=== PATIENT | female | born 1970 | race Hispanic/Latino ===

== ENCOUNTER 2018-03-21 09:09 | Inpatient (IN) | payer BC ==
[~2018-03-21] VITALS: Ht 157.5 cm; Wt 61.9 kg
[2018-03-21] MEDS ORDERED: PIPERACILLIN/TAZO 4.5 GM 100 ML IV ONE (09:45)
[2018-03-21] MEDS ORDERED: ENALAPRILAT IV INJ 1.25 MG/ML VIAL IV PRN ×2 (09:45→16:45)
[2018-03-21] MEDS ORDERED: ASPIRIN EC81 MG PO (09:52)
[2018-03-21] MEDS ORDERED: ATORVASTATIN CA40 MG PO (09:52)
[2018-03-21] MEDS ORDERED: FUROSEMIDE40 MG PO (09:52)
[2018-03-21] MEDS ORDERED: METFORMIN HCL500 MG PO (09:52)
[2018-03-21] MEDS ORDERED: BASAGLAR KWIKPEN SQ (09:52)
[2018-03-21] MEDS ORDERED: VASOTEC10 MG PO (09:52)
[2018-03-21] MEDS ORDERED: VANCOMYCIN 1GM/NS 250 ML 250 ML IV ONE (10:05)
[2018-03-21] MEDS ORDERED: CLONIDINE HCL 0.1 MG TAB PO ONE (10:15)
[2018-03-21 10:58] LABS: BASOPHILS # (AUTO) 0.1 (0.0-0.1); BASOPHILS % 0.3 % (0.0-1.0); EOSINOPHILS % 0.2 % (0.0-6.0); HEMATOCRIT 28.5 % (34.2-44.1); HEMOGLOBIN 9.9 g/dL (12.0-16.0); LYMPHOCYTES # (AUTO) 1.4 (1.0-3.2); LYMPHOCYTES % 7.7 % (18.0-39.1); MEAN CORPUSCULAR HEMOGLOBIN 29.9 pg (28-32); MEAN CORPUSCULAR HGB CONC 34.7 g/dL (31-35); MEAN CORPUSCULAR VOLUME 86.1 fL (81-99); MONOCYTES # (AUTO) 1.1 (0.2-0.8); MONOCYTES % 6.1 % (4.4-11.3); NEUTROPHILS # (AUTO) 15.1 (2.1-6.9); NEUTROPHILS % 85.2 % (38.7-80.0); PLATELET COUNT 680 x10e3/uL (140-360); RED BLOOD COUNT 3.31 x10e6/uL (3.6-5.1); RED CELL DISTRIBUTION WIDTH 12.9 % (11.7-14.4)
[2018-03-21] MEDS ORDERED: DEXTROSE 50% SYRINGE 50 ML IV PRN ×3 (11:15→16:45)
[2018-03-21] MEDS ORDERED: HYDROMORPHONE 2MG/ML 2 MG/ML ML IV PRN ×2 (11:15→16:45)
[2018-03-21] MEDS ORDERED: ZOLPIDEM TARTRATE 5 MG TAB PO PRN ×2 (11:15→16:45)
[2018-03-21] MEDS ORDERED: ONDANSETRON HCL INJ 2 MG/ML VIAL IV PRN ×2 (11:15→16:45)
[2018-03-21] MEDS ORDERED: ACETAMINOPHEN 325 MG TAB PO PRN (11:15)
[2018-03-21] MEDS ORDERED: MORPHINE SULFATE 2 MG/ML SYR IV PRN ×2 (11:15→16:45)
[2018-03-21] MEDS ORDERED: DIPHENHYDRAMINE HCL INJ 50 MG/ML VIAL IV PRN ×2 (11:15→16:45)
[2018-03-21] MEDS ORDERED: SODIUM CHLORIDE FLUSH 10 ML SYR INJ PRN ×2 (11:15→16:45)
[2018-03-21] MEDS ORDERED: LACTULOSE SYRUP 20 GM/30 ML UDC PO PRN ×2 (11:15→16:45)
[2018-03-21] MEDS ORDERED: INSULIN LISPRO 100 UNIT/1 ML 3ML VIAL SQ SCH ×3 (11:30→21:00)
[2018-03-21 11:57] LABS: ALBUMIN 1.8 g/dL (3.5-5.0); ALBUMIN/GLOBULIN RATIO 0.3 (0.8-2.0); ANION GAP 14.4 mmol/L (8-16); CALCIUM 9.2 mg/dL (8.4-10.2); CREATININE, SERUM 1.37 mg/dL (0.57-1.11); POTASSIUM 3.4 mmol/L (3.5-5.1)
--- NOTE | 2018-03-21 12:46 | Diagnostic Imaging Report ---
Exam: Left foot 2 views History: Fourth digit gangrene Comparison: None. Findings: The bones are diffusely osteopenic. No acute, displaced fracture or dislocation. Cortical destructive changes involving the distal phalanx of the fourth digit. Soft tissue swelling of the forefoot without subcutaneous gas. 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 Background diffuse osteopenia. Signed by: Dr. Shankar Rodriguez M.D. on 03/21/2018 12:43 PM
--- OUTSIDE RECORDS SUMMARY | 2018-03-21 13:57 | XMS REPORT ---
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 Allergies, Adverse Reactions, Alerts This patient has no known allergies or adverse reactions. Medications This patient has no known medications. Results Test Description Test Time Test Comments Text Results Atomic Results Result Comments FOOT LEFT AP LAT 2018-03-21 12:34:00 [place] [id number] Patient Name: TRINH RICHTER MR #: [id number] : 1970 Age/Sex: 47/F Req #: [id number] Adm Physician: Ordered by: ANNA PICHARDO MD Report #: [id number] Location: ER Room/Bed: Procedure: [id number] DX/FOOT LEFT AP LAT Exam Date: 03/21/18 Exam Time: 1150 REPORT STATUS: Signed Exam: Left foot 2 views History: Fourth digit ga ngrene Comparison: None. Findings: The bones are diffusely osteopenic. No acute, displaced fracture or dislocation. Cortical destructive changes involving the distal phalanx of the fourth digit. Soft tissue swelling of the forefoot without subcutaneous gas. 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 Background diffuse osteopenia. Signed by: Dr. Sariah Joseph M.D. on 03/21/2018 12:43 PM Dictated By: SARIAH JOSEPH MD [id number] Transcribed By: JAMES on 03/21/18 1243 COPY TO: ANNA PICHARDO MD
[2018-03-21 15:10] VITALS: BP 141/67
[2018-03-21 15:23] VITALS: BP 141/67
[2018-03-21] MEDS: INSULIN LISPRO 100 UNIT/1 ML 3ML VIAL SQ SCH ×2 (16:39→20:51)
[2018-03-21 16:40] VITALS: BP 121/63
[2018-03-21] MEDS ORDERED: SODIUM CHLORIDE 0.9% 250ML 250 ML ONE (16:42)
[2018-03-21] MEDS ORDERED: VANCOMYCIN 1GM/NS 250 ML 250 ML IV SCH ×2 (16:45→18:30)
[2018-03-21] MEDS ORDERED: PIPER-TAZ 3.375 GM 50 ML IV SCH (17:00)
[2018-03-21] MEDS: FAMOTIDINE 20 MG/2 ML VIAL IV SCH (17:00)
[2018-03-21] MEDS: PIPER-TAZ 3.375 GM 50 ML IV SCH ×2 (17:00→23:39)
[2018-03-21] MEDS ORDERED: FAMOTIDINE 20 MG/2 ML VIAL IV SCH (17:00)
[2018-03-21] MEDS: VANCOMYCIN 1GM/NS 250 ML 250 ML IV SCH (18:00)
[2018-03-21 19:58] VITALS: BP 120/60
--- NOTE | 2018-03-21 21:27 | Consultation ---
DATE OF CONSULTATION: March 21, 2018 CARDIOLOGY CONSULTATION REFERRING PHYSICIAN: Dr. Neeraj Cordova. REASON FOR CONSULTATION: Left fourth toe gangrene. HISTORY OF PRESENT ILLNESS: Ms. Weeks is a pleasant 47-year-old woman with history of diabetic retinopathy and decreased visual acuity, hypertension, diabetes mellitus type 2, and hyperlipidemia, who presents to [facility] for worsening discoloration of left fourth toe, occurring over the preceding couple of weeks. She denies any chest pain or shortness of breath. Denies any prior episodes of syncope or presyncope. Denies any prior history of known atherosclerotic vascular disease other than carotid disease noted by Doppler ultrasound in the past. REVIEW OF SYSTEMS: A 12-system review is negative except for as noted above. ALLERGIES: NO KNOWN DRUG ALLERGIES. PAST MEDICAL HISTORY: Diabetes mellitus type 2, hypertension, dyslipidemia, carotid artery disease by Doppler, retinopathy, and nephropathy. SOCIAL HISTORY: Denies smoking, alcohol, or drugs. FAMILY HISTORY: Noncontributory. PHYSICAL EXAMINATION VITAL SIGNS: Temperature 98 degrees, heart rate 101, respiratory rate 20, blood pressure 121/63, and O2 sat 100% on room air. GENERAL: In no acute distress, alert. NECK: No JVD. Right carotid bruit. CHEST: Clear to auscultation. CARDIOVASCULAR: Regular rate and rhythm. Normal S1 and S2. No S3 or S4. No murmurs or rubs. ABDOMEN: Soft, nontender, nondistended. EXTREMITIES: No edema. Warm distal extremities. Abnormal dorsalis pedis and posterior tibials pulses, decreased bilaterally. Left first toe gangrene with discoloration of the MTP area, skin overlying has purulent secretion and erythema surrounding fourth toe and tenderness to palpation. CARDIOVASCULAR MEDICATIONS: Reviewed. Zosyn and vancomycin were antibiotics. Enalapril p.r.n. and amlodipine 10 mg daily. STUDIES: Reviewed. Sodium 134, potassium 3.4, chloride 98, bicarbonate 25, BUN 30, creatinine 1.37, glucose 96, calcium 9.2. Total bilirubin 0.3, AST 20, ALT 21, alk phos 324, total protein 7.4, albumin 1.8. Hemoglobin 9.9 with MCV of 86 and RDW of 12.9, white blood cells 17.7, platelets 680. Blood cultures ordered and pending. Gram stain wound culture sent. EKG normal sinus rhythm, normal EKG. ASSESSMENT 1. Left fourth toe gangrene and cellulitis/abscess. 2. Abnormal pedal pulses concerning for peripheral arterial disease. 3. Diabetes mellitus with nephropathy and retinopathy. 4. Chronic kidney disease. 5. Right carotid bruit with history of abnormal carotid Doppler reported by patient, asymptomatic. RECOMMENDATIONS: Arterial Doppler ultrasound has been ordered and is pending. We will initiate aspirin and statin therapy. Aggressive diabetes management advised. Agree with antibiotics and foot care per podiatry. Low threshold for arterial angiogram and possible intervention. Discussed with patient given abnormal findings on physical exam. We will await arterial Doppler to further plan. Indications, alternatives, risks, and benefits for possible angiography and a percutaneous peripheral intervention has been discussed with patient and family members who voice agreement. 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 As available, we will proceed. Job#: [id number] SHANE
[2018-03-21 23:00] VITALS: BP 120/60
[2018-03-22] VITALS (9 sets, daily range): BP systolic 130–145; BP diastolic 62–72
[2018-03-22 05:10] LABS: ALBUMIN 1.4 g/dL (3.5-5.0); ALBUMIN/GLOBULIN RATIO 0.3 (0.8-2.0); ANION GAP 12.1 mmol/L (8-16); CALCIUM 8.4 mg/dL (8.4-10.2); CREATININE, SERUM 1.68 mg/dL (0.57-1.11); POTASSIUM 4.1 mmol/L (3.5-5.1)
[2018-03-22] MEDS: PIPER-TAZ 3.375 GM 50 ML IV SCH ×4 (05:20→23:40)
[2018-03-22 05:38] LABS: CHOL/HDL RATIO 4.5 (3.0-3.6)
[2018-03-22 05:51] LABS: BASOPHILS % 0.3 % (0.0-1.0); EOSINOPHILS # (AUTO) 0.1 (0.0-0.4); EOSINOPHILS % 0.9 % (0.0-6.0); HEMOGLOBIN 7.4 g/dL (12.0-16.0); LYMPHOCYTES # (AUTO) 1.6 (1.0-3.2); LYMPHOCYTES % 13.7 % (18.0-39.1); MEAN CORPUSCULAR HEMOGLOBIN 29.1 pg (28-32); MEAN CORPUSCULAR HGB CONC 33.5 g/dL (31-35); MONOCYTES # (AUTO) 0.9 (0.2-0.8); MONOCYTES % 7.9 % (4.4-11.3); NEUTROPHILS # (AUTO) 8.9 (2.1-6.9); NEUTROPHILS % 76.8 % (38.7-80.0); PLATELET COUNT 538 x10e3/uL (140-360); RED BLOOD COUNT 2.54 x10e6/uL (3.6-5.1); RED CELL DISTRIBUTION WIDTH 12.6 % (11.7-14.4)
[2018-03-22 05:56] LABS: HEMATOCRIT 22.1 % (34.2-44.1)
[2018-03-22 05:58] LABS: THYROID STIMULATING HORMONE 2.804 uIU/mL (0.350-4.940)
[2018-03-22] MEDS: VANCOMYCIN 1GM/NS 250 ML 250 ML IV SCH ×2 (06:08→17:54)
[2018-03-22] MEDS ORDERED: SODIUM CHLORIDE 0.9% 1000ML 1,000 ML IV ONE (07:15)
[2018-03-22] MEDS: INSULIN LISPRO 100 UNIT/1 ML 3ML VIAL SQ SCH ×4 (07:30→22:00)
[2018-03-22] MEDS ORDERED: FAMOTIDINE 20 MG/2 ML VIAL IV PRN (08:15)
[2018-03-22] MEDS: HYDROCODONE/APAP 5MG-325MG TAB PO PRN (08:18)
[2018-03-22] MEDS ORDERED: SODIUM CHLORIDE 0.9% 250ML 250 ML IV ONE (09:00)
[2018-03-22] MEDS: AMLODIPINE BESYLATE 10 MG TAB PO SCH (09:00)
[2018-03-22] MEDS: ATORVASTATIN 40 MG TAB PO SCH (09:00)
[2018-03-22] MEDS: FAMOTIDINE 20 MG/2 ML VIAL IV SCH ×2 (09:00→17:00)
[2018-03-22] MEDS ORDERED: ATORVASTATIN 20 MG TAB PO SCH (09:00)
[2018-03-22] MEDS: ASPIRIN 81 MG CHEW TAB PO SCH (09:00)
[2018-03-22] MEDS ORDERED: AMLODIPINE BESYLATE 10 MG TAB PO SCH ×2 (09:00)
[2018-03-22] MEDS: ACETAMINOPHEN 325 MG TAB PO PRN (13:15)
[2018-03-22] MEDS ORDERED: SODIUM CHLORIDE 0.9% 250ML 250 ML ONE (13:22)
--- NOTE | 2018-03-22 17:11 | Progress Note ---
DATE: March 22, 2018 CARDIOLOGY PROGRESS NOTE SUBJECTIVE: No complaints today. OBJECTIVE VITALS: Temperature 98.3, heart rate 101, respiratory rate 20, blood pressure 130/62, O2 sat 96% on room air. GENERAL: In no acute distress, alert. NECK: No JVD. Right carotic bruits. CHEST: Clear to auscultation. CARDIOVASCULAR: Regular rate and rhythm. Normal S1 and S2. No S3 or S4. ABDOMEN: Soft and nontender. EXTREMITIES: Left 4th toe gangrene and base of toe with secretion and discoloration. Abnormal pedal pulses and dorsalis pedis as well as posterior tibialis bilaterally. CARDIOVASCULAR MEDICATIONS: Reviewed. 1. Atorvastatin 80 gm daily. 2. Aspirin 81 mg daily. 3. Amlodipine 10 mg daily. 4. Zosyn and vancomycin antibiotics. STUDIES: White blood cells 11.6 trending down, hemoglobin 7.4 down from 9.9, platelets 138, MCV is 87, RDW is 12.6. Sodium 137, potassium 4.1, chloride 104, bicarbonate 25, BUN 36, creatinine 1.68, glucose 126. Hemoglobin A1c elevated at 10.4. Total bilirubin is 0.2. Calcium 8.4, AST 16, ALT 18, alk phos 260, total protein 6, albumin 1.4, triglyceride is 93. Total cholesterol 130, LDL 82, HDL 29, TSH 2.8. Stool occult blood negative. Foot x-ray; osteomyelitis of the distal phalanx of the 4th ray, background diffuse osteopenia. Arterial Doppler of the left lower extremity reveals outflow severe disease with left posterior tibial artery and left anterior tibial artery and dorsalis pedis artery monophasic waveforms, also elevated velocities to 285 noted in the mid left AT as well as 2nd segment of elevated velocity of the left DPA 171 consistent with hemodynamically significant stenosis throughout this vessel. ASSESSMENT 1. Anemia with negative first occult blood in stools. 2. Acute kidney injury on chronic kidney disease. 3. Carotid stenosis with right carotid bruits. 4. Peripheral arterial disease with outflow disease to the left lower extremity, presenting with critical limb ischemia and left 4th toe osteomyelitis gangrene. 5. Hypertension. 6. Dyslipidemia. RECOMMENDATIONS: Discussed extensively with Ms. Weeks her findings. I suspect significant degree of diabetic foot disease component given her retinopathy and visual impairments as well as her nephropathy given her elevated velocities in the dorsal pedis artery on Doppler. Furthermore, angiography to further determine [id number] disease that might potentially benefit from revascularization or be amenable to revascularization is wanted. Prior to this, however, would suggest further evaluation of anemia given drop in H and H as well as renal failure with acute component. For now, continue aggressive medical therapy, antibiotics. Will follow closely. 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 Job#: [id number] ALFONSO
--- NOTE | 2018-03-22 22:29 | Progress Note ---
DATE: March 22, 2018 PROGRESS NOTE SUBJECTIVE: Patient was seen at bedside, accompanied by spouse. Doing much better, in better spirits. Denying any history of fever, chills, nausea, or vomiting. OBJECTIVE VITAL SIGNS: Afebrile. Pulse rate 100, respirations 20, blood pressure 139/67, and O2 saturation 97%. EXTREMITIES: Gangrenous changes to the 4th toe stable for now. Pedal pulses are diminished. LABS: White blood cell dropping from 17.7 to 11.6, hemoglobin to 7.4, and hematocrit 22.1 with a platelet count of 538. Has a blood glucose dropping from 215 to 125 as of 03:28. ASSESSMENT: Peripheral artery disease with gangrene, left foot with cellulitis. PLAN: We will await Dr. Blank to do his angiogram and possible bypass surgery. Patient instructed to let the foot demarcate before any definitive surgical procedure will be done. Amputation level will be determined following demarcation of the toe following an angiogram with possible angioplasty. We will continue IV antibiotics and local wound care. Job#: [id number] RTSrini
--- NOTE | 2018-03-22 23:31 | Consultation ---
DATE OF CONSULTATION: March 21, 2018 REASON FOR CONSULTATION: Gangrenous changes to the 4th digit, left foot, with patient being an insulin-dependent diabetic times 3 years but has been a noninsulin-dependent diabetic times 20+ years. HISTORY OF PRESENT ILLNESS: This is a pleasant 47-year-old female who was seen at bedside accompanied by spouse and son who relates that the toe started becoming somewhat discolored 3 to 4 weeks ago. It started turning black more than a week ago. She is denying any history of fever, chills, nausea, or vomiting. PAST MEDICAL HISTORY: Remarkable for insulin-dependent diabetes, hypertension. PAST SURGICAL HISTORY: Remarkable for 2 C-sections. ALLERGIES: PATIENT DENIES. SOCIAL HISTORY: Denies any smoking, drinking, or recreational drug use. Lives with her , has 2 kids. FAMILY HISTORY: Noncontributory. REVIEW OF SYSTEMS CARDIAC: Denies any palpitations or arrhythmias. RESPIRATORY: Denies any shortness of breath or productive cough. GASTROINTESTINAL: Denies any diarrhea or constipation. GENITOURINARY: Denies hematuria or problems voiding. PHYSICAL EXAMINATION VITALS: Afebrile. PODIATRIC PHYSICAL EXAMINATION Reveals the following: Vasculature: Pedal pulses of both the dorsalis pedis and posterior tibial arteries are diminished to both lower extremities. CFT to all toes less than 5 seconds. Skin temperature is warm and cool to touch. NEUROLOGICAL: Decrease in protective sensation when utilizing V[employer] 5.07 monofilament wire. Muscle mass is symmetrical and strength is 4/5 to 5/5 to all muscle groups. Edema noted to the left foot when compared to the right. DERMATOLOGICAL: Gangrenous changes to the 4th digit, left foot, up to the metatarsophalangeal joint with periwound cellulitis at the metatarsophalangeal joint area. X RAYS: Negative for any gas in the tissue at this time. LABS: Noted, has a white blood cell count of 17.71, hemoglobin 9.9, hematocrit 28.5 with a platelet count of 680,000. ASSESSMENT 1. Gangrene, 4th toe, left foot. 2. Peripheral arterial disease. 3. Diabetic neuropathy. PLAN: Will start diluted wet-to-dry Betadine dressing. Consult Dr. Jan Blank for vascular evaluation. Continue IV antibiotics such as vancomycin and Zosyn. Will continue to follow. Will let the foot demarcate. Patient will need an angiogram with possible bypass surgery per Dr. Blank. Job#: [id number] CF
[2018-03-23] VITALS (8 sets, daily range): BP systolic 129–176; BP diastolic 66–77
[2018-03-23 04:50] LABS: BASOPHILS # (AUTO) 0.1 (0.0-0.1); BASOPHILS % 0.5 % (0.0-1.0); EOSINOPHILS # (AUTO) 0.1 (0.0-0.4); EOSINOPHILS % 0.8 % (0.0-6.0); HEMATOCRIT 25.3 % (34.2-44.1); HEMOGLOBIN 8.5 g/dL (12.0-16.0); LYMPHOCYTES # (AUTO) 1.5 (1.0-3.2); LYMPHOCYTES % 11.3 % (18.0-39.1); MEAN CORPUSCULAR HEMOGLOBIN 28.9 pg (28-32); MEAN CORPUSCULAR HGB CONC 33.6 g/dL (31-35); MEAN CORPUSCULAR VOLUME 86.1 fL (81-99); MONOCYTES % 7.7 % (4.4-11.3); NEUTROPHILS # (AUTO) 10.3 (2.1-6.9); NEUTROPHILS % 79.2 % (38.7-80.0); PLATELET COUNT 520 x10e3/uL (140-360); RED BLOOD COUNT 2.94 x10e6/uL (3.6-5.1)
[2018-03-23] MEDS: PIPER-TAZ 3.375 GM 50 ML IV SCH ×4 (05:10→23:27)
[2018-03-23 05:13] LABS: ANION GAP 15.6 mmol/L (8-16); CALCIUM 8.5 mg/dL (8.4-10.2); CREATININE, SERUM 1.83 mg/dL (0.57-1.11); MAGNESIUM 1.9 MG/DL (1.3-2.1); POTASSIUM 3.6 mmol/L (3.5-5.1)
[2018-03-23 05:34] LABS: FERRITIN 193.23 ng/mL (4.63-204.00)
[2018-03-23 06:34] LABS: FOLATE 17.3 ng/mL (7.0-15.4)
[2018-03-23] MEDS: INSULIN LISPRO 100 UNIT/1 ML 3ML VIAL SQ SCH ×4 (07:30→21:30)
[2018-03-23] MEDS: HYDROCODONE/APAP 5MG-325MG TAB PO PRN (08:28)
[2018-03-23] MEDS: SODIUM CHLORIDE 0.9% 1000ML 1,000 ML IV SCH ×2 (09:03→14:05)
[2018-03-23] MEDS: ATORVASTATIN 40 MG TAB PO SCH (09:05)
[2018-03-23] MEDS: ASPIRIN 81 MG CHEW TAB PO SCH (09:05)
[2018-03-23] MEDS: FAMOTIDINE 20 MG/2 ML VIAL IV SCH ×2 (09:05→17:52)
[2018-03-23] MEDS: AMLODIPINE BESYLATE 10 MG TAB PO SCH (09:06)
[2018-03-23] MEDS: ASCORBIC ACID 500 MG TAB PO SCH ×2 (11:20→17:52)
--- NOTE | 2018-03-23 14:05 | Progress Note ---
DATE: March 23, 2018 SUBJECTIVE: Patient is at bedside accompanied by spouse. Denying any history of fever, chills, nausea, or vomiting. OBJECTIVE VITAL SIGNS: Afebrile, pulse rate 109, respirations 18, blood pressure 176/77, O2 saturation 97%. EXTREMITIES: Has forefoot cellulitis with some discomfort overlying the 4th metatarsophalangeal joint, left foot. Gangrenous changes noted to the 4th digit, left foot with a grade 4 ulcer medial and lateral with some bone exposed. Plantarly, there is some mild discoloration to the 2nd and 3rd digits and beginning of discoloration to the 5th digit, left foot. Pedal pulses are diminished, but diminished to nonpalpable. Skin temperature is warm to touch on this date. LABS: Show a white blood cell count 12.96, hemoglobin 8.5, hematocrit 25.3 with a platelet count of 520,000. ASSESSMENT 1. Peripheral artery disease with gangrene, grade 4 ulcer. 2. Diabetic neuropathy with cellulitis. PLAN: Will continue IV antibiotics such as Zosyn. Vanco has been put on hold. Will continue with diluted wet-to-dry Betadine b.i.d. Continue off loading. Will continue to follow. Patient will be having an angiogram possibly on Monday. Possible angioplasty per Dr. Blank. Job#: [id number] NH
--- NOTE | 2018-03-23 15:23 | Progress Note ---
DATE: March 23, 2018 CARDIOLOGY PROGRESS NOTE SUBJECTIVE: No complaints. OBJECTIVE VITALS: Temperature 96 degrees, heart rate 109, respiratory rate 18, blood pressure 176/77. O2 sat 97%. BMI is 23. GENERAL: In no acute distress, alert. NECK: No JVD. CHEST: Clear to auscultation. CARDIOVASCULAR: Regular rate and rhythm. Normal S1 and S2. No S3 or S4. ABDOMEN: Soft and nontender. EXTREMITIES: Trace edema. Left foot wound covered in dressings. CARDIOVASCULAR MEDICATIONS: Reviewed. 1. P.R.N. enalapril. 2. Morphine p.r.n. 3. Normal saline IV. 4. Aspirin 81 mg daily. 5. Amlodipine 10 mg daily. 6. Atorvastatin 80 mg nightly. 7. Ferrous sulfate 325 mg b.i.d. 8. Metoprolol 25 mg daily. 9. Zosyn. STUDIES: Reviewed. Potassium 3.6, bicarbonate 21, creatinine 1.83 today, glucose 98. Hemoglobin 8.5, platelets 520. AST 16, ALT 18. White blood cells remain elevated at 12.9. ASSESSMENT 1. Sepsis. 2. Left 4th toe gangrene and osteomyelitis with associated ischemic changes. 3. Abnormal arterial Doppler concerning for severe outflow peripheral arterial disease. 4. Acute kidney injury on chronic kidney disease. 5. Diabetes mellitus, type 2, with nephropathy and retinopathy and peripheral arterial disease. 6. Anemia. RECOMMENDATIONS 1. Given worsening renal function, hold off on angiography for now until more stable. Would suggest nephrology consultation. 2. Anemia evaluation and advice. 3. Continue current cardiovascular medications otherwise. Overall guarded foot prognosis. I agree with antibiotic and wound care as renal function and anemia allow. If there is a window of opportunity for angiography and possible intervention in a safe manner, will arrange. Will follow closely on a daily basis. Job#: [id number]
[2018-03-23] MEDS: FERROUS SULFATE 325 MG TAB PO SCH (17:52)
[2018-03-24] VITALS (8 sets, daily range): BP systolic 130–154; BP diastolic 63–73
[2018-03-24] MEDS: ACETAMINOPHEN 325 MG TAB PO PRN (00:48)
[2018-03-24] MEDS: SODIUM CHLORIDE 0.9% 1000ML 1,000 ML IV SCH ×2 (00:49→03:00)
[2018-03-24 04:53] LABS: BASOPHILS # (AUTO) 0.1 (0.0-0.1); BASOPHILS % 0.5 % (0.0-1.0); EOSINOPHILS # (AUTO) 0.3 (0.0-0.4); EOSINOPHILS % 2.1 % (0.0-6.0); HEMATOCRIT 25.2 % (34.2-44.1); HEMOGLOBIN 8.4 g/dL (12.0-16.0); LYMPHOCYTES # (AUTO) 2.1 (1.0-3.2); LYMPHOCYTES % 16.6 % (18.0-39.1); MEAN CORPUSCULAR HEMOGLOBIN 28.9 pg (28-32); MEAN CORPUSCULAR HGB CONC 33.3 g/dL (31-35); MEAN CORPUSCULAR VOLUME 86.6 fL (81-99); NEUTROPHILS # (AUTO) 9.1 (2.1-6.9); NEUTROPHILS % 72.2 % (38.7-80.0); PLATELET COUNT 514 x10e3/uL (140-360); RED BLOOD COUNT 2.91 x10e6/uL (3.6-5.1); RED CELL DISTRIBUTION WIDTH 12.8 % (11.7-14.4)
[2018-03-24 05:12] LABS: ANION GAP 13.9 mmol/L (8-16); CALCIUM 8.2 mg/dL (8.4-10.2); CREATININE, SERUM 1.98 mg/dL (0.57-1.11); MAGNESIUM 1.9 MG/DL (1.3-2.1); POTASSIUM 3.9 mmol/L (3.5-5.1)
[2018-03-24] MEDS: HYDROCODONE/APAP 5MG-325MG TAB PO PRN ×2 (05:25→17:47)
[2018-03-24] MEDS: PIPER-TAZ 3.375 GM 50 ML IV SCH ×2 (05:27→12:10)
[2018-03-24] MEDS ORDERED: METOPROLOL TARTRATE 25 MG TAB PO SCH (09:00)
[2018-03-24] MEDS: INSULIN LISPRO 100 UNIT/1 ML 3ML VIAL SQ SCH ×4 (09:14→21:51)
[2018-03-24] MEDS: FERROUS SULFATE 325 MG TAB PO SCH ×2 (09:15→17:23)
[2018-03-24] MEDS: ATORVASTATIN 40 MG TAB PO SCH (09:15)
[2018-03-24] MEDS: ASPIRIN 81 MG CHEW TAB PO SCH (09:15)
[2018-03-24] MEDS: FAMOTIDINE 20 MG/2 ML VIAL IV SCH ×2 (09:15→17:23)
[2018-03-24] MEDS: AMLODIPINE BESYLATE 10 MG TAB PO SCH (09:20)
[2018-03-24] MEDS: ASCORBIC ACID 500 MG TAB PO SCH ×2 (09:20→17:23)
[2018-03-24] MEDS: OYST-CAL-D 500MG TABLET PO SCH ×2 (09:20→17:23)
--- NOTE | 2018-03-24 12:57 | Consultation ---
DATE OF CONSULTATION: March 24, 2018 NEPHROLOGY CONSULTATION REASON FOR CONSULTATION: Acute kidney injury. HPI: This is a 47-year-old female who has a left diabetic foot ulcer with underlying cellulitis and abscess, who also has underlying CKD and longstanding type 2 diabetes, who comes in due to worsening pain in the left foot with 4th toe gangrene, cellulitis, and abscess with chronic debridement by podiatry and evaluation by cardiology. Nephrology was consulted due to underlying acute kidney injury. In further discussion with the patient, she has never been told that she has chronic kidney disease. She has been having diabetes for the last 20 years and reports that it has been controlled occasionally and sometimes uncontrolled. She does have underlying peripheral neuropathy and peripheral retinopathy as well. Denies any hypertension. Denies any nephrolithiasis, chronic UTIs, family history of renal disease. She does report taking NSAIDS about 3 to 4 times per week due to chronic pain in her left foot. Patient was seen and evaluated at bedside on the medical floor, currently doing well, with no other complaints at this time. REVIEW OF SYSTEMS: Pertinent positive: Left foot cellulitis with pain. Pertinent negative: Denies any chest pain, palpitation, nausea, vomiting, diarrhea, dysuria, hematuria, frequency, urgency, lightheadedness, dizziness, abdominal pain, headache, shortness of breath, cough, congestion, fever, or any other complaints. The rest of 14-point review of systems have been reviewed with the patient and are negative. ALLERGIES: NO KNOWN DRUG ALLERGIES. HOME MEDICATIONS 1. Aspirin 81 mg daily. 2. Enalapril 10 mg daily. 3. Furosemide 40 mg daily,. 4. Metformin 500 mg p.o. b.i.d. 5. Atorvastatin 40 mg daily. PAST MEDICAL HISTORY: Type 2 diabetes for 20 years, hyperlipidemia, hypertension, diabetic foot ulcer, peripheral neuropathy, diabetic retinopathy. PAST SURGICAL HISTORY: Debridement in her left foot. FAMILY HISTORY: Hypertension and diabetes. SOCIAL HISTORY: No drugs. No alcohol. Does not smoke. Good social support. LAB FINDINGS: Show white count is 12.5, hemoglobin 8.4, hematocrit is 25, platelets of 514. Chemistry: Sodium 136, potassium 3.9, chloride 107, bicarb is 19, anion gap of 13, BUN is 31, creatinine is 1.9, and her baseline here at this hospital is 1.3. There are no other creatinines to compare. Hemoglobin A1c is 8.2, magnesium 1.9, iron saturation of 17%. GFR is 27. MICROBIOLOGY: She has Staph aureus group A strep and Pseudomonas on her wound culture. Blood cultures revealed no growth to date. IMAGING STUDIES: Foot x-ray shows osteomyelitis of the distal phalanx of the 4th ray with diffuse osteopenia. PHYSICAL EXAMINATION VITAL SIGNS: Temperature is 97.9, pulse 100, respiratory rate is 20, blood pressure 154/74, pulse ox 97% on room air. GENERAL: Not in acute distress, alert and oriented x3, cooperative on examination. HEENT: Head normocephalic, atraumatic. Eyes: Pupils are equal, round, and reactive to light bilaterally. Extraocular movements intact bilaterally. Throat: No evidence of any erythema or exudates in the posterior pharynx, has poor dentition. NECK: Supple with good range of motion. PULMONARY: Clear to auscultation bilaterally. No wheezing, no rales, no rhonchi, no crackles appreciated. CARDIOVASCULAR: Positive S1 and S2. No murmurs, rubs, or gallops appreciated. ABDOMEN: Soft, nondistended, nontender to palpation. Bowel sounds present. MUSCULOSKELETAL: Strength is 5/5 throughout. No evidence of any muscle deficits on examination. No weakness appreciated. NEUROLOGICAL: Cranial nerves II through XII are grossly intact. No evidence of any neurological deficits on exam. SKIN: Intact. Warm to touch. Good cap refill. PSYCHIATRIC: Normal affect and mood. EXTREMITIES: No edema. Good range of motion throughout. IMPRESSION 1. Diabetic foot ulcer. 2. Uncontrolled type 2 diabetes. 3. Acute kidney injury on chronic kidney disease, likely to be chronic kidney disease stage 4 due to her longstanding type 2 diabetes. 4. History of nonsteroidal antiinflammatory drug usage. 5. Small vessel disease. PLAN: At this time, I will get urine electrolytes, urine sodium, urine protein to creatinine ratio, urine creatinine, microalbumin to creatinine, and UA with microscopy. We will get serum uric acid, intact PTH, and vitamin D level. Get a renal ultrasound as well. My guess is that this patient's underlying renal failure is likely due to diabetes from several years. Otherwise, we will continue to follow. Thank you so much for this consultation. Job#: [id number] DONALDO
--- NOTE | 2018-03-24 17:11 | Progress Note ---
DATE: March 24, 2018 CARDIOLOGY PROGRESS NOTE SUBJECTIVE: No complaints today. OBJECTIVE VITAL SIGNS: Temperature 97.7, heart rate 97, respiratory rate 18, blood pressure 133/73, O2 sat 98%. GENERAL: In no acute distress, alert. NECK: No JVD. CHEST: Clear to auscultation. CARDIOVASCULAR: Regular rate and rhythm. Normal S1 and S2. No S3 or S4. ABDOMEN: Soft and nontender. EXTREMITIES: No edema. Normal pedal and dorsalis pedis pulses. Left 4th toe gangrene. CARDIOVASCULAR MEDICATIONS: Reviewed. 1. Zosyn and vancomycin antibiotics. 2. Amlodipine 10 mg daily. 3. Aspirin 81 mg daily. 4. Ferrous sulfate 325 mg b.i.d. 5. Atorvastatin 80 mg nightly. 6. Metoprolol titrate 25 mg daily. 7. Enalapril 1.25 mg IV q.6 hours p.r.n. STUDIES: Reviewed. Sodium 136, potassium 3.9, chloride 107, bicarbonate 19, BUN 31, creatinine 1.92, and glucose 110. Hemoglobin 8.4, white blood cell 12.5, and platelets 514. AST 16, ALT 18, alk phos 260. ASSESSMENT 1. Acute kidney injury on chronic kidney disease 2. Metabolic acidosis. 3. Suspected anemia of chronic disease. 4. Carotid artery stenosis with right-sided bruits on exam. 5. Left 4th toe gangrene and osteomyelitis. 6. Peripheral arterial disease. 7. Hypertension. 8. Diabetes mellitus type 2 with nephropathy and retinopathy. 9. Dyslipidemia. RECOMMENDATIONS 1. Given worsening renal function, we will hold off on angiography for now. 2. Appreciate nephrology's expert opinion. 3. Continue current cardiovascular medications. Avoid nephrotoxic agents as possible. 4. Fecal occult blood was negative. Monitor H and H. 5. Antibiotics per primary service. 6. Podiatry on board. Job#: [id number] ALFONSO
[2018-03-24 17:42] LABS: CLARITY,URINE HAZY (CLEAR); COLOR,URINE YELLOW (YELLOW)
[2018-03-24 17:43] LABS: BILIRUBIN,URINE NEGATIVE (NEGATIVE); KETONES,URINE NEGATIVE (NEGATIVE); LEUKOCYTE ESTERASE ,URINE NEGATIVE (NEGATIVE); NITRITE,URINE NEGATIVE (NEGATIVE); PROTEIN,URINE DIPSTICK 3+ (NEGATIVE); URINE UROBILINOGEN 0.2 mg/dL (0.2 - 1)
[2018-03-24 17:57] LABS: BACTERIA,URINE MODERATE /HPF; EPITHELIAL CELLS,URINE MANY /LPF; WBC,URINE (MAN) 0-5 /HPF (0-5)
[2018-03-24 18:06] LABS: SODIUM,URINE 47 mmol/L
[2018-03-24 19:09] LABS: TOTAL PROTEIN, URINE 826.9 mg/dL (1-14)
[2018-03-24 19:23] LABS: CREATININE,URINE RANDOM 73.35 mg/dL (47-110)
[2018-03-24] MEDS: PIPERACILLIN/TAZO 2.25 GM 50 ML IV SCH (21:53)
[2018-03-25] VITALS (8 sets, daily range): BP systolic 124–143; BP diastolic 58–69
--- NOTE | 2018-03-25 00:20 | Consultation ---
DATE OF CONSULTATION: March 24, 2018 REASON FOR CONSULTATION: Gangrene of the 4th toe on the left and cellulitis. HISTORY OF PRESENT ILLNESS: This patient who is 47-year-old Latin-[place] female with history of diabetes mellitus, history of neuropathy, legally blind, hypertension, atherosclerotic disease, and neuropathy, comes into the emergency room with worsening left foot redness and swelling in the 4th toe. It is becoming gangrene, it changed and so the patient was admitted. She was seen by podiatry, she was seen by vascular surgery, and now I was asked to see her. The patient is currently lying in bed, complaining of pain in the left foot. She said it has been like this for at least 6 days or so, but she clearly cannot say and she cannot give an accurate information. PAST MEDICAL HISTORY: Diabetes mellitus type 2, hypertension, hyperlipidemia, carotid arterial disease, retinopathy, and neuropathy. SOCIAL HISTORY: Does not smoke or drug abuse or alcohol abuse. FAMILY HISTORY: Diabetes mellitus and hypertension. REVIEW OF SYSTEMS: At the present time; HEENT: Negative. PULMONARY: Negative. CARDIAC: Negative. : Negative. SKIN: There is no other rash. LABS: She has blood culture, which was negative. Wound is showing Streptococcus group A, Staphylococcus aureus, and Pseudomonas aeruginosa. White count is 12.58 and hemoglobin 8.4. Her sodium is 136, potassium 3.9, and creatinine 1.98. Patient has arterial Doppler. She had an x-ray of the foot, which showed osteomyelitis of the distal phalanx of 4th ray. PHYSICAL EXAMINATION GENERAL: She is currently alert and oriented. Does not seem to be in any acute distress. VITAL SIGNS: Stable, currently afebrile. HEENT: She is normocephalic. Not icteric. NECK: Supple. No JVD. No lymphadenopathy. No thyromegaly. CHEST: Clear. Bilateral coarse. HEART: S1, S2. No S3, S4 or murmur. ABDOMEN: Soft. Bowel sounds are present. EXTREMITIES: She did have redness and swelling of her 4th toe and gangrene changes. Patient is currently on Zosyn and vancomycin. IMPRESSION: Gangrene of the 4th toe and osteomyelitis in a patient with diabetes mellitus atherosclerotic disease, coronary artery disease, and peripheral vascular disease. Patient also has chronic kidney disease. PLAN: The cultures reflect skin harry. Continue with Zosyn. We will adjust for kidney function. Discontinue vancomycin. Obtain sed rate and C-reactive protein. We will follow with you. Job#: [id number] MARC
[2018-03-25 03:27] LABS: BASOPHILS # (AUTO) 0.1 (0.0-0.1); BASOPHILS % 0.4 % (0.0-1.0); EOSINOPHILS # (AUTO) 0.3 (0.0-0.4); EOSINOPHILS % 2.1 % (0.0-6.0); HEMATOCRIT 24.8 % (34.2-44.1); HEMOGLOBIN 8.5 g/dL (12.0-16.0); LYMPHOCYTES # (AUTO) 1.9 (1.0-3.2); LYMPHOCYTES % 13.5 % (18.0-39.1); MEAN CORPUSCULAR HEMOGLOBIN 29.4 pg (28-32); MEAN CORPUSCULAR HGB CONC 34.3 g/dL (31-35); MEAN CORPUSCULAR VOLUME 85.8 fL (81-99); MONOCYTES % 7.3 % (4.4-11.3); NEUTROPHILS # (AUTO) 10.4 (2.1-6.9); PLATELET COUNT 550 x10e3/uL (140-360); RED BLOOD COUNT 2.89 x10e6/uL (3.6-5.1); RED CELL DISTRIBUTION WIDTH 12.9 % (11.7-14.4)
[2018-03-25 03:39] LABS: ANION GAP 14.7 mmol/L (8-16); CALCIUM 8.6 mg/dL (8.4-10.2); CREATININE, SERUM 1.94 mg/dL (0.57-1.11); MAGNESIUM 1.9 MG/DL (1.3-2.1); POTASSIUM 3.7 mmol/L (3.5-5.1)
[2018-03-25] MEDS: PIPERACILLIN/TAZO 2.25 GM 50 ML IV SCH ×3 (05:34→21:12)
[2018-03-25] MEDS: HYDROCODONE/APAP 5MG-325MG TAB PO PRN ×3 (07:09→19:35)
[2018-03-25] MEDS ORDERED: MORPHINE SULFATE INJ 4 MG/ML INJ IV PRN (07:45)
[2018-03-25] MEDS: INSULIN LISPRO 100 UNIT/1 ML 3ML VIAL SQ SCH ×4 (09:06→20:25)
[2018-03-25] MEDS: FAMOTIDINE 20 MG/2 ML VIAL IV SCH ×2 (09:07→16:47)
[2018-03-25] MEDS: ASPIRIN 81 MG CHEW TAB PO SCH (09:07)
[2018-03-25] MEDS: FERROUS SULFATE 325 MG TAB PO SCH ×2 (09:07→16:47)
[2018-03-25] MEDS: OYST-CAL-D 500MG TABLET PO SCH ×2 (09:07→16:47)
[2018-03-25] MEDS: AMLODIPINE BESYLATE 10 MG TAB PO SCH (09:07)
[2018-03-25] MEDS: ATORVASTATIN 40 MG TAB PO SCH (09:07)
[2018-03-25] MEDS: METOPROLOL SUCCINATE 25 MG TAB XL PO SCH (09:07)
[2018-03-25] MEDS: ASCORBIC ACID 500 MG TAB PO SCH ×2 (09:08→16:47)
--- NOTE | 2018-03-25 11:06 | Progress Note ---
DATE: March 25, 2018 NEPHROLOGY PROGRESS NOTE SUBJECTIVE: Patient doing well today with no complaints of fever. LAB FINDINGS: Show a white count of 13.6, hemoglobin 8.5, hematocrit is 24.8, platelets of 550. Chemistry: Sodium 134, potassium 3.7, chloride 105, bicarb 18, anion gap of 14, BUN 32, creatinine is 1.94, glucose is 148. Urine protein to creatinine showed 11 g, urine sodium was 47, urine creatinine was 73. Microalbumin to creatinine is pending. PHYSICAL EXAMINATION VITALS: Temperature 98.8, pulse 107, respiratory rate 17, blood pressure 143/68, pulse ox 93% on room air. GENERAL: Not in acute distress, alert and oriented x3. Cooperative on examination. HEENT: Head normocephalic, atraumatic. Eyes: Pupils are equal, round, and reactive to light bilaterally. Extraocular movements are intact bilaterally. Throat: No evidence of any erythema or exudates in the posterior pharynx. Has poor dentition. NECK: Supple with good range of motion. PULMONARY: Clear to auscultation bilaterally. No wheezing, no rales, no rhonchi, no crackles appreciated. CARDIOVASCULAR: Positive S1 and S2. No murmurs, rubs, or gallops appreciated. ABDOMEN: Soft, nondistended, nontender to palpation. Bowel sounds present. MUSCULOSKELETAL: Strength is 5/5 throughout. No evidence of any muscle deficit on examination. No weakness appreciated. NEUROLOGICAL: Cranial nerves II through XII are grossly intact. No evidence of any neurological deficits on exam. SKIN: Intact. Warm to touch. Good cap refill. PSYCHIATRIC: Normal affect and mood. EXTREMITIES: No edema. Good range of motion throughout. IMPRESSION 1. Diabetic foot ulcer. 2. Acute kidney injury on chronic kidney disease, stage 4, with longstanding type 2 diabetes and also with nephrotic-range proteinuria. 3. History of nonsteroidal anti-inflammatory drug usage. 4. Small-vessel disease. 5. Uncontrolled type 2 diabetes. PLAN: At this time, I am obtaining microalbumin to creatinine ratio. We would likely need further workup in relation to her nephrotic-range proteinuria. May benefit from a biopsy, but I feel like the patient with retinopathy and peripheral neuropathy fits the diagnosis of likely diabetic nephropathy. I will order the basic serologies, hepatitis panel, and HIV and go from there. I am still waiting on the renal ultrasound to determine the size of the kidneys. If the kidneys are too small, then there will be a high risk in terms of doing a renal biopsy. Assuming that her GFR has CKD stage 4, she may have very scarred down kidneys and have an increased risk of bleeding. Job#: [id number] LPA
--- NOTE | 2018-03-25 14:58 | Progress Note ---
DATE: March 25, 2018 PROGRESS NOTE SUBJECTIVE: Patient seen at bedside, accompanied by sister. Doing well. Denies any history of fever, chills, nausea or vomiting. OBJECTIVE VITAL SIGNS: Afebrile. Pulse rate 88, respirations 17, blood pressure 128/61, O2 saturation 95%. EXTREMITIES: Gangrenous changes are stable to the 4th toe, left foot. There was negative foul smell. Pedal pulses are diminished. Skin temperature warm to touch with some discoloration to the metatarsophalangeal joints of the 2nd, 3rd, and 5th area plantarly. LABS: Noted. Has a white blood cell count of 13.6, hemoglobin 8.5, hematocrit 24.8 with a platelet count of 550. ASSESSMENT: Peripheral arterial disease with cellulitis. PLAN: We will continue IV antibiotics. Continue local wound care with diluted wet-to-dry Betadine. We will continue to let foot demarcate. Patient will be going through an angiogram and possible angioplasty tomorrow. Job#: [id number]
--- NOTE | 2018-03-25 17:39 | Progress Note ---
DATE: March 25, 2018 CARDIOLOGY PROGRESS NOTE SUBJECTIVE: No complaints today. OBJECTIVE VITAL SIGNS: Temperature 97 degrees, heart rate 91, blood pressure 124/62, respiratory rate 18, and O2 sat 96%. GENERAL: In no acute distress, alert. NECK: No JVD. CHEST: Clear to auscultation. CARDIOVASCULAR: Regular rate and rhythm. Normal S1 and S2. No S3 or S4. ABDOMEN: Soft, nontender. EXTREMITIES: No edema. Left 4th toe gangrene. Foot covered with dressings. CARDIOVASCULAR MEDICATIONS: Reviewed. 1. Amlodipine 10 mg daily. 2. Zosyn antibiotics. 3. Metoprolol succinate 25 mg daily. 4. Aspirin 81 mg daily. 5. Enalapril IV p.r.n,, which will be discontinued. 6. Atorvastatin 80 mg q.h.s. STUDIES: Reviewed. Potassium 3.7, bicarbonate 18, creatinine 1.94, and glucose 148. Hemoglobin 8.5 and platelets 550. Normal transaminases. ASSESSMENT 1. Peripheral arterial disease. 2. Acute kidney injury on chronic kidney disease 3. Carotid disease. 4. Anemia. 5. Diabetes mellitus with nephropathy, retinopathy, and neuropathy. 6. Hypertension. 7. Dyslipidemia. RECOMMENDATIONS 1. Continue current cardiovascular medications with the following change. Discontinuing enalapril p.r.n. given acute kidney injury. 2. Given worsening renal function during this hospital stay, undergoing renal evaluation, we will hold from doing angiography at time point and coordinate care with rest of the attending physicians as patient's clinical condition continues to progress for now. Continue rest of cardiovascular medications. Job#: [id number] ALFONSO
--- NOTE | 2018-03-25 18:23 | Progress Note ---
DATE: March 25, 2018 AGE: 47. LOCATION: Room #206, bed 1. CHIEF COMPLAINT AND HISTORY OF CHIEF COMPLAINT: Ms. Weeks is a most pleasant female who has been under the care of Dr. Orantes. I am seeing her today in followup. The reason for the initial consultation is gangrene to the 4th toe of the left foot in a patient with diabetes and peripheral arterial disease and cellulitis. The radiographs are positive for osteomyelitis. The patient's cellulitis and osteomyelitis are under treatment with local wound care by Dr. Orantes as well as IV antibiotics with Dr. Abdul. HISTORY OF PRESENT ILLNESS: Ms. Gisella Weeks noted discoloration on her toe 3 to 4 weeks ago and has now been admitted for treatment of the aforementioned disorder. PREVIOUS MEDICAL HISTORY: Positive for diabetes, PAD, and renal disease. REVIEW OF SYSTEMS: Negative. Patient denies shortness of breath or chest pains. PHYSICAL EXAMINATION EXTREMITIES: Lower extremity vascular status; patient has nonpalpable pedal pulses near the dorsalis pedis and posterior tibial. SKIN: Temperature is warm to cool. NEUROLOGIC: There was a loss of protective sensation as evidenced by [place] monofilament testing. DERMATOLOGIC: Gangrenous changes noted to the 4th digit of the left foot from the metatarsophalangeal joint distalward. There is cellulitis in the dorsum of the foot as well. IMAGING: Radiographs are negative for gas, but positive for osteomyelitis at this time. DIAGNOSES 1. Gangrene. 2. Peripheral arterial disease. 3. Osteomyelitis. 4. Diabetic neuropathy. Patient is currently under the care of Dr. Orantes, who will re-evaluate next week. Patient is receiving IV antibiotics as per Dr. Abdul. Cardiovascular and peripheral arterial disease as per Dr. Jan Blank. Renal is on board and we await possible angiogram by the Dr. Blank on Monday. Job#: [id number] ALFONSO
[2018-03-26] VITALS (8 sets, daily range): BP systolic 130–163; BP diastolic 60–71
[2018-03-26 03:28] LABS: BASOPHILS # (AUTO) 0.1 (0.0-0.1); BASOPHILS % 0.5 % (0.0-1.0); EOSINOPHILS # (AUTO) 0.5 (0.0-0.4); EOSINOPHILS % 3.3 % (0.0-6.0); HEMATOCRIT 26.3 % (34.2-44.1); HEMOGLOBIN 8.8 g/dL (12.0-16.0); LYMPHOCYTES % 14.8 % (18.0-39.1); MEAN CORPUSCULAR HEMOGLOBIN 28.7 pg (28-32); MEAN CORPUSCULAR HGB CONC 33.5 g/dL (31-35); MEAN CORPUSCULAR VOLUME 85.7 fL (81-99); MONOCYTES % 7.3 % (4.4-11.3); NEUTROPHILS # (AUTO) 9.9 (2.1-6.9); NEUTROPHILS % 73.4 % (38.7-80.0); PLATELET COUNT 575 x10e3/uL (140-360); RED BLOOD COUNT 3.07 x10e6/uL (3.6-5.1); RED CELL DISTRIBUTION WIDTH 12.9 % (11.7-14.4)
[2018-03-26 03:44] LABS: ANION GAP 13.8 mmol/L (8-16); CALCIUM 8.6 mg/dL (8.4-10.2); CREATININE, SERUM 2.12 mg/dL (0.57-1.11); MAGNESIUM 2.1 MG/DL (1.3-2.1); POTASSIUM 3.8 mmol/L (3.5-5.1)
[2018-03-26] MEDS: PIPERACILLIN/TAZO 2.25 GM 50 ML IV SCH ×3 (05:54→22:30)
[2018-03-26] MEDS: HYDROCODONE/APAP 5MG-325MG TAB PO PRN ×2 (05:54→20:03)
[2018-03-26] MEDS: INSULIN LISPRO 100 UNIT/1 ML 3ML VIAL SQ SCH ×4 (07:30→17:02)
[2018-03-26] MEDS: FERROUS SULFATE 325 MG TAB PO SCH ×2 (08:00→17:00)
[2018-03-26] MEDS: FAMOTIDINE 20 MG/2 ML VIAL IV SCH (09:00)
[2018-03-26] MEDS: ASPIRIN 81 MG CHEW TAB PO SCH (09:00)
[2018-03-26] MEDS: ATORVASTATIN 40 MG TAB PO SCH (09:00)
[2018-03-26] MEDS: ASCORBIC ACID 500 MG TAB PO SCH ×2 (09:00→17:00)
[2018-03-26] MEDS: METOPROLOL SUCCINATE 25 MG TAB XL PO SCH (09:00)
[2018-03-26] MEDS: OYST-CAL-D 500MG TABLET PO SCH ×2 (09:00→17:00)
[2018-03-26] MEDS: AMLODIPINE BESYLATE 10 MG TAB PO SCH (09:00)
--- NOTE | 2018-03-26 11:49 | Progress Note ---
DATE: March 26, 2018 CARDIOLOGY PROGRESS NOTE SUBJECTIVE: No new complaints today. OBJECTIVE VITAL SIGNS: Temperature 98.1, heart rate 107, blood pressure 163/70, respiratory rate 20, O2 sat 98% on room air. BMI 25.2. GENERAL: In no acute distress, alert. NECK: No JVD. CHEST: Clear to auscultation. CARDIOVASCULAR: Regular rate and rhythm. Normal S1 and S2. No S3 or S4. ABDOMEN: Soft, nontender. EXTREMITIES: No edema. Left 4th toe black discoloration/gangrene. CARDIOVASCULAR MEDICATIONS: Reviewed. 1. Aspirin 81 mg daily. 2. Atorvastatin 80 mg nightly. 3. Metoprolol succinate 25 mg daily. 4. Amlodipine 10 mg daily. 5. Zosyn antibiotic. STUDIES: Reviewed. Creatinine is trending up at 2.12. Potassium 3.8, bicarbonate 19, chloride 102, sodium 131, BUN 32, glucose 206. White blood cells elevated at 13.4, hemoglobin 8.8-stable, platelets 575. Normal transaminases. ASSESSMENT 1. Acute kidney injury on chronic kidney disease. 2. Peripheral arterial disease, outflow predominantly by Doppler. 3. Left 4th toe gangrene. 4. Dyslipidemia. 5. Hypertension. 6. Diabetes mellitus, type 2, with nephropathy, retinopathy, and neuropathy. 7. Carotid disease. RECOMMENDATIONS 1. Given worsening renal function and unstable GFR, at this point I advised against proceeding with angiography. I appreciate nephrology's input. 2. Patient undergoing evaluation for possible LTAC transfer for continued wound care and antibiotic. Agree with plan. Will need followup soon afterwards to reassess candidacy for angiography depending on renal function and progression of overall medical condition. For now, continue current cardiovascular medications. Job#: [id number]
--- NOTE | 2018-03-26 12:03 | Diagnostic Imaging Report ---
EXAM: RENAL ULTRASOUND Date: 03/26/2018 12:00 AM Indication: Renal failure Comparison: None Technique: Sonographic evaluation of the kidneys. Color doppler was utilized to supplement evaluation. FINDINGS: KIDNEYS: Right: Measures 11.7 cm in length. No hydronephrosis or solid mass lesion identified. Renal cortex measures 1.7 cm. Echogenic cortex. Left: Measures 11.6 cm in length. No hydronephrosis or solid mass lesion identified. Renal cortex measures 2.1 cm. URINARY BLADDER: Grossly unremarkable. OTHER: None. IMPRESSION: Increased cortical echogenicity on the right which can be seen in the setting of chronic medical renal/vascular disease. Otherwise, unremarkable renal ultrasound. Signed by: Dr. Tobi Ulloa MD on 03/26/2018 11:59 AM
--- NOTE | 2018-03-26 15:11 | Progress Note ---
DATE: March 26, 2018 SUBJECTIVE: Patient at bedside accompanied by brother. Doing well. Decreased pain. Denies any history of fever, chills, nausea, or vomiting. OBJECTIVE VITALS: Afebrile, pulse rate 96, respirations 20, blood pressure 133/64, O2 saturation 98%. EXTREMITIES: Left 4th toe shows no further necrosis crossing the proximal interphalangeal joint. There is erythema surrounding the proximal aspect of the metatarsophalangeal joint of 2, 3, 4, and 5 with still some pain to the dorsal aspect of the right foot. Pedal pulses are diminished. Skin temperature between warm and cool to touch. LABS: Show a white blood cell count of 13.4, hemoglobin 8.8, and platelet count of 575,000. BUN and creatinine are high. Blood glucose of 197. ASSESSMENT 1. Peripheral arterial disease. 2. Gangrene. 3. Cellulitis with diabetic neuropathy. PLAN: Will continue to treat conservatively with IV antibiotics such as Zosyn. Continue local wound care with diluted wet-to-dry Betadine b.i.d. Awaiting for kidney to get a little better before she can have an angiogram and possible angioplasty. Job#: [id number] KAM
[2018-03-26] MEDS: FAMOTIDINE 20 MG TAB PO SCH (16:30)
--- NOTE | 2018-03-26 18:02 | Progress Note ---
DATE: March 26, 2018 NEPHROLOGY PROGRESS NOTE SUBJECTIVE: The patient is doing well today with no other issues today. I am not sure what they are going to do about the diabetic foot ulcer. PHYSICAL EXAMINATION VITALS: Temperature 97.7, pulse 90, respiratory rate 20, blood pressure 151/67, pulse ox 93% on room air. GENERAL: Not in acute distress, alert and oriented x3. Cooperative on examination. HEENT: Head normocephalic, atraumatic. Eyes: Pupils are equal, round, and reactive to light bilaterally. Extraocular movements are intact bilaterally. Throat: No evidence of any erythema or exudates in the posterior pharynx. Has poor dentition. NECK: Supple with good range of motion. PULMONARY: Clear to auscultation bilaterally. No wheezing, no rales, no rhonchi, no crackles appreciated. CARDIOVASCULAR: Positive S1 and S2. No murmurs, rubs, or gallops appreciated. ABDOMEN: Soft, nondistended, nontender to palpation. Bowel sounds present. MUSCULOSKELETAL: Strength is 5/5 throughout. No evidence of any muscle deficit on examination. No weakness appreciated. NEUROLOGICAL: Cranial nerves II through XII are grossly intact. No evidence of any neurological deficits on exam. LABORATORY DATA: White count of 13.4, hemoglobin 8.8, hematocrit 26, platelet count 575,000. Sodium 131, potassium 3.8, chloride 102, bicarb 19, BUN 32, creatinine 2.1. GFR 25. Iron saturation 17%. There are 11 grams of proteinuria on UPC concerning as well likely due to diabetic nephropathy. IMPRESSION 1. Diabetic foot ulcer. 2. Acute kidney injury on chronic kidney disease, stage 4, GFR 0.25%, improving creatinine. 3. Small-vessel disease. 4. Uncontrolled type 2 diabetes. PLAN: At this time, creatinine is stable. Renal ultrasound showed right kidney to be 11.7 cm, and left kidney was 11.6 cm. It did show some cortical changes. In terms of nephrology related issues, electrolytes were stable. Creatinine is slightly up-trending, but within range. Otherwise from a renal standpoint, will continue to monitor very closely. Job#: [id number]
[2018-03-27] VITALS (8 sets, daily range): BP systolic 135–163; BP diastolic 61–72
[2018-03-27 04:55] LABS: BASOPHILS # (AUTO) 0.1 (0.0-0.1); BASOPHILS % 0.4 % (0.0-1.0); EOSINOPHILS # (AUTO) 0.4 (0.0-0.4); EOSINOPHILS % 3.1 % (0.0-6.0); HEMATOCRIT 26.6 % (34.2-44.1); LYMPHOCYTES # (AUTO) 1.9 (1.0-3.2); LYMPHOCYTES % 14.9 % (18.0-39.1); MEAN CORPUSCULAR HEMOGLOBIN 28.7 pg (28-32); MEAN CORPUSCULAR HGB CONC 33.8 g/dL (31-35); MEAN CORPUSCULAR VOLUME 84.7 fL (81-99); MONOCYTES % 7.5 % (4.4-11.3); NEUTROPHILS # (AUTO) 9.4 (2.1-6.9); NEUTROPHILS % 73.6 % (38.7-80.0); PLATELET COUNT 613 x10e3/uL (140-360); RED BLOOD COUNT 3.14 x10e6/uL (3.6-5.1)
[2018-03-27] MEDS: HYDROCODONE/APAP 5MG-325MG TAB PO PRN (05:14)
[2018-03-27 05:19] LABS: ANION GAP 13.7 mmol/L (8-16); CALCIUM 8.7 mg/dL (8.4-10.2); CREATININE, SERUM 2.06 mg/dL (0.57-1.11); MAGNESIUM 2.3 MG/DL (1.3-2.1); POTASSIUM 3.7 mmol/L (3.5-5.1)
[2018-03-27] MEDS: PIPERACILLIN/TAZO 2.25 GM 50 ML IV SCH ×3 (06:01→21:40)
[2018-03-27] MEDS: FAMOTIDINE 20 MG TAB PO SCH ×2 (07:30→16:30)
[2018-03-27] MEDS: INSULIN LISPRO 100 UNIT/1 ML 3ML VIAL SQ SCH ×4 (07:30→21:00)
[2018-03-27] MEDS: FERROUS SULFATE 325 MG TAB PO SCH ×2 (08:00→17:00)
[2018-03-27] MEDS: OYST-CAL-D 500MG TABLET PO SCH ×2 (09:00→17:00)
[2018-03-27] MEDS: ASPIRIN 81 MG CHEW TAB PO SCH (09:00)
[2018-03-27] MEDS: ATORVASTATIN 40 MG TAB PO SCH (09:00)
[2018-03-27] MEDS: ASCORBIC ACID 500 MG TAB PO SCH ×2 (09:00→17:00)
[2018-03-27] MEDS: AMLODIPINE BESYLATE 10 MG TAB PO SCH (09:00)
[2018-03-27] MEDS: METOPROLOL SUCCINATE 25 MG TAB XL PO SCH (09:00)
[2018-03-27] MEDS ORDERED: VANCOMYCIN 1GM/NS 250 ML 250 ML IV ONE (11:00)
--- NOTE | 2018-03-27 16:28 | Progress Note ---
DATE: March 27, 2018 NEPHROLOGY PROGRESS NOTE SUBJECTIVE: The patient is doing well today with no other complaints. She is in the process of going to [place] for IV antibiotic therapy. Will order a tunneled central catheter placement. PHYSICAL EXAMINATION VITALS: Temperature 98, pulse 96, respiratory rate 18, blood pressure 135/65, pulse ox 93% on room air. GENERAL: Not in acute distress, alert and oriented x3. Cooperative on examination. HEENT: Head normocephalic, atraumatic. Eyes: Pupils are equal, round, and reactive to light bilaterally. Extraocular movements are intact bilaterally. Throat: No evidence of any erythema or exudates in the posterior pharynx. Has poor dentition. NECK: Supple with good range of motion. PULMONARY: Clear to auscultation bilaterally. No wheezing, no rales, no rhonchi, no crackles appreciated. CARDIOVASCULAR: Positive S1 and S2. No murmurs, rubs, or gallops appreciated. ABDOMEN: Soft, nondistended, nontender to palpation. Bowel sounds present. MUSCULOSKELETAL: Strength is 5/5 throughout. No evidence of any muscle deficit on examination. No weakness appreciated. NEUROLOGICAL: Cranial nerves II through XII are grossly intact. No evidence of any neurological deficits on exam. LABORATORY DATA: White count of 12.7, hemoglobin 9, hematocrit 26, platelet count 613,000. Sodium 133, potassium 3.7, chloride 104, bicarb 19, anion gap of 17, BUN 31, creatinine 2, glucose 122, magnesium 2.3. Microbiology: She was ____ for Staph and Pseudomonas. IMPRESSION 1. Diabetic foot ulcer. 2. Acute kidney injury on chronic kidney disease, stage 4, GFR 0.25%. 3. Small-vessel disease. 4. Uncontrolled type 2 diabetes. PLAN: At this time, renal ultrasound was reviewed and shows significant size likely due to diabetic nephropathy. Creatinine is stable at baseline. Electrolytes are stable. She does have 11 grams proteinuria. Will likely need further workup. Job#: [id number]
--- NOTE | 2018-03-27 17:19 | Progress Note ---
DATE: March 27, 2018 CARDIOLOGY PROGRESS NOTE SUBJECTIVE: No complaints today. Denies chest pain or shortness of breath. OBJECTIVE VITAL SIGNS: Reviewed. Temperature 97.9, heart rate 97, blood pressure 135/61, respiratory rate 18, O2 sat 95%.. BMI 24.8. GENERAL: In no acute distress, alert. NECK: No JVD. CHEST: Clear to auscultation. CARDIOVASCULAR: Regular rate and rhythm. Normal S1 and S2. No S3 or S4. ABDOMEN: Soft, nontender. EXTREMITIES: No cyanosis, clubbing or edema. Left 4th toe dry gangrene. CARDIOVASCULAR MEDICATIONS: Reviewed. 1. Aspirin 81 mg daily. 2. Ferrous sulfate 375 mg b.i.d. 3. Atorvastatin 80 mg nightly. 4. Metoprolol succinate 25 mg daily. STUDIES: Reviewed. Potassium 3.7. Creatinine 2.06. Glucose 122. Hemoglobin 9. Platelets 613,000. AST 16, ALT 18. ASSESSMENT 1. Peripheral arterial disease with left 4th toe gangrene. 2. Diabetes mellitus. 3. Dyslipidemia. 4. Hypertension. 5. Anemia. 6. Metabolic acidosis. 7. Acute kidney injury on chronic kidney disease. RECOMMENDATIONS: 1. Continue current cardiovascular medications. 2. Given renal function issues, hold off on angiography for now. 3. Agree with transfer to LTAC for further antibiotic care and wound care. 4. Will make further decisions regarding findings per angiogram depending on improvement in renal function. Job#: [id number]
--- NOTE | 2018-03-27 19:29 | Progress Note ---
DATE: March 27, 2018 SUBJECTIVE: Patient is doing well. Decreased pain to the left lower extremity. Denies any history of fever, chills, nausea, or vomiting. OBJECTIVE VITAL SIGNS: Afebrile. Pulse rate 97. Respiration 18. Blood pressure 135/61. O2 saturation 95%. LABS: Show a white blood cell count dropping from 13 to 12.79. Hemoglobin going up to 9.0, hematocrit 26.6, platelet count of 613,000. High BUN and creatinine levels. Gangrenous changes to the 4th toe stabilizing at the metatarsophalangeal joint area. Positive cellulitis present. Negative foul smell. Pedal pulses are diminished. Skin temperature warm and cool to touch. ASSESSMENT: Gangrene with peripheral arterial disease with diabetic neuropathy. PLAN: Awaiting creatinine and BUN to stabilize so the patient can have an angiogram with possible angioplasty. Will continue local wound care and IV antibiotics, which she seems to be responding to at this point. Patient does need a definitive procedure but cannot be done until better circulation is achieved. Job#: [id number]
[2018-03-27] MEDS ORDERED: SODIUM CHLORIDE 0.9% 250ML 250 ML ONE (20:35)
[2018-03-28] VITALS (9 sets, daily range): BP systolic 128–136; BP diastolic 60–71
[2018-03-28] MEDS: PIPERACILLIN/TAZO 2.25 GM 50 ML IV SCH (05:34)
[2018-03-28] MEDS: INSULIN LISPRO 100 UNIT/1 ML 3ML VIAL SQ SCH ×4 (07:30→21:00)
[2018-03-28] MEDS: ATORVASTATIN 40 MG TAB PO SCH (08:57)
[2018-03-28] MEDS: AMLODIPINE BESYLATE 10 MG TAB PO SCH (08:57)
[2018-03-28] MEDS: FAMOTIDINE 20 MG TAB PO SCH ×2 (08:57→16:39)
[2018-03-28] MEDS: FERROUS SULFATE 325 MG TAB PO SCH ×2 (08:57→16:39)
[2018-03-28] MEDS: OYST-CAL-D 500MG TABLET PO SCH ×2 (08:58→16:39)
[2018-03-28] MEDS: ASCORBIC ACID 500 MG TAB PO SCH ×2 (08:58→16:39)
[2018-03-28] MEDS: METOPROLOL SUCCINATE 25 MG TAB XL PO SCH (08:58)
--- NOTE | 2018-03-28 09:59 | Progress Note ---
DATE: March 28, 2018 SUBJECTIVE: Patient is seen at bedside. Being kept n.p.o. to have a central line placed. OBJECTIVE VITALS: Afebrile, pulse rate 106, respirations 18, blood pressure 136/66, O2 saturation 95%. EXTREMITIES: Gangrenous changes to the 4th toe, left foot, stable. Still up to the metatarsophalangeal joint. Skin temperature is warm and cool to touch. Positive edema noted with decreased pain to the dorsal aspect, right foot. LABS: Noted. White blood cell count of 12.7. ASSESSMENT 1. Gangrene. 2. Cellulitis with peripheral arterial disease. PLAN: The patient will be getting a central line placement today. Will continue antibiotics. Awaiting creatinine and BUN level to decrease before Dr. Blank can proceed with an angiogram and possible angioplasty before any surgery is attempted. Job#: [id number] ID
--- NOTE | 2018-03-28 10:24 | Progress Note ---
DATE: March 28, 2018 NEPHROLOGY PROGRESS NOTE SUBJECTIVE: Patient is doing well today with no complaints. In the process of getting a central line for IV antibiotics long-term. OBJECTIVE VITAL SIGNS: Temperature is 98.7, pulse 106, respiratory rate is 18, blood pressure 136/66, pulse ox 95% on room air. GENERAL: Not in acute distress. Alert and oriented times 3. Cooperative on examination. HEENT: Head is normocephalic and atraumatic. Eyes: Pupils equal, round and reactive to light bilaterally. Extraocular movements intact bilaterally. NECK: Supple. Good range of motion. Throat with no evidence of any erythema or exudates in the posterior pharynx. Has poor dentition. PULMONARY: Clear to auscultation bilaterally. No wheezing. No rales. No rhonchi. No crackles appreciated. CARDIOVASCULAR: Positive S1 and S2. No murmurs, rubs or gallops appreciated. ABDOMEN: Soft, nondistended and nontender to palpation. Bowel sounds present. MUSCULOSKELETAL: Strength is 5/5 throughout. No evidence of any muscle deficit on examination. No weakness appreciated. NEUROLOGICAL: Cranial nerves II-XII are grossly intact. No evidence of any neurological deficits on exam. SKIN: Intact. Warm to touch. Good cap refill. PSYCHIATRIC: Normal affect and mood. EXTREMITIES: No edema. Good range of motion throughout. LAB FINDINGS: Show white count of 12.7, hemoglobin 9, hematocrit 26, and platelets of 613,000. Chemistry none. IMPRESSION 1. Diabetic foot ulcer. 2. Acute kidney injury. 3. , stage 4: Likely to be chronic in nature versus . 4. Small vessel disease. 5. Uncontrolled type 2 diabetes. PLAN: At this time, ultrasound was reviewed and showed significant size, likely to be diabetic nephropathy enlargement. Creatinine is stable. She is now in nephrotic range proteinuria. Several serologies have been ordered, which we will wait for. Monitor closely. At some point, I feel like this is all diabetic related because she is retinopathy. She has neuropathy. Based on nephrology guidelines, the patient has retinopathy and neuropathy and likely has underlying diabetic nephropathy. Will continue to monitor very closely. Job#: [id number] HI
[2018-03-28] MEDS: ASPIRIN 81 MG CHEW TAB PO SCH (11:00)
[2018-03-28] MEDS ORDERED: VANCOMYCIN 1GM/NS 250 ML 250 ML IV ONE (12:15)
[2018-03-28] MEDS ORDERED: SODIUM CHLORIDE 0.9% 250ML 250 ML ONE (12:44)
[2018-03-28] MEDS: CEFEPIME HCL 1 GM VIAL IV SCH (13:20)
--- NOTE | 2018-03-28 15:07 | Progress Note ---
DATE: March 28, 2018 CARDIOLOGY PROGRESS NOTE SUBJECTIVE: No chest pain. No shortness of breath. No new complaints. OBJECTIVE VITALS: Temperature 98.9, heart rate 104, blood pressure 132/68, respiratory rate 20, O2 sat 96%. GENERAL: In no acute distress. Alert. NECK: No JVD. CHEST: Clear to auscultation. CARDIOVASCULAR: Regular rate and rhythm. Normal S1 and S2. No S3 or S4. ABDOMEN: Soft. EXTREMITIES: Trace edema. Left 4th toe gangrene. CARDIOVASCULAR MEDICATIONS: Reviewed. On ferrous sulfate, aspirin, atorvastatin, amlodipine, metoprolol, and antibiotics IV. STUDIES: Reviewed. Potassium 3.7. Creatinine remains elevated at 2.06. Glucose 122. This is from March 27, 2018. No additional labs for today. ASSESSMENT 1. Acute kidney injury on chronic kidney disease. 2. Peripheral arterial disease with gangrene of left 4th toe and osteomyelitis. 3. Hypertension. 4. Advanced diabetes mellitus, type 2 with retinopathy, nephropathy and neuropathy. 5. Metabolic acidosis. 6. Anemia. RECOMMENDATIONS: Await completion of antibiotics. The patient undergoing evaluation for possible LTAC placement given renal advanced disease with acute decompensation. Not currently adequate candidate for peripheral angiography or revascularization. Can revisit this at a later date if renal function allows. I have discussed this extensively with the patient. Regarding her asymptomatic carotid disease, she will need further evaluation as an outpatient. Job#: [id number] KAM
[2018-03-29 04:00] VITALS: BP 162/74
[2018-03-29 05:03] LABS: BASOPHILS # (AUTO) 0.1 (0.0-0.1); BASOPHILS % 0.4 % (0.0-1.0); EOSINOPHILS # (AUTO) 0.3 (0.0-0.4); EOSINOPHILS % 2.4 % (0.0-6.0); HEMATOCRIT 26.8 % (34.2-44.1); HEMOGLOBIN 9.1 g/dL (12.0-16.0); LYMPHOCYTES # (AUTO) 1.9 (1.0-3.2); LYMPHOCYTES % 13.4 % (18.0-39.1); MEAN CORPUSCULAR VOLUME 85.4 fL (81-99); MONOCYTES # (AUTO) 0.9 (0.2-0.8); MONOCYTES % 6.5 % (4.4-11.3); NEUTROPHILS # (AUTO) 10.6 (2.1-6.9); NEUTROPHILS % 76.5 % (38.7-80.0); PLATELET COUNT 686 x10e3/uL (140-360); RED BLOOD COUNT 3.14 x10e6/uL (3.6-5.1); RED CELL DISTRIBUTION WIDTH 12.8 % (11.7-14.4)
[2018-03-29 05:25] LABS: ANION GAP 14.6 mmol/L (8-16); CALCIUM 9.2 mg/dL (8.4-10.2); CREATININE, SERUM 1.78 mg/dL (0.57-1.11); MAGNESIUM 2.3 MG/DL (1.3-2.1); PHOSPHORUS 3.7 MG/DL (2.3-4.7); POTASSIUM 3.6 mmol/L (3.5-5.1)
[2018-03-29] MEDS ORDERED: HYDRALAZINE HCL 20 MG/ML VIAL IV PRN (05:30)
[2018-03-29 07:26] VITALS: BP 144/67
[2018-03-29] MEDS: INSULIN LISPRO 100 UNIT/1 ML 3ML VIAL SQ SCH ×4 (07:30→20:45)
[2018-03-29 07:38] LABS: INR 0.91; PROTHROMBIN TIME 13.1 seconds (11.9-14.5)
[2018-03-29 07:57] VITALS: BP 144/67
[2018-03-29] MEDS: FAMOTIDINE 20 MG TAB PO SCH ×2 (08:34→17:30)
[2018-03-29] MEDS: ATORVASTATIN 40 MG TAB PO SCH (08:34)
[2018-03-29] MEDS: FERROUS SULFATE 325 MG TAB PO SCH ×2 (08:34→17:30)
[2018-03-29] MEDS: OYST-CAL-D 500MG TABLET PO SCH ×2 (08:34→17:30)
[2018-03-29] MEDS: METOPROLOL SUCCINATE 25 MG TAB XL PO SCH (08:35)
[2018-03-29] MEDS: ASCORBIC ACID 500 MG TAB PO SCH ×2 (08:35→17:30)
[2018-03-29] MEDS: ASPIRIN 81 MG CHEW TAB PO SCH (09:00)
[2018-03-29] MEDS ORDERED: NIFEDIPINE CR 30 MG TAB PO SCH (09:00)
--- NOTE | 2018-03-29 09:22 | Progress Note ---
DATE: March 29, 2018 SUBJECTIVE: Patient is seen at bedside. Feeling better. In better spirits. Denies any history of fever, chills, nausea, or vomiting. OBJECTIVE VITAL SIGNS: Afebrile, pulse rate 104, respirations 18, blood pressure 144/67, O2 saturation 97%. EXTREMITIES: Gangrenous changes to the 4th toe, stable for now. Positive cellulitis surrounding the gangrene. Negative foul smell. Positive edema when compared to contralateral foot. Skin temperature between warm and cool to touch. LABS: Noted. Has a white blood cell count of 13.9. BUN and creatinine is starting to go down. Still elevated. ASSESSMENT: Peripheral artery disease with dry gangrene with grade 4 ulceration to the medial and lateral aspect of the 4th digit, left foot. PLAN: Patient will be undergoing central line placement possibly today. Still awaiting kidney functions to get better before arteriogram and angioplasty may need to be done. Will continue offloading. Continue local wound care. Continue IV antibiotics. Job#: [id number]
[2018-03-29 12:12] VITALS: BP 153/68
[2018-03-29] MEDS: CEFEPIME HCL 1 GM VIAL IV SCH (12:41)
[2018-03-29] MEDS ORDERED: MIDAZOLAM HCL 2 MG/2 ML VIAL ONE (13:09)
[2018-03-29] MEDS ORDERED: LIDOCAINE HCL 2% LOCAL 20 ML VIAL ONE (13:10)
[2018-03-29] MEDS ORDERED: SODIUM CHLORIDE 0.9% 1000ML 1,000 ML ONE (13:10)
[2018-03-29] MEDS ORDERED: FENTANYL CITRATE/PF 100MCG/2 ML INJ ONE (13:10)
[2018-03-29] MEDS ORDERED: HEPARIN SOD/SOD CHLORIDE 1,000 ML ONE (13:11)
[2018-03-29 16:00] VITALS: BP 108/64
[2018-03-29] MEDS: ACETAMINOPHEN 325 MG TAB PO PRN (17:25)
[2018-03-29 20:00] VITALS: BP 121/58
--- NOTE | 2018-03-29 20:04 | Progress Note ---
DATE: March 29, 2018 CARDIOLOGY PROGRESS NOTE SUBJECTIVE: Denies chest pain or shortness of breath. No new complaints today. Status post catheter placement. OBJECTIVE VITAL SIGNS: Temperature 97.6, heart rate 102, respiratory rate 18, blood pressure 108/64, O2 sat 99% room air. BMI 24.8. GENERAL: In no acute distress. Alert. NECK: No JVD. CHEST: Clear to auscultation. CARDIOVASCULAR: Regular rate and rhythm. Normal S1 and S2. No S3, no S4. ABDOMEN: Soft and nontender. EXTREMITIES: No edema. Left 4th toe gangrene. CARDIOVASCULAR MEDICATIONS: Reviewed. On 1. Aspirin 81 mg daily. 2. 1 g daily. 3. Metoprolol succinate 25 mg daily. 4. Nifedipine 30 mg daily. 5. Ferrous sulfate 325 mg b.i.d. STUDIES: Reviewed. Potassium 3.6, bicarbonate 18, creatinine 1.78, glucose 98. Hemoglobin 9.1. AST 16, ALT 18. ASSESSMENT 1. Acute kidney injury on chronic kidney disease. 2. Metabolic acidosis. 3. Anemia. 4. Carotid disease. 5. Peripheral arterial disease by Dopplers. 6. Left 4th toe gangrene. 7. Diabetes mellitus with nephropathy, retinopathy and neuropathy. 8. Hypertension. 9. Dyslipidemia. RECOMMENDATIONS 1. Undergoing antibiotic therapy with line placement. 2. Undergoing LTAC evaluation. 3. Acute kidney injury with creatinine starting to show some degree of improvement; however, not at baseline. Continue to monitor. 4. At a later date if renal function allows, consider angiography and possible intervention to the left lower extremity arteries or per Doppler outflow disease. 5. Continue foot care per Podiatry. 6. Continue rest of cardiovascular medications. Job#: [id number] EV
--- NOTE | 2018-03-29 20:24 | Progress Note ---
DATE: March 29, 2018 NEPHROLOGY PROGRESS NOTE SUBJECTIVE: Patient is doing well today with no other complaints. OBJECTIVE/PHYSICAL EXAMINATION: VITAL SIGNS: Temperature is 97.6, pulse 102, respiratory rate is 18, blood pressure 108/64. Pulse ox 99% on room air. GENERAL: Not in acute distress, alert and oriented x3, cooperative on examination. HEENT: Head: Normocephalic, atraumatic. Eyes: Pupils equal, round, and reactive to light bilaterally. Extraocular movements intact bilaterally. Throat: No evidence of any erythema or exudates in the posterior pharynx. Has poor dentition. NECK: Supple with good range of motion. PULMONARY: Clear to auscultation bilaterally. No wheezing, no rales, no rhonchi, no crackles appreciated. CARDIOVASCULAR: Positive S1 and S2. No murmurs, rubs, or gallops appreciated. ABDOMEN: Soft, nondistended, nontender to palpation. Bowel sounds present. MUSCULOSKELETAL: Strength is 5/5 throughout. No evidence of any musculoskeletal deficit on examination. No weakness appreciated. NEUROLOGICAL: Cranial nerves II through XII are grossly intact. No evidence of any neurological deficits on exam. SKIN: Intact. Warm to touch. Good cap refill. PSYCHIATRIC: Normal affect and mood. EXTREMITIES: No edema. Good range of motion throughout. LAB FINDINGS: Showed white count 13.9, hemoglobin 9.1, hematocrit is 27, platelets of 686,000. Coagulations normal. Chemistry: Sodium 134, potassium 3.6, chloride 105, bicarb 18, anion gap of 14, BUN is 28, creatinine is 1.78, glucose of 98. IMPRESSION: 1. Diabetic foot ulcer. 2. Acute kidney injury on chronic kidney disease stage 3-4. 3. Small-vessel disease. 4. Uncontrolled type 2 diabetes. PLAN: At this time, her creatinine is 1.78, stable with no other issues at this time. There are several serologies that have been ordered. She does have 11 g proteinuria. My hunch is that this patient likely has diabetic nephropathy leading to her 11 g proteinuria. Her kidney size is enlarged as well. Will continue to monitor very closely. She does need some serologies and further workup as an outpatient. Job#: [id number]
--- NOTE | 2018-03-30 04:15 | Discharge Summary ---
ADMISSION DIAGNOSES 1. Left 4th toe necrosis with ulcers. 2. Type-2 diabetes. 3. Hypertension. 4. Hyperlipidemia. 5. Thrombocytosis. 6. Diabetic retinopathy. DISCHARGE DIAGNOSES 1. Left 4th toe necrosis with ulcers. 2. Type-2 diabetes. 3. Hypertension. 4. Hyperlipidemia. 5. Thrombocytosis. 6. Diabetic retinopathy. 7. Osteomyelitis of the left 4th toe. 8. Peripheral artery disease. HISTORY: Patient has a history of type-2 diabetes, hypertension, hyperlipidemia, diabetic retinopathy. SURGICAL HISTORY: x2. FAMILY HISTORY: Noncontributory. SOCIAL HISTORY: Noncontributory. HOSPITAL COURSE: A 47-year-old female noticed burning of her left 4th toe about 3 weeks ago. Patient has diabetic retinopathy and is unable to see it herself. Her noticed her toe was turning colors before admission. They have been in the hospital with their daughter, so she has not given much attention to her foot. She denies fever, pain, and drainage. She came to the ER because her thinks her toe is getting worse. On admission, patient was started on IV vancomycin and Zosyn. Podiatry was consulted. EKG showed sinus tachycardia, arterial Doppler of the left lower extremity showed significant arterial stenosis. X-ray of the foot showed osteomyelitis of the distal phalanx of the 4th ray. Wound culture came back positive for Staphylococcus aureus, Streptococcus group A, Pseudomonas aeruginosa. Blood cultures were negative. Stool for blood negative. On admission, patient's creatinine was elevated. After getting a few doses of vancomycin, the patient creatinine continued to rise. Her initial vancomycin trough was 49. Vancomycin was discontinued and changed to Zosyn per infectious disease. Patient received a central line for long-term antibiotics. Nephrology was consulted due to the kidney injury. At time of discharge, the renal function is improving. Patient will discharge to [facility] for long-term antibiotics for osteomyelitis. Patient and understand discharge instructions and agreed to plan. Patient will have an angiogram at a later date once the kidney function improves. Vital signs stable. Patient afebrile. Dictated by: Veronica Vera NP STEFAN JACKSON MD Job#: [id number] CQ
--- NOTE | 2018-04-03 08:56 | Diagnostic Imaging Report ---
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 OPERATORS: Liberty Carlson MD RADIATION EXPOSURE: Fluoroscopy Time: 0.3 minutes Dose area product (DAP): 10.6 cGycm2 CONSENT: The patient was informed of the nature of the proposed procedure. The purposes, alternatives, risks, and benefits were explained and discussed. All questions were answered and written consent was obtained. ANESTHESIA: Conscious sedation was administered by IR nursing with continuous hemodynamic monitoring. MEDICATIONS: 15 cc of 1% subcutaneous lidocaine Fentanyl and Versed per nursing administration records TECHNIQUE: The patient was brought to the angiography suite, and the right neck and upper chest were prepped and draped in standard sterile fashion. All elements of maximal sterile barrier technique were followed including cap and mask, sterile gown, sterile gloves, large sterile sheet, hand hygiene and 2% chlorhexidine for cutaneous antisepsis. Pre-procedure time-out confirmed the patient identity and the procedure to be performed. Using standard sterile technique, 1 % lidocaine was administered subcutaneously for local anesthesia. Ultrasound demonstrated that the right internal jugular vein was patent and compressible. Under continuous sonographic guidance, the right internal jugular vein was accessed using a 21 G micropuncture needle. An .018'' was placed to secure access and measure catheter length. The needle was exchanged for a 7 Fr peel away sheath. Attention was then turned towards the subcutaneous tunnel. After administration of 1% lidocaine subcutaneously for local anesthesia, a 6 Fr small bore catheter was tunneled into the venotomy site. The catheter was cut to 19 cm length. Subsequently, the catheter was then advanced through the peel-away sheath into the superior vena cava. After confirming appropriate position with fluoroscopy the catheter tip in the right atrium, the peel-away sheath was removed, and both lumens aspirated, check flushed, and terminally flushed with 5 cc each of heparinized saline solution. The catheter was secured using 3-0 Ethilon pursestring suture at the catheter exit site and also 3-0 Ethilon sutures at the catheter hub. The venotomy site was closed with a single subcutaneous Vicryl suture, Dermabond, and steri-strips. Sterile dressings were applied. The patient tolerated the procedure well without immediate complication and was transported back to the floor in stable condition. FINDINGS: 1. Patent and compressible right IJV accessed with continuous ultrasound guidance. 2. Placement of 6 Fr x 19 cm tunneled dual lumen small bore catheter via the right IJ vein. 3. Post-procedure intraprocedural chest radiograph showed the catheter tip at the cavoatrial junction, no kinks along course of catheter, and no pneumothorax. Catheter is ready for use. IMPRESSION: Placement of right IJ tunneled dual lumen small bore catheter. Catheter is ready for immediate use. Signed by: Dr. Liberty Carlson MD on 03/29/2018 3:37 PM
== END 2018-03-29 20:58 | DRG 638 ==
LOC: ER 09:09 → ERHOLD 11:14 → ER 13:03 → MED/SURG2 13:58
PROVIDERS: ADMIT Internal Medicine; ATTEND Internal Medicine
PROC: 30233N1 Transfusion of Nonautologous Red Blood Cells into Peripheral Vein, Percutaneous Approach (ICD-10-PCS; 2018-03-22)
PROC: 02HV33Z Insertion of Infusion Device into Superior Vena Cava, Percutaneous Approach (ICD-10-PCS; principal; 2018-03-29)
DX: E11.69 Type 2 diabetes mellitus with other specified complication (principal); M86.8X7 Other osteomyelitis, ankle and foot; E11.621 Type 2 diabetes mellitus with foot ulcer; L97.524 Non-pressure chronic ulcer of other part of left foot with necrosis of bone; I10 Essential (primary) hypertension; E11.65 Type 2 diabetes mellitus with hyperglycemia; Z79.4 Long term (current) use of insulin; D47.3 Essential (hemorrhagic) thrombocythemia; E78.5 Hyperlipidemia, unspecified; B96.5 Pseudomonas (aeruginosa) (mallei) (pseudomallei) as the cause of diseases classified elsewhere; B95.62 Methicillin resistant Staphylococcus aureus infection as the cause of diseases classified elsewhere
CPT/HCPCS: 36415; 36558; 74470; 76770; 80048; 80053; 80061; 80202; 81001; 82044; 82270; 82306; 82570; 82607; 82728; 82746; 82948; 83036; 83540; 83735; 83880; 83970; 84100; 84156; 84300; 84443; 84466; 85025; 85610; 86850; 86900; 86920; 87040; 87071; 87186; 87205; 93005; 93926; 96372; 99284; J0360; J0692; J2001; J2250; J2270; J2405; J2543; J3370; J7030; J7050; P9016

== ENCOUNTER 2018-04-10 08:37 | Inpatient (IN) | payer BC ==
[~2018-04-10] VITALS: Ht 152.4 cm; Wt 54.4 kg
[2018-04-10] VITALS (14 sets, daily range): BP systolic 87–167; BP diastolic 73–166
[~2018-04-10 08:37] MED LIST: ASPIRIN EC81 MG PO; ATORVASTATIN CA40 MG PO; BASAGLAR KWIKPEN SQ; FUROSEMIDE40 MG PO; METFORMIN HCL500 MG PO; VASOTEC10 MG PO
[2018-04-10] MEDS ORDERED: FAMOTIDINE20 MG PO (09:06)
[2018-04-10] MEDS ORDERED: MORPHINE S30 MG/30 M IV (09:06)
[2018-04-10] MEDS ORDERED: DIPHENHYDR50 MG/1 ML IV (09:06)
[2018-04-10] MEDS ORDERED: NIFEDIPINE20 MG PO (09:06)
[2018-04-10] MEDS ORDERED: ONDANSETRON2 MG/1 ML IV (09:06)
[2018-04-10] MEDS ORDERED: NOVOLOG100 UNIT/1 SQ ×2 (09:06)
[2018-04-10] MEDS ORDERED: HYDRALAZIN20 MG/1 ML IV (09:06)
[2018-04-10] MEDS ORDERED: ACETAMINOPHEN325 M1 PO (09:06)
[2018-04-10] MEDS ORDERED: ASCORBIC ACID500 M2 PO (09:06)
[2018-04-10] MEDS ORDERED: CALCIUM CARBON500 MG PO (09:06)
[2018-04-10] MEDS ORDERED: FERROUS SULFAT325 MG PO (09:06)
[2018-04-10] MEDS ORDERED: DEXTROSE 50%-WA50 ML IV (09:06)
[2018-04-10] MEDS ORDERED: LACTULOSE20 GM/30 M PO (09:06)
[2018-04-10] MEDS ORDERED: GLUCAGEN1 M1 IM (09:06)
[2018-04-10] MEDS ORDERED: METOPROLOL SUCC25 MG PO (09:06)
[2018-04-10] MEDS ORDERED: HEPARIN SOD/SOD CHLORIDE 2,000 ML ONE (10:02)
[2018-04-10] MEDS ORDERED: LIDOCAINE HCL 2% LOCAL 20 ML VIAL ONE ×2 (10:02→12:00)
[2018-04-10] MEDS ORDERED: IOPAMIDOL 300MG/ML 100 ML INFUS..BTL IV ONE ×2 (10:02→12:00)
[2018-04-10] MEDS ORDERED: MIDAZOLAM HCL 2 MG/2 ML VIAL ONE ×2 (10:08→12:00)
[2018-04-10] MEDS ORDERED: FENTANYL CITRATE/PF 100MCG/2 ML INJ ONE ×2 (10:08→12:01)
[2018-04-10] MEDS ORDERED: SODIUM CHLORIDE 0.9% 1000ML 1,000 ML ONE ×2 (10:19→11:21)
[2018-04-10] MEDS ORDERED: VERAPAMIL HCL 2.5 MG/ML 2 ML VIAL ONE (11:21)
[2018-04-10] MEDS ORDERED: MORPHINE SULFATE INJ 4 MG/ML INJ ONE (13:48)
--- NOTE | 2018-04-10 13:59 | Operative Report ---
DATE OF PROCEDURE: April 10, 2018 PROCEDURE INDICATIONS: Peripheral arterial disease by Doppler ultrasound with severe multilevel PAD. Critical limb ischemia with left 4th toe gangrene. LINQ salvage procedure. PROCEDURES PERFORMED 1. Abdominal aortogram. 2. Third-order catheter placement from right common femoral artery to left popliteal artery for selective angiography of the left lower extremity. 3. Selective angiography of lower extremity done by unilateral to left. 4. Additional third-order catheter placement from right common femoral artery to left popliteal artery for additional selective digital subtraction angiography of below the knee vessels of the left lower extremity, which were not initially well visualized. 5. Left common iliac artery percutaneous transluminal angioplasty and stent with a 7 x 36 mm Valeo of expandable stent. 6. Left popliteal artery CSI atherectomy with a 1.25 bur at 120,000 rpm. 7. Left popliteal artery CTA with drug-eluting balloon, 4 x 40 Lutonix drug-eluting balloon. 8. Left posterior tibial CSI atherectomy with a 1.25 bur at 60,000 rpm. An additional left percutaneous transluminal angioplasty with an ultra verse 2.5 x 220 balloon. PROCEDURE COMPLICATIONS: None. ESTIMATED BLOOD LOSS: Less than 15 mL. PROCEDURE SUMMARY: After consent was obtained, the patient was prepped and draped in a sterile fashion. A 6-S[place]an sheath was advanced using a micropuncture kit with Seldinger technique. Omni flush catheter was positioned in the distal descending abdominal aorta, and angiography was performed revealing patent renal arteries and luminal irregularities throughout the infrarenal abdominal aorta with 90% stenosis of the left common iliac artery. The right common iliac artery was less than 30% stenosis. The external iliac and internal iliac arteries with luminal irregularities. The common femoral arteries bilaterally with luminal irregularities. The right lower extremity vessels were not evaluated on this procedure to limit dye exposure. The left common femoral and profunda femoris arteries, as well as left SFA has less than 30% stenosis. The left popliteal artery had a focal area of 70% stenosis. All 3 of the above the knee vessels, mainly the left anterior tibial, left posterior tibial and the left peroneal artery were 100% occluded. There was distal appearing of the left posterior tibial artery for which additional pictures were performed with catheterization of the left popliteal artery to further visualize anatomy well. The left posterior tibial DIE CUT OPERATOR was crossed with a roadrunner wire, and distal left posterior tibial and position was confirmed with catheter selective angiography. A Viper wire was then advanced. Again, heparin of 250 was given, as well as half of 500-600 for this procedure. A 1.25 bur was advanced and CSI atherectomy was performed to the left posterior tibial artery at 60,000 rpm. Additional CSI atherectomy was then performed of the left popliteal artery stenosis at 120,000 rpm. AWNING HANGER of the left posterior tibial was performed with a 2.5 x 220 ultra verse balloon. An additional AWNING HANGER on the left popliteal artery was performed with 4 x 40 mm Lutonix balloon. Attention was then directed to the left common iliac artery after initial balloon inflation with a 7 x 40. There was recoil of this area of stenosis for which additional access of the left common femoral artery or retrograde intervention was performed. A 7-[place]an sheath was placed with micropuncture with a single stick. This was followed by Valeo 7 mm x 36 mm balloon expandable stent that crossed the left common iliac artery with excellent final angiographic results. Overall, residual stenosis less than 10% throughout the left common iliac artery, the left popliteal artery and the left posterior tibial artery. MAGGIE-III flow. No residual dissections or perforations. Re-establishment of flow down to the foot. CONCLUSION 1. Left common iliac artery stent. 2. Left popliteal artery drug-eluting balloon angioplasty and CSI atherectomy. 3. Right posterior tibial CSI atherectomy and balloon angioplasty. RECOMMENDATIONS: Aspirin and Plavix. Bedrest. Podiatry consultation. Continue antibiotics. Continue inpatient. Job#: [id number] [place]
--- NOTE | 2018-04-10 14:19 | Consultation ---
DATE OF CONSULTATION: April 10, 2018 CARDIOLOGY CONSULTATION REFERRING PHYSICIAN: Neeraj Cordova MD REASON FOR CONSULTATION: Peripheral arterial disease. HISTORY OF PRESENT ILLNESS: Ms. Weeks is a pleasant, 47-year-old woman with advanced diabetes mellitus, type 2, with end-organ damage including retinopathy and near blindness, nephropathy and neuropathy. She also has hypertension, dyslipidemia, peripheral vascular disease, presenting initially with a left 4th toe gangrene and osteomyelitis for which she has been undergoing antibiotic therapy. Her previous hospitalization course was complicated with the development of acute kidney injury for which angiogram was delayed up until today. Over the last several days, her renal function seems to have plateaued and stabilized at 1.4 to 1.6 creatinine. She understands the risks, alternatives, indications and benefits for peripheral angiography and possible endovascular intervention. The risks include , OR, stroke, renal failure, need for dialysis whether permanent or intermittent, need for emergent surgery, limb loss, infection, allergic reaction, bleeding and need for transfusions among others. The patient voices an understanding and agrees to proceed. REVIEW OF SYSTEMS: Twelve systems reviewed and negative except as noted above. MEDICATIONS: Per HPI. SOCIAL HISTORY: Denies smoking, alcohol or drugs. FAMILY HISTORY: Noncontributory. PHYSICAL EXAMINATION VITALS: Afebrile with temperature 98 degrees. Heart rate 60. Respiratory rate 18. Blood pressure 125/67. GENERAL: No acute distress. Alert. NECK: No JVD. CHEST: Clear to auscultation. CARDIOVASCULAR: Regular rate and rhythm. Normal S1 and S2. No S3. No S4. ABDOMEN: Soft, nontender and nondistended. EXTREMITIES: No cyanosis or clubbing. Trace edema. Left 4th toe gangrene. CARDIOVASCULAR MEDICATIONS: Reviewed. STUDIES: Reviewed. ASSESSMENT: Critical limb ischemia with left 4th toe gangrene in the setting of multilevel peripheral vascular disease by Doppler ultrasound, now with chronic kidney disease, status post resolved acute kidney injury. RECOMMENDATIONS: Proceed to peripheral angiography and possible intervention. Antiplatelet therapy, statins and risk factor optimization. Following intervention, the patient will be evaluated by podiatry for possible 4th ray amputation. She will need continued IV antibiotics. Job#: [id number]
[2018-04-10] MEDS ORDERED: MORPHINE SULFATE IV PRN (16:00)
[2018-04-10] MEDS ORDERED: HYDRALAZINE HCL 20 MG/ML VIAL IV PRN (16:00)
[2018-04-10] MEDS: ASCORBIC ACID 500 MG TAB PO SCH (16:00)
[2018-04-10] MEDS ORDERED: ACETAMINOPHEN 325 MG TAB PO PRN (16:00)
[2018-04-10] MEDS: LACTULOSE SYRUP 20 GM/30 ML UDC PO SCH ×2 (16:00→21:21)
[2018-04-10] MEDS: FAMOTIDINE 20 MG TAB PO SCH (16:30)
[2018-04-10] MEDS ORDERED: INSULIN LISPRO 100 UNIT/1 ML 3ML VIAL SQ SCH ×2 (16:30→21:00)
[2018-04-10] MEDS ORDERED: DIPHENHYDRAMINE HCL INJ 50 MG/ML VIAL IV PRN (16:45)
[2018-04-10] MEDS ORDERED: NIFEDIPINE ER30 M1 PO (17:13)
[2018-04-10] MEDS ORDERED: VANCOMYCIN HCL1 GM IV (17:13)
[2018-04-10] MEDS ORDERED: HUMULIN R100 UNIT/2 SC (17:13)
[2018-04-10] MEDS ORDERED: MORPHINE SULFATE 2 MG/ML SYR IV PRN (17:15)
[2018-04-10] MEDS ORDERED: DEXTROSE 50% SYRINGE 50 ML IV PRN (17:15)
[2018-04-10] MEDS: SODIUM CHLORIDE 0.9% 1000ML 1,000 ML IV SCH (17:21)
[2018-04-10] MEDS: VANCOMYCIN 1GM/NS 250 ML 250 ML IV SCH (18:07)
[2018-04-10] MEDS: ONDANSETRON HCL INJ 2 MG/ML VIAL IV PRN (19:27)
[2018-04-10] MEDS: MORPHINE SULFATE INJ 4 MG/ML INJ IV PRN (19:27)
[2018-04-10] MEDS: ATORVASTATIN 40 MG TAB PO SCH (21:21)
[2018-04-10] MEDS: OYST-CAL-D 500MG TABLET PO SCH (21:21)
[2018-04-10] MEDS: CEFEPIME 1GM/NS 0.9% 50 ML 50 ML IV SCH (21:21)
[2018-04-10] MEDS: INSULIN REGULAR, HUMAN 100 UNIT/1 ML 3ML VIAL SQ SCH (21:45)
[2018-04-11] VITALS (7 sets, daily range): BP systolic 112–175; BP diastolic 59–80
[2018-04-11] MEDS: SODIUM CHLORIDE 0.9% 1000ML 1,000 ML IV SCH ×2 (05:50→16:00)
[2018-04-11] MEDS: ASCORBIC ACID 500 MG TAB PO SCH ×2 (06:20→17:44)
[2018-04-11 06:53] LABS: BASOPHILS # (AUTO) 0.1 (0.0-0.1); BASOPHILS % 1.7 % (0.0-1.0); EOSINOPHILS # (AUTO) 0.2 (0.0-0.4); EOSINOPHILS % 2.9 % (0.0-6.0); HEMATOCRIT 32.4 % (34.2-44.1); HEMOGLOBIN 10.5 g/dL (12.0-16.0); LYMPHOCYTES # (AUTO) 1.3 (1.0-3.2); LYMPHOCYTES % 20.6 % (18.0-39.1); MEAN CORPUSCULAR HEMOGLOBIN 28.6 pg (28-32); MEAN CORPUSCULAR HGB CONC 32.4 g/dL (31-35); MEAN CORPUSCULAR VOLUME 88.3 fL (81-99); MONOCYTES # (AUTO) 0.4 (0.2-0.8); MONOCYTES % 6.3 % (4.4-11.3); NEUTROPHILS # (AUTO) 4.3 (2.1-6.9); PLATELET COUNT 395 x10e3/uL (140-360); RED BLOOD COUNT 3.67 x10e6/uL (3.6-5.1); RED CELL DISTRIBUTION WIDTH 14.4 % (11.7-14.4)
[2018-04-11 07:25] LABS: ALBUMIN 1.7 g/dL (3.5-5.0); ALBUMIN/GLOBULIN RATIO 0.4 (0.8-2.0); ANION GAP 11.6 mmol/L (8-16); CALCIUM 8.4 mg/dL (8.4-10.2); CREATININE, SERUM 1.2 mg/dL (0.57-1.11); POTASSIUM 3.6 mmol/L (3.5-5.1)
[2018-04-11] MEDS: INSULIN REGULAR, HUMAN 100 UNIT/1 ML 3ML VIAL SQ SCH ×4 (08:00→20:55)
[2018-04-11] MEDS ORDERED: CLOPIDOGREL BISULFATE 75 MG TAB PO SCH (09:00)
[2018-04-11] MEDS: LACTULOSE SYRUP 20 GM/30 ML UDC PO SCH ×2 (09:00→20:35)
[2018-04-11] MEDS ORDERED: ASPIRIN 81 MG ENTERIC COATED PO SCH (09:00)
[2018-04-11] MEDS ORDERED: CEFEPIME HCL 1 GM VIAL IV SCH (09:00)
--- NOTE | 2018-04-11 09:43 | Progress Note ---
DATE: April 10, 2018 SUBJECTIVE: Patient is doing well. Patient had angioplasty done per Dr. Blank today. He relates that she feels the foot is feeling better with decreased pain. OBJECTIVE VITALS: Afebrile, pulse rate 102, respirations 17, blood pressure 162/77, O2 saturation 93%. EXTREMITIES: Gangrenous changes noted to the left foot, stable. Ulceration with bone exposed at the medial and lateral aspect of the left great toe at the proximal interphalangeal joint. Some discoloration at the metatarsophalangeal joint area with no foul smell. ASSESSMENT 1. Dry gangrene with a grade 4 ulcer with cellulitis. 2. Peripheral arterial disease, status post angioplasty. PLAN: Continue to let the foot demarcate. Patient will be scheduled for a definitive procedure sometime this week. Continue IV antibiotics, such as vancomycin and cefepime. Continue local wound care with diluted wet-to-dry Betadine. Continue offloading. Job#: [id number] [place]
[2018-04-11] MEDS: METOPROLOL SUCCINATE 25 MG TAB XL PO SCH (09:56)
[2018-04-11] MEDS: NIFEDIPINE CR 30 MG TAB PO SCH (09:56)
[2018-04-11] MEDS: FERROUS SULFATE 325 MG TAB PO SCH (09:56)
[2018-04-11] MEDS: FAMOTIDINE 20 MG TAB PO SCH ×2 (09:56→17:44)
[2018-04-11] MEDS: OYST-CAL-D 500MG TABLET PO SCH ×2 (09:56→20:38)
--- NOTE | 2018-04-11 09:59 | Progress Note ---
DATE: April 11, 2018 SUBJECTIVE: Patient seen at bedside, doing better, decreased pain. Denies any history of fever, chills, nausea, vomiting. OBJECTIVE: VITAL SIGNS: Afebrile. Pulse rate 110, respiration 20, blood pressure 173/80, O2 saturation 95%. EXTREMITIES: Gangrenous changes to the fourth toe are isolated to the toe distally at the level of proximal interphalangeal joint. Ulceration with bone exposed to the medial and lateral aspect of the proximal interphalangeal joint. There is some cellulitis of the plantar aspect of the right foot, dorsal aspect with some edema. Skin temperature between warm and cool to touch. Pedal pulses to the DP are barely to nonpalpable. PT pulses are more palpable on this day. LABS: Noted. Has a white blood cell count of 6.3, hemoglobin 10.5, hematocrit 32.4 with a platelet count of 395,000. ASSESSMENT: Status post angioplasty with angiogram per Dr. Blank to the posterior tibial artery and iliac artery of the left lower extremity. PLAN: Will continue diluted wet-to-dry Betadine. Continue IV antibiotics. Patient will be taken for surgical intervention hopefully this Monday. PT and INR will be ordered. Job#: [id number]
[2018-04-11 10:08] LABS: INR 0.99
[2018-04-11 10:09] LABS: PARTIAL THROMBOPLASTIN TIME 37.4 seconds (23.8-35.5)
--- NOTE | 2018-04-11 15:29 | Consultation ---
DATE OF CONSULTATION: April 11, 2018 REASON FOR CONSULTATION: Gangrene of the 4th toe. This patient who is well known to me from before. She is a 47-year-old female with a history of diabetes mellitus, atherosclerotic disease, peripheral vascular disease. The patient on April 10, 2018 had an abdominal aortogram, left iliac artery stent placement, left popliteal artery drug-eluting balloon angioplasty and atherectomy. The patient is noted to have gangrene of her 4th toe. The patient is being admitted. The patient has history of diabetes mellitus, type 2, neuropathy, retinopathy. She is legally blind, nephropathy, neuropathy, hypertension, hyperlipidemia, peripheral vascular disease comes in with 4th toe gangrene and osteomyelitis. The patient was recently in the hospital. She had acute kidney failure. The patient's kidney function improved. She was seen by cardiology and underwent the above procedure. Infectious disease was asked to see her to make recommendations to antibiotics. The patient is currently laying in bed comfortably with no complaints. PAST MEDICAL HISTORY/PAST SURGICAL HISTORY: As above. ALLERGIES: NKA. SOCIAL HISTORY: There is no smoking, drug abuse or alcohol abuse. FAMILY HISTORY: Hypertension and diabetes. LABS: Her white count is 6.3, hemoglobin 10.5. Her sodium is 144, potassium 3.6, creatinine 1.2. Liver enzymes within normal limits. Protein of 1.7. PHYSICAL EXAMINATION GENERAL: She is currently alert and oriented. Does not seem in acute distress. VITALS: Stable. Currently afebrile. HEENT: She is not icteric. NECK: Supple. CHEST: Clear. HEART: S1 and S2. No murmur. ABDOMEN: Soft. Bowel sounds present. No tenderness. No hepatosplenomegaly. EXTREMITIES: No edema. SKIN: There is no rash. The 4th toe is gangrene. There is erythema and edema noted in the distal third of the foot. IMPRESSION: Osteomyelitis and gangrene of the toe, status post angioplasty. Continue current choice of intravenous antibiotics. Follow up on the level. Would recommend amputation of the 4th toe. Further recommendations to follow. Job#: [id number] [place]
--- NOTE | 2018-04-11 17:45 | Consultation ---
DATE OF CONSULTATION: April 11, 2018 NEPHROLOGY CONSULTATION REASON FOR CONSULTATION: Acute kidney injury on CKD stage 3-4. 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 There were some concerns that her 4th is gangrene with osteomyelitis. She denies any other complaints at this time. Patient was seen and evaluated at bedside on the medical floor currently. Currently doing well with no other complaints at this time. Nephrology was consulted for acute kidney injury on CKD stage 3-4. REVIEW OF SYSTEMS: Pertinent positives: Infection of the left foot. Pertinent negatives: Denies any chest pain, palpitations, nausea, vomiting, diarrhea, dysuria, hematuria, frequency, urgency, lightheadedness, dizziness, abdominal pain, headache, shortness of breath, cough, congestion, fever or any other complaints. The rest of the 14-point review of systems have been reviewed with the patient and are negative. ALLERGIES: NO KNOWN DRUG ALLERGIES. HOME MEDICATIONS: Humulin R sliding scale, nifedipine XL 90 mg daily, Tylenol, , aspirin, Lipitor, calcium carbonate, diphenhydramine, famotidine, ferrous sulfate, lactulose, metoprolol. PAST MEDICAL HISTORY: Hypertension, diabetes, CKD stage 3/4, medical noncompliance, blindness. PAST SURGICAL HISTORY: Had multiple debridements of the feet. FAMILY HISTORY: Noncontributory, diabetes. SOCIAL HISTORY: No drugs or alcohol. Does not smoke. PHYSICAL EXAMINATION VITAL SIGNS: Temperature is 98.1, pulse 110, respiratory rate 20, blood pressure 173/80, pulse ox 95% on room air. GENERAL: In no acute distress, alert and oriented x3, cooperative on examination. HEENT: Head normocephalic, atraumatic. Eyes: Pupils equal, round and reactive to light bilaterally. Extraocular movements intact bilaterally. NECK: Supple with good range of motion. Throat with no evidence of any erythema or exudates in the posterior pharynx. Has poor dentition. PULMONARY: Clear to auscultation bilaterally. No wheezing, no rales, no rhonchi, no crackles appreciated. CARDIOVASCULAR: Positive S1 and S2. No murmurs, rubs or gallops appreciated. ABDOMEN: Soft, nondistended, nontender on palpation. Bowel sounds present. MUSCULOSKELETAL: Strength 5/5 throughout. No evidence of musculoskeletal deficit on examination. No weakness appreciated. NEUROLOGIC: Cranial nerves II-XII grossly intact. No evidence of neurological deficit on examination. SKIN: Intact. Warm to touch. Good capillary refill. PSYCHIATRIC: Normal affect and mood. EXTREMITIES: No edema. Good range of motion. LAB FINDINGS: White count 6.3, hemoglobin 10.5, hematocrit is 32, platelets of 395,000. Chemistry, sodium is 141, potassium 3.6, chloride 118, bicarb 18, anion gap of 11, BUN is 21, creatinine is 1.2. Glucose is 39. LFTs were normal. Albumin was low at 1.7 likely due to her renal failure from diabetes. MICROBIOLOGY: None. IMAGING STUDIES: Lower extremity PROJECTION TECHNICIAN for popliteal is pending. IMPRESSIONS 1. Diabetic foot ulcer with worsening peripheral neuropathy, status post left lower extremity angiogram. 2. Gangrene of the 4th toe. 3. Uncontrolled type-2 diabetes. 4. Hypertension. 5. Nephrotic range proteinuria likely secondary to diabetes. PLAN: At this time, her creatinine is improved at 1.2. She does have CKD 3-4. No need for renal ultrasound, which she had on prior admission. We are going to put her on normal saline as the patient is clinically dehydrated. Hold nephrotoxic agents including diuretics. Electrolytes are stable. Get a.m. labs. Continue to follow with the primary team. Thank you very much for this consultation. Will continue to follow with you. Job#: [id number]
[2018-04-11] MEDS: ATORVASTATIN 40 MG TAB PO SCH (20:35)
[2018-04-11] MEDS: CEFEPIME 1GM/NS 0.9% 50 ML 50 ML IV SCH (20:35)
--- NOTE | 2018-04-11 21:17 | Progress Note ---
DATE: April 11, 2018 CARDIOLOGY PROGRESS NOTE SUBJECTIVE: No new complaints. OBJECTIVE VITAL SIGNS: Temperature 98.5, heart rate 102, respiratory rate 16, blood pressure 135/62, O2 sat 95% room air. GENERAL: In no acute distress. Alert. NECK: No JVD. CHEST: Clear to auscultation. CARDIOVASCULAR: Regular rate and rhythm. Normal S1 and S2. No S3, no S4. ABDOMEN: Soft, nontender, nondistended. EXTREMITIES: Trace edema. Left 4th toe gangrene. CARDIOVASCULAR MEDICATIONS: Reviewed. 1. Clopidogrel 75 mg daily. 2. Metoprolol succinate 25 mg daily. 3. Atorvastatin 4 mg nightly. 4. Aspirin 81 mg daily. 5. Nifedipine 90 mg daily. 6. Vancomycin and cefepime antibiotics. 7. Hydralazine 10 mg q.4 h as needed. STUDIES: Reviewed. Sodium 144, potassium 3.6, chloride 118, bicarbonate 18, BUN 24, creatinine 1.2, glucose 139. White blood cells 6.3, hemoglobin 10.5, platelets 295,000. INR 0.9. AST 9, ALT 11. ASSESSMENT 1. Peripheral artery disease, status post left lower extremity revascularization, multilevel, iliopopliteal and posterior tibial revascularization. Please see report. 2. Chronic kidney disease. 3. Anemia. 4. Diabetes mellitus with nephropathy, retinopathy, and neuropathy. 5. Hypertension. 6. Carotid disease. 7. Hyperlipidemia. RECOMMENDATIONS 1. Continue current cardiovascular medications. 2. Podiatry considering reamputation. 3. Continue perioperative beta-blockers. Job#: [id number]
[2018-04-12] VITALS (8 sets, daily range): BP systolic 115–171; BP diastolic 55–78
[2018-04-12] MEDS: MORPHINE SULFATE INJ 4 MG/ML INJ IV PRN ×2 (00:30→09:37)
[2018-04-12 06:13] LABS: BASOPHILS # (AUTO) 0.1 (0.0-0.1); BASOPHILS % 2.4 % (0.0-1.0); EOSINOPHILS # (AUTO) 0.4 (0.0-0.4); EOSINOPHILS % 7.3 % (0.0-6.0); HEMATOCRIT 30.5 % (34.2-44.1); HEMOGLOBIN 9.8 g/dL (12.0-16.0); LYMPHOCYTES # (AUTO) 1.4 (1.0-3.2); LYMPHOCYTES % 27.7 % (18.0-39.1); MEAN CORPUSCULAR HEMOGLOBIN 28.6 pg (28-32); MEAN CORPUSCULAR HGB CONC 32.1 g/dL (31-35); MEAN CORPUSCULAR VOLUME 88.9 fL (81-99); MONOCYTES # (AUTO) 0.4 (0.2-0.8); MONOCYTES % 8.5 % (4.4-11.3); NEUTROPHILS # (AUTO) 2.7 (2.1-6.9); NEUTROPHILS % 53.9 % (38.7-80.0); PLATELET COUNT 358 x10e3/uL (140-360); RED BLOOD COUNT 3.43 x10e6/uL (3.6-5.1); RED CELL DISTRIBUTION WIDTH 14.4 % (11.7-14.4)
[2018-04-12 06:25] LABS: ANION GAP 11.5 mmol/L (8-16); CALCIUM 8.2 mg/dL (8.4-10.2); CREATININE, SERUM 1.2 mg/dL (0.57-1.11); MAGNESIUM 1.7 MG/DL (1.3-2.1); POTASSIUM 3.5 mmol/L (3.5-5.1)
[2018-04-12] MEDS: SODIUM CHLORIDE 0.9% 1000ML 1,000 ML IV SCH (06:39)
[2018-04-12] MEDS: ASCORBIC ACID 500 MG TAB PO SCH ×2 (06:39→17:03)
[2018-04-12] MEDS: INSULIN REGULAR, HUMAN 100 UNIT/1 ML 3ML VIAL SQ SCH ×4 (07:30→20:45)
[2018-04-12] MEDS: FAMOTIDINE 20 MG TAB PO SCH ×2 (08:51→17:03)
[2018-04-12] MEDS: FERROUS SULFATE 325 MG TAB PO SCH (08:59)
[2018-04-12] MEDS: LACTULOSE SYRUP 20 GM/30 ML UDC PO SCH ×2 (09:00→20:44)
[2018-04-12] MEDS: NIFEDIPINE CR 30 MG TAB PO SCH (09:00)
[2018-04-12] MEDS: OYST-CAL-D 500MG TABLET PO SCH ×2 (09:00→20:41)
[2018-04-12] MEDS: METOPROLOL SUCCINATE 25 MG TAB XL PO SCH (09:01)
[2018-04-12 09:13] LABS: ANISOCYTOSIS SLIGHT; EOSINOPHILS % (MANUAL) 8 % (0-7); LYMPHOCYTES % (MANUAL) 28 % (19-48); NEUTROPHILS % (MANUAL) 64 % (40-74); PLATELET ESTIMATE ADEQUATE; PLATELET MORPHOLOGY COMMENT FEW LARGE; RBC MORPHOLOGY COMMENT NORMAL
[2018-04-12 09:14] LABS: HYPOCHROMASIA MODERATE
--- NOTE | 2018-04-12 09:25 | Progress Note ---
DATE: April 12, 2018 SUBJECTIVE: Patient is seen at bedside accompanied by family members. Doing well. In good spirits. Denying any history of fever, chills, nausea, or vomiting. OBJECTIVE VITALS: Afebrile, pulse rate 99, respirations 18, blood pressure 158/77, O2 saturation 94%. EXTREMITIES: Has cellulitis to the left foot proximal to the gangrenous changes, possible abscess. Ulceration down to bone. Gangrenous changes noted to the 4th digit, left foot with cellulitis proximal to the metatarsophalangeal joint. LABS: Show a hemoglobin 9.8, hematocrit 30.5 with a platelet count of 358,000. INR 0.99. ASSESSMENT: Abscess, grade 4 ulcer with gangrene. PLAN: Patient will be taken for surgical intervention tomorrow. Proposed surgery plus risks and complications were reviewed in great detail with both the patient's family and the patient. Proposed surgery will be I and D of abscess, amputation of the toe with possible flap closure with bone debridement. Will be kept n.p.o. after midnight. Will hold the Plavix and aspirin. Job#: [id number] CA
--- NOTE | 2018-04-12 09:44 | Progress Note ---
DATE: April 12, 2018 NEPHROLOGY PROGRESS NOTE SUBJECTIVE: Patient is doing well. She has pain in the left foot. Requesting for pain medications. Will stop IV fluids as well and give her some diuretics. Her legs are very swollen. OBJECTIVE VITAL SIGNS: Temperature is 97.3, pulse 99, respiratory rate 18, blood pressure 158/77, pulse ox 94% on room air. GENERAL: Not in acute distress. Alert and oriented times 3. Cooperative on examination. HEENT: Head is normocephalic and atraumatic. Eyes: Pupils equal, round and reactive to light bilaterally. Extraocular movements intact bilaterally. NECK: Supple. Good range of motion. Throat with no evidence of any erythema or exudates in the posterior pharynx. Has poor dentition. PULMONARY: Clear to auscultation bilaterally. No wheezing. No rales. No rhonchi. No crackles appreciated. CARDIOVASCULAR: Positive S1 and S2. No murmurs, rubs or gallops appreciated. ABDOMEN: Soft, nondistended and nontender to palpation. Bowel sounds present. MUSCULOSKELETAL: Strength is 5/5 throughout. No evidence of any muscle deficit on examination. No weakness appreciated. NEUROLOGICAL: Cranial nerves II-XII are grossly intact. No evidence of any neurological deficits on exam. SKIN: Intact. Warm to touch. Good cap refill. PSYCHIATRIC: Normal affect and mood. EXTREMITIES: She has 2+ pedal edema in the lower extremities. LAB FINDINGS: Show a white count of 5, hemoglobin 9.8, hematocrit 30.5, and platelets of 358,000. Coagulation: PT 14, INR 0.99 and PTT 37. Chemistry: Sodium 141, potassium 3.5, chloride 115, bicarb 18, anion gap of 11, BUN 23, creatinine is 1.2, and glucose is 132. BNP is 611. MICROBIOLOGY: None. IMAGING STUDIES: None. IMPRESSION 1. Diabetic foot ulcer with worsening peripheral neuropathy with status post left lower extremity angiogram. 2. Gangrene of the 4th toe. 3. Uncontrolled type 2 diabetes. 4. Hypertension. 5. Nephrotic range proteinuria likely secondary to diabetes. 6. Lower extremity edema. PLAN: Stop the IV fluids. Put on Lasix 40 mg IV times 3 doses. Give pain medication. Get a.m. labs. Her electrolytes are stable. Continue to follow. Job#: [id number] KAM
[2018-04-12] MEDS: LISINOPRIL 10 MG TAB PO SCH (10:00)
[2018-04-12] MEDS: FUROSEMIDE INJ 10 MG/ML 2 ML VIAL IV SCH ×2 (13:44→21:00)
[2018-04-12] MEDS: VANCOMYCIN 1GM/NS 250 ML 250 ML IV SCH (17:34)
--- NOTE | 2018-04-12 18:58 | Progress Note ---
DATE: April 12, 2018 CARDIOLOGY PROGRESS NOTE SUBJECTIVE: Denies any chest pain or shortness of breath. No new complaints. OBJECTIVE VITAL SIGNS: Temperature is 98.2, heart rate 102, blood pressure 158/78, respiratory rate 18, O2 sat 96% at room air. GENERAL: In no acute distress. Alert. NECK: No JVD. CHEST: Clear to auscultation. CARDIOVASCULAR: Regular rate and rhythm. Normal S1 and S2. No S3, no S4. ABDOMEN: Soft, nontender. EXTREMITIES: Trace edema. CARDIOVASCULAR MEDICATIONS: Reviewed. 1. Aspirin and Plavix currently placed on hold for podiatry procedure tomorrow. 1. Nifedipine 90 mg daily. 2. Hydralazine p.r.n. 3. Metoprolol succinate 25 mg daily. 4. Furosemide 40 mg every 8 hours. 5. Atorvastatin 40 mg nightly. 6. Lisinopril 10 mg daily. STUDIES: Reviewed. Potassium 3.5, creatinine 1.2. Hemoglobin 9.8, platelets 358. INR 0.9. ASSESSMENT 1. Peripheral arterial disease status post revascularization. 2. Critical limb ischemia. 3. Anemia. 4. Carotid disease. 5. Hypertension. 6. Diabetes mellitus. 7. Dyslipidemia. RECOMMENDATIONS 1. Continue current cardiovascular medications. Post surgery resume aspirin and clopidogrel. 2. Continue perioperative beta blockers for moderate risk for adverse cardiovascular outcomes with surgery. Job#: [id number] EV
[2018-04-12] MEDS: CEFEPIME 1GM/NS 0.9% 50 ML 50 ML IV SCH (20:41)
[2018-04-12] MEDS: ATORVASTATIN 40 MG TAB PO SCH (20:41)
[2018-04-13] VITALS (8 sets, daily range): BP systolic 123–167; BP diastolic 60–75
[2018-04-13] MEDS: ASCORBIC ACID 500 MG TAB PO SCH ×2 (04:00→16:28)
[2018-04-13 04:41] LABS: BASOPHILS # (AUTO) 0.1 (0.0-0.1); BASOPHILS % 2.1 % (0.0-1.0); EOSINOPHILS # (AUTO) 0.3 (0.0-0.4); EOSINOPHILS % 5.9 % (0.0-6.0); HEMATOCRIT 29.4 % (34.2-44.1); HEMOGLOBIN 9.6 g/dL (12.0-16.0); LYMPHOCYTES # (AUTO) 1.5 (1.0-3.2); LYMPHOCYTES % 31.1 % (18.0-39.1); MEAN CORPUSCULAR HEMOGLOBIN 28.7 pg (28-32); MEAN CORPUSCULAR HGB CONC 32.7 g/dL (31-35); MEAN CORPUSCULAR VOLUME 87.8 fL (81-99); MONOCYTES # (AUTO) 0.4 (0.2-0.8); NEUTROPHILS # (AUTO) 2.5 (2.1-6.9); NEUTROPHILS % 52.7 % (38.7-80.0); PLATELET COUNT 334 x10e3/uL (140-360); RED BLOOD COUNT 3.35 x10e6/uL (3.6-5.1); RED CELL DISTRIBUTION WIDTH 14.4 % (11.7-14.4)
[2018-04-13 05:02] LABS: ANION GAP 10.5 mmol/L (8-16); CALCIUM 8.4 mg/dL (8.4-10.2); CREATININE, SERUM 1.21 mg/dL (0.57-1.11); MAGNESIUM 1.6 MG/DL (1.3-2.1); POTASSIUM 3.5 mmol/L (3.5-5.1)
[2018-04-13] MEDS: FUROSEMIDE INJ 10 MG/ML 2 ML VIAL IV SCH (06:00)
[2018-04-13] MEDS ORDERED: BETAMETHASONE DISODIUM PHOS 6 MG/ML VIAL ONE (06:13)
[2018-04-13] MEDS ORDERED: BUPIVACAINE HCL 0.5% INJ 30 ML VIAL INJ ONE (06:13)
[2018-04-13] MEDS ORDERED: LIDOCAINE HCL 1% LOCAL INJ 20 ML VIAL ONE (06:13)
[2018-04-13] MEDS ORDERED: BACITRACIN ZINC 15 GM OINT ONE (06:13)
[2018-04-13] MEDS ORDERED: BACITRACIN 50,000 UNIT VIAL ONE (06:14)
[2018-04-13] MEDS: MORPHINE SULFATE INJ 4 MG/ML INJ IV PRN (06:15)
[2018-04-13 07:23] LABS: EOSINOPHILS % (MANUAL) 3 % (0-7); LYMPHOCYTES % (MANUAL) 30 % (19-48); MONOCYTES % (MANUAL) 11 % (3.4-9.0); NEUTROPHILS % (MANUAL) 55 % (40-74)
[2018-04-13 07:24] LABS: ANISOCYTOSIS SLIGHT; HYPOCHROMASIA SLIGHT; RBC MORPHOLOGY COMMENT NORMAL
[2018-04-13 07:25] LABS: PLATELET ESTIMATE ADEQUATE; PLATELET MORPHOLOGY COMMENT NORMAL
[2018-04-13] MEDS: INSULIN REGULAR, HUMAN 100 UNIT/1 ML 3ML VIAL SQ SCH ×4 (07:30→21:00)
[2018-04-13] MEDS ORDERED: HYDROMORPHONE 2MG/ML 2 MG/ML ML ONE (08:16)
[2018-04-13] MEDS ORDERED: ACETAMINOPHEN 1000 MG/100 ML 100 ML IV ONE (08:16)
--- NOTE | 2018-04-13 09:26 | Progress Note ---
DATE: April 13, 2018 NEPHROLOGY PROGRESS NOTE SUBJECTIVE: The patient is doing well today with no complaints. OBJECTIVE VITAL SIGNS: Temperature 98.6, pulse 105, respiratory rate 18, blood pressure 160/73, pulse ox 95% on room air. GENERAL: Not in acute distress. Alert and oriented times 3. Cooperative on examination. HEENT: Head is normocephalic and atraumatic. Eyes: Pupils equal, round and reactive to light bilaterally. Extraocular movements intact bilaterally. NECK: Supple. Good range of motion. Throat with no evidence of any erythema or exudates in the posterior pharynx. Has poor dentition. PULMONARY: Clear to auscultation bilaterally. No wheezing. No rales. No rhonchi. No crackles appreciated. CARDIOVASCULAR: Positive S1 and S2. No murmurs, rubs or gallops appreciated. ABDOMEN: Soft, nondistended and nontender to palpation. Bowel sounds present. MUSCULOSKELETAL: Strength is 5/5 throughout. No evidence of any muscle deficit on examination. No weakness appreciated. NEUROLOGICAL: Cranial nerves II-XII are grossly intact. No evidence of any neurological deficits on exam. SKIN: Intact. Warm to touch. Good cap refill. PSYCHIATRIC: Normal affect and mood. EXTREMITIES: No edema. Good range of motion throughout. LAB FINDINGS: Show a white count of 4.7, hemoglobin 9.6, hematocrit is 29, and platelets of 334,000. Chemistry: Sodium was 139, potassium 3.5, chloride 113, anion gap of 10, BUN is 22, creatinine is 1.2. IMPRESSION 1. Diabetic foot ulcer with worsening peripheral neuropathy: Status post left lower extremity angiogram. 2. Gangrene of the 4th toe. 3. Uncontrolled type 2 diabetes. 4. Hypertension. 5. Nephrotic range proteinuria likely secondary to diabetes. 6. Lower extremity edema. PLAN: IV fluids have been stopped. Continue with IV diuretics. Labs were reviewed and stable. Continue to monitor. Electrolytes are stable as well. Will continue to follow with the primary team. Job#: [id number] AR
--- NOTE | 2018-04-13 09:45 | Operative Report ---
DATE OF PROCEDURE: April 13, 2018 PREOPERATIVE DIAGNOSES 1. Grade 4 ulcer. 2. Abscess. 3. Osteomyelitis with gangrenous changes to the 4th digit, left foot. POSTOPERATIVE DIAGNOSES 1. Grade 4 ulcer. 2. Abscess. 3. Osteomyelitis with gangrenous changes to the 4th digit, left foot. OPERATIVE PROCEDURES 1. Incision and drainage of abscess down to bone. 2. Amputation, 4th toe, left foot. 3. Rotational flap closure, left foot. ANESTHESIA: General. HEMOSTASIS: None. PROCEDURE IN DETAIL: Patient was taken into the operating room and placed on the operating room table in the supine position. Following induction of general anesthesia by the anesthesiologist, the left lower extremity was then prepped and draped in the usual aseptic manner. The following procedure was then performed. PROCEDURE #1: I and D of abscess, left foot. Attention was directed to the dorsal aspect overlying the metatarsophalangeal joint where an incision was carried down to bone. Deep abscess pocket was encountered. It was cultured for aerobic and anaerobic growth. The abscess was I and D until good viable bleeding tissue was achieved. At this point: PROCEDURE #2: Amputation of 4th toe, left foot was performed. The toe was then disarticulated at the metatarsophalangeal joint and sent for pathological analysis. All areas were then copiously flushed with sterile antibiotic solution and suctioned. PROCEDURE #3: Rotational flap closure. The incision was then carried distally medially and dorsally laterally to create a flap to allow for proper closure with as minimal skin tension as possible. The flap was then dorsally displaced. Utilizing 4-0 nylon in a horizontal mattress type fashion, the flap was reapproximated with as minimal skin tension as possible after properly and copiously flushing the area with saline. Approximately, 15 mL of 0.5% plain Marcaine were used to achieve local anesthesia above the surgical area in conjunction with 5 mL of 1% Xylocaine plain. Sterile dressing was applied. The patient was then transferred from the OR to the recovery room with vital signs stable and neurovascular status intact. Will continue IV antibiotics and local wound care. Understand that the patient may need a more proximal amputation if not responsive. Blood loss from the surgery was minimal. Seems like adequate bleeding was achieved. Job#: [id number] DC
--- NOTE | 2018-04-13 10:12 | Progress Note ---
DATE: April 13, 2018 CARDIOLOGY PROGRESS NOTE SUBJECTIVE: No complaints today. OBJECTIVE VITAL SIGNS: Temperature is 98.6, heart rate 93, respiratory rate 18, blood pressure 151/80, O2 sat 96%. GENERAL: No acute distress. Alert. NECK: No JVD. CHEST: Clear to auscultation. CARDIOVASCULAR: Regular rate and rhythm. Normal S1 and S2. No S3, no S4. ABDOMEN: Soft, nontender. EXTREMITIES: Trace edema. Left foot covered with dressing. CARDIOVASCULAR MEDICATIONS: Reviewed. 1. Aspirin and Plavix on hold. Will resume today. 2. Lisinopril 10 mg daily. 3. Atorvastatin 40 mg nightly. 4. Metoprolol succinate 25 mg daily. 5. Hydralazine 10 mg q.4 h. p.r.n. LAS: Sodium 139, potassium 3.5, chloride 113, bicarbonate 19, BUN 22, creatinine 1.2, glucose 114. White blood cells 4.7, hemoglobin 9.6, platelets 334. INR 0.9, AST 9, ALT 11. ASSESSMENT 1. Peripheral arterial disease, status post left lower extremity revascularization at iliac, popliteal and posterior tibial level, now status post 4th ray amputation by podiatry. 2. Carotid disease. 3. Hypertension. 4. Dyslipidemia. 5. Diabetes mellitus with nephropathy and retinopathy. 6. Chronic kidney disease with improving creatinine. 7. Anemia. RECOMMENDATIONS 1. Resume aspirin and Plavix. 2. Continue wound care and antibiotics. 3. Continue the rest of the cardiovascular medications. Job#: [id number]
[2018-04-13] MEDS: FERROUS SULFATE 325 MG TAB PO SCH (10:15)
[2018-04-13] MEDS: OYST-CAL-D 500MG TABLET PO SCH ×2 (10:15→21:42)
[2018-04-13] MEDS: LACTULOSE SYRUP 20 GM/30 ML UDC PO SCH ×2 (10:15→21:00)
[2018-04-13] MEDS: NIFEDIPINE CR 30 MG TAB PO SCH (10:15)
[2018-04-13] MEDS: LISINOPRIL 10 MG TAB PO SCH (10:15)
[2018-04-13] MEDS: FAMOTIDINE 20 MG TAB PO SCH ×2 (10:15→16:28)
[2018-04-13] MEDS: CLOPIDOGREL BISULFATE 75 MG TAB PO SCH (10:16)
[2018-04-13] MEDS: METOPROLOL SUCCINATE 25 MG TAB XL PO SCH (10:16)
--- NOTE | 2018-04-13 10:26 | Diagnostic Imaging Report ---
PROCEDURE:X-RAY LEFT FOOT, TWO VIEWS COMPARISON:None. INDICATIONS:POST OPERATIVE LEFT FOOT FINDINGS: The bones are demineralized. There is soft tissue air. Erosive change of the distal fifth metatarsal and fourth metatarsal is compatible with osteomyelitis. Status post amputation of the fourth toe. CONCLUSION: 1. Erosive changes of the distal fourth and fifth metatarsals. 2. Postoperative changes as described above. Fuentes Polanco D.O. Dictated by: Fuentes Polanco D.O. on 04/13/2018 at 10:37 Electronically approved by: Fuentes Polanco D.O. on 04/13/2018 at 10:37
[2018-04-13] MEDS: CEFEPIME 1GM/NS 0.9% 50 ML 50 ML IV SCH (11:44)
[2018-04-13] MEDS ORDERED: ONDANSETRON HCL INJ 2 MG/ML VIAL ONE (19:23)
[2018-04-13] MEDS ORDERED: LIDOCAINE HCL 2% LOCAL INJ 5 ML SDV VIAL INJ ONE (19:23)
[2018-04-13] MEDS ORDERED: MIDAZOLAM HCL 2 MG/2 ML VIAL ONE (19:23)
[2018-04-13] MEDS ORDERED: PROPOFOL IV EMULSION 10 MG/ML 20 ML VIAL ONE (19:23)
[2018-04-13] MEDS ORDERED: ROCURONIUM BROMIDE 10 MG/ML 5ML VIAL ONE (19:23)
[2018-04-13] MEDS ORDERED: FENTANYL CITRATE/PF 100MCG/2 ML INJ ONE (19:23)
[2018-04-13] MEDS ORDERED: SEVOFLURANE INHAL SOLN 250 ML PEN BTL ONE (19:23)
[2018-04-13] MEDS ORDERED: VANCOMYCIN 1GM/NS 250 ML 250 ML IV SCH (21:00)
[2018-04-13] MEDS: ATORVASTATIN 40 MG TAB PO SCH (21:42)
[2018-04-14] VITALS (7 sets, daily range): BP systolic 116–144; BP diastolic 55–71
[2018-04-14] MEDS: CEFEPIME 1GM/NS 0.9% 50 ML 50 ML IV SCH ×2 (00:48→12:19)
[2018-04-14] MEDS: ASCORBIC ACID 500 MG TAB PO SCH ×2 (04:49→16:59)
[2018-04-14 05:47] LABS: BASOPHILS # (AUTO) 0.1 (0.0-0.1); BASOPHILS % 2.2 % (0.0-1.0); EOSINOPHILS # (AUTO) 0.3 (0.0-0.4); EOSINOPHILS % 5.7 % (0.0-6.0); HEMATOCRIT 30.2 % (34.2-44.1); HEMOGLOBIN 9.9 g/dL (12.0-16.0); LYMPHOCYTES # (AUTO) 1.5 (1.0-3.2); LYMPHOCYTES % 29.2 % (18.0-39.1); MEAN CORPUSCULAR HEMOGLOBIN 28.5 pg (28-32); MEAN CORPUSCULAR HGB CONC 32.8 g/dL (31-35); MONOCYTES # (AUTO) 0.4 (0.2-0.8); MONOCYTES % 7.2 % (4.4-11.3); NEUTROPHILS # (AUTO) 2.8 (2.1-6.9); NEUTROPHILS % 55.5 % (38.7-80.0); PLATELET COUNT 355 x10e3/uL (140-360); RED BLOOD COUNT 3.47 x10e6/uL (3.6-5.1); RED CELL DISTRIBUTION WIDTH 14.1 % (11.7-14.4)
[2018-04-14 06:12] LABS: ANION GAP 13.3 mmol/L (8-16); CALCIUM 8.3 mg/dL (8.4-10.2); CREATININE, SERUM 1.12 mg/dL (0.57-1.11); MAGNESIUM 1.6 MG/DL (1.3-2.1); POTASSIUM 3.3 mmol/L (3.5-5.1)
[2018-04-14 06:31] LABS: EOSINOPHILS % (MANUAL) 5 % (0-7); LYMPHOCYTES % (MANUAL) 27 % (19-48); MONOCYTES % (MANUAL) 4 % (3.4-9.0); NEUTROPHILS % (MANUAL) 63 % (40-74); PLATELET ESTIMATE ADEQUATE; PLATELET MORPHOLOGY COMMENT NORMAL; RBC MORPHOLOGY COMMENT NORMAL
[2018-04-14] MEDS: INSULIN REGULAR, HUMAN 100 UNIT/1 ML 3ML VIAL SQ SCH ×4 (07:30→21:07)
[2018-04-14] MEDS: MORPHINE SULFATE INJ 4 MG/ML INJ IV PRN ×3 (07:43→18:05)
[2018-04-14] MEDS ORDERED: POTASSIUM CHLORIDE 20 MEQ TAB CR PO STA (07:43)
[2018-04-14] MEDS: ONDANSETRON HCL INJ 2 MG/ML VIAL IV PRN (07:43)
[2018-04-14] MEDS: FAMOTIDINE 20 MG TAB PO SCH ×2 (08:17→16:59)
[2018-04-14] MEDS: OYST-CAL-D 500MG TABLET PO SCH ×2 (08:17→21:06)
[2018-04-14] MEDS: ASPIRIN 81 MG ENTERIC COATED PO SCH (08:17)
[2018-04-14] MEDS: FERROUS SULFATE 325 MG TAB PO SCH (08:17)
[2018-04-14] MEDS: VANCOMYCIN 1GM/NS 250 ML 250 ML IV SCH (08:17)
[2018-04-14] MEDS: NIFEDIPINE CR 30 MG TAB PO SCH (08:18)
[2018-04-14] MEDS: METOPROLOL SUCCINATE 25 MG TAB XL PO SCH (08:18)
[2018-04-14] MEDS: LACTULOSE SYRUP 20 GM/30 ML UDC PO SCH ×2 (08:18→21:00)
[2018-04-14] MEDS: LISINOPRIL 10 MG TAB PO SCH (08:19)
[2018-04-14] MEDS ORDERED: ASPIRIN 325 MG TAB PO SCH (09:00)
[2018-04-14] MEDS ORDERED: HYDROCODONE/APAP 5MG-325MG TAB PO NR (09:30)
[2018-04-14] MEDS ORDERED: HYDROCODONE/APAP 5MG-325MG TAB PO PRN (09:30)
[2018-04-14] MEDS: CLOPIDOGREL BISULFATE 75 MG TAB PO SCH (09:47)
--- NOTE | 2018-04-14 11:25 | Progress Note ---
DATE: April 14, 2018 CARDIOLOGY PROGRESS NOTE SUBJECTIVE: Patient stepped down from bed today resulting in left foot pain for which she is getting analgesics. OBJECTIVE VITAL SIGNS: Temperature is 97.9, heart rate 105, blood pressure 143/71, respiratory rate 20, O2 sat is 95% in room air. GENERAL: No acute distress. Alert. NECK: No JVD. CHEST: Clear to auscultation. CARDIOVASCULAR: Regular rate and rhythm. Normal S1 and S2. No S3 or S4. ABDOMEN: Soft, nontender. EXTREMITIES: Trace edema. Left foot covered with dressing. CARDIOVASCULAR MEDICATIONS: Have been reviewed. 1. Cefepime and vancomycin antibiotic. 2. Hydralazine p.r.n. 3. Metoprolol succinate 25 mg daily. 4. Lisinopril 10 mg daily. 5. Atorvastatin 40 mg q.h.s. 6. Aspirin 81 mg daily. 7. Nifedipine 90 mg daily. 8. Clopidogrel 75 mg p.o. daily. STUDIES: Reviewed. Sodium 143, potassium 3.3, chloride 114, bicarbonate 19, BUN 22, and creatinine 1.12. White blood cells 5.1, hemoglobin 9.9, and platelets 365. INR 0.9. AST 9, ALT 11. ASSESSMENT 1. Peripheral arterial disease, status post iliac, popliteal and posterior tibial revascularization to the left lower extremity, now status post 4th ray amputation 2. Foot pain, undergoing pain control management. 3. Diabetes mellitus with nephropathy, retinopathy, and neuropathy. 4. Carotid disease, asymptomatic. 5. Hypertension. 6. Dyslipidemia. 7. Chronic kidney disease, status post acute kidney injury. 8. Metabolic acidosis. 9. Hypovolemia. RECOMMENDATIONS 1. Adjust analgesics as needed for adequate pain control. 2. Continue dual-platelet therapy. 3. Continue rest of cardiovascular medications. 4. Replete electrolytes as needed. 5. Further workup defer to outpatient from a cardiovascular standpoint. For now, continue podiatry care and antibiotics. Job#: [id number] SHAMIR
--- NOTE | 2018-04-14 11:44 | Progress Note ---
DATE: April 14, 2018 NEPHROLOGY PROGRESS NOTE SUBJECTIVE: Patient is doing well with no other complaints. LAB FINDINGS: Show white count 5.1, hemoglobin 9.9, hematocrit is 30, and platelets of 355. Chemistries: Sodium 143, potassium 3.3, chloride 114, bicarb 19, anion gap of 13, BUN is 22, creatinine is 1.1a, glucose 89, magnesium 1.6. PHYSICAL EXAMINATION VITAL SIGNS: Temperature 97.9, pulse is 105, respiratory rate is 20, blood pressure is 143/70, and pulse ox 95% on room air. GENERAL: Not in acute distress, alert and oriented x3, cooperative on examination. HEENT: Head normocephalic, atraumatic. Eyes; pupils equal, round and reactive to light bilaterally. Extraocular movements intact bilaterally. Throat; no evidence of any erythema or exudates in the posterior pharynx. Has poor dentition. NECK: Supple. Good range of motion. PULMONARY: Clear to auscultation bilaterally. No wheezing. No rales. No rhonchi. No crackles appreciated. CARDIOVASCULAR: Positive S1 and S2. No murmurs, rubs or gallops appreciated. ABDOMEN: Soft, nondistended, and nontender to palpation. Bowel sounds present. MUSCULOSKELETAL: Strength is 5/5 throughout. No evidence of any muscle deficit on examination. No weakness appreciated. NEUROLOGICAL: Cranial nerves II through XII are grossly intact. No evidence of any neurological deficits on exam. SKIN: Intact. Warm to touch. Good cap refill. PSYCHIATRIC: Normal affect and mood. EXTREMITIES: No edema. Good range of motion throughout. IMPRESSION 1. Diabetic foot ulcer with worsening peripheral neuropathy, status post left lower extremity angiogram. 2. Gangrene of the 4th toe of the left foot. 3. Uncontrolled type 2 diabetes. 4. Hypertension. 5. Chronic kidney disease, stage 3 with nephrotic range proteinuria, likely secondary to diabetes. 6. Lower extremity edema. 7. Hypokalemia. PLAN: Continue with IV diuretics for now. Replace potassium. Get a.m. labs. Follow with the primary team. Patient is improving from a renal standpoint. Job#: [id number] DONALDO
--- NOTE | 2018-04-14 14:59 | Progress Note ---
DATE: April 14, 2018 SUBJECTIVE: Patient is doing better. Denies any history of fever, chills, nausea, or vomiting. OBJECTIVE VITAL SIGNS: Afebrile. Vital signs stable. EXTREMITIES: Incision site and flap site looks viable. There is still some cellulitis to the dorsal aspect of left foot. Adjacent toes are viable. CFT to all toes less than 5 seconds. Skin temperature warm to touch. LABS: Noted. White blood cell count of 5.11, hemoglobin 9.9, and hematocrit 30.2. ASSESSMENT: Status post left foot surgery, multiple procedures with rotational flap closure. PLAN: We will continue IV antibiotics. Continue local wound care. Dressing was changed. Patient instructed to stay off of it. Surgical shoe was ordered at bedside. Bedside commode is available for use. So, she does not have to get up from the bed much. Job#: [id number] DONALDO
[2018-04-14] MEDS: ATORVASTATIN 40 MG TAB PO SCH (21:06)
[2018-04-15] VITALS (8 sets, daily range): BP systolic 115–163; BP diastolic 59–79
[2018-04-15] MEDS: CEFEPIME 1GM/NS 0.9% 50 ML 50 ML IV SCH ×2 (00:15→12:30)
[2018-04-15] MEDS: ASCORBIC ACID 500 MG TAB PO SCH ×2 (04:28→17:05)
[2018-04-15 05:05] LABS: BASOPHILS # (AUTO) 0.1 (0.0-0.1); BASOPHILS % 1.9 % (0.0-1.0); EOSINOPHILS # (AUTO) 0.4 (0.0-0.4); EOSINOPHILS % 8.7 % (0.0-6.0); HEMOGLOBIN 9.9 g/dL (12.0-16.0); LYMPHOCYTES # (AUTO) 1.3 (1.0-3.2); LYMPHOCYTES % 30.7 % (18.0-39.1); MEAN CORPUSCULAR HEMOGLOBIN 28.7 pg (28-32); MONOCYTES # (AUTO) 0.5 (0.2-0.8); MONOCYTES % 10.6 % (4.4-11.3); NEUTROPHILS % 47.9 % (38.7-80.0); PLATELET COUNT 360 x10e3/uL (140-360); RED BLOOD COUNT 3.45 x10e6/uL (3.6-5.1); RED CELL DISTRIBUTION WIDTH 14.3 % (11.7-14.4)
[2018-04-15 05:27] LABS: ANION GAP 10.7 mmol/L (8-16); CALCIUM 8.3 mg/dL (8.4-10.2); CREATININE, SERUM 1.13 mg/dL (0.57-1.11); MAGNESIUM 1.7 MG/DL (1.3-2.1); POTASSIUM 3.7 mmol/L (3.5-5.1)
[2018-04-15] MEDS ORDERED: POTASSIUM CHLORIDE 20 MEQ TAB CR PO STA (06:23)
[2018-04-15] MEDS ORDERED: FUROSEMIDE INJ 10 MG/ML 2 ML VIAL IV ONE (06:30)
[2018-04-15] MEDS: ONDANSETRON HCL INJ 2 MG/ML VIAL IV PRN (07:03)
[2018-04-15] MEDS: MORPHINE SULFATE INJ 4 MG/ML INJ IV PRN ×2 (07:03→17:48)
[2018-04-15] MEDS: INSULIN REGULAR, HUMAN 100 UNIT/1 ML 3ML VIAL SQ SCH ×4 (07:30→21:32)
[2018-04-15] MEDS: FERROUS SULFATE 325 MG TAB PO SCH (08:49)
[2018-04-15] MEDS: MAGNESIUM OXIDE 400 MG TAB PO SCH ×2 (08:49→17:05)
[2018-04-15] MEDS: MULTIVITAMINS/MINERALS TAB PO SCH (08:49)
[2018-04-15] MEDS: ASPIRIN 81 MG ENTERIC COATED PO SCH (08:49)
[2018-04-15] MEDS: FAMOTIDINE 20 MG TAB PO SCH ×2 (08:49→17:05)
[2018-04-15] MEDS: LACTULOSE SYRUP 20 GM/30 ML UDC PO SCH ×2 (08:49→21:00)
[2018-04-15] MEDS: LISINOPRIL 10 MG TAB PO SCH (08:49)
[2018-04-15] MEDS: OYST-CAL-D 500MG TABLET PO SCH ×2 (08:49→21:32)
[2018-04-15] MEDS: ZINC SULFATE 220 MG CAP PO SCH ×2 (08:50→17:05)
[2018-04-15] MEDS: METOPROLOL SUCCINATE 25 MG TAB XL PO SCH (08:50)
[2018-04-15] MEDS: NIFEDIPINE CR 30 MG TAB PO SCH (08:50)
[2018-04-15] MEDS: CLOPIDOGREL BISULFATE 75 MG TAB PO SCH (08:50)
[2018-04-15] MEDS: MUPIROCIN 2% OINT 22 GM TUBE TOP SCH (09:00)
--- NOTE | 2018-04-15 11:27 | Progress Note ---
DATE: April 15, 2018 NEPHROLOGY PROGRESS NOTE SUBJECTIVE: Patient is doing well with no other complaints. She is at her baseline. VITAL SIGNS: Temperature is 96.4, pulse 100, respiratory rate is 16, blood pressure is 163/74, and pulse ox 96% on room air. LAB FINDINGS: White count 4.3, hemoglobin 9.9, hematocrit is 30, and platelets of 360. Chemistries: Sodium 142, potassium 3.7, chloride 114, bicarb 21, anion gap of 10, BUN is 23, creatinine is 1.1, and glucose of 89. IMAGING: None. PHYSICAL EXAMINATION GENERAL: Not in acute distress, alert and oriented x3, cooperative on examination. HEENT: Head normocephalic, atraumatic. Eyes; pupils equal, round and reactive to light bilaterally. Extraocular movements intact bilaterally. Throat; no evidence of any erythema or exudates in the posterior pharynx. Has poor dentition. NECK: Supple. Good range of motion. PULMONARY: Clear to auscultation bilaterally. No wheezing. No rales. No rhonchi. No crackles appreciated. CARDIOVASCULAR: Positive S1 and S2. No murmurs, rubs or gallops appreciated. ABDOMEN: Soft, nondistended, and nontender to palpation. Bowel sounds present. MUSCULOSKELETAL: Strength is 5/5 throughout. No evidence of any muscle deficit on examination. No weakness appreciated. NEUROLOGICAL: Cranial nerves II through XII are grossly intact. No evidence of any neurological deficits on exam. SKIN: Intact. Warm to touch. Good cap refill. PSYCHIATRIC: Normal affect and mood. EXTREMITIES: No edema. Good range of motion throughout. IMPRESSION 1. Diabetic foot ulcer with worsening peripheral neuropathy, status post lower extremity angiogram. 2. Gangrene of the 4th toe of the left foot. 3. Uncontrolled type 2 diabetes. 4. Hypertension. 5. Chronic kidney disease, stage 3 with nephrotic range proteinuria, likely secondary to diabetes. 6. Lower extremity edema. 7. Hypokalemia. PLAN: She is currently doing well with no other issues. Labs are stable. Get a.m. labs. Continue to follow with the primary team. She otherwise has no other complaints from a renal standpoint. Job#: [id number] DONALDO
--- NOTE | 2018-04-15 19:33 | Progress Note ---
DATE: April 15, 2018 CARDIOLOGY PROGRESS NOTE SUBJECTIVE: No complaints today. OBJECTIVE VITALS: Temperature 98.4, heart rate 97, blood pressure 151/68, respiratory rate 16, O2 sat 95%. GENERAL: In no acute distress. Alert. NECK: No JVD. CHEST: Clear to auscultation. CARDIOVASCULAR: Regular rate and rhythm. Normal S1 and S2. No S3 or S4. No murmurs or rubs. ABDOMEN: Soft and nontender. EXTREMITIES: Trace edema on the left with wound covered with dressings. CARDIOVASCULAR MEDICATIONS: Reviewed; 1. Aspirin 81 mg daily. 2. Clopidogrel 75 mg daily. 3. Atorvastatin be increased to 80 mg at bedtime. 4. Lisinopril be increased to 20 mg at bedtime. 5. Nifedipine 90 mg at bedtime. 6. Metoprolol succinate 25 mg daily. STUDIES: Reviewed. Potassium 3.7, creatinine 1.1. Hemoglobin 9.9, platelet 360. Normal transaminases. ASSESSMENT 1. Peripheral artery disease, status post revascularization. 2. Fourth digit gangrene, status post ray amputation. 3. Dyslipidemia. 4. Diabetes mellitus type 2 with nephropathy, neuropathy, and retinopathy. 5. Hypertension. RECOMMENDATIONS 1. Up titrated atorvastatin to 80 mg at bedtime. 2. Up titrated lisinopril to 20 mg daily. 3. Continue rest on cardiovascular medications. 4. Continue foot care and antibiotics. Job#: [id number] RTY
[2018-04-15] MEDS: ATORVASTATIN 40 MG TAB PO SCH (21:32)
[2018-04-16] VITALS (8 sets, daily range): BP systolic 118–166; BP diastolic 56–77
[2018-04-16] MEDS: CEFEPIME 1GM/NS 0.9% 50 ML 50 ML IV SCH ×3 (00:17→23:59)
[2018-04-16] MEDS: ASCORBIC ACID 500 MG TAB PO SCH ×2 (05:22→17:23)
[2018-04-16 05:42] LABS: BASOPHILS # (AUTO) 0.1 (0.0-0.1); BASOPHILS % 2.7 % (0.0-1.0); EOSINOPHILS # (AUTO) 0.4 (0.0-0.4); EOSINOPHILS % 9.4 % (0.0-6.0); HEMATOCRIT 29.6 % (34.2-44.1); HEMOGLOBIN 9.7 g/dL (12.0-16.0); LYMPHOCYTES # (AUTO) 1.5 (1.0-3.2); LYMPHOCYTES % 37.6 % (18.0-39.1); MEAN CORPUSCULAR HEMOGLOBIN 28.6 pg (28-32); MEAN CORPUSCULAR HGB CONC 32.8 g/dL (31-35); MEAN CORPUSCULAR VOLUME 87.3 fL (81-99); MONOCYTES # (AUTO) 0.5 (0.2-0.8); MONOCYTES % 11.1 % (4.4-11.3); NEUTROPHILS # (AUTO) 1.6 (2.1-6.9); NEUTROPHILS % 39.2 % (38.7-80.0); PLATELET COUNT 378 x10e3/uL (140-360); RED BLOOD COUNT 3.39 x10e6/uL (3.6-5.1); RED CELL DISTRIBUTION WIDTH 14.3 % (11.7-14.4)
[2018-04-16 06:10] LABS: ANION GAP 9.7 mmol/L (8-16); CALCIUM 8.4 mg/dL (8.4-10.2); CREATININE, SERUM 1.26 mg/dL (0.57-1.11); MAGNESIUM 1.7 MG/DL (1.3-2.1); POTASSIUM 3.7 mmol/L (3.5-5.1)
[2018-04-16 06:43] LABS: EOSINOPHILS % (MANUAL) 2 % (0-7); LYMPHOCYTES % (MANUAL) 37 % (19-48); MONOCYTES % (MANUAL) 10 % (3.4-9.0); NEUTROPHILS % (MANUAL) 47 % (40-74)
[2018-04-16 06:47] LABS: ANISOCYTOSIS MODERATE; HYPOCHROMASIA SLIGHT; PLATELET ESTIMATE ADEQUATE; PLATELET MORPHOLOGY COMMENT FEW LARGE
[2018-04-16 06:48] LABS: RBC MORPHOLOGY COMMENT NORMAL
[2018-04-16] MEDS: INSULIN REGULAR, HUMAN 100 UNIT/1 ML 3ML VIAL SQ SCH ×4 (07:26→21:00)
[2018-04-16] MEDS: MORPHINE SULFATE INJ 4 MG/ML INJ IV PRN (08:28)
[2018-04-16] MEDS: MUPIROCIN 2% OINT 22 GM TUBE TOP SCH (09:00)
[2018-04-16] MEDS: LACTULOSE SYRUP 20 GM/30 ML UDC PO SCH ×2 (09:00→21:00)
[2018-04-16] MEDS: OYST-CAL-D 500MG TABLET PO SCH ×2 (09:25→21:41)
[2018-04-16] MEDS: FERROUS SULFATE 325 MG TAB PO SCH (09:26)
[2018-04-16] MEDS: FAMOTIDINE 20 MG TAB PO SCH ×2 (09:26→17:23)
[2018-04-16] MEDS: METOPROLOL SUCCINATE 25 MG TAB XL PO SCH (09:26)
[2018-04-16] MEDS: ASPIRIN 81 MG ENTERIC COATED PO SCH (09:27)
[2018-04-16] MEDS: MULTIVITAMINS/MINERALS TAB PO SCH (09:27)
[2018-04-16] MEDS: MAGNESIUM OXIDE 400 MG TAB PO SCH ×2 (09:27→17:23)
[2018-04-16] MEDS: LISINOPRIL 10 MG TAB PO SCH (09:27)
[2018-04-16] MEDS: CLOPIDOGREL BISULFATE 75 MG TAB PO SCH (09:27)
[2018-04-16] MEDS: ZINC SULFATE 220 MG CAP PO SCH ×2 (09:35→17:23)
[2018-04-16] MEDS: NIFEDIPINE CR 30 MG TAB PO SCH (09:35)
--- NOTE | 2018-04-16 10:05 | Progress Note ---
DATE: April 16, 2018 NEPHROLOGY PROGRESS NOTE SUBJECTIVE: Patient is doing well today with no other issues. She continues to be on IV antibiotics. OBJECTIVE VITAL SIGNS: Temperature is 97.4, pulse is 100, respiratory rate is 18, blood pressure is 148/57, pulse ox 96% on room air. GENERAL: Not in acute distress. Alert and oriented times 3. Cooperative on examination. HEENT: Head is normocephalic and atraumatic. Eyes: Pupils equal, round and reactive to light bilaterally. Extraocular movements intact bilaterally. NECK: Supple. Good range of motion. Throat with no evidence of any erythema or exudates in the posterior pharynx. Has poor dentition. PULMONARY: Clear to auscultation bilaterally. No wheezing. No rales. No rhonchi. No crackles appreciated. CARDIOVASCULAR: Positive S1 and S2. No murmurs, rubs or gallops appreciated. ABDOMEN: Soft, nondistended and nontender to palpation. Bowel sounds present. MUSCULOSKELETAL: Strength is 5/5 throughout. No evidence of any muscle deficit on examination. No weakness appreciated. NEUROLOGICAL: Cranial nerves II-XII are grossly intact. No evidence of any neurological deficits on exam. SKIN: Intact. Warm to touch. Good cap refill. PSYCHIATRIC: Normal affect and mood. EXTREMITIES: No edema. Good range of motion throughout. LAB FINDINGS: Show white count of 4, hemoglobin 9.7, hematocrit 29.6, and platelets of 378,000. Chemistry: Sodium 143, potassium 3.7, chloride 115, bicarb 23, anion gap of 9.7, BUN 24, creatinine 1.26. Magnesium 1.7. MICROBIOLOGY: Showed a few yeast and gram-positive cocci in pairs. IMPRESSION 1. Diabetic foot ulcer with worsening peripheral neuropathy: Status post lower extremity angiogram performed. 2. Gangrene of the 4th toe, left foot. 3. Type 2 diabetes. 4. Hypertension. 5. Chronic kidney disease, stage 3 with nephrotic range proteinuria secondary to diabetes. 6. Lower extremity edema. 7. Hypokalemia. PLAN: Her labs are stable. From a renal standpoint, will continue to follow. Continue with IV fluids. Get a.m. labs. Job#: [id number] [place]
[2018-04-16] MEDS: VANCOMYCIN 1GM/NS 250 ML 250 ML IV SCH (10:11)
--- NOTE | 2018-04-16 10:33 | Progress Note ---
DATE: April 16, 2018 CARDIOLOGY PROGRESS NOTE SUBJECTIVE: No complaints today. OBJECTIVE VITALS: Temperature 97.4, heart rate 100, respiratory rate 18, blood pressure 148/67, O2 sat 96% on room air. GENERAL: In no acute distress. Alert. NECK: No JVD. CHEST: Clear to auscultation. CARDIOVASCULAR: Regular rate and rhythm. Normal S1 and S2. No S3. No S4. ABDOMEN: Soft, nontender and nondistended. EXTREMITIES: No cyanosis, clubbing or edema with left foot covered with dressing. CARDIOVASCULAR MEDICATIONS: Reviewed. 1. Aspirin 81 mg daily. 2. Clopidogrel 75 mg daily. 3. Atorvastatin 80 mg at bedtime. 4. Metoprolol succinate 25 mg daily. 5. Lisinopril 20 mg daily. 6. Nifedipine 90 mg daily. 7. Ferrous sulfate 325 mg daily. 8. Hydralazine p.r.n. STUDIES: Reviewed. Potassium 3.7, creatinine 1.26. Hemoglobin 9.7 and platelets 378,000. INR 0.9. ASSESSMENT 1. Peripheral vascular disease: Status post revascularization with left ray amputation. Healing well. 2. Acute kidney injury on chronic kidney disease, improving. 3. Anemia, stable. 4. Diabetes mellitus with nephropathy, neuropathy and retinopathy. 5. Hypertension. 6. Dyslipidemia. 7. Carotid disease. RECOMMENDATIONS 1. Continue current cardiovascular medications. 2. Continue wound care. 3. Continue antibiotics. The patient will possibly transfer to LTAC later today. Job#: [id number] [place]
--- NOTE | 2018-04-16 10:47 | Progress Note ---
DATE: April 16, 2018 CARDIOLOGY PROGRESS NOTE Disregard. In error Job#: [id number] KAM QUIROZ
[2018-04-16] MEDS: ATORVASTATIN 40 MG TAB PO SCH (21:41)
[2018-04-17] VITALS (8 sets, daily range): BP systolic 118–152; BP diastolic 59–74
[2018-04-17] MEDS: ASCORBIC ACID 500 MG TAB PO SCH ×2 (05:38→17:28)
[2018-04-17 05:57] LABS: BASOPHILS # (AUTO) 0.1 (0.0-0.1); BASOPHILS % 2.4 % (0.0-1.0); EOSINOPHILS # (AUTO) 0.4 (0.0-0.4); EOSINOPHILS % 9.8 % (0.0-6.0); HEMATOCRIT 31.1 % (34.2-44.1); HEMOGLOBIN 10.5 g/dL (12.0-16.0); LYMPHOCYTES # (AUTO) 1.3 (1.0-3.2); LYMPHOCYTES % 28.2 % (18.0-39.1); MEAN CORPUSCULAR HEMOGLOBIN 29.2 pg (28-32); MEAN CORPUSCULAR HGB CONC 33.8 g/dL (31-35); MEAN CORPUSCULAR VOLUME 86.6 fL (81-99); MONOCYTES # (AUTO) 0.5 (0.2-0.8); MONOCYTES % 10.4 % (4.4-11.3); NEUTROPHILS # (AUTO) 2.2 (2.1-6.9); PLATELET COUNT 379 x10e3/uL (140-360); RED BLOOD COUNT 3.59 x10e6/uL (3.6-5.1); RED CELL DISTRIBUTION WIDTH 14.1 % (11.7-14.4)
[2018-04-17 07:26] LABS: ANION GAP 11.6 mmol/L (8-16); CALCIUM 8.6 mg/dL (8.4-10.2); CREATININE, SERUM 1.33 mg/dL (0.57-1.11); POTASSIUM 3.6 mmol/L (3.5-5.1)
[2018-04-17] MEDS: INSULIN REGULAR, HUMAN 100 UNIT/1 ML 3ML VIAL SQ SCH ×4 (07:30→21:37)
[2018-04-17] MEDS: FAMOTIDINE 20 MG TAB PO SCH ×2 (08:05→17:28)
[2018-04-17] MEDS: MAGNESIUM OXIDE 400 MG TAB PO SCH ×2 (08:05→17:28)
[2018-04-17] MEDS: ASPIRIN 81 MG ENTERIC COATED PO SCH (08:05)
[2018-04-17] MEDS: FERROUS SULFATE 325 MG TAB PO SCH (08:05)
[2018-04-17] MEDS: MULTIVITAMINS/MINERALS TAB PO SCH (08:06)
[2018-04-17] MEDS: ZINC SULFATE 220 MG CAP PO SCH ×2 (08:06→17:28)
[2018-04-17] MEDS: NIFEDIPINE CR 30 MG TAB PO SCH (08:06)
[2018-04-17] MEDS: OYST-CAL-D 500MG TABLET PO SCH ×2 (08:06→21:37)
[2018-04-17] MEDS: METOPROLOL SUCCINATE 25 MG TAB XL PO SCH (08:06)
[2018-04-17] MEDS: LISINOPRIL 10 MG TAB PO SCH (08:06)
[2018-04-17] MEDS: LACTULOSE SYRUP 20 GM/30 ML UDC PO SCH ×2 (09:00→21:37)
[2018-04-17] MEDS: MUPIROCIN 2% OINT 22 GM TUBE TOP SCH (09:00)
--- NOTE | 2018-04-17 09:16 | Progress Note ---
DATE: April 17, 2018 SUBJECTIVE: Patient at bedside accompanied by multiple family members. Doing well. No distress. In good spirits. OBJECTIVE VITAL: Afebrile. Vital signs stable. Has a high pulse rate of 100 and a blood pressure of 152/72, O2 saturation 99%. EXTREMITIES: Incision site and flap site seem to be healing nicely. Decreased cellulitis. No foul smell. Decreased edema with adjacent toes viable. LABS: Noted. White blood cell count 4.5. ASSESSMENT: Doing very well, status post several days of left foot surgery. PLAN: Dressing was changed. Will continue IV antibiotics. Okay to transfer back to [place]. Continue offloading with one pillow under calf at all times. Job#: [id number] AKM
[2018-04-17] MEDS: CLOPIDOGREL BISULFATE 75 MG TAB PO SCH (09:58)
--- NOTE | 2018-04-17 10:13 | Progress Note ---
DATE: April 17, 2018 NEPHROLOGY PROGRESS NOTE SUBJECTIVE: The patient is doing well today with no other complaints. She went for debridement today of the left foot. Pain is well controlled at this time. OBJECTIVE VITAL SIGNS: She is afebrile, normotensive, respiratory rate is . GENERAL: Not in acute distress. Alert and oriented times 3. Cooperative on examination. HEENT: Head is normocephalic and atraumatic. Eyes: Pupils equal, round and reactive to light bilaterally. Extraocular movements intact bilaterally. NECK: Supple. Good range of motion. Throat with no evidence of any erythema or exudates in the posterior pharynx. Has poor dentition. PULMONARY: Clear to auscultation bilaterally. No wheezing. No rales. No rhonchi. No crackles appreciated. CARDIOVASCULAR: Positive S1 and S2. No murmurs, rubs or gallops appreciated. ABDOMEN: Soft, nondistended and nontender to palpation. Bowel sounds present. MUSCULOSKELETAL: Strength is 5/5 throughout. No evidence of any muscle deficit on examination. No weakness appreciated. NEUROLOGICAL: Cranial nerves II-XII are grossly intact. No evidence of any neurological deficits on exam. SKIN: Intact. Warm to touch. Good cap refill. PSYCHIATRIC: Normal affect and mood. EXTREMITIES: Has 2+ pedal edema bilaterally. LAB FINDINGS: Reviewed and stable. IMAGING: Reviewed. IMPRESSION 1. Diabetic foot ulcer with peripheral neuropathy: Status post left lower extremity angiogram, and now status post left foot debridement. 2. Gangrene of the 4th toe of the left foot. 3. Type 2 diabetes. 4. Hypertension. 5. Chronic kidney disease, stage 3 with nephrotic range proteinuria secondary to diabetes. 6. Lower extremity edema. 7. Hypokalemia. PLAN: Labs reviewed and stable. Treat with IV diuretics times 3 doses. Get a.m. labs and monitor for electrolyte changes. Will follow with IV fluids. Job#: [id number] KAM
[2018-04-17] MEDS: FUROSEMIDE INJ 10 MG/ML 4 ML VIAL IV SCH ×2 (11:02→17:28)
[2018-04-17] MEDS: MORPHINE SULFATE INJ 4 MG/ML INJ IV PRN (11:02)
--- NOTE | 2018-04-17 14:31 | Progress Note ---
DATE: April 17, 2018 CARDIOLOGY PROGRESS NOTE SUBJECTIVE: No new complaints today. OBJECTIVE VITALS: Temperature 97.8, heart rate 100, blood pressure 152/72, respiratory rate 18, O2 sat 99% on room air. GENERAL: In no acute distress. Alert. NECK: No JVD. CHEST: Clear to auscultation. CARDIOVASCULAR: Regular rate and rhythm. Normal S1 and S2. No S3 or S4. ABDOMEN: Soft, nontender. EXTREMITIES: Trace edema. Left foot covered with dressing. CARDIOVASCULAR MEDICATIONS: Reviewed. 1. Aspirin 81 mg daily. 2. Atorvastatin 80 mg nightly. 3. Clopidogrel 75 mg daily. 4. Lisinopril 20 mg daily. 5. Nifedipine 90 mg daily. 6. Furosemide 40 mg q.8 h. 7. Ferrous sulfate 325 mg daily. 8. Hydralazine 10 mg q.4 h. STUDIES: Reviewed. Sodium 140, potassium 3.6, chloride 112, bicarbonate 20, BUN 23, creatinine 1.33. White blood cells 4.5, hemoglobin 10.5, platelets 379. INR 0.99. AST 9, ALT 11. ASSESSMENT 1. Peripheral arterial disease, status post revascularization for critical limb ischemia, now status post left 4th ray amputation. 2. Hypertension. 3. Diabetes mellitus, type 2, with nephropathy, neuropathy, and retinopathy. 4. Acute kidney injury on chronic kidney disease, now improved. 5. Anemia. 6. Dyslipidemia. 7. Carotid disease. RECOMMENDATIONS 1. Continue current cardiovascular medications. 2. Continue antibiotics. 3. Continue wound care. 4. Monitor renal function, H and H. Job#: [id number]
[2018-04-17] MEDS: CEFEPIME 1GM/NS 0.9% 50 ML 50 ML IV SCH (16:00)
[2018-04-17] MEDS: ATORVASTATIN 40 MG TAB PO SCH (21:37)
[2018-04-18] VITALS (8 sets, daily range): BP systolic 136–185; BP diastolic 63–81
[2018-04-18] MEDS: CEFEPIME 1GM/NS 0.9% 50 ML 50 ML IV SCH ×3 (00:31→23:52)
[2018-04-18] MEDS: MORPHINE SULFATE INJ 4 MG/ML INJ IV PRN ×4 (02:05→20:56)
[2018-04-18] MEDS: FUROSEMIDE INJ 10 MG/ML 4 ML VIAL IV SCH (02:53)
[2018-04-18] MEDS: ASCORBIC ACID 500 MG TAB PO SCH ×2 (02:53→17:44)
[2018-04-18 05:18] LABS: BASOPHILS # (AUTO) 0.1 (0.0-0.1); BASOPHILS % 1.8 % (0.0-1.0); EOSINOPHILS # (AUTO) 0.3 (0.0-0.4); EOSINOPHILS % 7.7 % (0.0-6.0); HEMATOCRIT 30.5 % (34.2-44.1); HEMOGLOBIN 10.1 g/dL (12.0-16.0); LYMPHOCYTES # (AUTO) 1.5 (1.0-3.2); LYMPHOCYTES % 34.9 % (18.0-39.1); MEAN CORPUSCULAR HEMOGLOBIN 28.3 pg (28-32); MEAN CORPUSCULAR HGB CONC 33.1 g/dL (31-35); MEAN CORPUSCULAR VOLUME 85.4 fL (81-99); MONOCYTES # (AUTO) 0.5 (0.2-0.8); MONOCYTES % 10.7 % (4.4-11.3); NEUTROPHILS % 44.7 % (38.7-80.0); PLATELET COUNT 402 x10e3/uL (140-360); RED BLOOD COUNT 3.57 x10e6/uL (3.6-5.1); RED CELL DISTRIBUTION WIDTH 14.2 % (11.7-14.4)
[2018-04-18 05:27] LABS: ANION GAP 12.3 mmol/L (8-16); CALCIUM 8.8 mg/dL (8.4-10.2); CREATININE, SERUM 1.32 mg/dL (0.57-1.11); MAGNESIUM 1.8 MG/DL (1.3-2.1); POTASSIUM 3.3 mmol/L (3.5-5.1)
[2018-04-18] MEDS: INSULIN REGULAR, HUMAN 100 UNIT/1 ML 3ML VIAL SQ SCH ×4 (07:30→21:00)
[2018-04-18] MEDS: ZINC SULFATE 220 MG CAP PO SCH ×2 (08:31→17:44)
[2018-04-18] MEDS: METOPROLOL SUCCINATE 25 MG TAB XL PO SCH (08:31)
[2018-04-18] MEDS: ASPIRIN 81 MG ENTERIC COATED PO SCH (08:31)
[2018-04-18] MEDS: LACTULOSE SYRUP 20 GM/30 ML UDC PO SCH ×2 (08:31→20:22)
[2018-04-18] MEDS: MAGNESIUM OXIDE 400 MG TAB PO SCH ×2 (08:31→17:44)
[2018-04-18] MEDS: OYST-CAL-D 500MG TABLET PO SCH ×2 (08:31→20:23)
[2018-04-18] MEDS: FAMOTIDINE 20 MG TAB PO SCH ×2 (08:31→17:44)
[2018-04-18] MEDS: LISINOPRIL 10 MG TAB PO SCH (08:31)
[2018-04-18] MEDS: MULTIVITAMINS/MINERALS TAB PO SCH (08:31)
[2018-04-18] MEDS: NIFEDIPINE CR 30 MG TAB PO SCH (08:31)
[2018-04-18] MEDS: FERROUS SULFATE 325 MG TAB PO SCH (08:31)
[2018-04-18] MEDS: VANCOMYCIN 1GM/NS 250 ML 250 ML IV SCH (08:31)
[2018-04-18] MEDS: MUPIROCIN 2% OINT 22 GM TUBE TOP SCH (09:00)
[2018-04-18] MEDS ORDERED: POTASSIUM CHLORIDE 20 MEQ TAB CR PO NR (09:50)
[2018-04-18] MEDS ORDERED: POLYETHYLENE GLYCOL 3350 17 GM PACK PO PRN (10:15)
[2018-04-18] MEDS ORDERED: BISACODYL 5 MG TAB EC PO PRN (10:15)
--- NOTE | 2018-04-18 10:22 | Progress Note ---
DATE: April 18, 2018 NEPHROLOGY PROGRESS NOTE SUBJECTIVE: Patient is doing well today with no other complaints. OBJECTIVE VITAL SIGNS: Temperature is 97.3, pulse 98, respiratory rate is 18, blood pressure is 152/68, pulse ox 98% on room air. GENERAL: Not in acute distress. Alert and oriented times 3. Cooperative on examination. HEENT: Head is normocephalic and atraumatic. Eyes: Pupils equal, round and reactive to light bilaterally. Extraocular movements intact bilaterally. NECK: Supple. Good range of motion. Throat with no evidence of any erythema or exudates in the posterior pharynx. Has poor dentition. PULMONARY: Clear to auscultation bilaterally. No wheezing. No rales. No rhonchi. No crackles appreciated. CARDIOVASCULAR: Positive S1 and S2. No murmurs, rubs or gallops appreciated. ABDOMEN: Soft, nondistended and nontender to palpation. Bowel sounds present. MUSCULOSKELETAL: Strength is 5/5 throughout. No evidence of any muscle deficit on examination. No weakness appreciated. NEUROLOGICAL: Cranial nerves II-XII are grossly intact. No evidence of any neurological deficits on exam. SKIN: Intact. Warm to touch. Good cap refill. PSYCHIATRIC: Normal affect and mood. EXTREMITIES: No edema. Good range of motion throughout. LAB FINDINGS: Show a white count of 4.4, hemoglobin 10.1, hematocrit 34.5, and platelets of 402,000. Chemistry: Sodium 139, potassium 3.8, chloride 108, bicarb 22, anion gap of 12, BUN is 23, creatinine is 1.3, and glucose is 105. MICROBIOLOGY: Wound culture shows Nancy parapsilosis. ASSESSMENT AND PLAN 1. Diabetic foot ulcer with peripheral neuropathy: Status post left lower extremity angiogram and now status post left foot debridement. 2. Gangrene of the 4th toe of the left foot. 3. Type 2 diabetes mellitus. 4. Hypertension. 5. Chronic kidney disease, stage 3 with nephrotic range proteinuria secondary to diabetes mellitus. 6. Lower extremity edema. 7. Hypokalemia. PLAN: Continue with IV diuretics times 3 doses. Will replace potassium. A.m. labs. Continue same plan of care. Job#: [id number] [place]
[2018-04-18] MEDS: POTASSIUM CHLORIDE 20 MEQ TAB CR PO SCH ×2 (11:18→17:44)
[2018-04-18] MEDS: CLOPIDOGREL BISULFATE 75 MG TAB PO SCH (11:19)
[2018-04-18] MEDS: ONDANSETRON HCL INJ 2 MG/ML VIAL IV PRN (13:25)
--- NOTE | 2018-04-18 13:41 | Progress Note ---
DATE: April 18, 2018 CARDIOLOGY PROGRESS NOTE SUBJECTIVE: Denies any chest pain or shortness of breath. No new complaints today. OBJECTIVE VITALS: Temperature 97.2, heart rate 101, blood pressure 153/70, respiratory rate 18, O2 sat 96% on room air. GENERAL: No acute distress. Alert. NECK: No JVD. CHEST: Clear to auscultation. CARDIOVASCULAR: Regular rate and rhythm. Normal S1 and S2. No S3 or S4. ABDOMEN: Soft, nontender. EXTREMITIES: Trace edema. Left foot covered with dressing. CARDIOVASCULAR MEDICATIONS: Reviewed. 1. Aspirin 81 mg daily. 2. Atorvastatin 80 mg nightly. 3. Metoprolol succinate 25 mg daily. 4. Lisinopril 20 mg daily. 5. Nifedipine 90 mg daily. 6. Furosemide 40 mg q.12 h. 7. Ferrous sulfate 325 mg daily. STUDIES: Reviewed. Sodium 139, potassium 3.3, chloride 108, bicarbonate 22, BUN 23, creatinine 1.32, glucose 105. White blood cells 4.4, hemoglobin 10.1, platelets 402. INR 0.9. AST 9, ALT 11. ASSESSMENT 1. Peripheral arterial disease, status post revascularization of left lower extremity. 2. Status post 4th ray amputation. 3. Anemia. 4. [id number] renal failure with stabilized creatinine. 5. Dyslipidemia. 6. Diabetes mellitus, type 2, with nephropathy, neuropathy, and retinopathy. 7. Near blindness. 8. Carotid disease. RECOMMENDATIONS 1. Continue current cardiovascular medications. 2. Continue to monitor blood pressure. If it remains elevated, will consider further up titration of antihypertensives. Job#: [id number]
[2018-04-18] MEDS ORDERED: FUROSEMIDE INJ 10 MG/ML 4 ML VIAL IV SCH (17:00)
[2018-04-18] MEDS: DOCUSATE SODIUM 100 MG CAP PO SCH (17:44)
[2018-04-18] MEDS: HYDRALAZINE HCL 20 MG/ML VIAL IV PRN (20:10)
[2018-04-18] MEDS: ATORVASTATIN 40 MG TAB PO SCH (20:22)
[2018-04-19] VITALS (7 sets, daily range): BP systolic 92–171; BP diastolic 51–72
[2018-04-19 03:36] LABS: BASOPHILS # (AUTO) 0.2 (0.0-0.1); BASOPHILS % 2.6 % (0.0-1.0); EOSINOPHILS # (AUTO) 0.3 (0.0-0.4); EOSINOPHILS % 5.7 % (0.0-6.0); HEMATOCRIT 34.7 % (34.2-44.1); HEMOGLOBIN 11.4 g/dL (12.0-16.0); LYMPHOCYTES # (AUTO) 1.5 (1.0-3.2); MEAN CORPUSCULAR HGB CONC 32.9 g/dL (31-35); MEAN CORPUSCULAR VOLUME 85.3 fL (81-99); MONOCYTES # (AUTO) 0.6 (0.2-0.8); MONOCYTES % 10.2 % (4.4-11.3); NEUTROPHILS # (AUTO) 3.3 (2.1-6.9); NEUTROPHILS % 56.2 % (38.7-80.0); PLATELET COUNT 442 x10e3/uL (140-360); RED BLOOD COUNT 4.07 x10e6/uL (3.6-5.1); RED CELL DISTRIBUTION WIDTH 14.4 % (11.7-14.4)
[2018-04-19] MEDS: HYDRALAZINE HCL 20 MG/ML VIAL IV PRN (03:43)
[2018-04-19 03:52] LABS: ANION GAP 12.6 mmol/L (8-16); CALCIUM 8.9 mg/dL (8.4-10.2); CREATININE, SERUM 1.26 mg/dL (0.57-1.11); MAGNESIUM 1.9 MG/DL (1.3-2.1); POTASSIUM 3.6 mmol/L (3.5-5.1)
[2018-04-19] MEDS ORDERED: FUROSEMIDE INJ 10 MG/ML 4 ML VIAL IV SCH (05:00)
[2018-04-19] MEDS: ASCORBIC ACID 500 MG TAB PO SCH ×2 (06:00→17:05)
[2018-04-19] MEDS: INSULIN REGULAR, HUMAN 100 UNIT/1 ML 3ML VIAL SQ SCH ×3 (07:30→17:05)
[2018-04-19] MEDS: ZINC SULFATE 220 MG CAP PO SCH ×2 (08:29→17:05)
[2018-04-19] MEDS: ASPIRIN 81 MG ENTERIC COATED PO SCH (08:29)
[2018-04-19] MEDS: DOCUSATE SODIUM 100 MG CAP PO SCH ×2 (08:29→17:05)
[2018-04-19] MEDS: NIFEDIPINE CR 30 MG TAB PO SCH (08:29)
[2018-04-19] MEDS: MAGNESIUM OXIDE 400 MG TAB PO SCH ×2 (08:29→17:05)
[2018-04-19] MEDS: FERROUS SULFATE 325 MG TAB PO SCH (08:29)
[2018-04-19] MEDS: OYST-CAL-D 500MG TABLET PO SCH (08:29)
[2018-04-19] MEDS: METOPROLOL SUCCINATE 25 MG TAB XL PO SCH (08:29)
[2018-04-19] MEDS: FAMOTIDINE 20 MG TAB PO SCH ×2 (08:29→17:05)
[2018-04-19] MEDS: MULTIVITAMINS/MINERALS TAB PO SCH (08:29)
[2018-04-19] MEDS: LISINOPRIL 10 MG TAB PO SCH (08:29)
[2018-04-19 08:32] LABS: EOSINOPHILS % (MANUAL) 7 % (0-7); LYMPHOCYTES % (MANUAL) 16 % (19-48); MONOCYTES % (MANUAL) 12 % (3.4-9.0); NEUTROPHILS % (MANUAL) 60 % (40-74)
[2018-04-19 08:33] LABS: ANISOCYTOSIS MODERATE; BURR CELLS SLIGHT; HOWELL-JOLLY BODIES FEW; HYPOCHROMASIA SLIGHT; PLATELET ESTIMATE SLIGHTLY INCREASED; PLATELET MORPHOLOGY COMMENT FEW LARGE; RBC MORPHOLOGY COMMENT ABNORMAL
[2018-04-19] MEDS: MUPIROCIN 2% OINT 22 GM TUBE TOP SCH (09:00)
[2018-04-19] MEDS: LACTULOSE SYRUP 20 GM/30 ML UDC PO SCH (09:00)
--- NOTE | 2018-04-19 09:47 | Progress Note ---
DATE: April 19, 2018 NEPHROLOGY PROGRESS NOTE SUBJECTIVE: Patient is doing well today with no other complaints. No other issues at this time. OBJECTIVE VITAL SIGNS: Temperature 97.3, pulse 110, respiratory rate 20, blood pressure 155/70, pulse ox 100% on room air. GENERAL: Not in acute distress. Alert and oriented times 3. Cooperative on examination. HEENT: Head is normocephalic and atraumatic. Eyes: Pupils equal, round and reactive to light bilaterally. Extraocular movements intact bilaterally. NECK: Supple. Good range of motion. Throat with no evidence of any erythema or exudates in the posterior pharynx. Has poor dentition. PULMONARY: Clear to auscultation bilaterally. No wheezing. No rales. No rhonchi. No crackles appreciated. CARDIOVASCULAR: Positive S1 and S2. No murmurs, rubs or gallops appreciated. ABDOMEN: Soft, nondistended and nontender to palpation. Bowel sounds present. MUSCULOSKELETAL: Strength is 5/5 throughout. No evidence of any muscle deficit on examination. No weakness appreciated. NEUROLOGICAL: Cranial nerves II-XII are grossly intact. No evidence of any neurological deficits on exam. SKIN: Intact. Warm to touch. Good cap refill. PSYCHIATRIC: Normal affect and mood. EXTREMITIES: No edema. Good range of motion throughout. LAB FINDINGS: Show a white count of 5.8, hemoglobin 9.4, hematocrit 35, and platelets of 42,000. Chemistry: Sodium 143, potassium 3.6, chloride 108, bicarb 23, anion gap of 12, BUN 12, creatinine 1.26, glucose is 117. IMPRESSION 1. Diabetic foot ulcer with peripheral neuropathy: Status post left lower extremity angiogram, now status post left foot debridement. 2. Gangrene of the 4th toe of the left foot. 3. Type 2 diabetes mellitus. 4. Hypertension. 5. Chronic kidney disease, stage 3 with nephrotic range proteinuria secondary to diabetes. 6. Lower extremity edema. 7. Hypokalemia. PLAN: Continue with IV diuretics. Electrolytes are stable. Get a.m. labs. Continue with same plan of care. Follow with the primary team. Job#: [id number] [place]
[2018-04-19] MEDS: CLOPIDOGREL BISULFATE 75 MG TAB PO SCH (10:07)
[2018-04-19] MEDS: CEFEPIME 1GM/NS 0.9% 50 ML 50 ML IV SCH (12:31)
[2018-04-19] MEDS: MORPHINE SULFATE INJ 4 MG/ML INJ IV PRN ×2 (13:04→17:18)
--- NOTE | 2018-04-19 17:51 | Progress Note ---
DATE: April 19, 2018 CARDIOLOGY PROGRESS NOTE SUBJECTIVE: The patient has shortness of breath. Discomfort improving with analgesia. OBJECTIVE VITALS: Temperature 98.4, heart rate 100, blood pressure 154/71, respiratory rate 18, O2 sat 96% on room air. GENERAL: In no acute distress. Alert. NECK: No JVD. CHEST: Clear to auscultation. CARDIOVASCULAR: Regular rate and rhythm. Normal S1 and S2. No S3. No S4. ABDOMEN: Soft and nontender. EXTREMITIES: Trace edema. Foot wound covered with dressings. CARDIOVASCULAR MEDICATIONS: Reviewed. On aspirin, atorvastatin, metoprolol, clopidogrel, lisinopril, nifedipine. STUDIES: Reviewed. Creatinine stable at 1.26, potassium 3.5, bicarbonate 26. Hemoglobin 11.4, white blood cells 5.8 and platelets 442,000. INR 0.9. ASSESSMENT 1. Peripheral arterial disease: Status post left lower extremity revascularization and 4th ray amputation. Undergoing wound care and antibiotic therapy. 2. Anemia. 3. Carotid disease, asymptomatic. 4. Diabetes mellitus with nephropathy, neuropathy and retinopathy. 5. Blindness. 6. Hypertension. 7. Dyslipidemia. RECOMMENDATIONS 1. Continue cardiovascular medications. 2. The patient is undergoing evaluation for possible transfer to LTAC for continued care. Job#: [id number] KAM
[2018-04-19] MEDS: ONDANSETRON HCL INJ 2 MG/ML VIAL IV PRN (18:05)
--- NOTE | 2018-04-19 19:47 | Discharge Summary ---
ADMISSION DIAGNOSES 1. Left 4th toe osteomyelitis. 2. Peripheral arterial disease. 3. Gangrene. 4. Chronic kidney disease 3/4. 5. Hypertension. 6. Type 2 diabetes. 7. Hyperlipidemia. 8. Diabetic retinopathy. 9. Anemia. DISCHARGE DIAGNOSES 1. Left 4th toe osteomyelitis. 2. Peripheral arterial disease. 3. Gangrene. 4. Chronic kidney disease 3/4. 5. Hypertension. 6. Type 2 diabetes. 7. Hyperlipidemia. 8. Diabetic retinopathy. 9. Anemia. 10. Status post incision and drainage of left foot abscess. 11. Status post left 4th toe amputation. 12. Status post left foot rotational flap closure. 13. Status post angiography with stent placement. HISTORY: The patient has a history of type 2 diabetes, hypertension, hyperlipidemia, diabetic retinopathy, osteomyelitis of the 4th toe and PAD. PAST SURGICAL HISTORY: x2. FAMILY HISTORY: Noncontributory. SOCIAL HISTORY: Noncontributory. HOSPITAL COURSE: A 47-year-old female originally admitted to [facility] on 03/21/18 for left 4th toe wound. She was started on IV vancomycin and Zosyn, but developed acute kidney injury, so an angiography and amputation were canceled. She was transferred to [place] on 03/29/18 for IV antibiotics, wound care and allow time for her kidneys to improve. Once her kidneys improved, she was readmitted to [facility] for an angio and amputation. The patient was resumed on her vancomycin and cefepime per infectious disease. On 04/10/18, the patient had an angiogram with stent placement of the left lower extremity. On April 13, the patient had an I&D of abscess of the left foot down to the bone, amputation of the left 4th toe and rotational flap closure of the left foot. The patient tolerated the procedure well. Vital signs stable and the patient afebrile. Per family request and physician request, the patient will transfer back to [place] for continued antibiotics and wound care. The patient and understand discharge instructions and agree to plan. Dictated by: Veronica Vera NP STEFAN JACKSON MD Job#: [id number]
== END 2018-04-19 20:00 | DRG 271 ==
LOC: CATH LAB 08:37 → PACU V 15:54 → MED/SURG 16:04 → MED/SURG3 04-12 18:25 → MED/SURG 04-12 18:35
PROVIDERS: ADMIT Internal Medicine; ATTEND Internal Medicine
PROC: 04CN3ZZ Extirpation of Matter from Left Popliteal Artery, Percutaneous Approach (ICD-10-PCS; 2018-04-10)
PROC: 047D3DZ Dilation of Left Common Iliac Artery with Intraluminal Device, Percutaneous Approach (ICD-10-PCS; 2018-04-10)
PROC: 047N3Z1 Dilation of Left Popliteal Artery using Drug-Coated Balloon, Percutaneous Approach (ICD-10-PCS; 2018-04-10)
PROC: 047S3Z1 Dilation of Left Posterior Tibial Artery using Drug-Coated Balloon, Percutaneous Approach (ICD-10-PCS; 2018-04-10)
PROC: B41D1ZZ Fluoroscopy of Aorta and Bilateral Lower Extremity Arteries using Low Osmolar Contrast (ICD-10-PCS; 2018-04-10)
PROC: 0HXNXZZ Transfer Left Foot Skin, External Approach (ICD-10-PCS; 2018-04-13)
PROC: 0Y6W0Z0 Detachment at Left 4th Toe, Complete, Open Approach (ICD-10-PCS; principal; 2018-04-13 07:00)
DX: E11.52 Type 2 diabetes mellitus with diabetic peripheral angiopathy with gangrene (principal); I96 Gangrene, not elsewhere classified; N17.9 Acute kidney failure, unspecified; M86.8X6 Other osteomyelitis, lower leg; L03.116 Cellulitis of left lower limb; E87.2 Acidosis; L02.612 Cutaneous abscess of left foot; E11.22 Type 2 diabetes mellitus with diabetic chronic kidney disease; I12.9 Hypertensive chronic kidney disease with stage 1 through stage 4 chronic kidney disease, or unspecified chronic kidney disease; N18.3 Chronic kidney disease, stage 3 (moderate); E78.5 Hyperlipidemia, unspecified; E11.319 Type 2 diabetes mellitus with unspecified diabetic retinopathy without macular edema; D64.9 Anemia, unspecified; E11.69 Type 2 diabetes mellitus with other specified complication; I25.10 Atherosclerotic heart disease of native coronary artery without angina pectoris; Z79.4 Long term (current) use of insulin; E11.21 Type 2 diabetes mellitus with diabetic nephropathy; E11.42 Type 2 diabetes mellitus with diabetic polyneuropathy; E11.621 Type 2 diabetes mellitus with foot ulcer; H54.8 Legal blindness, as defined in USA; L97.529 Non-pressure chronic ulcer of other part of left foot with unspecified severity; E11.628 Type 2 diabetes mellitus with other skin complications; E11.65 Type 2 diabetes mellitus with hyperglycemia; E86.1 Hypovolemia; E87.6 Hypokalemia; I77.89 Other specified disorders of arteries and arterioles; R53.81 Other malaise; E83.51 Hypocalcemia; F32.9 Major depressive disorder, single episode, unspecified
CPT/HCPCS: 36247; 36415; 37223; 37225; 37233; 75625; 75710; 80048; 80053; 80202; 82948; 83735; 83880; 84100; 84702; 85025; 85347; 85610; 85730; 87071; 87075; 87205; 88304; 88305; 88311; 93306; C1725; C1766; C1769; C1876; J0360; J0692; J0720; J1940; J2001; J2250; J2270; J2405; J3370; J7030; J7799; Q9967

== ENCOUNTER 2018-05-18 15:56 | Emergency (ER) | payer BC ==
[~2018-05-18] VITALS: Ht 152.4 cm; Wt 54.4 kg
[~2018-05-18 15:56] MED LIST changes: +ACETAMINOPHEN325 M1 PO; +ASCORBIC ACID500 M2 PO; +CALCIUM CARBON500 MG PO; +DEXTROSE 50%-WA50 ML IV; +DIPHENHYDR50 MG/1 ML IV; +FAMOTIDINE20 MG PO; +FERROUS SULFAT325 MG PO; +GLUCAGEN1 M1 IM; +HUMULIN R100 UNIT/2 SC; +HYDRALAZIN20 MG/1 ML IV; +LACTULOSE20 GM/30 M PO; +METOPROLOL SUCC25 MG PO; +MORPHINE S30 MG/30 M IV; +NIFEDIPINE ER30 M1 PO; +NIFEDIPINE20 MG PO; +NOVOLOG100 UNIT/1 SQ; +ONDANSETRON2 MG/1 ML IV; +VANCOMYCIN HCL1 GM IV
[2018-05-18] MEDS ORDERED: LABETALOL HCL 20 MG/4 ML SYRINGE IV ONE ×2 (17:15→19:15)
[2018-05-18] MEDS ORDERED: METOPROLOL TARTRATE INJ 1 MG/ML VIAL IV ONE (17:15)
--- NOTE | 2018-05-18 17:33 | NUR ---
LANGUAGE LINE OFFERED AND DECLINED BY PT
--- NOTE | 2018-05-18 17:48 | NUR ---
PER PT HOME HEALTH NURSE NOTICED HER BP WAS TOO HIGH AND TOLD HER TO COME IN PT DENIES [place], [place], BLURRED VISION, NOSE BLEEDS, RINGING IN HER EARS, CHEST PAIN, ABDOMINAL PAIN STATES SHE HAS NOT TAKEN HER NIFEDIPINE TODAY
--- NOTE | 2018-05-18 17:50 | NUR ---
C/O MID BACK PAIN PER FAMILY STATES SHE LAYS DOWN A LOT AND THAT IS WHY HER BACK HURTS
[2018-05-18] MEDS ORDERED: NIFEDIPINE CR 30 MG TAB PO ONE ×2 (18:00→18:30)
[2018-05-18] MEDS ORDERED: HYDROCODONE/APAP 5MG-325MG TAB PO ONE (18:00)
[2018-05-18] MEDS ORDERED: ENALAPRILAT DIHYDRATE 1.25 MG/ML 2ML VIAL IV ONE (18:30)
[2018-05-18] MEDS ORDERED: ENALAPRILAT IV INJ 1.25 MG/ML VIAL IV ONE (18:45)
[2018-05-18] MEDS ORDERED: LABETALOL HCL 5 MG/ML 20ML VIAL IV STA (19:08)
[2018-05-18 21:59] VITALS: BP 157/70
== END 2018-05-18 22:10 | disposition home or self-care (01) ==
LOC: ER 15:56
DX: I10 Essential (primary) hypertension (principal); E11.9 Type 2 diabetes mellitus without complications
CPT/HCPCS: 36415; 82948; 93005; 99283

== ENCOUNTER 2018-11-02 14:06 | Emergency (ER) | payer BC ==
[~2018-11-02] VITALS: Ht 157.5 cm; Wt 54.4 kg
[2018-11-02 15:01] LABS: BASOPHILS # (AUTO) 0.1 (0.0-0.1); EOSINOPHILS # (AUTO) 0.3 (0.0-0.4); EOSINOPHILS % 6.2 % (0.0-6.0); HEMATOCRIT 27.6 % (34.2-44.1); LYMPHOCYTES # (AUTO) 1.1 (1.0-3.2); LYMPHOCYTES % 21.7 % (18.0-39.1); MEAN CORPUSCULAR HEMOGLOBIN 29.5 pg (28-32); MEAN CORPUSCULAR HGB CONC 32.6 g/dL (31-35); MEAN CORPUSCULAR VOLUME 90.5 fL (81-99); MONOCYTES # (AUTO) 0.4 (0.2-0.8); MONOCYTES % 7.8 % (4.4-11.3); NEUTROPHILS # (AUTO) 3.1 (2.1-6.9); NEUTROPHILS % 63.1 % (38.7-80.0); PLATELET COUNT 359 x10e3/uL (140-360); RED BLOOD COUNT 3.05 x10e6/uL (3.6-5.1); RED CELL DISTRIBUTION WIDTH 14.4 % (11.7-14.4)
[2018-11-02 15:09] LABS: INR 0.92; PROTHROMBIN TIME 12.8 seconds (11.9-14.5)
[2018-11-02 15:10] LABS: PARTIAL THROMBOPLASTIN TIME 32.9 seconds (23.8-35.5)
[2018-11-02 15:18] LABS: ALBUMIN/GLOBULIN RATIO 0.7 (0.8-2.0); ANION GAP 15.3 mmol/L (8-16); CALCIUM 8.9 mg/dL (8.4-10.2); CREATININE, SERUM 2.93 mg/dL (0.57-1.11); POTASSIUM 5.3 mmol/L (3.5-5.1)
[2018-11-02] MEDS ORDERED: SOD POLYSTYRENE SULFONATE SUSP 15 GM/60 ML BTL PO ONE (15:45)
== END 2018-11-02 17:00 | disposition home or self-care (01) ==
LOC: ER 14:06
DX: E87.5 Hyperkalemia (principal); N18.9 Chronic kidney disease, unspecified
CPT/HCPCS: 36415; 80053; 85025; 85610; 85730; 99282

== ENCOUNTER 2019-09-16 09:19 | Inpatient (IN) | payer OTHER ==
[2019-09-16] VITALS (7 sets, daily range): BP systolic 128–170; BP diastolic 59–84
[~2019-09-16] VITALS: Ht 157.5 cm; Wt 65.8 kg
--- OUTSIDE RECORDS SUMMARY | 2019-09-16 09:22 | XMS REPORT | Clinical Summary ---
Author Author [facility]ov[facility] Organization [facility] Address Unknown Phone Unavailable Care Team Providers Care Water Resource Agent Name Role Phone Daniel Chappell MD PCP Allergies No Known Allergies Medications End Date Status Medication Sig Dispensed Refills Start Date Active insulin GLARGINE Inject 8 0 (BASAGLAR KWIKPEN U-100 Units under INSULIN) 100 unit/mL the skin injection (pen) nightly. Active insulin ASPART (NovoLOG) Inject 6 0 100 unit/mL injection Units under the skin daily before lunch. Active furosemide (LASIX) 20 mg Take 20 mg by 0 tablet mouth daily. Active NIFEdipine XL (PROCARDIA Take 30 mg by 0 XL) 30 MG 24 hr tablet mouth daily. Active aspirin (ECOTRIN) 81 MG Take 81 mg by 0 enteric coated tablet mouth daily. Per Dr Yo's orders stop taking aspirin Active linaGLIPtin (TRADJENTA) 5 Take 5 mg by 0 mg tablet mouth daily. Active ferrous sulfate 325 (65 Take 325 mg 0 FE) MG tablet by mouth daily with breakfast. Active atorvastatin (LIPITOR) 80 Take 80 mg by 0 MG tablet mouth nightly. Active cholecalciferol, vitamin Take 125 mcg 0 D3, (VITAMIN D3 ORAL) by mouth daily. Active metoprolol succinate XL Take 50 mg by 0 (TOPROL-XL) 50 mg 24 hr mouth daily. tablet 11/07/2018 Discontinued mv-mn/iron/folic Take 125 mcg 0 acid/herb 190 (VITAMIN D3 by mouth COMPLETE ORAL) daily. 11/21/2018 nitrofurantoin, Take 1 14 capsule 0 macrocrystal-monohydrate, capsule (100 9 (MACROBID) 100 MG capsule mg total) by mouth every 12 (twelve) hours for 7 days. Active Problems Problem Noted Date Acute cystitis without hematuria 11/08/2018 Iron deficiency anemia 11/08/2018 JENNIFER (acute kidney injury) 11/07/2018 Encounters Care Team Description Date Type Specialty Yuliana Celaya MD McCartan, James Arthur, DO JENNIFER (acute kidney injury) (HCC) (Primary Dx) 11/07/2018 [facility] Internal Al dicine - Encounter 11/14/2018 after 09/15/2018 Social History Date Tobacco Use Types Packs/Day Years Used Never Smoker Smokeless Tobacco: Never Used Drinks/Week oz/Week Comments Alcohol Use Never Alcohol Habits Answer Date Recorded How often do you have a drink containing alcohol? Never 11/07/2018 How many drinks containing alcohol do you have on No t asked a typical day when you are drinking? How often do you have six or more drinks on one Not asked occasion? Sex Assigned at Date Recorded Not on file Industry Job Start Date Occupation Not on file Not on file Not on file Travel End Travel History Travel Start No recent travel history available. Last Filed Vital Signs Reading Time Taken Comments Vital Sign 143/75 11/14/2018 4:36 PM CDT Blood Pressure 85 11/14/2018 4:36 PM CDT Pulse 36.3 C (97.3 F) 11/14/2018 4:36 PM CDT Temperature 18 11/14/2018 4:36 PM CDT Respiratory Rate 95% 11/14/2018 4:36 PM CDT Oxygen Saturation - - Inhaled Oxygen Concentration 67.2 kg (148 lb 1.6 oz) 11/14/2018 5:05 AM CDT Weight 142.2 cm (4' 8") 11/07/2018 5:16 PM CDT Height 33.2 11/07/2018 5:16 PM CDT Body Mass Index Plan of Treatment Health Maintenance Due Date Last Done Comments CERVICAL CANCER SCREENING 1989 BREAST CANCER SCREENING 2018 COLONOSCOPY SCREENING 2018 SHINGLES VACCINES (#1) 2018 INFLUENZA VACCINE 11/30/2019 Procedures Comments Procedure Name Priority Date/Time Associated Diag nosis POC GLUCOSE Routine 11/14/2018 5:28 PM CDT POC GLUCOSE Routine 11/14/2018 11:50 AM CDT POC GLUCOSE Routine 11/14/2018 7:14 AM CDT ESTIMATED GFR Routine 11/14/2018 6:50 AM CDT BASIC METABOLIC PANEL Routine 11/14/2018 6:50 AM CDT POC GLUCOSE Routine 11/14/2018 3:47 AM CDT POC GLUCOSE Routine 11/13/2018 8:30 PM CDT POC GLUCOSE Routine 11/13/2018 4:44 PM CDT SURGICAL PATHOLOGY Routine 11/13/2018 REQUEST 4:08 PM CDT US NEEDLE BIOPSY Routine 11/13/2018 3:15 PM CDT POC GLUCOSE Routine 11/13/2018 12:29 PM CDT PARTIAL THROMBOPLASTIN Routine 11/13/2018 TIME (PTT) 9:19 AM CDT PROTHROMBIN TIME WITH INR Routine 11/13/2018 9:19 AM CDT POC GLUCOSE Routine 11/13/2018 7:52 AM CDT HC COMPLETE BLD COUNT Routine 11/13/2018 W/AUTO DIFF 4:10 AM CDT ESTIMATED GFR Routine 11/13/2018 4:00 AM CDT BASIC METABOLIC PANEL Routine 11/13/2018 4:00 AM CDT POC GLUCOSE Routine 11/13/2018 2:51 AM CDT POC GLUCOSE Routine 11/12/2018 8:59 PM CDT POC GLUCOSE Routine 11/12/2018 6:12 PM CDT POC GLUCOSE Routine 11/12/2018 12:22 PM CDT POC GLUCOSE Routine 11/12/2018 7:57 AM CDT ESTIMATED GFR Routine 11/12/2018 5:50 AM CDT HC COMPLETE BLD COUNT Routine 11/12/2018 W/AUTO DIFF 5:50 AM CDT BASIC METABOLIC PANEL Routine 11/12/2018 5:50 AM CDT POC GLUCOSE Routine 11/12/2018 5:01 AM CDT POC GLUCOSE Routine 11/12/2018 12:33 AM CDT POC GLUCOSE Routine 11/11/2018 8:50 PM CDT POC GLUCOSE Routine 11/11/2018 5:34 PM CDT POC GLUCOSE Routine 11/11/2018 12:41 PM CDT POC GLUCOSE Routine 11/11/2018 8:08 AM CDT ESTIMATED GFR Routine 11/11/2018 6:15 AM CDT HC COMPLETE BLD COUNT Routine 11/11/2018 W/AUTO DIFF 6:15 AM CDT BASIC METABOLIC PANEL Routine 11/11/2018 6:15 AM CDT POC GLUCOSE Routine 11/11/2018 4:14 AM CDT POC GLUCOSE Routine 11/10/2018 11:47 PM CDT POC GLUCOSE Routine 11/10/2018 8:09 PM CDT POC GLUCOSE Routine 11/10/2018 6:19 PM CDT GLUCOSE LEVEL STAT 11/10/2018 5:55 PM CDT POC GLUCOSE Routine 11/10/2018 5:23 PM CDT POC GLUCOSE Routine 11/10/2018 5:12 PM CDT POC GLUCOSE Routine 11/10/2018 12:02 PM CDT POC GLUCOSE Routine 11/10/2018 8:38 AM CDT GRAM STAIN Routine 11/10/2018 8:05 AM CDT URINE CULTURE Routine 11/10/2018 8:05 AM CDT MANUAL DIFFERENTIAL Routine 11/10/2018 5:00 AM CDT ESTIMATED GFR Routine 11/10/2018 5:00 AM CDT URINALYSIS SCREEN AND Routine 11/10/2018 MICROSCOPY, WITH REFLEX 5:00 AM CDT TO CULTURE CBC WITH PLATELET AND Routine 11/10/2018 DIFFERENTIAL 5:00 AM CDT BASIC METABOLIC PANEL Routine 11/10/2018 5:00 AM CDT POC GLUCOSE Routine 11/09/2018 9:09 PM CDT POC GLUCOSE Routine 11/09/2018 6:47 PM CDT POC GLUCOSE Routine 11/09/2018 12:26 PM CDT POC GLUCOSE Routine 11/09/2018 8:16 AM CDT HC COMPLETE BLD COUNT Routine 11/09/2018 W/AUTO DIFF 5:00 AM CDT HEMOGLOBIN A1C Routine 11/09/2018 5:00 AM CDT ESTIMATED GFR Routine 11/09/2018 4:00 AM CDT HEPATITIS ACUTE PANEL Routine 11/09/2018 4:00 AM CDT C4 COMPLEMENT COMPONENT Routine 11/09/2018 4:00 AM CDT C3 COMPLEMENT COMPONENT Routine 11/09/2018 4:00 AM CDT ANTI-NEUTROPHILIC Routine 11/09/2018 CYTOPLASMIC ABS PANEL 4:00 AM CDT ROSITA Routine 11/09/2018 4:00 AM CDT TOTAL IRON BINDING Routine 11/09/2018 CAPACITY 4:00 AM CDT FERRITIN LEVEL Routine 11/09/2018 4:00 AM CDT PHOSPHORUS LEVEL Routine 11/09/2018 4:00 AM CDT MAGNESIUM LEVEL Routine 11/09/2018 4:00 AM CDT BASIC METABOLIC PANEL Routine 11/09/2018 4:00 AM CDT SERUM ELECTROPHORESIS Routine 11/09/2018 4:00 AM CDT POC GLUCOSE Routine 11/08/2018 9:23 PM CDT POC GLUCOSE Routine 11/08/2018 4:11 PM CDT POC GLUCOSE Routine 11/08/2018 3:12 PM CDT POC GLUCOSE Routine 11/08/2018 11:45 AM CDT URINE PROTEIN Routine 11/08/2018 ELECTROPHORESIS, RANDOM 11:03 AM CDT CREATININE LEVEL, URINE, Routine 11/08/2018 RANDOM 11:03 AM CDT PROTEIN, URINE, RANDOM Routine 11/08/2018 11:03 AM CDT URINE EOSINOPHILS Routine 11/08/2018 11:03 AM CDT US RENAL DOPPLER Routine 11/08/2018 9:38 AM CDT US RENAL Routine 11/08/2018 9:28 AM CDT POC GLUCOSE Routine 11/08/2018 7:57 AM CDT ESTIMATED GFR Routine 11/08/2018 5:00 AM CDT COMPREHENSIVE METABOLIC Routine 11/08/2018 PANEL 5:00 AM CDT PHOSPHORUS LEVEL Routine 11/08/2018 5:00 AM CDT MAGNESIUM LEVEL Routine 11/08/2018 5:00 AM CDT HC COMPLETE BLD COUNT Routine 11/08/2018 W/AUTO DIFF 5:00 AM CDT URINE CULTURE Routine 11/07/2018 11:20 PM CDT GRAM STAIN Routine 11/07/2018 11:20 PM CDT URINALYSIS SCREEN AND Routine 11/07/2018 MICROSCOPY, WITH REFLEX 9:45 PM CDT TO CULTURE ESTIMATED GFR Routine 11/07/2018 8:35 PM CDT COMPREHENSIVE METABOLIC Routine 11/07/2018 PANEL 8:35 PM CDT HC COMPLETE BLD COUNT Routine 11/07/2018 W/AUTO DIFF 8:35 PM CDT POC GLUCOSE Routine 11/07/2018 7:50 PM CDT POC GLUCOSE Routine 11/07/2018 6:14 PM CDT after 09/15/2018 Results * POC glucose (11/14/2018 5:28 PM CDT) Only the most recent of 38 results within the time period is included. POC glucose 198 (H) 65 - 99 mg/dL [place] Comment: RELIGION [facility] Notified RN HOSPITAL Meter ID: [id number] Electrical Equipment Assembler: Raul Madera Specimen Performing Organization Address City/State/[facility] Ph one Number [facility] DEPARTMENT OF [address] [place] [address] PATHOLOGY AND GENOMIC MEDICINE [place] RELIGION [address] [place] [address] HOSPITAL * Estimated GFR (11/14/2018 6:50 AM CDT) Only the most recent of 8 results within the time period is included. Estimated GFR 24 (A) mL/min/1.73 m2 [place] Comment: RELIGION Catergory Units HOSPITAL Interpretation G1 >=90 Normal or high G2 60-89 Mildly decreased G3a 45-59 Mildly to moderately decreased G3b 30-44 Moderately to severely decreased G4 15-29 Severely decreased G5 <15 Kidney failure The eGFR was calculated using the Chronic Kidney Disease Epidemiology Collaboration (CKD-EPI) equation. Interpretation is based on recommendations of the National Kidney Foundation-Kidney Disease Outcomes Quality Initiative (NKF-KDOQI) published in 2014. Specimen Plasma specimen Performing Organization Address City/[facility] Ph one Number [facility] DEPARTMENT OF [address] [place] [address] PATHOLOGY AND GENOMIC MEDICINE [address] * Basic metabolic panel (11/14/2018 6:50 AM CDT) Only the most recent of 6 results within the time period is included. Sodium 136 135 - 148 mEq/L [facility] Potassium 4.6 3.5 - 5.0 mEq/L [facility] Chloride 97 (L) 98 - 112 mEq/L [facility] CO2 29 24 - 31 mEq/L [facility] Anion gap 10@ANIO 7 - 15 mEq/L [facility] BUN 54 (H) 6 - 20 mg/dL [facility] Creatinine 2.32 (H) 0.50 - 0.90 mg/dL [facility] Glucose 243 (H) 65 - 99 mg/dL [facility] Calcium 8.0 (L) 8.3 - 10.2 mg/dL [facility] Specimen Plasma specimen Performing Organization Address [facility] Ph one Number [facility] DEPARTMENT OF [address] [place] [address] PATHOLOGY AND GENOMIC MEDICINE [address] * Surgical pathology request (11/13/2018 4:08 PM CDT) [facility] DEPARTMENT OF PATHOLOGY AND GENOMIC MEDICINE Surgical See link below for PDF Lab [facility] DEPART [facility] pathology Report OF PATHOLOGY report AND GENOMIC MEDICINE Result status This is Final Report for [facility] DEPARTME NT [id number] OF PATHOLOGY AND GENOMIC MEDICINE Specimen Performing Organization Address [facility] Ph one Number [facility] DEPARTMENT OF [address] [place] [address] PATHOLOGY AND GENOMIC MEDICINE * US Needle Biopsy (11/13/2018 3:15 PM CDT) Specimen Narrative Performed At EXAMINATION: US NEEDLE BIOPSY [facility] CLINICAL HISTORY: ARF TECHNIQUE: The risks, benefits, and alternatives w ere discussed with the patient and written informed consent was obtained. A site for needle entry was selected an d the skin was prepped and draped in the usual sterile fashion. After local admi nistration of 1% buffered lidocaine, a tiny dermatotomy was made. Using ultras ound guidance,4 core samples were obtained. The specimens were reviewed with pathology and were d eemed adequate. The patient was discharged to the radiology recovery ar ea for monitoring prior to discharge. They have been instructed to follow-up with Dr. DEWAYNE FERRARO for the results of the biopsy. Conscious sedation: Under physician s upervision, a combination of intravenous Versed and fentanyl was given. Pulse ox imetry, heart rate, and blood pressure were continuously monitored by an indep endent trained observer present. . The physician spent 44 of [id number] sedation time with the patient. EBL: None. Complications: None. Assistants: None. IMPRESSION: Successful uncomplicated medical renal biopsy [facility]-[id number] Procedure Note Hm Interface, Radiology Results Incoming - 11/13/2018 4:08 PM CDT EXAMINATION: US NEEDLE BIOPSY CLINICAL HISTORY: ARF TECHNIQUE: The risks, benefits, and alternatives were discussed with the patient and written informed consent was obtained. A site for needle entry was selected and the skin was prepped and draped in the usual sterile fashion. After local administration of 1% buffered lidocaine, a tiny dermatotomy was made. Using ultrasound guidance,4 core samples were obtained. The specimens were reviewed with pathology and were deemed adequate. The patient was discharged to the radiology recovery area for monitoring prior to discharge. They have been instructed to follow-up with Dr. DEWAYNE FERRARO for the results of the biopsy. Conscious sedation: Under physician supervision, a combination of intravenous Versed and fentanyl was given. Pulse oximetry, heart rate, and blood pressure were continuously monitored by an independent trained observer present. . The physician spent 44 of [id number] sedation time with the patient. EBL: None. Complications: None. Assistants: None. IMPRESSION: Successful uncomplicated medical renal biopsy [facility]-[id number] Performing Organization Address City/[facility] Ph one Number [facility] [address] [place] [address] * Partial thromboplastin time, activated (11/13/2018 9:19 AM CDT) PTT 26.8 23.0 - 36.0 sec [place] Comment: RELIGION PTT therapeutic range for HOSPITAL unfractionated heparin is 61.0-112.0 seconds which corresponds to Anti-Xa 0.3-0.7 U/ml. Specimen Blood Performing Organization Address City/State/Zipcode Ph one Number [facility] DEPARTMENT OF [address] [place] [address] PATHOLOGY AND GENOMIC MEDICINE [address] * Prothrombin time with INR (11/13/2018 9:19 AM CDT) [facility] Prothrombin 14.1 11.5 - 14.5 sec [facility] INR 1.1 [place] Comment: [facility] International Normalized HOSPITAL Ratio (INR) is a therapeutic monitoring tool for patients who are stable on oral anticoagulant therapy. An INR of 2.0-3.0 is suggested for deep vein thrombosis/pulmonary embolism. Specimen Blood Performing Organization Address City/[facility] Ph one Number [facility] DEPARTMENT OF [address] [place] [address] PATHOLOGY AND GENOMIC MEDICINE [address] * CBC with platelet and differential (11/13/2018 4:10 AM CDT) Only the most recent of 7 results within the time period is included. [facility] WBC 6.71 4.50 - 11.00 k/uL [facility] RBC 3.01 (L) 4.20 - 5.50 m/uL [facility] HGB 8.8 (L) 12.0 - 16.0 g/dL [facility] HCT 26.8 (L) 37.0 - 47.0 % [facility] MCV 89.0 82.0 - 100.0 fL [facility] MCH 29.2 27.0 - 34.0 pg [facility] MCHC 32.8 31.0 - 37.0 g/dL [facility] RDW - SD 46.0 37.0 - 55.0 fL [facility] MPV 11.6 8.8 - 13.2 fL [facility] Platelet count 340 150 - 400 k/uL [facility] Nucleated RBC 0.00 /100 WBC [facility] Neutrophils 83.0 (H) 39.0 - 69.0 % [facility] Lymphocytes 12.5 (L) 25.0 - 45.0 % [facility] Monocytes 3.9 0.0 - 10.0 % [facility] Eosinophils 0.0 0.0 - 5.0 % [facility] Basophils 0.0 0.0 - 1.0 % [facility] Immature 0.6Comment: "Immature 0.0 - 1.0 % [place] granulocytes granulocytes" (promyelocytes, METHOD IST myelocytes, metamyelocytes) HOSPITAL Specimen Performing Organization Address [facility] Ph one Number [facility] DEPARTMENT OF [address] [place] [address] PATHOLOGY AND [facility] MEDICINE [address] * Glucose level (11/10/2018 5:55 PM CDT) Glucose 452 (HH) 65 - 99 mg/dL [place] Comment: RELIGION GLU results called to and read HOSPITAL back by FLACA FIGUEROA (name/location) at 11/10/2018 18:59 (date/time) by AUGUSTINE. Specimen Plasma specimen Performing Organization Address [facility] one Number [facility] DEPARTMENT OF [address] [place] [address] PATHOLOGY AND [facility] MEDICINE [address] * Gram stain (11/10/2018 8:05 AM CDT) Only the most recent of 2 results within the time period is included. Pathologist [facility] Gram stain No WBC's or organisms seen. [place] result Comment: RELIGION Specimen [facility] Specimen Source: Urine Specimen Site: Clean catch Specimen Urine Performing Organization Address [facility] one Number [facility] DEPARTMENT OF [address] [place] [address] PATHOLOGY [facility]IC[facility] [address] * Urine culture (11/10/2018 8:05 AM CDT) Only the most recent of 2 results within the time period is included. Pathologist [facility] Urine culture Mixed harry <=10-3 col/cc [place] isolate Comment: RELIGION Specimen Information [facility] Specimen Source: Urine Specimen Site: Clean catch Specimen Urine Performing Organization Address [facility] one Number [facility] DEPARTMENT OF [address] [place] [address] PATHOLOGY [facility]IC[facility] [address] * Urinalysis screen and microscopy, with reflex to culture (11/10/2018 5:00 AM CDT) Only the most recent of 2 results within the time period is included. Specimen site Clean catch [facility] Color, UA Yellow [facility] Appearance, UA Clear [facility] Specific 1.010 1.001 - 1.035 [place] gravity, [facility] pH, UA 7.0 5.0 - 8.5 [facility] Protein, UA 3+ (A) Negative [facility] Glucose, UA 3+ (A) Negative [facility] Ketones, UA Trace (A) Negative [facility] Bilirubin, UA Negative Negative [facility] Blood, UA Small (A) Negative [facility] Nitrite, UA Negative Negative [facility] Urobilinogen, <2.0 <2.0 [facility] Leukocyte Large (A) Negative [place] esterase, [facility] Epithelial 2 /HPF [place] cells, [facility] Round 2 (H) 0 - 1 /HPF [place] epithelial RELIGION cells, HOSPITAL WBC, UA >180 (H) 0 - 4 /HPF [facility] RBC, UA 3 0 - 5 /HPF [facility] Bacteria, UA Moderate (A) None seen [facility] WBC clumps, UA Moderate (A) [facility] Yeast, UA None seen [facility] Yeast with None seen [place] [facility] Specimen Urine Performing Organization Address City/[facility] Ph one Number [facility] DEPARTMENT OF [address] [place] [address] PATHOLOGY AND GENOMIC MEDICINE [address] * Manual differential (11/10/2018 5:00 AM CDT) Manual PERFORMED [place] differential [facility] Neutrophils 93.0 (H) 39.0 - 69.0 % [facility] Lymphocytes 7.0 (L) 25.0 - 45.0 % [facility] Monocytes 0.0 0.0 - 10.0 % [facility] Eosinophils 0.0 0.0 - 5.0 % [facility] Basophils 0.0 0.0 - 1.0 % [facility] Metamyelocytes 0 % [facility] Promyelocytes 0 % [facility] Platelet slide Adonis adequate [place] review [facility] An[facility]ocytosis Moderate [facility] Ovalocytes Moderate [facility] Specimen Performing Organization Address City/[facility] Ph one Number [facility] DEPARTMENT OF [address] [place] [address] PATHOLOGY [facility] [address] * Hemoglobin A1c (11/09/2018 5:00 AM CDT) Pathologist [facility] Hemoglobin A1C 7.7 (H) 4.0 - 5.6 % [place] Comment: RELIGION HbA1c cutoffs for diagnosing HOSPITAL diabetes: 4.0% - 5.6% = normal 5.7% - 6.4% = increased risk for diabetes (prediabetes) >=6.5% = diabetes Goals for glycemic control (ADA 2016) < 7.0% Target for non adults with diabetes. More or less stringent targets may be appropriate for individual patients. <7.5% Target for Children and adolescents with type 1 diabetes. Specimen Blood Performing Organization Address City/[facility] Ph one Number [facility] DEPARTMENT OF [address] [place] [address] PATHOLOGY [facility] MEDICINE [address] * Total iron binding capacity (11/09/2018 4:00 AM CDT) [facility] Iron level 46 37 - 145 ug/dL [facility] Iron binding 181 (L) 200 - 400 ug/dL [facility] % Saturation 25.4 15.0 - 38.0 % [facility] Specimen Plasma specimen Performing Organization Address City/[facility] Ph one Number [facility] DEPARTMENT OF [address] [place] [address] PATHOLOG[facility] [address] * Hepatitis acute panel (11/09/2018 4:00 AM CDT) Pathologist [facility] Hepatitis A IgM Non-reactive Non-reactive [facility] Hepatitis B Non-reactive Non-reactive [place] core IgM [facility] Hepatitis B Non-reactive Non-reactive [place] surface Ag [facility] Hepatitis C Ab Non-reactive Non-reactive [facility] Specimen Serum Performing Organization Address City/State/[facility] Ph one Number [facility] DEPARTMENT OF [address] [place] [address] PATHOLOGY AND [facility] [address] * Anti-neutrophilic cytoplasmic Abs panel (11/09/2018 4:00 AM CDT) ANCA screen Negative Negative [facility] Specimen Blood Performing Organization Address City/[facility] Ph one Number [facility] DEPARTMENT OF [address] [place] [address] PATHOLOGY AND [facility] [address] * C3 complement component (11/09/2018 4:00 AM CDT) Pathologist [facility] C3 complement 113 90 - 180 mg/dL [facility] Specimen Plasma specimen Performing Organization Address City/[facility] one Number [facility] DEPARTMENT OF [address] [place] [address] PATHOLOGY AND GENOMIC MEDICINE [address] * C4 complement component (11/09/2018 4:00 AM CDT) Pathologist [facility] C4 complement 26 10 - 40 mg/dL [facility] Specimen Plasma specimen Performing Organization Address [facility] one Number [facility] DEPARTMENT OF [address] [place] [address] PATHOLOGY AND GENOMIC MEDICINE [address] * ROSITA (11/09/2018 4:00 AM CDT) ROSITA screen Negative Negative [facility] Specimen Blood Performing Organization Address [facility] one Number [facility] DEPARTMENT OF [address] [place] [address] PATHOLOGY AND [facility] [address] * Serum electrophoresis (11/09/2018 4:00 AM CDT) Pathologist [facility] Protein 5.8 (L) 6.3 - 8.3 g/dL [place] Comment: [facility] 4.6-7.0 g/dL 1 week 4.4-7.6 g/dL 7 months-1year 5.1-7.3 g/dL 1-2 years 5.6-7.5 g/dL >3 years 6.0-8.0 g/dL 18-150 6.3-8.3 g/dL SPE albumin 3.02 (L) 4.00 - 5.30 g/dL [facility] SPE alpha 1 0.25 0.10 - 0.25 g/dL [facility] SPE alpha 2 0.89 (H) 0.58 - 0.84 g/dL [facility] SPE beta 0.73 0.50 - 1.10 g/dL [facility] SPE gamma 0.92 0.60 - 1.30 g/dL [facility] SPE extended See Comment [facility] interpretation Comment: RELIGION Total protein and albumin are HOSPITAL decreased while the relative concentrations of alpha-1 globulins and alpha-2 globulins are increased indicating an acute phase response to infection, inflammation or tissue injury. SPE See CommentComment: Starr [facility] interpretation Alley WALLACE; Lonnie Mcbride PhD; LAURA Bryson MD HOSPITAL Specimen Serum Performing Organization Address City/[facility] Ph one Number [facility] DEPARTMENT OF [address] [place] [address] PATHOLOGY AND [facility] [address] * Phosphorus level (11/09/2018 4:00 AM CDT) Only the most recent of 2 results within the time period is included. Phosphorus 3.9 2.4 - 4.5 mg/dL [facility] Specimen Plasma specimen Performing Organization Address [facility] Ph one Number [facility] DEPARTMENT OF [address] [place] [address] PATHOLOGY AND [facility] [address] * Magnesium level (11/09/2018 4:00 AM CDT) Only the most recent of 2 results within the time period is included. Magnesium 2.3 1.6 - 2.6 mg/dL [facility] Specimen Plasma specimen Performing Organization Address City/[facility] Ph one Number [facility] DEPARTMENT OF [address] [place] [address] PATHOLOGY AND [facility] [address] * Ferritin level (11/09/2018 4:00 AM CDT) Ferritin level 163 (H) 13 - 150 ng/mL [facility] Specimen Plasma specimen Performing Organization Address [facility] Ph one Number [facility] DEPARTMENT OF [address] [place] [address] PATHOLOGY AND [facility] [address] * Urine protein electrophoresis, random (11/08/2018 11:03 AM CDT) Urine protein 252 mg/dL [place] concentration [facility] UPE albumin 66.8 % [facility] UPE globulin 33.2 % [facility] UPE extended See Comment [facility] interpretation Comment: RELIGION An abnormal random urine HOSPITAL protein study with proteinuria equivalent to 2.5 g/L. The proteinuria is in a non-selective glomerular pattern. UPE See CommentComment: Starr [facility] interpretation Alley WALLACE; Lonnie Mcbride PhD; RELIGION Delmy Bryson MD HOSPITAL Specimen Urine Performing Organization Address City/[facility] one Number [facility] DEPARTMENT OF [address] [place] [address] PATHOLOGY AND [facility] [address] * Urine eosinophils (11/08/2018 11:03 AM CDT) Eosinophils, PRESENT (A) [place] urine [facility] Specimen Urine Performing Organization Address [facility] one Number [facility] DEPARTMENT OF [address] [place] [address] PATHOLOGY AND GENOMIC MEDICINE [address] * Protein, urine, random (11/08/2018 11:03 AM CDT) Protein, urine 249 mg/dL [place] random [facility] Specimen Urine Performing Organization Address [facility] Ph one Number [facility] DEPARTMENT OF [address] [place] [address] PATHOLOGY AND GENOMIC MEDICINE [address] * Creatinine level, urine, random (11/08/2018 11:03 AM CDT) Creatinine, 36 mg/dL [place] urine, random [facility] Specimen Urine Performing Organization Address [facility] one Number [facility] DEPARTMENT OF [address] [place] [address] PATHOLOGY AND GENOMIC MEDICINE [address] * US Renal Doppler (11/08/2018 9:38 AM CDT) Specimen Narrative Performed At EXAM: [facility] Renal arterial duplex ultrasound. INDICATION: Renal vascular hypertension. COMPARISON: None. TECHNIQUE: Multiple grayscale, color Doppler, spec tral Doppler images of the kidneys and their vasculature were obtained. FINDINGS: Right kidney is normal in contour, sloan ical thickness, and cortical echogenicity. No calculus, mass, or hyd ronephrosis. Normal color Doppler flow throughout. Left kidney is normal contour, cortical thickness, and cortical echogenicity. No calculus, mass, or hydronephrosis. Norm al color Doppler flow throughout. Artery: peak systolic velocity (centime ters per second), resistive index, acceleration time (seconds): Aorta: 97.0 cm/s, not measured, not alondra sured (triphasic waveform) Right: Main: 147, 0.74, not measured Superior: 24.7, 0.74, 0.04) Middle: 69.9, 0.76, 0.03 Inferior: 35.0, 0.71, 0.04 Left: Main: 54.2, 0.78, not measured Superior: 24.4, 0.76, 0.02 Middle: 22.2, 0.77, 0.04 Inferior: 59.1, 0.76, 0.02 Vein: Right: Normal venous flow velocity and waveform with cardiac phasicity Left: Normal venous flow velocity and w aveform with cardiac phasicity IVC: Normal venous flow velocity and wa veform IMPRESSION: Normal renal duplex arterial ultrasound . Procedure Note Interface, Radiology Results Incoming - 11/08/2018 5:10 PM CDT EXAM: Renal arterial duplex ultrasound. INDICATION: Renal vascular hypertension. COMPARISON: None. TECHNIQUE: Multiple grayscale, color Doppler, spectral Doppler images of the kidneys and their vasculature were obtained. FINDINGS: Right kidney is normal in contour, cortical thickness, and cortical echogenicity. No calculus, mass, or hydronephrosis. Normal color Doppler flow throughout. Left kidney is normal contour, cortical thickness, and cortical echogenicity. No calculus, mass, or hydronephrosis. Normal color Doppler flow throughout. Artery: peak systolic velocity (centimeters per second), resistive index, acceleration time (seconds): Aorta: 97.0 cm/s, not measured, not measured (triphasic waveform) Right: Main: 147, 0.74, not measured Superior: 24.7, 0.74, 0.04) Middle: 69.9, 0.76, 0.03 Inferior: 35.0, 0.71, 0.04 Left: Main: 54.2, 0.78, not measured Superior: 24.4, 0.76, 0.02 Middle: 22.2, 0.77, 0.04 Inferior: 59.1, 0.76, 0.02 Vein: Right: Normal venous flow velocity and waveform with cardiac phasicity Left: Normal venous flow velocity and waveform with cardiac phasicity IVC: Normal venous flow velocity and waveform IMPRESSION: Normal renal duplex arterial ultrasound. Performing Organization Address City/State/Zipcode Ph one Number [facility] [address] [place] [address] * US Renal (11/08/2018 9:28 AM CDT) Specimen Narrative Performed At EXAM: [facility] Renal ultrasound. INDICATION: Elevated creatinine. COMPARISON: None. TECHNIQUE: Multiple grayscale and color Doppler im ages of the kidneys and bladder were obtained. FINDINGS: Bladder is moderately distended with ur ine and debris, revealing a bladder wall of normal thickness and appearance. Right kidney is normal in contour, sloan ical thickness, and cortical echogenicity. It is normal in size, alondra suring 12.1 x 5.2 x 5.3 cm. Normal parenchymal flow throughout. No calculu s, mass, or hydronephrosis. Left kidney is also normal in contour, cortical thickness, and cortical echogenicity. It is also normal in size , measuring 10.8 x 5.1 x 5.9 cm. Normal parenchymal flow throughout. Focal rocco ectasis of the left kidney upper pole collecting system. Internal 6 mm maximal diameter echogeni c structure with clean posterior acoustic shadowing, compatible with a calculus. No hydronephrosis or mass. IMPRESSION: 1. Left upper pole caliectasis with int ernal 6 mm diameter calculus. If indicated, this could be further evalua demetrice with noncontrast CT the abdomen and pelvis. 2.. Debris within the bladder. Procedure Note Interface, Radiology Results Incoming - 11/08/2018 5:08 PM CDT EXAM: Renal ultrasound. INDICATION: Elevated creatinine. COMPARISON: None. TECHNIQUE: Multiple grayscale and color Doppler images of the kidneys and bladder were obtained. FINDINGS: Bladder is moderately distended with urine and debris, revealing a bladder wall of normal thickness and appearance. Right kidney is normal in contour, cortical thickness, and cortical echogenicity. It is normal in size, measuring 12.1 x 5.2 x 5.3 cm. Normal parenchymal flow throughout. No calculus, mass, or hydronephrosis. Left kidney is also normal in contour, cortical thickness, and cortical echogenicity. It is also normal in size, measuring 10.8 x 5.1 x 5.9 cm. Normal parenchymal flow throughout. Focal caliectasis of the left kidney upper pole collecting system. Internal 6 mm maximal diameter echogenic structure with clean posterior acoustic shadowing, compatible with a calculus. No hydronephrosis or mass. IMPRESSION: 1. Left upper pole caliectasis with inte rnal 6 mm diameter calculus. If indicated, this could be further evaluated with noncontrast CT the abdomen and pelvis. 2.. Debris within the bladder. Performing Organization Address City/State/Zipcode Ph one Number [facility] [address] [place] [address] * Comprehensive metabolic panel (11/08/2018 5:00 AM CDT) Only the most recent of 2 results within the time period is included. Sodium 143 135 - 148 mEq/L [facility] Potassium 5.1 (H) 3.5 - 5.0 mEq/L [facility] Chloride 111 98 - 112 mEq/L [facility] CO2 18 (L) 24 - 31 mEq/L [facility] Anion gap 14@ANIO 7 - 15 mEq/L [facility] BUN 42 (H) 6 - 20 mg/dL [facility] Creatinine 2.74 (H) 0.50 - 0.90 mg/dL [facility] Glucose 195 (H) 65 - 99 mg/dL [facility] Calcium 8.6 8.3 - 10.2 mg/dL [facility] Protein 6.4 6.3 - 8.3 g/dL [place] Comment: [facility] 4.6-7.0 g/dL 1 week 4.4-7.6 g/dL 7 months-1year 5.1-7.3 g/dL 1-2 years 5.6-7.5 g/dL >3 years 6.0-8.0 g/dL 18-150 6.3-8.3 g/dL Albumin 2.4 (L) 3.5 - 5.0 g/dL [facility] A/G ratio 0.6 (L) 0.7 - 3.8 [facility] Alkaline 192 (H) 35 - 104 U/L [place] phosphatase [facility] AST 15 10 - 35 U/L [facility] ALT 27 5 - 50 U/L [facility] Total bilirubin <0.2 0.0 - 1.2 mg/dL [facility] Specimen Plasma specimen Performing Organization Address City/State/Zipcode Ph one Number [facility] DEPARTMENT OF [address] [place] [address] PATHOLOGY AND GENOMIC MEDICINE [address] [address] [facility] after 09/15/2018 Insurance Type Payer Benefit Subscriber ID Effective Phone Address Plan / Dates Group PPO BCBS BCBS xxxxxxxxxxxx [id number] CHOICE resent PPO/NATALIA BOSCH PPO Advance Directives For more information, please contact: [phone] 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
--- OUTSIDE RECORDS SUMMARY | 2019-09-16 09:23 | XMS REPORT ---
Author Author [facility] t Organization [facility] t Address [address] [place] [address] Phone Unavailable Care Team Providers Care Home Energy Inspector Name Role Phone DANIEL GRANADOS MD PCP Yuliana Celaya MD Attphys Ervin Causey DO Attphys [phone] STEFAN JACKSON Attbinu Unavailable STEFAN JACKSON Admbinu Unavailable Payers Payer Name Policy Type Policy Number Effective Date Expiration Date S ource BCBSBCBS CHOICE PPO/FEDERAL EMPL [id number]-Pre sentPPO xxxxxxxxxxxx 2016 00:00:00 [facility] [employer] [id number] [facility] [employer] [id number] [facility] [employer] [id number] [facility] [employer] [id number] [facility] Problems Condition Name Condition Details Condition Category Status Onset Date Resolution Date Last Treatment Date Treating Clinician Comments Source Acute cystitis without hematuria Acute cystitis without hematuri a Disease Active 2018-11-08 00:00:00 [facility] Iron deficiency anemia Iron deficiency anemia Disease Active 2018-11-08 00:00:[address] [place] [facility] [address] JENNIFER (acute kidney injury) JENNIFER (acute kidney injury) Disease Ac tive 2018-11-07 [facility] Gangrene of toe of left foot Gangrene of toe of left foot Problem Active [facility] Hypertensive urgency Hypertensive urgency Problem Active [facility] 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 Problem Active [facility] Allergies, Adverse Reactions, Alerts Allergy Name Allergy Type Status Severity Reaction(s) Onset Date Inacti ve Date Treating Clinician Comments Source No Known Allergies DA Active U 2019-01-16 00:00:00 [facility] No Known Allergies DA Active U 2019-01-02 00:00:00 [facility] No Known Drug Intolerances DA Active U 2008-10-29 00:00:0 0 [facility] No Known Intolerances DA Active U 2008-10-29 00:00:00 [facility] Social History Social Habit Start Date Stop Date Quantity Comments Source History SDOH Alcohol Std Drinks [facility] History SDOH Alcohol Binge [facility] Sex [facility] Alcohol intake 2018-11-07 00:00:00 2018-11-07 00:00:00 Lifetime non-drinker (finding) [facility] History SDOH Alcohol Frequency 2018-11-07 00:00:00 2018-11-07 00:00:0 0 1 Yovani Cabrales Smoking Status Start Date Stop Date Source Never smoker Yovani flanagan Medications Ordered Medication Name Filled Medication Name Start Date Stop Da te Current Medication? Ordering Clinician Indication Dosage Frequency Signature (SIG) Comments Components Source insulin GLARGINE (BASAGLAR KWIKPEN U-100 INSULIN) 100 unit/m L injection (pen) 2018-11-15 00:25:42 Yes 8U QD Inject 8 Units und er the skin nightly. Yovani Cabrales insulin ASPART (NovoLOG) 100 unit/mL injection 2018-11-15 00:25: 42 Yes 6U QD Inject 6 Units under the skin daily before lunch. Yovani Cabrales furosemide (LASIX) 20 mg tablet 2018-11-15 00:25:42 Yes 20mg QD Take 20 mg by mouth daily. Yovani Cabrales NIFEdipine XL (PROCARDIA XL) 30 MG 24 hr tablet 2018-11-15 00:25 :42 Yes 30mg QD Take 30 mg by mouth daily. Ace Cabrales aspirin (ECOTRIN) 81 MG enteric coated tablet 2018-11-15 00:25:4 2 Yes 81mg QD Take 81 mg by mouth daily. Per Dr Yo's orders stop taking aspirin Yovani Cabrales linaGLIPtin (TRADJENTA) 5 mg tablet 2018-11-15 00:25:42 Yes 5mg QD Take 5 mg by mouth daily. Yovani Cabrales ferrous sulfate 325 (65 FE) MG tablet 2018-11-15 00:25:42 Y es 325mg QD Take 325 mg by mouth daily with breakfast. Yovani Cabrales atorvastatin (LIPITOR) 80 MG tablet 2018-11-15 00:25:42 Yes 80mg QD Take 80 mg by mouth nightly. Yovani flanagan cholecalciferol, vitamin D3, (VITAMIN D3 ORAL) 2018-11-15 00:25: 42 Yes 125ug QD Take 125 mcg by mouth daily. Yovani Cabrales metoprolol succinate XL (TOPROL-XL) 50 mg 24 hr tablet 2018-11-15 00:25:42 Yes 50mg QD Take 50 mg by mouth daily. Yovani Cabrales nitrofurantoin, macrocrystal-monohydrate, (MACROBID) 100 MG capsule 2018-11-14 00:00:00 2018-11-22 04:59:00 No 100mg Q.5D Take 1 capsule (100 mg total) by mouth every 12 (twelve) hours for 7 days. Yovani Cabrales mv-mn/iron/folic acid/herb 190 (VITAMIN D3 COMPLETE ORAL) 2018-11-07 22:40:46 2018-11-07 00:00:00 No 125ug QD Take 125 mcg by mout h daily. Yovani Cabrales Acetaminophen 325 Mg Tablet Acetaminophen 325 Mg Tablet Yes 650 Every 6 Hours as needed for Pain [facility] Ascorbic Acid 500 Mg Tab.chew Ascorbic Acid 500 Mg Tab.chew Yes 500 Every 12 Hours [facility] Aspirin (Aspirin Ec) 81 Mg Tablet. Aspirin (Aspirin Ec) 81 Mg Tab let.dr Yes 81 Daily [facility] Atorvastatin Calcium 40 Mg Tablet Atorvastatin Calcium 40 Mg Tablet Yes 80 Bedtime [facility] Calcium Carbonate 500 Mg Tablet Calcium Carbonate 500 Mg Tablet Yes 500 Every 12 Hours [facility] Diphenhydramine Hcl 50 Mg/1 Ml Disp.syrin Diphenhydram ine Hcl 50 Mg/1 Ml Disp.syrin Yes 25 Every 6 Hours as needed for Itching [facility] Famotidine 20 Mg Tab Famotidine 20 Mg Tab Yes 20 Twice A Day [facility] Ferrous Sulfate 325 Mg Tablet Ferrous Sulfate 325 Mg Tablet Yes 325 Daily [facility] Glucagon (Glucagen) 1 Mg Soln Glucagon (Glucagen) 1 Mg Soln Yes 1 As Needed [facility] Hydralazine Hcl 20 Mg/1 Ml Vial Hydralazine Hcl 20 Mg/1 Ml Vial Yes 10 Every 3 Hours as needed for High Blood Pressure [facility] Insulin Regular, Human (Humulin R) 100 Unit/1 Ml Vial Insulin Regular, Human (Humulin R) 100 Unit/1 Ml Vial Yes 0 Before Meals And At Bedtime [facility] Lactulose 20 Gm/30 Ml Solution Lactulose 20 Gm/30 Ml Solution Yes 30 Every 12 Hours [facility] Metoprolol Succinate 25 Mg Tab.er.24h Metoprolol Succinate 25 Mg Ta b.er.24h Yes 25 Daily [facility] Morphine Sulfate/Pf (Morphine Sulfate 1 Mg/Ml Vial) 30 Mg/30 Ml Traffic Enumerator.vial Morphine Sulfate/Pf (Morphine Sulfate 1 Mg/Ml Vial) 30 Mg/30 Ml Traffic Enumerator.vial Yes 1 As Needed as needed for Pain [facility] Nifedipine (Nifedipine Er) 30 Mg Tab.er.24 Nifedipine (Nifedipine Er) 30 Mg Tab.er.24 Yes 90 Daily [facility] Ondansetron Hcl 2 Mg/1 Ml Vial Ondansetron Hcl 2 Mg/1 Ml Vial Yes 4 Every 4 Hours as needed for Prn [facility] Vancomycin Hcl 1 Gm Vial Vancomycin Hcl 1 Gm Vial Yes 1 Every 48 Hours [facility] Crystal [place] , 14 [facility] , 14 Sub-Q 2018-04-10 00:00:00 No 14 Supper Time [facility] Dextrose 50 % In Water (Dextrose 50%-Jessica er Abboject) 50 Ml Disp.syrin, 25 Gm Intraven Dextrose 50 % In Water (Dextrose 50%-Jessica er Abboject) 50 Ml Disp.syrin, 25 Gm Intraven 2018-04-10 00:00:00 No 25 As Needed [facility] Dextrose 50 % In Water (Dextrose 50%-Jessica er Abboject) 50 Ml Disp.syrin, 12.5 Gm Intraven Dextrose 50 % In Water (Dextrose 50%-Jessica er Abboject) 50 Ml Disp.syrin, 12.5 Gm Intraven 2018-04-10 00:00:00 No 12.5 As Need ed [facility] Enalapril Maleate (Vasotec) 10 Mg Tab, 10 Mg Oral Enal darshan Maleate (Vasotec) 10 Mg Tab, 10 Mg Oral 2018-04-10 00:00:00 No 10 Daily [facility] Furosemide 40 Mg Tablet, 40 Mg Oral Furosemide 40 Mg Tablet, 40 Mg Oral 2018-04-10 00:00:00 No 40 Daily [facility] Insulin Aspart (Novolog) 100 Unit/1 Ml Cartridge, 1 Un it Sub-Q Insulin Aspart (Novolog) 100 Unit/1 Ml Cartridge, 1 Unit Sub-Q 2018-04-10 00:00:00 No 1 Before Meals [facility] Insulin Aspart (Novolog) 100 Unit/1 Ml Cartridge, 3 Un its Sub-Q Insulin Aspart (Novolog) 100 Unit/1 Ml Cartridge, 3 Units Sub-Q 2018-04-10 00:00:00 N o 3 Bedtime [facility] Metformin Hcl 500 Mg Tablet, 500 Mg Oral Metformin Hcl 500 Mg Tablet, 500 Mg Oral 2018-04-10 00:00:00 No 500 Twice A Day [facility] Nifedipine 20 Mg Capsule, 90 Mg Oral Nifedipine 20 Mg Capsule, 9 0 Mg Oral 2018-04-10 00:00:00 No 90 Daily [facility] Vital Signs Vital Name Observation Time Observation Value Comments Source Systolic blood pressure 2018-11-14 21:36:36 143 mm[Hg] Yovani Cabrales Diastolic blood pressure 2018-11-14 21:36:36 75 mm[Hg] Yovani Cabrales Heart rate 2018-11-14 21:36:36 85 /min Yovani Cabrales Body temperature 2018-11-14 21:36:36 36.28 [facility] Respiratory rate 2018-11-14 21:36:36 18 /min Karmen Cabrales Oxygen saturation in Arterial blood by Pulse oximetry 11-14 21:36:36 95 /min Yovani Cabrales Body weight 2018-11-14 10:05:06 67.178 kg Yovani Cabrales BMI 2018-11-14 10:05:06 33.20 kg/m2 Yovani Cabrales Body height 2018-11-07 22:16:11 142.2 cm Yovani Cabrales Procedures Procedure Date / Time Performed Performing Clinician [facility] POC GLUCOSE 2018-11-14 22:28:00 [facility] POC GLUCOSE 2018-11-14 16:50:00 [facility] POC GLUCOSE 2018-11-14 12:14:00 [facility] BASIC METABOLIC PANEL 2018-11-14 11:50:00 Dewayne Causey ESTIMATED GFR 2018-11-14 11:50:00 [facility] POC GLUCOSE 2018-11-14 08:47:00 [facility] POC GLUCOSE 2018-11-14 01:30:00 [facility] POC GLUCOSE 2018-11-13 21:44:00 [facility] SURGICAL PATHOLOGY REQUEST 2018-11-13 21:08:00 [facility] US NEEDLE BIOPSY 2018-11-13 20:15:00 GerdaBrielle teague [facility] POC GLUCOSE 2018-11-13 17:29:00 [facility] PROTHROMBIN TIME WITH INR 2018-11-13 14:19:00 [facility] PARTIAL THROMBOPLASTIN TIME (PTT) 2018-11-13 14:19:00 [facility] POC GLUCOSE 2018-11-13 12:52:00 [facility]ayne [facility] HC COMPLETE BLD COUNT W/AUTO DIFF 2018-11-13 09:10:00 [facility] BASIC METABOLIC PANEL 2018-11-13 09:00:00 Deway[facility] ESTIMATED GFR 2018-11-13 09:00:00 [facility] POC GLUCOSE 2018-11-13 07:51:00 [facility] POC GLUCOSE 2018-11-13 01:59:00 [facility] POC GLUCOSE 2018-11-12 23:12:00 [facility] POC GLUCOSE 2018-11-12 17:22:00 [facility] POC GLUCOSE 2018-11-12 12:57:00 [facility] BASIC METABOLIC PANEL 2018-11-12 10:50:00 [facility] HC COMPLETE BLD COUNT W/AUTO DIFF 2018-11-12 10:50:00 Dewayne Causey [facility] ESTIMATED GFR 2018-11-12 10:50:00 [facility] POC GLUCOSE 2018-11-12 10:01:00 [facility] POC GLUCOSE 2018-11-12 05:33:00 [facility] POC GLUCOSE 2018-11-12 01:50:00 [facility] POC GLUCOSE 2018-11-11 22:34:00 Dewayne [facility] POC GLUCOSE 2018-11-11 17:41:00 [facility] POC GLUCOSE 2018-11-11 13:08:00 [facility] BASIC METABOLIC PANEL 2018-11-11 11:15:00 [facility] HC COMPLETE BLD COUNT W/AUTO DIFF 2018-11-11 11:15:00 Dewayne Causey ESTIMATED GFR 2018-11-11 11:15:00 [facility] POC GLUCOSE 2018-11-11 09:14:00 [facility] POC GLUCOSE 2018-11-11 04:47:00 [facility] POC GLUCOSE 2018-11-11 01:09:00 [facility] POC GLUCOSE 2018-11-10 23:19:00 [facility] GLUCOSE LEVEL 2018-11-10 22:55:00 Hellen Kent [facility] POC GLUCOSE 2018-11-10 22:23:00 [facility]ne [facility] POC GLUCOSE 2018-11-10 22:12:00 [facility] POC GLUCOSE 2018-11-10 17:02:00 [facility] POC GLUCOSE 2018-11-10 13:38:00 [facility] URINE CULTURE 2018-11-10 13:05:00 [facility] GRAM STAIN 2018-11-10 13:05:00 [facility] BASIC METABOLIC PANEL 2018-11-10 10:00:00 Dewayne Causey CBC WITH PLATELET AND DIFFERENTIAL 2018-11-10 10:00:00 Dewayne Causey URINALYSIS SCREEN AND MICROSCOPY, WITH REFLEX TO CULTURE 201 01-05-13 10:00:00 [facility] ESTIMATED GFR 2018-11-10 10:00:00 [facility] MANUAL DIFFERENTIAL 2018-11-10 10:00:00 [facility] POC GLUCOSE 2018-11-10 02:09:00 [facility] POC GLUCOSE 2018-11-09 23:47:00 [facility] POC GLUCOSE 2018-11-09 17:26:00 [facility] POC GLUCOSE 2018-11-09 13:16:00 [facility] HEMOGLOBIN A1C 2018-11-09 10:00:00 GerdaBrielle teague [facility] HC COMPLETE BLD COUNT W/AUTO DIFF 2018-11-09 10:00:00 [facility] SERUM ELECTROPHORESIS 2018-11-09 09:00:00 Parth [facility]zmarky [facility] BASIC METABOLIC PANEL 2018-11-09 09:00:00 GerdaParth teaguemarky [facility] MAGNESIUM LEVEL 2018-11-09 09:00:00 Brielle Lorenz [facility] PHOSPHORUS LEVEL 2018-11-09 09:00:00 Brielle Lorenz [facility] FERRITIN LEVEL 2018-11-09 09:00:00 Brielle Lorenz [facility] TOTAL IRON BINDING CAPACITY 2018-11-09 09:00:00 Brielle Lorenz [facility] ROSITA 2018-11-09 09:00:00 Brielle Lorenz [facility] ANTI-NEUTROPHILIC CYTOPLASMIC ABS PANEL 2018-11-09 09:00:00 GerdaBrielle teague [facility] C4 COMPLEMENT COMPONENT 2018-11-09 09:00:00 GerdaBrielle teague [facility] HEPATITIS ACUTE PANEL 2018-11-09 09:00:00 GerdaParth teaguemarky [facility] ESTIMATED GFR 2018-11-09 09:00:00 GerdaBrielle teague [facility] POC GLUCOSE 2018-11-09 02:23:00 [facility] POC GLUCOSE 2018-11-08 21:11:00 [facility] POC GLUCOSE 2018-11-08 20:12:00 [facility] POC GLUCOSE 2018-11-08 16:45:00 [facility] URINE EOSINOPHILS 2018-11-08 16:03:00 [facility] PROTEIN, URINE, RANDOM 2018-11-08 16:03:00 Gerda, Briellemarky [facility] CREATININE LEVEL, URINE, RANDOM 2018-11-08 16:03:00 Sebastien [facility] URINE PROTEIN ELECTROPHORESIS, RANDOM 2018-11-08 16:03:00 Gerda Brielle [facility] US RENAL DOPPLER 2018-11-08 14:38:00 Brielle [facility]z n [facility] US RENAL 2018-11-08 14:28:00 [place] Juan [facility] POC GLUCOSE 2018-11-08 12:57:00 Yuliana Celaya [facility] HC COMPLETE BLD COUNT W/AUTO DIFF 2018-11-08 10:00:00 Panda [facility] MAGNESIUM LEVEL 2018-11-08 10:00:00 Digna [facility] PHOSPHORUS LEVEL 2018-11-08 10:00:00 Digna [facility] COMPREHENSIVE METABOLIC PANEL 2018-11-08 10:00:00 Calvin [facility] ESTIMATED GFR 2018-11-08 10:00:00 [place] Juan [facility] GRAM STAIN 2018-11-08 04:20:00 [place] [facility] URINE CULTURE 2018-11-08 04:20:00 [place] Juan [facility] URINALYSIS SCREEN AND MICROSCOPY, WITH REFLEX TO CULTURE 201 01-05-11 02:45:00 [place] [facility] HC COMPLETE BLD COUNT W/AUTO DIFF 2018-11-08 01:35:00 [place] [facility] COMPREHENSIVE METABOLIC PANEL 2018-11-08 01:35:00 [facility] ESTIMATED GFR 2018-11-08 01:35:00 [place] Juan [facility] POC GLUCOSE 2018-11-08 00:50:00 CameliaYuliana cary [facility] POC GLUCOSE 2018-11-07 23:14:00 BeliaYuliana [facility] DETACHMENT AT LEFT 4TH TOE, COMPLETE, OPEN APPROACH [facility], EXTERNAL APPROACH 2018-04-13 00:00:00 C SHELLY [facility] EXTIRPATION OF MATTER FROM L POPL ART, PERC APPROACH 2018-03 00:00:00 DIVYA VIDAL [facility] DILATION OF L COM ILIAC ART WITH INTRALUM DEV, PERC AP PROACH 2018-04-10 00:00:00 [facility]IL[facility] OF L POPL ART USING DRUG BLLN, PERC APPROACH 2017-05 00:00:00 DIVYA VIDAL [facility] DILATION OF L POST TIB ART USING DRUG BLLN, [facility] APPROACH 20 17-04-11 00:00:00 DIVYA VIDAL [facility] FLUOROSCOPY OF AORTA, BI LE ART USING L OSM CONTRAST 2018-03 00:00:00 DIVYA VIDAL [facility] INSERTION OF INFUSION DEV INTO SUP VENA CAVA, PERC APPROACH 2018-03-29 00:00:00 JORDON MCGOVERN [facility] Ultrasound, renal 2018-03-26 00:00:00 JESSE POWER [facility] TRANSFUSE NONAUT RED BLOOD CELLS IN PERIPH VEIN, PERC 2017-05 00:00:00 LIDA LONG [facility] Plan of Care Planned Activity Planned Date Details Comments Source Future Scheduled Test 2019-11-30 00:00:00 INFLUENZA VACCINE [code = INFLUENZA VACCINE] [facility] Future Scheduled Test 2018 00:00:00 BREAST CANCER SCRE ENING [code = BREAST CANCER SCREENING] [facility] Scheduled Test 2018 00:00:00 COLONOSCOPY SCREEN ING [code = COLONOSCOPY SCREENING] [facility] Scheduled Test 2018 00:00:00 SHINGLES VACCINES (#1) [code = SHINGLES VACCINES (#1)] [facility] Scheduled Test 1989 00:00:00 Screening for campbell gnant neoplasm of cervix (procedure) [code = 340220491] [facility] Encounters Start Date/Time End Date/Time Encounter Type Admission Type Attendi [facility] Care Department Encounter ID Source 2018-11-02 14:06:00 2018-11-02 17:00:00 Departed Emergency Room [facility] [id number] [facility] 2018-05-18 15:56:00 2018-05-18 22:10:00 Departed Emergency Room [facility] [id number] [facility] 2018-04-10 15:54:00 2018-04-19 20:00:00 Discharged Inpatient 3 STEFAN JACKSON [facility] [id number] [facility] 2018-03-21 11:14:00 2018-03-29 20:58:00 Discharged Inpatient 1 STEFAN JACKSON [facility] [id number] [facility] Results Test Description Test Time Test Comments Results Result Comments Source LACTIC ACID POC 2019-02-15 11:24:00 Test Item LACTIC ACID POC (test code = LACTP) 0.35 mmol/L 0.9-1.70 L - XR CHEST 2 [id number] 16:54:00Patient Name: TRINH RICHTER Unit No: [id number] EXAMS: CPT CODE: [id number] XR CHEST 2 V 50316 Indication: FOLLOW UP EVAL FOR SOB COMPARISON: Comparison is made with prior study of 01/18/2019. Location: W1 FINDINGS: PA and lateral views of the chest are presented. There are postsurgical changes of median sternotomy. A right-sided hemodialysis catheter terminates in the right atrium. The heart size is at the upper limits of normal with a calcified elongated aorta. Mild pulmonary vascular congestion and small right pleural effusion are present. No apparent pneumothorax. Mild degenerative changes are present within the visualized thoracic spine. The remaining bony structures are unremarkable. IMPRESSION: Mild pulmonary congestion and a small right pleural effusion are present. Consider early CHF/volume overload. at 1654 Reported and signed by: Kulwant Reed MD CC: Fer Chen MD Technologist: Zahida Garrison Trscr Dt/Tm: 01/31/2019 (9938) by:[email or web address] Printed Date/Time: 01/31/2019 (6248) Name: TRINH RICHTER [facility] OP Imaging Phys: Fer Llamas MD : 09/1970 Age: 48 Sex: F [place] Acct No: [id number] Loc: P.RAD Exam Date: 9 Status: REG CLI PH: FAX: PAGE 1 Signed Report [id number] 09:04:00* Test Item Value Reference Range Interpretation Comments GLUBED (test code = GLUBED) 116 MG/DL 70-105 H [id number] 09:04:00* Test Item Value Reference Range Interpretation Comments GLUBED (test code = GLUBED) 117 MG/DL 70-105 H [id number] 09:04:00* Test Item Value Reference Range Interpretation Comments GLUBED (test code = GLUBED) 104 MG/DL 70-105 N [id number] 09:04:00* Test Item Value Reference Range Interpretation Comments GLUBED (test code = GLUBED) 149 MG/DL 70-105 H [id number] 13:49:00* Test Item Value Reference Range Interpretation Comments GLUBED (test code = GLUBED) 126 MG/DL 70-105 H [id number] 11:12:00* Test Item Value Reference Range Interpretation Comments GLUBED (test code = GLUBED) 110 MG/DL 70-105 H - XR CHEST 1 [id number] 07:45:00Patient Name: TRINH RICHTER Unit No: [id number] EXAMS: CPT CODE: [id number] XR CHEST 1 V 68401 Chest one view AP 01/21/2019 7:44 AM CLINICAL INDICATION: CHF COMPARISON: 01/20/2019 LOCATION: W1 IMPRESSION: There is moderately advanced pulmonary edema with bilateral small volume pleural effusions and adjacent dependent atelectasis, worse when compared to the prior examination. Superimposed pneumonia should be excluded clinically. Support hardware is unchanged in position. at 0745 Reported and signed by: STEPHANE CAMPBELL M.D. CC: Connie Ott MD; Daniel Granados MD; Nimesh Telles MD Technologist: Darlene Ang Time: DAP (Gy m2): Air Kerma (mGy): Trscr Dt/Tm: 01/21/2019 (0745) by:[email or web address] Printed Date/Time: 01/21/2019 (0748) Name: ROBERTRINH [facility] Phys: Nimesh Phillips [address] : 1970 Age: 48 Sex: F [address] [id number] Loc: P.0203 1 Exam Date: 01/21/2019 Status: ADM IN PH: FAX: PAGE 1 Signed Report [id number] 05:34:00* Test Item Value Reference Range Interpretation Comments GLUBED (test code = GLUBED) 106 MG/DL 70-105 H BASIC METABOLIC [id number] 05:16:00* Test Item Value Reference Range Interpretation Comments SODIUM (test code = NA) 130 MMOL/L 136-143 L POTASSIUM (test code = K) 3.7 MMOL/L 3.5-5.1 N CHLORIDE (test code = CL) 95 MMOL/L 98-107 L CARBON DIOXIDE (test code = CO2) 20 mmol/L 24-31 L GLUCOSE (test code = GLU) 108 mg/dL 70-104 H BLOOD UREA NITROGEN (test code = BUN) 29.8 MG/DL 7.0-21.0 H GLOMERULAR FILTRATION RATE (test code = GFR) 21 >60 L The estimated glomerular filtration rate is computed usingpatient race, age (>18), sex, and serum creatinine. If anyof the needed data elements are missing the Laboratory cannot compute an estimation of the glomerular filtration rate. CREATININE (test code = CREAT) 2.6 mg/dL 0.8-1.5 H CALCIUM (test code = CA) 7.6 mg/dL 8.8-10.2 L [id number] 05:16:00* Test Item Value Reference Range Interpretation Comments MAGNESIUM (test code = MAG) 2.2 mg/dL 1.4-2.6 N CBC W/AUTO [id number] 04:51:00* Test Item Value Reference Range Interpretation Comments WHITE BLOOD CELL (test code = WBC) 6.6 x10 3/uL 4.8-10.8 N RED BLOOD CELL (test code = RBC) 3.23 x10 6/uL 4.20-5.40 L HEMOGLOBIN (test code = HGB) 9.3 g/dL 14.5-20 L HEMATOCRIT (test code = HCT) 28.0 % 37.0-47.0 L MEAN CELL VOLUME (test code = MCV) 86.7 fL 81.0-99.0 N MEAN CELL HGB (test code = MCH) 28.8 pg 27-31 N MEAN CELL HGB CONCENTRATION (test code = MCHC) 33.2 G/DL 33-36.5 N RED CELL DISTRIBUTION WIDTH (test code = RDW) 13.3 % 12.9-16. 9 N PLATELET COUNT (test code = PLT) 288 150-440 N MEAN PLATELET VOLUME (test code = MPV) 10.7 fL 8.9-12.4 N NEUTROPHIL % (test code = NT%) 65.0 % 42.2-75.2 N LYMPHOCYTE % (test code = LY%) 17.2 % 20.5-51.1 L MONOCYTE % (test code = MO%) 9.4 % 1.7-9.3 H EOSINOPHIL % (test code = EO%) 7.7 % 0.0-7.0 H BASOPHIL % (test code = BA%) 0.5 % 0-2.5 N NEUTROPHIL # (test code = NT#) 4.32 x10 3/uL 1.80-7.70 N LYMPHOCYTE # (test code = LY#) 1.14 x10 3/uL 1.00-4.80 N MONOCYTE # (test code = MO#) 0.62 x10 3/uL 0.00-0.80 N EOSINOPHIL # (test code = EO#) 0.51 x10 3/uL 0.00-0.45 H BASOPHIL # (test code = BA#) 0.03 x10 3/uL 0.0-0.20 N [id number] 01:43:00* Test Item Value Reference Range Interpretation Comments GLUBED (test code = GLUBED) 145 MG/DL 70-105 H - XR CHEST 1 [id number] 10:59:00Patient Name: TRINH RICHTER Unit No: [id number] EXAMS: CPT CODE: [id number] XR CHEST 1 V [id number] EXAM: Chest one view. Location: A1 HISTORY: s/p cab, , COMPARISON: 01/19/2019 FINDINGS: Portable AP upright view of the chest was obtained. There are patchy airspace opacities at bilateral lung bases. Cardiac silhouette is mildly enlarged. Sternotomy wires and mediastinal sutures and clips are identified. There is right internal jugular dialysis catheter with tip at the cavoatrial junction. Interval removal of left internal jugular dual lumen catheter. There is no pneumothorax. Visualized skeletal structures are unremarkable. IMPRESSION: 1. Cardiomegaly and pulmonary vascular congestion. 2. Patchy atelectasis/consolidation in bilateral lung bases.. at 1059 Reported and signed by: SOMMER ROSE M.D. CC: Kayla Mckeon MD; Daniel Granados MD; Sarthak Hyde MD Technologist: Darlene Ang Time: DAP (Gy m2): Air Kerma (mGy): Trscr Dt/Tm: 01/20/2019 (1059) by:[email or web address] Printed Date/Time: 01/20/2019 (0442) Name: TRINH RICHTER [facility] Phys: [id number] - Kayla Mckeon [address] : 1970 Age: 48 Sex: [place] [address] Loc: P.0203 1 Exam Date: 01/20/2019 Status: ADM IN PH: FAX: PAGE 1 Signed Report BASIC METABOLIC PANEL 2019-01-20 08:00:00* Test Item Value Reference Range Interpretation Comments SODIUM (test code = NA) 133 MMOL/L 136-143 L POTASSIUM (test code = K) 3.8 MMOL/L 3.5-5.1 N CHLORIDE (test code = CL) 97 MMOL/L 98-107 L CARBON DIOXIDE (test code = CO2) 20 mmol/L 24-31 L GLUCOSE (test code = GLU) 89 mg/dL 70-104 N BLOOD UREA NITROGEN (test code = BUN) 28.7 MG/DL 7.0-21.0 H GLOMERULAR FILTRATION RATE (test code = GFR) 18 >60 L The estimated glomerular filtration rate is computed usingpatient race, age (>18), sex, and serum creatinine. If anyof the needed data elements are missing the Laboratory cannot compute an estimation of the glomerular filtration rate. CREATININE (test code = CREAT) 2.9 mg/dL 0.8-1.5 H CALCIUM (test code = CA) 7.9 mg/dL 8.8-10.2 L [id number] 07:22:00* Test Item Value Reference Range Interpretation Comments GLUBED (test code = GLUBED) 86 MG/DL 70-105 N CBC W/AUTO [id number] 07:00:00* Test Item Value Reference Range Interpretation Comments WHITE BLOOD CELL (test code = WBC) 7.0 x10 3/uL 4.8-10.8 N RED BLOOD CELL (test code = RBC) 3.53 x10 6/uL 4.20-5.40 L HEMOGLOBIN (test code = HGB) 10.0 g/dL 14.5-20 L HEMATOCRIT (test code = HCT) 31.3 % 37.0-47.0 L MEAN CELL VOLUME (test code = MCV) 88.7 fL 81.0-99.0 N MEAN CELL HGB (test code = MCH) 28.3 pg 27-31 N MEAN CELL HGB CONCENTRATION (test code = MCHC) 31.9 G/DL 33-36.5 L RED CELL DISTRIBUTION WIDTH (test code = RDW) 13.7 % 12.9-16. 9 N PLATELET COUNT (test code = PLT) 234 150-440 N MEAN PLATELET VOLUME (test code = MPV) 11.8 fL 8.9-12.4 N NEUTROPHIL % (test code = NT%) 61.8 % 42.2-75.2 N LYMPHOCYTE % (test code = LY%) 20.3 % 20.5-51.1 L MONOCYTE % (test code = MO%) 9.0 % 1.7-9.3 N EOSINOPHIL % (test code = EO%) 7.7 % 0.0-7.0 H BASOPHIL % (test code = BA%) 0.9 % 0-2.5 N NEUTROPHIL # (test code = NT#) 4.34 x10 3/uL 1.80-7.70 N LYMPHOCYTE # (test code = LY#) 1.42 x10 3/uL 1.00-4.80 N MONOCYTE # (test code = MO#) 0.63 x10 3/uL 0.00-0.80 N EOSINOPHIL # (test code = EO#) 0.54 x10 3/uL 0.00-0.45 H BASOPHIL # (test code = BA#) 0.06 x10 3/uL 0.0-0.20 N [id number] 01:36:00* Test Item Value Reference Range Interpretation Comments GLUBED (test code = GLUBED) 85 MG/DL 70-105 N [id number] 20:49:00* Test Item Value Reference Range Interpretation Comments GLUBED (test code = GLUBED) 98 MG/DL 70-105 N [id number] 18:43:00* Test Item Value Reference Range Interpretation Comments GLUBED (test code = GLUBED) 120 MG/DL 70-105 H [id number] 14:39:00* Test Item Value Reference Range Interpretation Comments GLUBED (test code = GLUBED) 148 MG/DL 70-105 H [id number] 09:51:00* Test Item Value Reference Range Interpretation Comments GLUBED (test code = GLUBED) 128 MG/DL 70-105 H [id number] 07:11:00* Test Item Value Reference Range Interpretation Comments GLUBED (test code = GLUBED) 132 MG/DL 70-105 H BASIC METABOLIC [id number] 07:09:00* Test Item Value Reference Range Interpretation Comments SODIUM (test code = NA) 134 MMOL/L 136-143 L POTASSIUM (test code = K) 4.0 MMOL/L 3.5-5.1 N CHLORIDE (test code = CL) 99 MMOL/L 98-107 N CARBON DIOXIDE (test code = CO2) 22 mmol/L 24-31 L GLUCOSE (test code = GLU) 127 mg/dL 70-104 H BLOOD UREA NITROGEN (test code = BUN) 22.5 MG/DL 7.0-21.0 H GLOMERULAR FILTRATION RATE (test code = GFR) 23 >60 L The estimated glomerular filtration rate is computed usingpatient race, age (>18), sex, and serum creatinine. If anyof the needed data elements are missing the Laboratory cannot compute an estimation of the glomerular filtration rate. CREATININE (test code = CREAT) 2.4 mg/dL 0.8-1.5 H CALCIUM (test code = CA) 7.7 mg/dL 8.8-10.2 L [id number] 07:09:00* Test Item Value Reference Range Interpretation Comments PHOSPHOROUS (test code = PHOS) 4.0 mg/dL 2.7-4.5 N [id number] 07:09:00* Test Item Value Reference Range Interpretation Comments MAGNESIUM (test code = MAG) 2.2 mg/dL 1.4-2.6 N - XR CHEST 1 [id number] 06:30:00Patient Name: TRINH RICHTER Unit No: [id number] EXAMS: CPT CODE: [id number] XR CHEST 1 V [id number] Location of dictation: B2 Portable chest one view. HISTORY: s/p cab COMMENT: Compared to one day prior. Left chest tubes have been removed. Bilat. IJ catheters are again noted. Patient is poststernotomy. The heart is enlarged but stable. There are more pronounced bibasilar infiltrates with stable small effusions. A tiny left apical pneumothorax remains visible. The chest wall is intact IMPRESSION: 1. Slight worsening bibasilar infiltrates with stable small effusions. 2. Left chest tubes removed with stable tiny left apical pneumothorax. at 0630 Reported and signed by: Molly Rosa M.D. CC: Kayla Mckeon MD; Daniel Granados MD; Sarthak Hyde MD Technologist: Tea Khan Fluoro Time: DAP (Gy m2): Air Kerma (mGy): Trscr Dt/Tm: 01/19/2019 (0630) by:HeatherC Printed Date/Time: 01/19/2019 (0634) Name: TRINH RICHTER [facility] Phys: AJDAVID0.Faith Roddy Kayla Mckeon [address] : 1970 Age: 48 Sex: F [place] [address] Loc: P.0201 1 Exam Date: 01/19/2019 Status: ADM IN PH: FAX: PAGE 1 Signed Report CBC W/AUTO DIFF 2019-01-19 06:20:00* Test Item Value Reference Range Interpretation Comments WHITE BLOOD CELL (test code = WBC) 7.2 x10 3/uL 4.8-10.8 N RED BLOOD CELL (test code = RBC) 3.09 x10 6/uL 4.20-5.40 L HEMOGLOBIN (test code = HGB) 8.7 g/dL 14.5-20 L HEMATOCRIT (test code = HCT) 28.1 % 37.0-47.0 L MEAN CELL VOLUME (test code = MCV) 90.9 fL 81.0-99.0 N MEAN CELL HGB (test code = MCH) 28.2 pg 27-31 N MEAN CELL HGB CONCENTRATION (test code = MCHC) 31.0 G/DL 33-36.5 L RED CELL DISTRIBUTION WIDTH (test code = RDW) 14.1 % 12.9-16. 9 N PLATELET COUNT (test code = PLT) 158 150-440 N MEAN PLATELET VOLUME (test code = MPV) 12.3 fL 8.9-12.4 N NEUTROPHIL % (test code = NT%) 65.8 % 42.2-75.2 N LYMPHOCYTE % (test code = LY%) 16.3 % 20.5-51.1 L MONOCYTE % (test code = MO%) 10.3 % 1.7-9.3 H EOSINOPHIL % (test code = EO%) 6.8 % 0.0-7.0 N BASOPHIL % (test code = BA%) 0.4 % 0-2.5 N NEUTROPHIL # (test code = NT#) 4.72 x10 3/uL 1.80-7.70 N LYMPHOCYTE # (test code = LY#) 1.17 x10 3/uL 1.00-4.80 N MONOCYTE # (test code = MO#) 0.74 x10 3/uL 0.00-0.80 N EOSINOPHIL # (test code = EO#) 0.49 x10 3/uL 0.00-0.45 H BASOPHIL # (test code = BA#) 0.03 x10 3/uL 0.0-0.20 N [id number] 04:04:00* Test Item Value Reference Range Interpretation Comments GLUBED (test code = GLUBED) 126 MG/DL 70-105 H [id number] 00:16:00* Test Item Value Reference Range Interpretation Comments GLUBED (test code = GLUBED) 180 MG/DL 70-105 H - XR CHEST 1 [id number] 08:14:00Patient Name: TRINH RICHTER Unit No: [id number] EXAMS: CPT CODE: [id number] XR CHEST 1 V [id number] Examination: Chest 1 view Location code: S17 Comparison: Chest January 17, 2019 Discussion: Clinical history is remarkable for shortness of breath. Cardiac silhouette is enlarged. Right-sided tunneled dialysis catheter is in good position, left internal jugular central venous catheter terminates in the SVC, the Winifred-Edda catheter component has been removed. Left-sided chest tube is present with a tiny apical pneumothorax. There is a small bilateral pleural effusion, bilateral basilar atelectatic change is present currently. Impression: Bilateral basilar atelectasis. Supporting lines and tubes are in good position. Left- sided chest tube is identified with a very tiny left apical pneumothorax. at 0814 Reported and signed by: DEWAYNE MCDUFFIE M.D. CC: Connie Ott MD; Daniel Granados MD; Fer Chen MD Technologist: Tea Khan Fluoro Time: DAP ( Gy m2): Air Kerma (mGy): Trscr Dt/Tm: 01/18/2019 (0814) by:[email or web address] Printed Date/Time: 01/18/2019 (0817) Name: TRINH RICHTER [facility] P hys: Fer Llamas MD [address] : Age: 48 Sex: [place] [address] [id number] Loc: P.0201 1 Exam Date: 01/19/20 Status: ADM IN PH: FAX: PAGE 1 Signed Report [id number] 04:47:00 * Test Item Value Reference Range Interpretation Comments PHOSPHOROUS (test code = PHOS) 4.0 mg/dL 2.7-4.5 N BASIC METABOLIC [id number] 04:47:00* Test Item Value Reference Range Interpretation Comments SODIUM (test code = NA) 136 MMOL/L 136-143 N POTASSIUM (test code = K) 3.9 MMOL/L 3.5-5.1 N CHLORIDE (test code = CL) 101 MMOL/L 98-107 N CARBON DIOXIDE (test code = CO2) 22 mmol/L 24-31 L GLUCOSE (test code = GLU) 112 mg/dL 70-104 H BLOOD UREA NITROGEN (test code = BUN) 15.1 MG/DL 7.0-21.0 N GLOMERULAR FILTRATION RATE (test code = GFR) 26 >60 L The estimated glomerular filtration rate is computed usingpatient race, age (>18), sex, and serum creatinine. If anyof the needed data elements are missing the Laboratory cannot compute an estimation of the glomerular filtration rate. CREATININE (test code = CREAT) 2.1 mg/dL 0.8-1.5 H CALCIUM (test code = CA) 7.9 mg/dL 8.8-10.2 L [id number] 04:41:00* Test Item Value Reference Range Interpretation Comments MAGNESIUM (test code = MAG) 2.2 mg/dL 1.4-2.6 N CBC W/AUTO [id number] 04:33:00* Test Item Value Reference Range Interpretation Comments WHITE BLOOD CELL (test code = WBC) 8.6 x10 3/uL 4.8-10.8 N RED BLOOD CELL (test code = RBC) 3.04 x10 6/uL 4.20-5.40 L HEMOGLOBIN (test code = HGB) 8.7 g/dL 14.5-20 L HEMATOCRIT (test code = HCT) 27.5 % 37.0-47.0 L MEAN CELL VOLUME (test code = MCV) 90.5 fL 81.0-99.0 N MEAN CELL HGB (test code = MCH) 28.6 pg 27-31 N MEAN CELL HGB CONCENTRATION (test code = MCHC) 31.6 G/DL 33-36.5 L RED CELL DISTRIBUTION WIDTH (test code = RDW) 15.1 % 12.9-16. 9 N PLATELET COUNT (test code = PLT) 155 150-440 N MEAN PLATELET VOLUME (test code = MPV) 11.2 fL 8.9-12.4 N NEUTROPHIL % (test code = NT%) 70.7 % 42.2-75.2 N LYMPHOCYTE % (test code = LY%) 16.2 % 20.5-51.1 L MONOCYTE % (test code = MO%) 10.7 % 1.7-9.3 H EOSINOPHIL % (test code = EO%) 1.4 % 0.0-7.0 N BASOPHIL % (test code = BA%) 0.6 % 0-2.5 N NEUTROPHIL # (test code = NT#) 6.06 x10 3/uL 1.80-7.70 N LYMPHOCYTE # (test code = LY#) 1.39 x10 3/uL 1.00-4.80 N MONOCYTE # (test code = MO#) 0.92 x10 3/uL 0.00-0.80 H EOSINOPHIL # (test code = EO#) 0.12 x10 3/uL 0.00-0.45 N BASOPHIL # (test code = BA#) 0.05 x10 3/uL 0.0-0.20 N [id number] 02:19:00* Test Item Value Reference Range Interpretation Comments GLUBED (test code = GLUBED) 114 MG/DL 70-105 H [id number] 22:10:00* Test Item Value Reference Range Interpretation Comments GLUBED (test code = GLUBED) 117 MG/DL 70-105 H [id number] 22:10:00* Test Item Value Reference Range Interpretation Comments GLUBED (test code = GLUBED) 123 MG/DL 70-105 H ARTERIAL BLOOD [id number] 16:05:00* Test Item Value Reference Range Interpretation Comments ARTERIAL BLOOD GAS PH (test code = PHA) 7.32 7.35-7.45 L ARTERIAL BLOOD GAS PCO2 (test code = PCO2A) 35.0 mmHg 35.0-45.0 N ARTERIAL BLOOD GAS PO2 (test code = PO2A) 133.0 mmHg 80.0-95.0 H BICARBONATE TOTAL HCO3 (test code = HCO3) 17.5 mmol/L 22.0-24.0 L BASE EXCESS (test code = SHRUTHI) -7.9 mmol/L (+/-)2.0 L ABG O2 SATURATION (test code = SATA) 98.0 % 95.0-100.0 N ABG TYPE (test code = TYPEA) O2 ADJ ARTERIAL FIO2 (test code = FIO2A) 24 % ABG L/M (test code = L/M) 1 L/MIN ABG DELIVERY (test code = ROLF) Cannula ABG PATIENT RESP RATE (test code = RRPATA) 14 /MIN 12-20 N ABG SITE (test code = SITEA) Art line ABG POSITION (test code = PT POSITION) SITTING ALLENS TEST (test code = ALLENS) NOT APPLICAPLE TOTAL HGB (test code = THB) 8.8 g/dL 12.0-16.0 L AB HEPATITIS B CORE [id number] 15:11:00* Test Item Value Reference Range Interpretation Comments AB HEPATITIS B CORE IGM (test code = HBCMAB) NON-REACTIVE NONREACTI VE AG HEPATITIS B [id number] 15:10:00* Test Item Value Reference Range Interpretation Comments AG HEPATITIS B SURFACE (test code = HBSAG) NON-REACTIVE NONREACTIVE [id number] 14:46:00* Test Item Value Reference Range Interpretation Comments GLUBED (test code = GLUBED) 186 MG/DL 70-105 H LACTIC [id number] 11:43:00* Test Item Value Reference Range Interpretation Comments LACTIC ACID (test code = LACT) 6.4 mg/dL 4.5-18.0 N HGB [id number] 10:46:00* Test Item Value Reference Range Interpretation Comments HEMOGLOBIN (test code = HGB) 9.2 g/dL 14.5-20 L HEMATOCRIT (test code = HCT) 29.8 % 37.0-47.0 L [id number] 10:45:00* Test Item Value Reference Range Interpretation Comments GLUBED (test code = GLUBED) 145 MG/DL 70-105 H [id number] 08:33:00* Test Item Value Reference Range Interpretation Comments GLUBED (test code = GLUBED) 108 MG/DL 70-105 H [id number] 08:33:00* Test Item Value Reference Range Interpretation Comments GLUBED (test code = GLUBED) 122 MG/DL 70-105 H [id number] 08:33:00* Test Item Value Reference Range Interpretation Comments GLUBED (test code = GLUBED) 155 MG/DL 70-105 H - XR CHEST 1 [id number] 07:32:00Patient Name: TRINH RICHTER Unit No: [id number] EXAMS: CPT CODE: [id number] XR CHEST 1 V 96728 Location of dictation: B2 Portable chest one view. HISTORY: S/P CABG COMMENT: Compared to one day prior. The patient has been extubated. Other support lines and catheters remain. The heart is enlarged but stable. There are slightly more pronounced perihilar and bibasilar infiltrates with small effusions. No new consolidation and no pneumothorax is seen IMPRESSION: 1. Interval extubation. 2. Mild CHF with small effusions has developed. at 0732 Reported and signed by: Molly Rosa M.D. CC: Kayla Mckeon MD; Daniel Granados MD; Sarthak Hyde MD Technologist: Tea Khan Fluoro Time: DAP (Gy m2): Air Kerma (mGy): Trscr Dt/Tm: 01/17/2019 (0732) by:Heather Printed Date/Time: 01/17/2019 (0736) Name: TRINH RICHTER [facility] Phys: [id number] - Kayla Mckeon [address] : 1970 Age: 48 Sex: [place] [address] Loc: P.0201 1 Exam Date: 01/17/2019 Status: ADM IN PH: FAX: PAGE 1 Signed Report VENOUS BLOOD [id number] 06:02:00* Test Item Value Reference Range Interpretation Comments VENOUS BLOOD GAS PH (test code = PHV) 7.30 7.35-7.45 L VENOUS BLOOD GAS PCO2 (test code = PCO2V) 50.9 mmHg >46 VENOUS BLOOD GAS PO2 (test code = PO2V) 35.0 mmHg >40 VBG HCO3 (test code = HCO3V) 25 meq/L VBG BASE EXCESS (test code = SHOBHA) -1.8 MMOL/L VENOUS BLOOD GAS O2 SAT (test code = O2SATV) 67 % >75 Previously reported result: 26 %Edited by: AMAN on 01/17/19:06~~ Corrected Report ~~Reason (required):CORRECTION VENOUS BLOOD GAS TYPE (test code = TYPEV) OXY VENOUS BLOOD GAS FIO2 (test code = FIO2V) 28 % VENOUS BLOOD GAS L/MIN (test code = L/MV) 2 L/min VENOUS BLOOD GAS DELIVERY (test code = DELV) NASAL CANNULA ROJELIO. BLOOD GAS RESP RATE (test code = RRV) 20 /min A-A GRADIENT (test code = AAGRADE) VENOUS BLOOD [id number] 05:57:00* Test Item Value Reference Range Interpretation Comments VENOUS BLOOD GAS PH (test code = PHV) 7.30 7.35-7.45 L VENOUS BLOOD GAS PCO2 (test code = PCO2V) 50.9 mmHg >46 VENOUS BLOOD GAS PO2 (test code = PO2V) 35.0 mmHg >40 VBG HCO3 (test code = HCO3V) 25 meq/L VBG BASE EXCESS (test code = SHOBHA) -1.8 MMOL/L VENOUS BLOOD GAS O2 SAT (test code = O2SATV) 26 % >75 VENOUS BLOOD GAS TYPE (test code = TYPEV) OXY VENOUS BLOOD GAS FIO2 (test code = FIO2V) 28 % VENOUS BLOOD GAS L/MIN (test code = L/MV) 2 L/min VENOUS BLOOD GAS DELIVERY (test code = DELV) NASAL CANNULA ROJELIO. BLOOD GAS RESP RATE (test code = RRV) 20 /min A-A GRADIENT (test code = AAGRADE) LACTIC [id number] 05:50:00* Test Item Value Reference Range Interpretation Comments LACTIC ACID (test code = LACT) 6.4 mg/dL 4.5-18.0 N [id number] 04:59:00* Test Item Value Reference Range Interpretation Comments ACETAMINOPHEN (test code = ACET) <5 mcg/mL 10-30 L INTERPRETATIVE DATA:Toxic manifestations have been observed at serumconcentrations >100 mcg/mL, however the toxic range isgenerally reported at>200 mcg/mL. The therapeutic range varies and has been reported inliterature to be in the range of 10-30 mcg/mL. VANCOMYCIN [id number] 04:59:00* Test Item Value Reference Range Interpretation Comments VANCOMYCIN TROUGH (test code = VANCT) 11.4 mcg/ML 10.0-20.0 N BASIC METABOLIC [id number] 04:59:00* Test Item Value Reference Range Interpretation Comments SODIUM (test code = NA) 141 MMOL/L 136-143 N POTASSIUM (test code = K) 3.7 MMOL/L 3.5-5.1 N CHLORIDE (test code = CL) 104 MMOL/L 98-107 N CARBON DIOXIDE (test code = CO2) 23 mmol/L 24-31 L GLUCOSE (test code = GLU) 126 mg/dL 70-104 H BLOOD UREA NITROGEN (test code = BUN) 11.1 MG/DL 7.0-21.0 N GLOMERULAR FILTRATION RATE (test code = GFR) 32 >60 L The estimated glomerular filtration rate is computed usingpatient race, age (>18), sex, and serum creatinine. If anyof the needed data elements are missing the Laboratory cannot compute an estimation of the glomerular filtration rate. CREATININE (test code = CREAT) 1.8 mg/dL 0.8-1.5 H CALCIUM (test code = CA) 7.8 mg/dL 8.8-10.2 L THROMBOPLASTIN TIME [id number] 04:40:00* Test Item Value Reference Range Interpretation Comments THROMBOPLASTIN TIME PARTIAL (test code = PTT) 32.6 SECONDS 26.0-35. 9 N INTERPRETATIVE DATA:Therapeutic range: Unfractionated heparin:47 - 71 seconds Argatroban:1.5 to 3 times the baseline PTT CBC W/AUTO [id number] 04:28:00* Test Item Value Reference Range Interpretation Comments WHITE BLOOD CELL (test code = WBC) 10.1 x10 3/uL 4.8-10.8 N RED BLOOD CELL (test code = RBC) 2.65 x10 6/uL 4.20-5.40 L HEMOGLOBIN (test code = HGB) 7.5 g/dL 14.5-20 L HEMATOCRIT (test code = HCT) 24.0 % 37.0-47.0 L MEAN CELL VOLUME (test code = MCV) 90.6 fL 81.0-99.0 N MEAN CELL HGB (test code = MCH) 28.3 pg 27-31 N MEAN CELL HGB CONCENTRATION (test code = MCHC) 31.3 G/DL 33-36.5 L RED CELL DISTRIBUTION WIDTH (test code = RDW) 14.8 % 12.9-16. 9 N PLATELET COUNT (test code = PLT) 187 150-440 N MEAN PLATELET VOLUME (test code = MPV) 10.2 fL 8.9-12.4 N NEUTROPHIL % (test code = NT%) 77.4 % 42.2-75.2 H LYMPHOCYTE % (test code = LY%) 12.0 % 20.5-51.1 L MONOCYTE % (test code = MO%) 9.9 % 1.7-9.3 H EOSINOPHIL % (test code = EO%) 0.0 % 0.0-7.0 N BASOPHIL % (test code = BA%) 0.4 % 0-2.5 N NEUTROPHIL # (test code = NT#) 7.83 x10 3/uL 1.80-7.70 H LYMPHOCYTE # (test code = LY#) 1.21 x10 3/uL 1.00-4.80 N MONOCYTE # (test code = MO#) 1.00 x10 3/uL 0.00-0.80 H EOSINOPHIL # (test code = EO#) 0.00 x10 3/uL 0.00-0.45 N BASOPHIL # (test code = BA#) 0.04 x10 3/uL 0.0-0.20 N [id number] 04:17:00* Test Item Value Reference Range Interpretation Comments GLUBED (test code = GLUBED) 129 MG/DL 70-105 H [id number] 04:17:00* Test Item Value Reference Range Interpretation Comments GLUBED (test code = GLUBED) 139 MG/DL 70-105 H [id number] 04:17:00* Test Item Value Reference Range Interpretation Comments GLUBED (test code = GLUBED) 139 MG/DL 70-105 H [id number] 04:17:00* Test Item Value Reference Range Interpretation Comments GLUBED (test code = GLUBED) 141 MG/DL 70-105 H [id number] 04:17:00* Test Item Value Reference Range Interpretation Comments GLUBED (test code = GLUBED) 148 MG/DL 70-105 H [id number] 04:17:00* Test Item Value Reference Range Interpretation Comments GLUBED (test code = GLUBED) 139 MG/DL 70-105 H [id number] 04:17:00* Test Item Value Reference Range Interpretation Comments GLUBED (test code = GLUBED) 142 MG/DL 70-105 H [id number] 04:17:00* Test Item Value Reference Range Interpretation Comments GLUBED (test code = GLUBED) 154 MG/DL 70-105 H [id number] 04:17:00* Test Item Value Reference Range Interpretation Comments GLUBED (test code = GLUBED) 160 MG/DL 70-105 H [id number] 04:17:00* Test Item Value Reference Range Interpretation Comments GLUBED (test code = GLUBED) 167 MG/DL 70-105 H [id number] 04:17:00* Test Item Value Reference Range Interpretation Comments GLUBED (test code = GLUBED) 192 MG/DL 70-105 H [id number] 04:17:00* Test Item Value Reference Range Interpretation Comments GLUBED (test code = GLUBED) 189 MG/DL 70-105 H [id number] 04:17:00* Test Item Value Reference Range Interpretation Comments GLUBED (test code = GLUBED) 179 MG/DL 70-105 H ARTERIAL BLOOD [id number] 20:30:00* Test Item Value Reference Range Interpretation Comments ARTERIAL BLOOD GAS PH (test code = PHA) 7.35 7.35-7.45 N ARTERIAL BLOOD GAS PCO2 (test code = PCO2A) 44.0 mmHg 35.0-45.0 N ARTERIAL BLOOD GAS PO2 (test code = PO2A) 140.2 mmHg 80.0-95.0 H BICARBONATE TOTAL HCO3 (test code = HCO3) 24.0 mmol/L 22.0-24.0 N BASE EXCESS (test code = SHRUTHI) -1.5 mmol/L (+/-)2.0 N ABG O2 SATURATION (test code = SATA) 98.1 % 95.0-100.0 N ABG TYPE (test code = TYPEA) O2 ADJ ABG L/M (test code = L/M) 2 L/MIN ABG DELIVERY (test code = ROLF) Cannula ABG PATIENT RESP RATE (test code = RRPATA) 20 /MIN 12-20 N ABG SITE (test code = SITEA) Art line ABG POSITION (test code = PT POSITION) SEMI ALLENS TEST (test code = ALLENS) NOT APPLICAPLE CHEMISTRY 8 [id number] 17:24:00* Test Item Value Reference Range Interpretation Comments ISTAT-PH ARTERIAL (test code = PHAP) 7.282 7.35-7.45 L ISTAT-PCO2 ARTERIAL (test code = PCO2AP) 46.2 MMHG 35-45 H ISTAT-TCO2 ARTERIAL (test code = TCO2AP) 23 MMOL/L 23-27 N ISTAT-PO2 ARTERIAL (test code = PO2AP) 113 MMHG 80-105 H ISTAT-HCO3 ARTERIAL (test code = HCO3AP) 21.8 MMOL/L 22-26 L ISTAT-BASE EXCESS ARTERIAL (test code = BEAP) -5 MMOL/L -2-3 L ISTAT-SO2 ARTERIAL (test code = SO2AP) 98 % 95-98 N SODIUM POC (test code = NAP) 142 MMOL/L 135-146 N POTASSIUM POC (test code = KP) 3.6 MMOL/L 3.5-4.9 N IONIZED CALCIUM POC (test code = CAIP) 1.08 mmol/L 1.12-1.32 L GLUCOSE POC (test code = GLUP) 191 mg/dL 70-105 H CHEMISTRY 8 [id number] 17:22:00* Test Item Value Reference Range Interpretation Comments ISTAT-PH ARTERIAL (test code = PHAP) 7.465 7.35-7.45 H ISTAT-PCO2 ARTERIAL (test code = PCO2AP) 36.1 MMHG 35-45 N ISTAT-TCO2 ARTERIAL (test code = TCO2AP) 27 MMOL/L 23-27 N ISTAT-PO2 ARTERIAL (test code = PO2AP) 452 MMHG 80-105 H ISTAT-HCO3 ARTERIAL (test code = HCO3AP) 26 MMOL/L 22-26 N ISTAT-BASE EXCESS ARTERIAL (test code = BEAP) 2 MMOL/L -2-3 N ISTAT-SO2 ARTERIAL (test code = SO2AP) 100 % 95-98 H SODIUM POC (test code = NAP) 136 MMOL/L 135-146 N POTASSIUM POC (test code = KP) 3.9 MMOL/L 3.5-4.9 N IONIZED CALCIUM POC (test code = CAIP) 1.16 mmol/L 1.12-1.32 N GLUCOSE POC (test code = GLUP) 142 mg/dL 70-105 H CHEMISTRY 8 [id number] 17:21:00* Test Item Value Reference Range Interpretation Comments ISTAT-PH ARTERIAL (test code = PHAP) 7.499 7.35-7.45 H ISTAT-PCO2 ARTERIAL (test code = PCO2AP) 36.4 MMHG 35-45 N ISTAT-TCO2 ARTERIAL (test code = TCO2AP) 29 MMOL/L 23-27 H ISTAT-PO2 ARTERIAL (test code = PO2AP) 413 MMHG 80-105 H ISTAT-HCO3 ARTERIAL (test code = HCO3AP) 28.3 MMOL/L 22-26 H ISTAT-BASE EXCESS ARTERIAL (test code = BEAP) 5 MMOL/L -2-3 H ISTAT-SO2 ARTERIAL (test code = SO2AP) 100 % 95-98 H SODIUM POC (test code = NAP) 137 MMOL/L 135-146 N POTASSIUM POC (test code = KP) 3.9 MMOL/L 3.5-4.9 N IONIZED CALCIUM POC (test code = CAIP) 0.93 mmol/L 1.12-1.32 L GLUCOSE POC (test code = GLUP) 137 mg/dL 70-105 H CHEMISTRY 8 [id number] 17:14:00* Test Item Value Reference Range Interpretation Comments ISTAT-PH ARTERIAL (test code = PHAP) 7.533 7.35-7.45 H ISTAT-PCO2 ARTERIAL (test code = PCO2AP) 32.7 MMHG 35-45 L ISTAT-TCO2 ARTERIAL (test code = TCO2AP) 28 MMOL/L 23-27 H ISTAT-PO2 ARTERIAL (test code = PO2AP) 507 MMHG 80-105 H ISTAT-HCO3 ARTERIAL (test code = HCO3AP) 27.5 MMOL/L 22-26 H ISTAT-BASE EXCESS ARTERIAL (test code = BEAP) 5 MMOL/L -2-3 H ISTAT-SO2 ARTERIAL (test code = SO2AP) 100 % 95-98 H SODIUM POC (test code = NAP) 136 MMOL/L 135-146 N POTASSIUM POC (test code = KP) 4.4 MMOL/L 3.5-4.9 N IONIZED CALCIUM POC (test code = CAIP) 0.90 mmol/L 1.12-1.32 L GLUCOSE POC (test code = GLUP) 130 mg/dL 70-105 H CHEMISTRY 8 [id number] 17:13:00* Test Item Value Reference Range Interpretation Comments ISTAT-PH ARTERIAL (test code = PHAP) 7.456 7.35-7.45 H ISTAT-PCO2 ARTERIAL (test code = PCO2AP) 38.4 MMHG 35-45 N ISTAT-TCO2 ARTERIAL (test code = TCO2AP) 28 MMOL/L 23-27 H ISTAT-PO2 ARTERIAL (test code = PO2AP) 503 MMHG 80-105 H ISTAT-HCO3 ARTERIAL (test code = HCO3AP) 27.0 MMOL/L 22-26 H ISTAT-BASE EXCESS ARTERIAL (test code = BEAP) 3 MMOL/L -2-3 N ISTAT-SO2 ARTERIAL (test code = SO2AP) 100 % 95-98 H SODIUM POC (test code = NAP) 137 MMOL/L 135-146 N POTASSIUM POC (test code = KP) 3.2 MMOL/L 3.5-4.9 L IONIZED CALCIUM POC (test code = CAIP) 1.09 mmol/L 1.12-1.32 L GLUCOSE POC (test code = GLUP) 137 mg/dL 70-105 H CHEMISTRY 8 [id number] 17:12:00* Test Item Value Reference Range Interpretation Comments ISTAT-PH ARTERIAL (test code = PHAP) 7.481 7.35-7.45 H ISTAT-PCO2 ARTERIAL (test code = PCO2AP) 38.3 MMHG 35-45 N ISTAT-TCO2 ARTERIAL (test code = TCO2AP) 30 MMOL/L 23-27 H ISTAT-PO2 ARTERIAL (test code = PO2AP) 468 MMHG 80-105 H ISTAT-HCO3 ARTERIAL (test code = HCO3AP) 28.6 MMOL/L 22-26 H ISTAT-BASE EXCESS ARTERIAL (test code = BEAP) 5 MMOL/L -2-3 H ISTAT-SO2 ARTERIAL (test code = SO2AP) 100 % 95-98 H SODIUM POC (test code = NAP) 136 MMOL/L 135-146 N POTASSIUM POC (test code = KP) 3.3 MMOL/L 3.5-4.9 L IONIZED CALCIUM POC (test code = CAIP) 1.10 mmol/L 1.12-1.32 L GLUCOSE POC (test code = GLUP) 133 mg/dL 70-105 H [id number] 16:34:00* Test Item Value Reference Range Interpretation Comments HEMOGLOBIN (test code = HGB) 10.0 g/dL 14.5-20 L - XR FLUOROSCOPY 0-60 [id number] 16:33:00Patient Name: TRINH RICHTER Unit No: [id number] EXAMS: CPT CODE: [id number] XR FLUOROSCOPY 0-60 MIN 10522 EXAMINATION: Intraoperative fluoroscopic guidance HISTORY: TUNNEL CATH PLACEMENT FINDINGS: Intraoperative fluoroscopic assistance was provided. Please also refer to the procedure report for further details. A tunneled catheter placement in progress. 0.6 minutes of pulsed fluoroscopy was used. Location: W1 at 1633 Reported and signed by: Kulwant Reed MD CC: Daniel Granados MD; Lizeth Jones; Sarthak Hyde MD Technologist: Harsh Ang Time: DAP (Gy m2): Air Kerma (mGy): Trscr Dt/Tm: 01/16/2019 (1633) by:[email or web address] Printed Date/Time: 01/16/2019 (1636) Name: TRINH RICHTER [facility] Phys: Lizeth Cr [address] : 1970 Age: 48 [place]: [place] [address] Loc: P.0201 1 Exam Date: 01/16/2019 Status: ADM IN PH: FAX: PAGE 1 Signed Report CHEMISTRY 8 [id number] 16:23:00* Test Item Value Reference Range Interpretation Comments ISTAT-PH ARTERIAL (test code = PHAP) 7.481 7.35-7.45 H ISTAT-PCO2 ARTERIAL (test code = PCO2AP) 39.7 MMHG 35-45 N ISTAT-TCO2 ARTERIAL (test code = TCO2AP) 31 MMOL/L 23-27 H ISTAT-PO2 ARTERIAL (test code = PO2AP) 533 MMHG 80-105 H ISTAT-HCO3 ARTERIAL (test code = HCO3AP) 29.6 MMOL/L 22-26 H ISTAT-BASE EXCESS ARTERIAL (test code = BEAP) 6 MMOL/L -2-3 H ISTAT-SO2 ARTERIAL (test code = SO2AP) 100 % 95-98 H SODIUM POC (test code = NAP) 136 MMOL/L 135-146 N POTASSIUM POC (test code = KP) 3.3 MMOL/L 3.5-4.9 L IONIZED CALCIUM POC (test code = CAIP) 1.11 mmol/L 1.12-1.32 L GLUCOSE POC (test code = GLUP) 134 mg/dL 70-105 H VENOUS BLOOD [id number] 15:45:00* Test Item Value Reference Range Interpretation Comments VENOUS BLOOD GAS PH (test code = PHV) 7.23 7.35-7.45 L VENOUS BLOOD GAS PCO2 (test code = PCO2V) 48.3 mmHg >46 VENOUS BLOOD GAS PO2 (test code = PO2V) 38.2 mmHg >40 VBG HCO3 (test code = HCO3V) 20 meq/L VBG BASE EXCESS (test code = SHOBHA) -7.2 MMOL/L VENOUS BLOOD GAS O2 SAT (test code = O2SATV) 69 % >75 VENOUS BLOOD GAS TYPE (test code = TYPEV) OXY VENOUS BLOOD GAS FIO2 (test code = FIO2V) 32 % VENOUS BLOOD GAS L/MIN (test code = L/MV) 3 L/min VBG VENT MODE (test code = MODEV) NC ROJELIO. BLOOD GAS RESP RATE (test code = RRV) 12 /min VENOUS BLOOD GAS SITE (test code = SITEV) LR A-A GRADIENT (test code = AAGRADE) ARTERIAL BLOOD [id number] 15:43:00* Test Item Value Reference Range Interpretation Comments ARTERIAL BLOOD GAS PH (test code = PHA) 7.26 7.35-7.45 L ARTERIAL BLOOD GAS PCO2 (test code = PCO2A) 40.0 mmHg 35.0-45.0 N ARTERIAL BLOOD GAS PO2 (test code = PO2A) 109.0 mmHg 80.0-95.0 H BICARBONATE TOTAL HCO3 (test code = HCO3) 17.7 mmol/L 22.0-24.0 L BASE EXCESS (test code = SHRUTHI) -8.8 mmol/L (+/-)2.0 L ABG O2 SATURATION (test code = SATA) 96.2 % 95.0-100.0 N ABG TYPE (test code = TYPEA) O2 ADJ ARTERIAL FIO2 (test code = FIO2A) 32 % ABG L/M (test code = L/M) 3 L/MIN ABG DELIVERY (test code = ROLF) Cannula ABG PATIENT RESP RATE (test code = RRPATA) 18 /MIN 12-20 N ABG SITE (test code = SITEA) ART LINE ALLENS TEST (test code = ALLENS) NOT APPLICAPLE TOTAL HGB (test code = THB) 11.5 g/dL 12.0-16.0 L PROTHROMBIN [id number] 15:39:00* Test Item Value Reference Range Interpretation Comments PROTHROMBIN TIME PATIENT (test code = PTP) 12.8 SECONDS 10.3-12.9 N INTERNATIONAL NORMAL RATIO (test code = INR) 1.10 INR UNIT 0.9-1.11 N The INR is useful only for monitoring anticoagulant therapy.It may be unreliable in the initial phase of antigoagulationand in unstable patients. Indication for Anticoagulation Recommended INR 1. Prevention of venous thomboembolism 2.0-3.0in high-risk patients; treatment of venousthrombosis and pulmonary embolism aftera course of heparin; prevention of systemicembolism in a variety of conditions, including atrial fibrillation and prothetic tissue heart valves, 2. Prosthetic mechanical heart valves; 2.5-3.5recurrent systemic embolism. THROMBOPLASTIN TIME [id number] 15:39:00* Test Item Value Reference Range Interpretation Comments THROMBOPLASTIN TIME PARTIAL (test code = PTT) 35.5 SECONDS 26.0-35. 9 N TEST WAS ON PENDING, NO LABEL RECEIVEDINTERPRETATIVE DATA:Therapeutic range: Unfractionated heparin:47 - 71 seconds Argatroban:1.5 to 3 times the baseline PTT PROTHROMBIN [id number] 15:37:00* Test Item Value Reference Range Interpretation Comments PROTHROMBIN TIME PATIENT (test code = PTP) 12.8 SECONDS 10.3-12.9 N INTERNATIONAL NORMAL RATIO (test code = INR) 1.10 INR UNIT 0.9-1.11 N The INR is useful only for monitoring anticoagulant therapy.It may be unreliable in the initial phase of antigoagulationand in unstable patients. Indication for Anticoagulation Recommended INR 1. Prevention of venous thomboembolism 2.0-3.0in high-risk patients; treatment of venousthrombosis and pulmonary embolism aftera course of heparin; prevention of systemicembolism in a variety of conditions, including atrial fibrillation and prothetic tissue heart valves, 2. Prosthetic mechanical heart valves; 2.5-3.5recurrent systemic embolism. THROMBOPLASTIN TIME [id number] 15:37:00* Test Item Value Reference Range Interpretation Comments THROMBOPLASTIN TIME PARTIAL (test code = PTT) SECONDS 26.0-35. 9 [id number] 15:17:00* Test Item Value Reference Range Interpretation Comments FIBRINOGEN (test code = FIB) 206 mg/dL 200-400 N [id number] 14:43:00* Test Item Value Reference Range Interpretation Comments GLUBED (test code = GLUBED) 183 MG/DL 70-105 H RENAL FUNCTION [id number] 14:37:00* Test Item Value Reference Range Interpretation Comments SODIUM (test code = NA) 139 MMOL/L 136-143 N POTASSIUM (test code = K) 4.2 MMOL/L 3.5-5.1 N CHLORIDE (test code = CL) 104 MMOL/L 98-107 N CARBON DIOXIDE (test code = CO2) 19 mmol/L 24-31 L GLUCOSE (test code = GLU) 211 mg/dL 70-104 H BLOOD UREA NITROGEN (test code = BUN) 8.1 MG/DL 7.0-21.0 N GLOMERULAR FILTRATION RATE (test code = GFR) 42 >60 L The estimated glomerular filtration rate is computed usingpatient race, age (>18), sex, and serum creatinine. If anyof the needed data elements are missing the Laboratory cannot compute an estimation of the glomerular filtration rate. CREATININE (test code = CREAT) 1.4 mg/dL 0.8-1.5 N ALBUMIN (test code = ALB) 2.0 G/DL 3.5-5.0 L CALCIUM (test code = CA) 7.4 mg/dL 8.8-10.2 L PHOSPHOROUS (test code = PHOS) 2.6 mg/dL 2.7-4.5 L BASIC METABOLIC [id number] 14:33:00* Test Item Value Reference Range Interpretation Comments SODIUM (test code = NA) 137 MMOL/L 136-143 N POTASSIUM (test code = K) 4.0 MMOL/L 3.5-5.1 N CHLORIDE (test code = CL) 102 MMOL/L 98-107 N CARBON DIOXIDE (test code = CO2) 19 mmol/L 24-31 L GLUCOSE (test code = GLU) 202 mg/dL 70-104 H BLOOD UREA NITROGEN (test code = BUN) 7.9 MG/DL 7.0-21.0 N GLOMERULAR FILTRATION RATE (test code = GFR) 42 >60 L The estimated glomerular filtration rate is computed usingpatient race, age (>18), sex, and serum creatinine. If anyof the needed data elements are missing the Laboratory cannot compute an estimation of the glomerular filtration rate. CREATININE (test code = CREAT) 1.4 mg/dL 0.8-1.5 N CALCIUM (test code = CA) 7.3 mg/dL 8.8-10.2 L [id number] 14:33:00* Test Item Value Reference Range Interpretation Comments MAGNESIUM (test code = MAG) 2.6 mg/dL 1.4-2.6 N ARTERIAL BLOOD [id number] 14:32:00* Test Item Value Reference Range Interpretation Comments ARTERIAL BLOOD GAS PH (test code = PHA) 7.25 7.35-7.45 L ARTERIAL BLOOD GAS PCO2 (test code = PCO2A) 40.6 mmHg 35.0-45.0 N ARTERIAL BLOOD GAS PO2 (test code = PO2A) 183.4 mmHg 80.0-95.0 H BICARBONATE TOTAL HCO3 (test code = HCO3) 17.6 mmol/L 22.0-24.0 L BASE EXCESS (test code = SHRUTHI) -9.0 mmol/L (+/-)2.0 L ABG O2 SATURATION (test code = SATA) 97.3 % 95.0-100.0 N ABG TYPE (test code = TYPEA) VENTILATOR ARTERIAL FIO2 (test code = FIO2A) 50 % ABG DELIVERY (test code = ROLF) Vent ABG VENT MODE (test code = MODEA) Cpap, psv ABG PATIENT RESP RATE (test code = RRPATA) 12 /MIN 12-20 N ABG TIDAL VOLUME (test code = TIDAL VOLUME) 393 ML ABG PEEP (test code = PEEP) 5 cmH2O ABG PRESSURE SUPPORT (test code = PSABG) 10 cmH2O ABG SITE (test code = SITEA) ART LINE ALLENS TEST (test code = ALLENS) N/A TOTAL HGB (test code = THB) 12.2 g/dL 12.0-16.0 N CBC W/AUTO [id number] 14:28:00* Test Item Value Reference Range Interpretation Comments WHITE BLOOD CELL (test code = WBC) 17.6 x10 3/uL 4.8-10.8 H RED BLOOD CELL (test code = RBC) 3.72 x10 6/uL 4.20-5.40 L HEMOGLOBIN (test code = HGB) 10.5 g/dL 14.5-20 L HEMATOCRIT (test code = HCT) 33.6 % 37.0-47.0 L MEAN CELL VOLUME (test code = MCV) 90.3 fL 81.0-99.0 N MEAN CELL HGB (test code = MCH) 28.2 pg 27-31 N MEAN CELL HGB CONCENTRATION (test code = MCHC) 31.3 G/DL 33-36.5 L RED CELL DISTRIBUTION WIDTH (test code = RDW) 14.3 % 12.9-16. 9 N PLATELET COUNT (test code = PLT) 215 150-440 N MEAN PLATELET VOLUME (test code = MPV) 11.2 fL 8.9-12.4 N NEUTROPHIL % (test code = NT%) 74.4 % 42.2-75.2 N LYMPHOCYTE % (test code = LY%) 16.7 % 20.5-51.1 L MONOCYTE % (test code = MO%) 6.6 % 1.7-9.3 N EOSINOPHIL % (test code = EO%) 0.9 % 0.0-7.0 N BASOPHIL % (test code = BA%) 0.5 % 0-2.5 N NEUTROPHIL # (test code = NT#) 13.10 x10 3/uL 1.80-7.70 H LYMPHOCYTE # (test code = LY#) 2.93 x10 3/uL 1.00-4.80 N MONOCYTE # (test code = MO#) 1.16 x10 3/uL 0.00-0.80 H EOSINOPHIL # (test code = EO#) 0.16 x10 3/uL 0.00-0.45 N BASOPHIL # (test code = BA#) 0.08 x10 3/uL 0.0-0.20 N - XR CHEST 1 [id number] 14:26:00Patient Name: TRINH RICHTER Unit No: [id number] EXAMS: CPT CODE: [id number] XR CHEST 1 V 68689 INDICATIONS: chest tube placment COMPARISON: Comparison is made with study of 01/15/2019 Location: W1 A single portable AP view of the chest demonstrates the tip of the endotracheal tube is noted 2 cm above the rachel. A right-sided hemodialysis catheter terminates in the right atrium. A Winifred-Edda catheter restricted towards the main pulmonary artery. Left chest tube appears in place. There are postsurgical changes and sternotomy. The heart is enlarged. The lung coleman are grossly clear. The lung coleman are grossly clear. No apparent pleural effusion nor pneumothorax. The visualized bony structures are unremarkable. IMPRESSIONS: 1. Various lines and tubes including the Winifred-Edda catheter, endotracheal tube and left chest tube are seen in suitable position. 2. Postsurgical changes of median sternotomy. 3. Mild cardiomegaly. 4. The lung coleman are grossly clear. E lectronically Signed by Kulwant Reed MD on 01/16/2019 at 1426 Reported and signed by: Kulwant Reed MD CC: Kayla Mckeon MD; Daniel Granados MD; Sarthak Hyde MD Technologist: Harsh Ang Time: DAP (Gy m2): Air Kerma (mGy): Trscr Dt/Tm: 01/16/2019 (1429) by:[email or web address] Printed Date/Time: 01/16/2019 (8333) Name: TRINH SUTHERLAND [facility] Phys: [id number] - Kayla Mckeon [address] : 1970 Age: 48 Sex: [place] [address] Loc: P.0201 1 Exam Date: 01/16/2019 Status: ADM IN PH: FAX: PAGE 1 Signed Re port LACTIC ACID [id number] 14:21:00* Test Item Value Reference Range Interpretation Comments LACTIC ACID POC (test code = LACTP) 1.11 mmol/L 0.9-1.70 N LACTIC ACID [id number] 14:14:00* Test Item Value Reference Range Interpretation Comments LACTIC ACID POC (test code = LACTP) 0.94 mmol/L 0.9-1.70 N [id number] 14:00:00* Test Item Value Reference Range Interpretation Comments GLUBED (test code = GLUBED) 181 MG/DL 70-105 H CBC W/AUTO [id number] 12:15:00* Test Item Value Reference Range Interpretation Comments WHITE BLOOD CELL (test code = WBC) 10.1 x10 3/uL 4.8-10.8 N RED BLOOD CELL (test code = RBC) 3.11 x10 6/uL 4.20-5.40 L HEMOGLOBIN (test code = HGB) 8.7 g/dL 14.5-20 L HEMATOCRIT (test code = HCT) 27.6 % 37.0-47.0 L MEAN CELL VOLUME (test code = MCV) 88.7 fL 81.0-99.0 N MEAN CELL HGB (test code = MCH) 28.0 pg 27-31 N MEAN CELL HGB CONCENTRATION (test code = MCHC) 31.5 G/DL 33-36.5 L RED CELL DISTRIBUTION WIDTH (test code = RDW) 14.6 % 12.9-16. 9 N PLATELET COUNT (test code = PLT) 154 150-440 N MEAN PLATELET VOLUME (test code = MPV) 10.6 fL 8.9-12.4 N NEUTROPHIL % (test code = NT%) 80.7 % 42.2-75.2 H LYMPHOCYTE % (test code = LY%) 9.5 % 20.5-51.1 L MONOCYTE % (test code = MO%) 5.5 % 1.7-9.3 N EOSINOPHIL % (test code = EO%) 3.0 % 0.0-7.0 N BASOPHIL % (test code = BA%) 0.4 % 0-2.5 N NEUTROPHIL # (test code = NT#) 8.16 x10 3/uL 1.80-7.70 H LYMPHOCYTE # (test code = LY#) 0.96 x10 3/uL 1.00-4.80 L MONOCYTE # (test code = MO#) 0.56 x10 3/uL 0.00-0.80 N EOSINOPHIL # (test code = EO#) 0.30 x10 3/uL 0.00-0.45 N BASOPHIL # (test code = BA#) 0.04 x10 3/uL 0.0-0.20 N COAGULATION TIME [id number] 11:47:00* Test Item Value Reference Range Interpretation Comments COAGULATION TIME ACTIVATED (test code = ACT) 131 SECONDS 74-137 N HGB [id number] 11:47:00* Test Item Value Reference Range Interpretation Comments HEMOGLOBIN (test code = HGB) 6.7 g/dL 14.5-20 LL Critical Value reported toFirst Name:DAVID Last Name:NANCY READ BACK AND VERIFIEDby P.LAB.CAR1, on 01/16/19, @ 1147. HEMATOCRIT (test code = HCT) 21.8 % 37.0-47.0 L COAGULATION TIME [id number] 11:00:00* Test Item Value Reference Range Interpretation Comments COAGULATION TIME ACTIVATED (test code = ACT) 571 SECONDS 74-137 H HGB [id number] 10:54:00* Test Item Value Reference Range Interpretation Comments HEMOGLOBIN (test code = HGB) 6.6 g/dL 14.5-20 LL Critical Value reported toFirst Name:RADHA Last Name:CHAPARRITA READ BACK AND VERIFIEDby P.LAB.CAR1, on 01/16/19, @ 1054. HEMATOCRIT (test code = HCT) 20.5 % 37.0-47.0 L COAGULATION TIME [id number] 10:32:00* Test Item Value Reference Range Interpretation Comments COAGULATION TIME ACTIVATED (test code = ACT) 577 SECONDS 74-137 H HGB [id number] 10:29:00* Test Item Value Reference Range Interpretation Comments HEMOGLOBIN (test code = HGB) 6.4 g/dL 14.5-20 LL Critical Value reported toFirst Name:RADHA Last Name:CHAPARRITA READ BACK AND VERIFIEDby P.LAB.HALIE1, on 01/16/19, @ 3133. HEMATOCRIT (test code = HCT) 20.5 % 37.0-47.0 L COAGULATION TIME [id number] 09:58:00* Test Item Value Reference Range Interpretation Comments COAGULATION TIME ACTIVATED (test code = ACT) 401 SECONDS 74-137 H HGB [id number] 09:50:00* Test Item Value Reference Range Interpretation Comments HEMOGLOBIN (test code = HGB) 10.2 g/dL 14.5-20 L HEMATOCRIT (test code = HCT) 32.4 % 37.0-47.0 L COAGULATION TIME [id number] 09:19:00* Test Item Value Reference Range Interpretation Comments COAGULATION TIME ACTIVATED (test code = ACT) 136 SECONDS 74-137 N PROTHROMBIN [id number] 05:35:00* Test Item Value Reference Range Interpretation Comments PROTHROMBIN TIME PATIENT (test code = PTP) 12.0 SECONDS 10.3-12.9 N INTERNATIONAL NORMAL RATIO (test code = INR) 1.03 INR UNIT 0.9-1.11 N The INR is useful only for monitoring anticoagulant therapy.It may be unreliable in the initial phase of antigoagulationand in unstable patients. Indication for Anticoagulation Recommended INR 1. Prevention of venous thomboembolism 2.0-3.0in high-risk patients; treatment of venousthrombosis and pulmonary embolism aftera course of heparin; prevention of systemicembolism in a variety of conditions, including atrial fibrillation and prothetic tissue heart valves, 2. Prosthetic mechanical heart valves; 2.5-3.5recurrent systemic embolism. THROMBOPLASTIN TIME [id number] 05:35:00* Test Item Value Reference Range Interpretation Comments THROMBOPLASTIN TIME PARTIAL (test code = PTT) 35.2 SECONDS 26.0-35. 9 INTERPRETATIVE DATA:Therapeutic range: Unfractionated heparin:47 - 71 seconds Argatroban:1.5 to 3 times the baseline PTT BASIC METABOLIC [id number] 05:21:00* Test Item Value Reference Range Interpretation Comments SODIUM (test code = NA) 138 MMOL/L 136-143 N POTASSIUM (test code = K) 4.1 MMOL/L 3.5-5.1 N CHLORIDE (test code = CL) 100 MMOL/L 98-107 N CARBON DIOXIDE (test code = CO2) 27 mmol/L 24-31 N GLUCOSE (test code = GLU) 130 mg/dL 70-104 H BLOOD UREA NITROGEN (test code = BUN) 6.2 MG/DL 7.0-21.0 L GLOMERULAR FILTRATION RATE (test code = GFR) 36 >60 L The estimated glomerular filtration rate is computed usingpatient race, age (>18), sex, and serum creatinine. If anyof the needed data elements are missing the Laboratory cannot compute an estimation of the glomerular filtration rate. CREATININE (test code = CREAT) 1.6 mg/dL 0.8-1.5 H CALCIUM (test code = CA) 8.2 mg/dL 8.8-10.2 L CBC W/AUTO [id number] 05:11:00* Test Item Value Reference Range Interpretation Comments WHITE BLOOD CELL (test code = WBC) 4.9 x10 3/uL 4.8-10.8 N RED BLOOD CELL (test code = RBC) 4.03 x10 6/uL 4.20-5.40 L HEMOGLOBIN (test code = HGB) 11.2 g/dL 14.5-20 L HEMATOCRIT (test code = HCT) 35.6 % 37.0-47.0 L MEAN CELL VOLUME (test code = MCV) 88.3 fL 81.0-99.0 N MEAN CELL HGB (test code = MCH) 27.8 pg 27-31 N MEAN CELL HGB CONCENTRATION (test code = MCHC) 31.5 G/DL 33-36.5 L RED CELL DISTRIBUTION WIDTH (test code = RDW) 14.6 % 12.9-16. 9 N PLATELET COUNT (test code = PLT) 263 150-440 N MEAN PLATELET VOLUME (test code = MPV) 10.6 fL 8.9-12.4 N NEUTROPHIL % (test code = NT%) 53.6 % 42.2-75.2 N LYMPHOCYTE % (test code = LY%) 31.9 % 20.5-51.1 N MONOCYTE % (test code = MO%) 7.8 % 1.7-9.3 N EOSINOPHIL % (test code = EO%) 5.3 % 0.0-7.0 N BASOPHIL % (test code = BA%) 1.2 % 0-2.5 N NEUTROPHIL # (test code = NT#) 2.60 x10 3/uL 1.80-7.70 N LYMPHOCYTE # (test code = LY#) 1.55 x10 3/uL 1.00-4.80 N MONOCYTE # (test code = MO#) 0.38 x10 3/uL 0.00-0.80 N EOSINOPHIL # (test code = EO#) 0.26 x10 3/uL 0.00-0.45 N BASOPHIL # (test code = BA#) 0.06 x10 3/uL 0.0-0.20 N B-TYPE NATRIURETIC [id number] 19:27:00* Test Item Value Reference Range Interpretation Comments B-TYPE NATRIURETIC PEPTIDE (test code = BNP) > 5000 PG/ML 0-100 H PROTHROMBIN [id number] 11:35:00* Test Item Value Reference Range Interpretation Comments PROTHROMBIN TIME PATIENT (test code = PTP) 12.3 SECONDS 10.3-12.9 N INTERNATIONAL NORMAL RATIO (test code = INR) 1.06 INR UNIT 0.9-1.11 N The INR is useful only for monitoring anticoagulant therapy.It may be unreliable in the initial phase of antigoagulationand in unstable patients. Indication for Anticoagulation Recommended INR 1. Prevention of venous thomboembolism 2.0-3.0in high-risk patients; treatment of venousthrombosis and pulmonary embolism aftera course of heparin; prevention of systemicembolism in a variety of conditions, including atrial fibrillation and prothetic tissue heart valves, 2. Prosthetic mechanical heart valves; 2.5-3.5recurrent systemic embolism. THROMBOPLASTIN TIME [id number] 11:31:00* Test Item Value Reference Range Interpretation Comments THROMBOPLASTIN TIME PARTIAL (test code = PTT) 49.5 SECONDS 26.0-35. 9 H INTERPRETATIVE DATA:Therapeutic range: Unfractionated heparin:47 - 71 seconds Argatroban:1.5 to 3 times the baseline PTT - XR CHEST 1 [id number] 07:56:00Patient Name: TRINH RICHTER Unit No: [id number] EXAMS: CPT CODE: [id number] XR CHEST 1 V 55680 Examination: Chest 1 view Location code: S17 Comparison: Chest 1 view January 13, 2019 Discussion: Clinical history is remarkable for CHF, effusion. Cardiac silhouette is enlarged, atherosclerotic change of the aorta noted. There are small effusions present coupled with atelectasis. Osseous structures are unremarkable. Impression: Small effusions and atelectatic change. at 0756 Reported and signed by: DEWAYNE MCDUFFIE M.D. CC: Daniel Granados MD; Sarthak Hyde MD; Andrew Porras Technologist: Joey Miguel Fluoro Time: DAP (Gy m2): Air Kerma (mGy): Trscr Dt/Tm: 01/15/2019 (0756) by:[email or web address] Printed Date/Time: 01/15/2019 (0800) Name: ROBERTRINH [facility] Phys: ELANA Porras,Andrew Q [address] : 1970 Age: 48 Sex: [place] [address] Loc: P.[id number] 1 Exam Date: 01/15/2019 Status: ADM IN PH: FAX: PAGE 1 Signed Report BASIC METABOLIC PANEL 2019-01-15 04:30:00* Test Item Value Reference Range Interpretation Comments SODIUM (test code = NA) 137 MMOL/L 136-143 N POTASSIUM (test code = K) 4.0 MMOL/L 3.5-5.1 N CHLORIDE (test code = CL) 98 MMOL/L 98-107 N CARBON DIOXIDE (test code = CO2) 24 mmol/L 24-31 N GLUCOSE (test code = GLU) 171 mg/dL 70-104 H BLOOD UREA NITROGEN (test code = BUN) 8.2 MG/DL 7.0-21.0 N GLOMERULAR FILTRATION RATE (test code = GFR) 34 >60 L The estimated glomerular filtration rate is computed usingpatient race, age (>18), sex, and serum creatinine. If anyof the needed data elements are missing the Laboratory cannot compute an estimation of the glomerular filtration rate. CREATININE (test code = CREAT) 1.7 mg/dL 0.8-1.5 H CALCIUM (test code = CA) 8.4 mg/dL 8.8-10.2 L CBC W/AUTO [id number] 03:55:00* Test Item Value Reference Range Interpretation Comments WHITE BLOOD CELL (test code = WBC) 4.7 x10 3/uL 4.8-10.8 L RED BLOOD CELL (test code = RBC) 4.27 x10 6/uL 4.20-5.40 N HEMOGLOBIN (test code = HGB) 11.9 g/dL 14.5-20 L HEMATOCRIT (test code = HCT) 37.6 % 37.0-47.0 N MEAN CELL VOLUME (test code = MCV) 88.1 fL 81.0-99.0 N MEAN CELL HGB (test code = MCH) 27.9 pg 27-31 N MEAN CELL HGB CONCENTRATION (test code = MCHC) 31.6 G/DL 33-36.5 L RED CELL DISTRIBUTION WIDTH (test code = RDW) 14.8 % 12.9-16. 9 N PLATELET COUNT (test code = PLT) 290 150-440 N MEAN PLATELET VOLUME (test code = MPV) 10.8 fL 8.9-12.4 N NEUTROPHIL % (test code = NT%) 46.5 % 42.2-75.2 N LYMPHOCYTE % (test code = LY%) 31.5 % 20.5-51.1 N MONOCYTE % (test code = MO%) 10.6 % 1.7-9.3 H EOSINOPHIL % (test code = EO%) 10.1 % 0.0-7.0 H BASOPHIL % (test code = BA%) 1.1 % 0-2.5 N NEUTROPHIL # (test code = NT#) 2.20 x10 3/uL 1.80-7.70 N LYMPHOCYTE # (test code = LY#) 1.49 x10 3/uL 1.00-4.80 N MONOCYTE # (test code = MO#) 0.50 x10 3/uL 0.00-0.80 N EOSINOPHIL # (test code = EO#) 0.48 x10 3/uL 0.00-0.45 H BASOPHIL # (test code = BA#) 0.05 x10 3/uL 0.0-0.20 N [id number] 16:14:00* Test Item Value Reference Range Interpretation Comments GLUBED (test code = GLUBED) 136 MG/DL 70-105 H BASIC METABOLIC [id number] 10:30:00* Test Item Value Reference Range Interpretation Comments SODIUM (test code = NA) 139 MMOL/L 136-143 N POTASSIUM (test code = K) 3.8 MMOL/L 3.5-5.1 N CHLORIDE (test code = CL) 100 MMOL/L 98-107 N CARBON DIOXIDE (test code = CO2) 26 mmol/L 24-31 N GLUCOSE (test code = GLU) 118 mg/dL 70-104 H BLOOD UREA NITROGEN (test code = BUN) 14.6 MG/DL 7.0-21.0 N GLOMERULAR FILTRATION RATE (test code = GFR) 22 >60 L The estimated glomerular filtration rate is computed usingpatient race, age (>18), sex, and serum creatinine. If anyof the needed data elements are missing the Laboratory cannot compute an estimation of the glomerular filtration rate. CREATININE (test code = CREAT) 2.5 mg/dL 0.8-1.5 H CALCIUM (test code = CA) 8.1 mg/dL 8.8-10.2 L Spec Comments: AT START OF [id number] 09:55:00* Test Item Value Reference Range Interpretation Comments GLUBED (test code = GLUBED) 168 MG/DL 70-105 H CBC W/AUTO [id number] 09:51:00* Test Item Value Reference Range Interpretation Comments WHITE BLOOD CELL (test code = WBC) 4.3 x10 3/uL 4.8-10.8 L RED BLOOD CELL (test code = RBC) 3.74 x10 6/uL 4.20-5.40 L HEMOGLOBIN (test code = HGB) 10.5 g/dL 14.5-20 L HEMATOCRIT (test code = HCT) 32.7 % 37.0-47.0 L MEAN CELL VOLUME (test code = MCV) 87.4 fL 81.0-99.0 N MEAN CELL HGB (test code = MCH) 28.1 pg 27-31 N MEAN CELL HGB CONCENTRATION (test code = MCHC) 32.1 G/DL 33-36.5 L RED CELL DISTRIBUTION WIDTH (test code = RDW) 14.8 % 12.9-16. 9 N PLATELET COUNT (test code = PLT) 260 150-440 N MEAN PLATELET VOLUME (test code = MPV) 10.4 fL 8.9-12.4 N NEUTROPHIL % (test code = NT%) 44.3 % 42.2-75.2 N LYMPHOCYTE % (test code = LY%) 33.6 % 20.5-51.1 N MONOCYTE % (test code = MO%) 9.3 % 1.7-9.3 N EOSINOPHIL % (test code = EO%) 11.4 % 0.0-7.0 H BASOPHIL % (test code = BA%) 1.2 % 0-2.5 N NEUTROPHIL # (test code = NT#) 1.91 x10 3/uL 1.80-7.70 N LYMPHOCYTE # (test code = LY#) 1.45 x10 3/uL 1.00-4.80 N MONOCYTE # (test code = MO#) 0.40 x10 3/uL 0.00-0.80 N EOSINOPHIL # (test code = EO#) 0.49 x10 3/uL 0.00-0.45 H BASOPHIL # (test code = BA#) 0.05 x10 3/uL 0.0-0.20 N Spec Comments: AT START OF [id number] 16:17:00* Test Item Value Reference Range Interpretation Comments GLUBED (test code = GLUBED) 142 MG/DL 70-105 H [id number] 11:42:00* Test Item Value Reference Range Interpretation Comments GLUBED (test code = GLUBED) 150 MG/DL 70-105 H [id number] 08:27:00* Test Item Value Reference Range Interpretation Comments GLUBED (test code = GLUBED) 96 MG/DL 70-105 N BASIC METABOLIC [id number] 05:30:00* Test Item Value Reference Range Interpretation Comments SODIUM (test code = NA) 137 MMOL/L 136-143 N POTASSIUM (test code = K) 3.9 MMOL/L 3.5-5.1 N CHLORIDE (test code = CL) 103 MMOL/L 98-107 N CARBON DIOXIDE (test code = CO2) 21 mmol/L 24-31 L GLUCOSE (test code = GLU) 109 mg/dL 70-104 H BLOOD UREA NITROGEN (test code = BUN) 30.9 MG/DL 7.0-21.0 H GLOMERULAR FILTRATION RATE (test code = GFR) 13 >60 L The estimated glomerular filtration rate is computed usingpatient race, age (>18), sex, and serum creatinine. If anyof the needed data elements are missing the Laboratory cannot compute an estimation of the glomerular filtration rate. CREATININE (test code = CREAT) 3.8 mg/dL 0.8-1.5 H CALCIUM (test code = CA) 7.8 mg/dL 8.8-10.2 L CBC W/AUTO [id number] 05:04:00* Test Item Value Reference Range Interpretation Comments WHITE BLOOD CELL (test code = WBC) 4.0 x10 3/uL 4.8-10.8 L RED BLOOD CELL (test code = RBC) 3.44 x10 6/uL 4.20-5.40 L HEMOGLOBIN (test code = HGB) 9.6 g/dL 14.5-20 L HEMATOCRIT (test code = HCT) 30.2 % 37.0-47.0 L MEAN CELL VOLUME (test code = MCV) 87.8 fL 81.0-99.0 N MEAN CELL HGB (test code = MCH) 27.9 pg 27-31 N MEAN CELL HGB CONCENTRATION (test code = MCHC) 31.8 G/DL 33-36.5 L RED CELL DISTRIBUTION WIDTH (test code = RDW) 14.6 % 12.9-16. 9 N PLATELET COUNT (test code = PLT) 243 150-440 N MEAN PLATELET VOLUME (test code = MPV) 10.5 fL 8.9-12.4 N NEUTROPHIL % (test code = NT%) 38.2 % 42.2-75.2 L LYMPHOCYTE % (test code = LY%) 43.6 % 20.5-51.1 N MONOCYTE % (test code = MO%) 9.1 % 1.7-9.3 N EOSINOPHIL % (test code = EO%) 8.3 % 0.0-7.0 H BASOPHIL % (test code = BA%) 0.8 % 0-2.5 N NEUTROPHIL # (test code = NT#) 1.52 x10 3/uL 1.80-7.70 L LYMPHOCYTE # (test code = LY#) 1.73 x10 3/uL 1.00-4.80 N MONOCYTE # (test code = MO#) 0.36 x10 3/uL 0.00-0.80 N EOSINOPHIL # (test code = EO#) 0.33 x10 3/uL 0.00-0.45 N BASOPHIL # (test code = BA#) 0.03 x10 3/uL 0.0-0.20 N - XR CHEST 1 [id number] 03:40:00Patient Name: TRINH RICHTER Unit No: [id number] EXAMS: CPT CODE: [id number] XR CHEST 1 V 25892 HISTORY: CHF and pleural effusion Location: C3 COMPARISON:01/11/2019 FINDINGS: There is cardiomegaly with mild vascular congestion. Bilateral pleural effusions are present. No pneumothorax. No other changes from prior study. IMPRESSION: 1. Similar findings of CHF/volume overload with bilateral pleural effusions. at 0340 Reported and signed by: JT SMITH M.D. CC: Daniel Granados MD; Sarthak Hyde MD; Andrew Porras Technologist: Darlene Ang Time: DAP (Gy m2): Air Kerma (mGy): Trscr Dt/Tm: 01/13/2019 (0340) by:[email or web address] Printed Date/Time: 01/13/2019 (0343) Name: TRINH RICHTER [facility] Phys: ELANA Porras,Andrew Q [address] : 1970 Age: 48 Sex: F [place] [address] Loc: P.0213 1 Exam Date: 01/13/2019 Status: ADM IN PH: FAX: PAGE 1 Signed Report [id number] 16:31:00* Test Item Value Reference Range Interpretation Comments GLUBED (test code = GLUBED) 137 MG/DL 70-105 H AB HEPATITIS B [id number] 11:55:00* Test Item Value Reference Range Interpretation Comments AB HEPATITIS B SURFACE (test code = HBSAB) NON-REACTIVE NONREACTIVE AG HEPATITIS B [id number] 11:55:00* Test Item Value Reference Range Interpretation Comments AG HEPATITIS B SURFACE (test code = HBSAG) NON REACTIVE NONREACTIVE [id number] 11:21:00* Test Item Value Reference Range Interpretation Comments GLUBED (test code = GLUBED) 115 MG/DL 70-105 H [id number] 07:32:00* Test Item Value Reference Range Interpretation Comments GLUBED (test code = GLUBED) 119 MG/DL 70-105 H BASIC METABOLIC [id number] 06:03:00* Test Item Value Reference Range Interpretation Comments SODIUM (test code = NA) 134 MMOL/L 136-143 L POTASSIUM (test code = K) 4.4 MMOL/L 3.5-5.1 N CHLORIDE (test code = CL) 100 MMOL/L 98-107 N CARBON DIOXIDE (test code = CO2) 18 mmol/L 24-31 L GLUCOSE (test code = GLU) 119 mg/dL 70-104 H BLOOD UREA NITROGEN (test code = BUN) 41.7 MG/DL 7.0-21.0 H GLOMERULAR FILTRATION RATE (test code = GFR) 11 >60 L The estimated glomerular filtration rate is computed usingpatient race, age (>18), sex, and serum creatinine. If anyof the needed data elements are missing the Laboratory cannot compute an estimation of the glomerular filtration rate. CREATININE (test code = CREAT) 4.5 mg/dL 0.8-1.5 H CALCIUM (test code = CA) 7.8 mg/dL 8.8-10.2 L CBC W/AUTO [id number] 05:37:00* Test Item Value Reference Range Interpretation Comments WHITE BLOOD CELL (test code = WBC) 4.4 x10 3/uL 4.8-10.8 L RED BLOOD CELL (test code = RBC) 3.44 x10 6/uL 4.20-5.40 L HEMOGLOBIN (test code = HGB) 9.8 g/dL 14.5-20 L HEMATOCRIT (test code = HCT) 30.1 % 37.0-47.0 L MEAN CELL VOLUME (test code = MCV) 87.5 fL 81.0-99.0 N MEAN CELL HGB (test code = MCH) 28.5 pg 27-31 N MEAN CELL HGB CONCENTRATION (test code = MCHC) 32.6 G/DL 33-36.5 L RED CELL DISTRIBUTION WIDTH (test code = RDW) 14.0 % 12.9-16. 9 N PLATELET COUNT (test code = PLT) 235 150-440 N MEAN PLATELET VOLUME (test code = MPV) 10.9 fL 8.9-12.4 N NEUTROPHIL % (test code = NT%) 43.1 % 42.2-75.2 N LYMPHOCYTE % (test code = LY%) 40.5 % 20.5-51.1 N MONOCYTE % (test code = MO%) 8.2 % 1.7-9.3 N EOSINOPHIL % (test code = EO%) 7.3 % 0.0-7.0 H BASOPHIL % (test code = BA%) 0.7 % 0-2.5 N NEUTROPHIL # (test code = NT#) 1.90 x10 3/uL 1.80-7.70 N LYMPHOCYTE # (test code = LY#) 1.78 x10 3/uL 1.00-4.80 N MONOCYTE # (test code = MO#) 0.36 x10 3/uL 0.00-0.80 N EOSINOPHIL # (test code = EO#) 0.32 x10 3/uL 0.00-0.45 N BASOPHIL # (test code = BA#) 0.03 x10 3/uL 0.0-0.20 N - US CHST W/[id number] 16:48:00Patient Name: TRINH RICHTER Unit No: [id number] EXAMS: CPT [facility]: [id number] [facility] [address] CLINICAL HISTORY: Please assess pleural effusion volume TECHNIQUE: Real-time sonographic evaluation of the thorax was performed for evaluation for pleural effusion. Comparison: Chest films of 01/11/2019 reviewed LOCATION: W1 FINDINGS: Small to moderate size, free-flowing bilateral pleural effusions are identified. IMPRESSION: Small to moderate size bilateral pleural effusions noted. at 2406 Reported and signed by: Kulwant Reed MD CC: Daniel Granados MD; Deloris Hays MD; Sarthak Hyde MD Technologist: Ramila Ritter Probe: Trscr Dt/Tm: 01/11/2019 (9807) by:[email or web address] Printed Date/Time: 01/11/2019 (5884) Name: TRINH RICHTER [facility] Phys: Deloris Seo MD [address] : 1970 Age: 48 Sex: [place] [address] Loc: P.0213 1 Exam Date: 01/11/2019 Status: ADM IN PH: FAX: PAGE 1 Signed Report B-TYPE NATRIURETIC [id number] 16:14:00* Test Item Value Reference Range Interpretation Comments B-TYPE NATRIURETIC PEPTIDE (test code = BNP) > 5000 PG/ML 0-100 H [id number] 12:48:00* Test Item Value Reference Range Interpretation Comments GLUBED (test code = GLUBED) 154 MG/DL 70-105 H - XR CHEST 2 [id number] 10:27:00Patient Name: TRINH RICHTER Unit No: [id number] EXAMS: CPT CODE: [id number] XR CHEST 2 V 33864 Location of dictation: B2 Chest 2 views. HISTORY:Pleural effusion COMMENT: Compared to earlier study the same day. The heart is enlarged but stable. There is improved aeration of the lungs with slight decreased pulmonary edema pattern. Pleural effusions may have also decreased for at least are more dependent rather than layering. No new consolidation or pneumothorax seen. No other changes are noted. IMPRESSION: Improving CHF and slight decreased pleural effusions. at 1027 Reported and signed by: Molly Rosa M.D. CC: Daniel Granados MD; Deloris Hays MD; Sarthak Hyde MD Technologist: Harsh Ang Time: DAP (Gy m2): Air Kerma (mGy): Trscr Dt/Tm: 01/11/2019 (1027) by:CastilloPXC Printed Date/Time: 01/11/2019 (1030) Name: TRINH RICHTER [facility] Phys: Deloris Seo MD [address] : 1970 Age: 48 Sex: [place] [address] Loc: P.0612 1 Exam Date: 01/11/2019 Status: ADM IN PH: FAX: PAGE 1 Signed Report [id number] 08:43:00* Test Item Value Reference Range Interpretation Comments GLUBED (test code = GLUBED) 115 MG/DL 70-105 H - XR CHEST 1 [id number] 07:50:00Patient Name: TRINH RICHTER Unit No: [id number] EXAMS: CPT CODE: [id number] XR CHEST 1 V 74908 Location of dictation: B2 Portable chest one view. HISTORY: Pleural effusion COMMENT: Compared to 01/02/2019. The heart is enlarged. The left heart border is slightly better visualized. There may be improved atelectatic changes but there are more pronounced perihilar infiltrates. Increasing haziness in the chest likely due to layering of effusions which is moderate in degree. Apparent differences in amount of fluid may be due to technique. No pneumothorax is seen. IMPRESSION: Suspect worsening CHF with stable to slight increase pleural effusions. at 0750 Reported and signed by: Molly Rosa M.D. CC: Daniel Granados MD; Fer Chen MD; Sarthak Hyde MD Technologist: Tea Khan Fluoro Time: DAP (Gy m2): Air Kerma (mGy): Trscr Dt/Tm: 01/11/2019 (0750) by:[facility] Printed Date/Time: 01/11/2019 (0754) Name: TRINH RICHTER [facility] Phys: Fer Llamas MD [address] : 1970 Age: 48 Sex: F [place] [address] Loc: P.0612 1 Exam Date: 01/11/2019 Status: ADM IN PH: FAX: PAGE 1 Signed Report CBC W/AUTO [id number] 06:42:00 * Test Item Value Reference Range Interpretation Comments WHITE BLOOD CELL (test code = WBC) 4.4 x10 3/uL 4.8-10.8 L RED BLOOD CELL (test code = RBC) 3.57 x10 6/uL 4.20-5.40 L HEMOGLOBIN (test code = HGB) 10.0 g/dL 14.5-20 L HEMATOCRIT (test code = HCT) 31.7 % 37.0-47.0 L MEAN CELL VOLUME (test code = MCV) 88.8 fL 81.0-99.0 N MEAN CELL HGB (test code = MCH) 28.0 pg 27-31 N MEAN CELL HGB CONCENTRATION (test code = MCHC) 31.5 G/DL 33-36.5 L RED CELL DISTRIBUTION WIDTH (test code = RDW) 14.4 % 12.9-16. 9 N PLATELET COUNT (test code = PLT) 212 150-440 N MEAN PLATELET VOLUME (test code = MPV) 11.0 fL 8.9-12.4 N NEUTROPHIL % (test code = NT%) 39.4 % 42.2-75.2 L LYMPHOCYTE % (test code = LY%) 40.6 % 20.5-51.1 N MONOCYTE % (test code = MO%) 9.4 % 1.7-9.3 H EOSINOPHIL % (test code = EO%) 9.9 % 0.0-7.0 H BASOPHIL % (test code = BA%) 0.5 % 0-2.5 N NEUTROPHIL # (test code = NT#) 1.72 x10 3/uL 1.80-7.70 L LYMPHOCYTE # (test code = LY#) 1.77 x10 3/uL 1.00-4.80 N MONOCYTE # (test code = MO#) 0.41 x10 3/uL 0.00-0.80 N EOSINOPHIL # (test code = EO#) 0.43 x10 3/uL 0.00-0.45 N BASOPHIL # (test code = BA#) 0.02 x10 3/uL 0.0-0.20 N BASIC METABOLIC [id number] 06:34:00* Test Item Value Reference Range Interpretation Comments SODIUM (test code = NA) 134 MMOL/L 136-143 L POTASSIUM (test code = K) 4.4 MMOL/L 3.5-5.1 N CHLORIDE (test code = CL) 100 MMOL/L 98-107 N CARBON DIOXIDE (test code = CO2) 18 mmol/L 24-31 L GLUCOSE (test code = GLU) 126 mg/dL 70-104 H BLOOD UREA NITROGEN (test code = BUN) 37.9 MG/DL 7.0-21.0 H GLOMERULAR FILTRATION RATE (test code = GFR) 13 >60 L The estimated glomerular filtration rate is computed usingpatient race, age (>18), sex, and serum creatinine. If anyof the needed data elements are missing the Laboratory cannot compute an estimation of the glomerular filtration rate. CREATININE (test code = CREAT) 4.0 mg/dL 0.8-1.5 H CALCIUM (test code = CA) 7.9 mg/dL 8.8-10.2 L [id number] 17:09:00* Test Item Value Reference Range Interpretation Comments GLUBED (test code = GLUBED) 114 MG/DL 70-105 H [id number] 14:17:00* Test Item Value Reference Range Interpretation Comments GLUBED (test code = GLUBED) 162 MG/DL 70-105 H [id number] 14:12:00* Test Item Value Reference Range Interpretation Comments GLUBED (test code = GLUBED) 130 MG/DL 70-105 H CBC W/AUTO [id number] 05:07:00* Test Item Value Reference Range Interpretation Comments WHITE BLOOD CELL (test code = WBC) 3.6 x10 3/uL 4.8-10.8 L RED BLOOD CELL (test code = RBC) 3.57 x10 6/uL 4.20-5.40 L HEMOGLOBIN (test code = HGB) 10.2 g/dL 14.5-20 L HEMATOCRIT (test code = HCT) 31.8 % 37.0-47.0 L MEAN CELL VOLUME (test code = MCV) 89.1 fL 81.0-99.0 N MEAN CELL HGB (test code = MCH) 28.6 pg 27-31 N MEAN CELL HGB CONCENTRATION (test code = MCHC) 32.1 G/DL 33-36.5 L RED CELL DISTRIBUTION WIDTH (test code = RDW) 14.6 % 12.9-16. 9 N PLATELET COUNT (test code = PLT) 226 150-440 N MEAN PLATELET VOLUME (test code = MPV) 10.6 fL 8.9-12.4 N NEUTROPHIL % (test code = NT%) 37.3 % 42.2-75.2 L LYMPHOCYTE % (test code = LY%) 40.4 % 20.5-51.1 N MONOCYTE % (test code = MO%) 10.7 % 1.7-9.3 H EOSINOPHIL % (test code = EO%) 11.0 % 0.0-7.0 H BASOPHIL % (test code = BA%) 0.3 % 0-2.5 N NEUTROPHIL # (test code = NT#) 1.33 x10 3/uL 1.80-7.70 L LYMPHOCYTE # (test code = LY#) 1.44 x10 3/uL 1.00-4.80 N MONOCYTE # (test code = MO#) 0.38 x10 3/uL 0.00-0.80 N EOSINOPHIL # (test code = EO#) 0.39 x10 3/uL 0.00-0.45 N BASOPHIL # (test code = BA#) 0.01 x10 3/uL 0.0-0.20 N BASIC METABOLIC [id number] 04:52:00* Test Item Value Reference Range Interpretation Comments SODIUM (test code = NA) 135 MMOL/L 136-143 L POTASSIUM (test code = K) 4.5 MMOL/L 3.5-5.1 N CHLORIDE (test code = CL) 102 MMOL/L 98-107 N CARBON DIOXIDE (test code = CO2) 19 mmol/L 24-31 L GLUCOSE (test code = GLU) 156 mg/dL 70-104 H BLOOD UREA NITROGEN (test code = BUN) 36.0 MG/DL 7.0-21.0 H GLOMERULAR FILTRATION RATE (test code = GFR) 16 >60 L The estimated glomerular filtration rate is computed usingpatient race, age (>18), sex, and serum creatinine. If anyof the needed data elements are missing the Laboratory cannot compute an estimation of the glomerular filtration rate. CREATININE (test code = CREAT) 3.2 mg/dL 0.8-1.5 H CALCIUM (test code = CA) 7.9 mg/dL 8.8-10.2 L [id number] 20:36:00* Test Item Value Reference Range Interpretation Comments GLUBED (test code = GLUBED) 189 MG/DL 70-105 H [id number] 17:45:00* Test Item Value Reference Range Interpretation Comments GLUBED (test code = GLUBED) 122 MG/DL 70-105 H [id number] 12:28:00* Test Item Value Reference Range Interpretation Comments GLUBED (test code = GLUBED) 135 MG/DL 70-105 H COAGULATION TIME [id number] 09:48:00* Test Item Value Reference Range Interpretation Comments COAGULATION TIME ACTIVATED (test code = ACT) 219 SECONDS 74-137 H [id number] 08:35:00* Test Item Value Reference Range Interpretation Comments GLUBED (test code = GLUBED) 137 MG/DL 70-105 H [id number] 21:03:00* Test Item Value Reference Range Interpretation Comments GLUBED (test code = GLUBED) 112 MG/DL 70-105 H [id number] 16:59:00* Test Item Value Reference Range Interpretation Comments GLUBED (test code = GLUBED) 156 MG/DL 70-105 H [id number] 15:46:00* Test Item Value Reference Range Interpretation Comments TROPONIN-I (test code = TROPI) < 0.30 ng/mL 0.00-0.30 N INTERPRETATIVE DATA:Negative or inconclusive reuslts do not exclude myocardialinfarction. Serial tests at appropriate intervals may benecessary. [id number] 15:14:00* Test Item Value Reference Range Interpretation Comments GLUBED (test code = GLUBED) 119 MG/DL 70-105 H [id number] 12:16:00* Test Item Value Reference Range Interpretation Comments GLUBED (test code = GLUBED) 129 MG/DL 70-105 H [id number] 11:00:00* Test Item Value Reference Range Interpretation Comments GLUBED (test code = GLUBED) 90 MG/DL 70-105 N RENAL FUNCTION [id number] 06:47:00* Test Item Value Reference Range Interpretation Comments SODIUM (test code = NA) 136 MMOL/L 136-143 N POTASSIUM (test code = K) 4.2 MMOL/L 3.5-5.1 N CHLORIDE (test code = CL) 102 MMOL/L 98-107 N CARBON DIOXIDE (test code = CO2) 17 mmol/L 24-31 L GLUCOSE (test code = GLU) 82 mg/dL 70-104 N BLOOD UREA NITROGEN (test code = BUN) 30.3 MG/DL 7.0-21.0 H GLOMERULAR FILTRATION RATE (test code = GFR) 19 >60 L The estimated glomerular filtration rate is computed usingpatient race, age (>18), sex, and serum creatinine. If anyof the needed data elements are missing the Laboratory cannot compute an estimation of the glomerular filtration rate. CREATININE (test code = CREAT) 2.8 mg/dL 0.8-1.5 H ALBUMIN (test code = ALB) 3.1 G/DL 3.5-5.0 L CALCIUM (test code = CA) 8.3 mg/dL 8.8-10.2 L PHOSPHOROUS (test code = PHOS) 4.3 mg/dL 2.7-4.5 N BASIC METABOLIC [id number] 06:42:00* Test Item Value Reference Range Interpretation Comments SODIUM (test code = NA) 136 MMOL/L 136-143 N POTASSIUM (test code = K) 4.2 MMOL/L 3.5-5.1 N CHLORIDE (test code = CL) 102 MMOL/L 98-107 N CARBON DIOXIDE (test code = CO2) 17 mmol/L 24-31 L GLUCOSE (test code = GLU) 79 mg/dL 70-104 N BLOOD UREA NITROGEN (test code = BUN) 29.9 MG/DL 7.0-21.0 H GLOMERULAR FILTRATION RATE (test code = GFR) 20 >60 L The estimated glomerular filtration rate is computed usingpatient race, age (>18), sex, and serum creatinine. If anyof the needed data elements are missing the Laboratory cannot compute an estimation of the glomerular filtration rate. CREATININE (test code = CREAT) 2.7 mg/dL 0.8-1.5 H CALCIUM (test code = CA) 8.4 mg/dL 8.8-10.2 L CBC W/AUTO [id number] 05:59:00* Test Item Value Reference Range Interpretation Comments WHITE BLOOD CELL (test code = WBC) 3.0 x10 3/uL 4.8-10.8 L RED BLOOD CELL (test code = RBC) 3.97 x10 6/uL 4.20-5.40 L HEMOGLOBIN (test code = HGB) 11.3 g/dL 14.5-20 L HEMATOCRIT (test code = HCT) 35.8 % 37.0-47.0 L MEAN CELL VOLUME (test code = MCV) 90.2 fL 81.0-99.0 N MEAN CELL HGB (test code = MCH) 28.5 pg 27-31 N MEAN CELL HGB CONCENTRATION (test code = MCHC) 31.6 G/DL 33-36.5 L RED CELL DISTRIBUTION WIDTH (test code = RDW) 14.3 % 12.9-16. 9 N PLATELET COUNT (test code = PLT) 255 150-440 N MEAN PLATELET VOLUME (test code = MPV) 10.8 fL 8.9-12.4 N NEUTROPHIL % (test code = NT%) 58.4 % 42.2-75.2 N LYMPHOCYTE % (test code = LY%) 25.8 % 20.5-51.1 N MONOCYTE % (test code = MO%) 8.4 % 1.7-9.3 N EOSINOPHIL % (test code = EO%) 6.4 % 0.0-7.0 N BASOPHIL % (test code = BA%) 0.7 % 0-2.5 N NEUTROPHIL # (test code = NT#) 1.74 x10 3/uL 1.80-7.70 L LYMPHOCYTE # (test code = LY#) 0.77 x10 3/uL 1.00-4.80 L MONOCYTE # (test code = MO#) 0.25 x10 3/uL 0.00-0.80 N EOSINOPHIL # (test code = EO#) 0.19 x10 3/uL 0.00-0.45 N BASOPHIL # (test code = BA#) 0.02 x10 3/uL 0.0-0.20 N [id number] 04:20:00* Test Item Value Reference Range Interpretation Comments GLUBED (test code = GLUBED) 210 MG/DL 70-105 H [id number] 16:57:00* Test Item Value Reference Range Interpretation Comments GLUBED (test code = GLUBED) 142 MG/DL 70-105 H [id number] 12:56:00* Test Item Value Reference Range Interpretation Comments GLUBED (test code = GLUBED) 147 MG/DL 70-105 H [id number] 08:38:00* Test Item Value Reference Range Interpretation Comments GLUBED (test code = GLUBED) 99 MG/DL 70-105 N BASIC METABOLIC [id number] 06:04:00* Test Item Value Reference Range Interpretation Comments SODIUM (test code = NA) 136 MMOL/L 136-143 N POTASSIUM (test code = K) 3.9 MMOL/L 3.5-5.1 N CHLORIDE (test code = CL) 104 MMOL/L 98-107 N CARBON DIOXIDE (test code = CO2) 19 mmol/L 24-31 L GLUCOSE (test code = GLU) 106 mg/dL 70-104 H BLOOD UREA NITROGEN (test code = BUN) 27.8 MG/DL 7.0-21.0 H GLOMERULAR FILTRATION RATE (test code = GFR) 25 >60 L The estimated glomerular filtration rate is computed usingpatient race, age (>18), sex, and serum creatinine. If anyof the needed data elements are missing the Laboratory cannot compute an estimation of the glomerular filtration rate. CREATININE (test code = CREAT) 2.2 mg/dL 0.8-1.5 H CALCIUM (test code = CA) 8.5 mg/dL 8.8-10.2 L CBC W/AUTO [id number] 05:39:00* Test Item Value Reference Range Interpretation Comments WHITE BLOOD CELL (test code = WBC) 3.1 x10 3/uL 4.8-10.8 L RED BLOOD CELL (test code = RBC) 3.72 x10 6/uL 4.20-5.40 L HEMOGLOBIN (test code = HGB) 10.6 g/dL 14.5-20 L HEMATOCRIT (test code = HCT) 33.2 % 37.0-47.0 L MEAN CELL VOLUME (test code = MCV) 89.2 fL 81.0-99.0 N MEAN CELL HGB (test code = MCH) 28.5 pg 27-31 N MEAN CELL HGB CONCENTRATION (test code = MCHC) 31.9 G/DL 33-36.5 L RED CELL DISTRIBUTION WIDTH (test code = RDW) 13.9 % 12.9-16. 9 N PLATELET COUNT (test code = PLT) 264 150-440 N MEAN PLATELET VOLUME (test code = MPV) 11.2 fL 8.9-12.4 N NEUTROPHIL % (test code = NT%) 71.6 % 42.2-75.2 N LYMPHOCYTE % (test code = LY%) 18.4 % 20.5-51.1 L MONOCYTE % (test code = MO%) 6.8 % 1.7-9.3 N EOSINOPHIL % (test code = EO%) 2.6 % 0.0-7.0 N BASOPHIL % (test code = BA%) 0.6 % 0-2.5 N NEUTROPHIL # (test code = NT#) 2.22 x10 3/uL 1.80-7.70 N LYMPHOCYTE # (test code = LY#) 0.57 x10 3/uL 1.00-4.80 L MONOCYTE # (test code = MO#) 0.21 x10 3/uL 0.00-0.80 N EOSINOPHIL # (test code = EO#) 0.08 x10 3/uL 0.00-0.45 N BASOPHIL # (test code = BA#) 0.02 x10 3/uL 0.0-0.20 N [id number] 20:52:00* Test Item Value Reference Range Interpretation Comments GLUBED (test code = GLUBED) 153 MG/DL 70-105 H [id number] 17:18:00* Test Item Value Reference Range Interpretation Comments GLUBED (test code = GLUBED) 136 MG/DL 70-105 H [id number] 11:10:00* Test Item Value Reference Range Interpretation Comments GLUBED (test code = GLUBED) 122 MG/DL 70-105 H [id number] 07:39:00* Test Item Value Reference Range Interpretation Comments GLUBED (test code = GLUBED) 107 MG/DL 70-105 H [id number] 07:21:00* Test Item Value Reference Range Interpretation Comments GLUBED (test code = GLUBED) 146 MG/DL 70-105 H BASIC METABOLIC [id number] 06:44:00* Test Item Value Reference Range Interpretation Comments SODIUM (test code = NA) 141 MMOL/L 136-143 N POTASSIUM (test code = K) 4.3 MMOL/L 3.5-5.1 N CHLORIDE (test code = CL) 108 MMOL/L 98-107 H CARBON DIOXIDE (test code = CO2) 22 mmol/L 24-31 L GLUCOSE (test code = GLU) 135 mg/dL 70-104 H BLOOD UREA NITROGEN (test code = BUN) 28.8 MG/DL 7.0-21.0 H GLOMERULAR FILTRATION RATE (test code = GFR) 23 >60 L The estimated glomerular filtration rate is computed usingpatient race, age (>18), sex, and serum creatinine. If anyof the needed data elements are missing the Laboratory cannot compute an estimation of the glomerular filtration rate. CREATININE (test code = CREAT) 2.4 mg/dL 0.8-1.5 H CALCIUM (test code = CA) 7.8 mg/dL 8.8-10.2 L CBC W/AUTO [id number] 05:26:00* Test Item Value Reference Range Interpretation Comments WHITE BLOOD CELL (test code = WBC) 4.8 x10 3/uL 4.8-10.8 N RED BLOOD CELL (test code = RBC) 3.89 x10 6/uL 4.20-5.40 L HEMOGLOBIN (test code = HGB) 11.0 g/dL 14.5-20 L HEMATOCRIT (test code = HCT) 34.7 % 37.0-47.0 L MEAN CELL VOLUME (test code = MCV) 89.2 fL 81.0-99.0 N MEAN CELL HGB (test code = MCH) 28.3 pg 27-31 N MEAN CELL HGB CONCENTRATION (test code = MCHC) 31.7 G/DL 33-36.5 L RED CELL DISTRIBUTION WIDTH (test code = RDW) 13.4 % 12.9-16. 9 N PLATELET COUNT (test code = PLT) 306 150-440 N MEAN PLATELET VOLUME (test code = MPV) 10.7 fL 8.9-12.4 N NEUTROPHIL % (test code = NT%) 51.9 % 42.2-75.2 N LYMPHOCYTE % (test code = LY%) 27.5 % 20.5-51.1 N MONOCYTE % (test code = MO%) 9.5 % 1.7-9.3 H EOSINOPHIL % (test code = EO%) 9.7 % 0.0-7.0 H BASOPHIL % (test code = BA%) 1.2 % 0-2.5 N NEUTROPHIL # (test code = NT#) 2.51 x10 3/uL 1.80-7.70 N LYMPHOCYTE # (test code = LY#) 1.33 x10 3/uL 1.00-4.80 N MONOCYTE # (test code = MO#) 0.46 x10 3/uL 0.00-0.80 N EOSINOPHIL # (test code = EO#) 0.47 x10 3/uL 0.00-0.45 H BASOPHIL # (test code = BA#) 0.06 x10 3/uL 0.0-0.20 N [id number] 20:39:00* Test Item Value Reference Range Interpretation Comments GLUBED (test code = GLUBED) 176 MG/DL 70-105 H [id number] 16:45:00* Test Item Value Reference Range Interpretation Comments GLUBED (test code = GLUBED) 111 MG/DL 70-105 H [id number] 11:27:00* Test Item Value Reference Range Interpretation Comments GLUBED (test code = GLUBED) 111 MG/DL 70-105 H CBC W/AUTO [id number] 07:33:00* Test Item Value Reference Range Interpretation Comments WHITE BLOOD CELL (test code = WBC) 4.2 x10 3/uL 4.8-10.8 L RED BLOOD CELL (test code = RBC) 3.89 x10 6/uL 4.20-5.40 L HEMOGLOBIN (test code = HGB) 11.2 g/dL 14.5-20 L HEMATOCRIT (test code = HCT) 34.9 % 37.0-47.0 L MEAN CELL VOLUME (test code = MCV) 89.7 fL 81.0-99.0 N MEAN CELL HGB (test code = MCH) 28.8 pg 27-31 N MEAN CELL HGB CONCENTRATION (test code = MCHC) 32.1 G/DL 33-36.5 L RED CELL DISTRIBUTION WIDTH (test code = RDW) 13.4 % 12.9-16. 9 N PLATELET COUNT (test code = PLT) 312 150-440 N MEAN PLATELET VOLUME (test code = MPV) 11.2 fL 8.9-12.4 N NEUTROPHIL % (test code = NT%) 31.9 % 42.2-75.2 L LYMPHOCYTE % (test code = LY%) 46.9 % 20.5-51.1 N MONOCYTE % (test code = MO%) 8.5 % 1.7-9.3 N EOSINOPHIL % (test code = EO%) 10.8 % 0.0-7.0 H BASOPHIL % (test code = BA%) 1.7 % 0-2.5 N NEUTROPHIL # (test code = NT#) 1.35 x10 3/uL 1.80-7.70 L LYMPHOCYTE # (test code = LY#) 1.99 x10 3/uL 1.00-4.80 N MONOCYTE # (test code = MO#) 0.36 x10 3/uL 0.00-0.80 N EOSINOPHIL # (test code = EO#) 0.46 x10 3/uL 0.00-0.45 H BASOPHIL # (test code = BA#) 0.07 x10 3/uL 0.0-0.20 N [id number] 07:29:00* Test Item Value Reference Range Interpretation Comments GLUBED (test code = GLUBED) 83 MG/DL 70-105 N BASIC METABOLIC [id number] 06:32:00* Test Item Value Reference Range Interpretation Comments SODIUM (test code = NA) 144 MMOL/L 136-143 H POTASSIUM (test code = K) 4.5 MMOL/L 3.5-5.1 N CHLORIDE (test code = CL) 111 MMOL/L 98-107 H CARBON DIOXIDE (test code = CO2) 21 mmol/L 24-31 L GLUCOSE (test code = GLU) 92 mg/dL 70-104 N BLOOD UREA NITROGEN (test code = BUN) 30.5 MG/DL 7.0-21.0 H GLOMERULAR FILTRATION RATE (test code = GFR) 22 >60 L The estimated glomerular filtration rate is computed usingpatient race, age (>18), sex, and serum creatinine. If anyof the needed data elements are missing the Laboratory cannot compute an estimation of the glomerular filtration rate. CREATININE (test code = CREAT) 2.5 mg/dL 0.8-1.5 H CALCIUM (test code = CA) 8.1 mg/dL 8.8-10.2 L [id number] 20:10:00* Test Item Value Reference Range Interpretation Comments GLUBED (test code = GLUBED) 110 MG/DL 70-105 H [id number] 13:44:00* Test Item Value Reference Range Interpretation Comments GLUBED (test code = GLUBED) 116 MG/DL 70-105 H - NM MYOCRD SPECT R/S [id number] 08:29:00Patient Name: TRINH RICHTER Unit No: [id number] EXAMS: CPT CODE: [id number] NM MYOCRD SPECT R/S MULT 63326 Lexiscan nuclear stress test report. Procedure The patient was brought to the stress lab in the resting and fasting state. Informed consent was obtained. Patient was given 10 mCi of Cardiolite intravenously. Resting SPECT images were obtained in 3 standard planes. The patient was then given .4 mg of Lexiscan intravenously over 10 seconds. Within next 30 seconds patient was given 30 mCi of Cardiolite intravenously. All electrocardiogram were reviewed by supervising physician Dr. Ely. Stress SPECT images were then obtained in 3 standard planes. FINDINGS: On comparison of the SPECT CONCLUSION: There is a large area of decreased perfusion during the pharmacological stress phase in the anteroseptal and inferior wall with significant improvement during the resting phase. Calculated LVEF 25%. at 0829 Reported and signed by: ARIK ELY MD CC: Daniel Granados MD; Sarthak Hyde MD; Arik Ely MD Technologist: [facility] Trscr Dt/Tm: 01/04/2019 (082 9) by:CastilloMPS Printed Date/Time: 01/04/2019 (8132) Name: TRINH RICHTER [facility] Phys: RA.Cam Arik Ely [address] : 1970 Age: 48 Sex: F [place], [place] [address] [id number] Loc: P.0612 1 Exam Date: 01/03/2019 Status: ADM IN PH: FAX: PAGE 1 Signed Report [id number] 08:16:00* Test Item Value Reference Range Interpretation Comments GLUBED (test code = GLUBED) 82 MG/DL 70-105 N BASIC METABOLIC [id number] 06:27:00* Test Item Value Reference Range Interpretation Comments SODIUM (test code = NA) 143 MMOL/L 136-143 N POTASSIUM (test code = K) 4.5 MMOL/L 3.5-5.1 N CHLORIDE (test code = CL) 111 MMOL/L 98-107 H CARBON DIOXIDE (test code = CO2) 19 mmol/L 24-31 L GLUCOSE (test code = GLU) 81 mg/dL 70-104 N BLOOD UREA NITROGEN (test code = BUN) 32.4 MG/DL 7.0-21.0 H GLOMERULAR FILTRATION RATE (test code = GFR) 23 >60 L The estimated glomerular filtration rate is computed usingpatient race, age (>18), sex, and serum creatinine. If anyof the needed data elements are missing the Laboratory cannot compute an estimation of the glomerular filtration rate. CREATININE (test code = CREAT) 2.4 mg/dL 0.8-1.5 H CALCIUM (test code = CA) 8.1 mg/dL 8.8-10.2 L CBC W/AUTO [id number] 06:05:00* Test Item Value Reference Range Interpretation Comments WHITE BLOOD CELL (test code = WBC) 3.9 x10 3/uL 4.8-10.8 L RED BLOOD CELL (test code = RBC) 4.19 x10 6/uL 4.20-5.40 L HEMOGLOBIN (test code = HGB) 11.7 g/dL 14.5-20 L HEMATOCRIT (test code = HCT) 37.4 % 37.0-47.0 N MEAN CELL VOLUME (test code = MCV) 89.3 fL 81.0-99.0 N MEAN CELL HGB (test code = MCH) 27.9 pg 27-31 N MEAN CELL HGB CONCENTRATION (test code = MCHC) 31.3 G/DL 33-36.5 L RED CELL DISTRIBUTION WIDTH (test code = RDW) 13.5 % 12.9-16. 9 N PLATELET COUNT (test code = PLT) 297 150-440 N MEAN PLATELET VOLUME (test code = MPV) 11.3 fL 8.9-12.4 N NEUTROPHIL % (test code = NT%) 37.6 % 42.2-75.2 L LYMPHOCYTE % (test code = LY%) 45.2 % 20.5-51.1 N MONOCYTE % (test code = MO%) 7.8 % 1.7-9.3 N EOSINOPHIL % (test code = EO%) 6.8 % 0.0-7.0 N BASOPHIL % (test code = BA%) 2.1 % 0-2.5 N NEUTROPHIL # (test code = NT#) 1.45 x10 3/uL 1.80-7.70 L LYMPHOCYTE # (test code = LY#) 1.74 x10 3/uL 1.00-4.80 N MONOCYTE # (test code = MO#) 0.30 x10 3/uL 0.00-0.80 N EOSINOPHIL # (test code = EO#) 0.26 x10 3/uL 0.00-0.45 N BASOPHIL # (test code = BA#) 0.08 x10 3/uL 0.0-0.20 N [id number] 05:48:00* Test Item Value Reference Range Interpretation Comments GLUBED (test code = GLUBED) 75 MG/DL 70-105 N [id number] 23:56:00* Test Item Value Reference Range Interpretation Comments GLUBED (test code = GLUBED) 82 MG/DL 70-105 N [id number] 17:09:00* Test Item Value Reference Range Interpretation Comments GLUBED (test code = GLUBED) 147 MG/DL 70-105 H - CT CHEST W/O [id number] 14:47:00Patient Name: TRINH RICHTER Unit No: [id number] EXAMS: CPT CODE: [id number] CT CHEST W/O CONTRAST 07189 Indication: chf TECHNIQUE: CT of the chest is obtained without intravenous contrast. Addition, high resolution 1 mm slice thickness chest images were also obtained. Sagittal and coronal reconstruction images were obtained and viewed. COMPARISON: Chest films of 01/12/[address] Dose: 436 mGy-centimeters LOCATION: W1 FINDINGS: Moderate bilateral pleural effusions, worse in the right. The heart is mildly enlarged. Patchy bilateral lower lung, right middle lobe and lingular consolidation present. No suspicious pulmonary mass is identified. There is no apparent pneumothorax. No suspicious mediastinal mass is identified. The visualized thyroid gland is unremarkable. No supraclavicular lymphadenopathy noted. No significant axillary lymphadenopathy found. Mild atherosclerotic changes are seen in the thoracic aorta without apparent aneurysm. The visualized upper abdominal structures are unremarkable. The osseous structures are grossly intact. IMPRESSION: 1. Moderate bilateral pleural effusions, worse in the right. Patchy bibasilar, middle lobe and lingular consolidation noted. Consider multifocal pneumonia. at 3244 Reported and signed by: Kulwant dawson MD CC: Daniel Granados MD; Sarthak Hyde MD Technol ogist: Bailey Salcido CTDI: 14. 33 DLP: 436 Trscr Dt/Tm: 01/03/2019 (8372) by:CastilloNAB2 Printed Date/Time: 01/03/2019 (5176) Name: Pamella RICHTER [facility] Phys: YUMI.[email or web address] - Sarthak Toney i, MD [address] : 1970 Age: 48 Sex: F [place] [address] Loc: P.0612 1 Exam Date: 01/03/2019 Status: ADM IN PH: FAX: PAGE 1 Signed Report - US RETRO [id number] 14:10:00Patient Name: TRINH RICHTER Unit No: [id number] EXAMS: CPT CODE: [id number] US RETRO LTD 33566 CLINICAL HISTORY: JENNIEFR Comparison: None Location: W1 TECHNIQUE: Realtime live scale and color doppler imaging of the kidneys performed. FINDINGS: The kidneys are normal in size but mildly increased echogenicity. The right kidney measures 10.5 x 4.2 x 5.3 cm. The left kidney measures 9.8 x 5.1 x 4.7 cm. No renal mass, hydronephrosis, or shadowing calculus is seen. The urinary bladder is unremarkable. Bilateral ureteral jets are visible. IMPRESSION: 1. Increased echogenicity of kidneys consistent with medical renal disease. Elec tronically Signed by Kulwant Reed MD on 01/03/2019 at 1410 Reported and signed by: Kulwant Reed MD CC: Daniel Granados MD; Sarthak Hyde MD Technologist: Israel Hartley Probe: Trscr Dt/Tm: 08/2018 (1410) by:[email or web address] Printed Date/Time: 01/04/20 19 (1413) Name: TRINH RICHTER [facility] Phys: [facility] - Sarthak Hyde MD [address] : 1970 Age: 48 Sex: [place] [address] Loc: P.0612 1 Exam Date: 01/03/2019 Status: ADM IN PH: FAX: PAGE 1 Signed Report GLUBED 2019-01-03 11:54:00* Test Item Value Reference Range Interpretation Comments GLUBED (test code = GLUBED) 116 MG/DL 70-105 H BNP [id number] 11:20:00* Test Item Value Reference Range Interpretation Comments BNP RAPID (test code = BNPRAPID) >5000 pg/mL 0-100.0 H B-TYPE NATRIURETIC [id number] 10:09:00* Test Item Value Reference Range Interpretation Comments B-TYPE NATRIURETIC PEPTIDE (test code = BNP) > 5000 PG/ML 0-100 H [id number] 04:54:00* Test Item Value Reference Range Interpretation Comments GLUBED (test code = GLUBED) 126 MG/DL 70-105 H [id number] 02:44:00* Test Item Value Reference Range Interpretation Comments TROPONIN-I (test code = TROPI) < 0.30 ng/mL 0.00-0.30 N INTERPRETATIVE DATA:Negative or inconclusive reuslts do not exclude myocardialinfarction. Serial tests at appropriate intervals may benecessary. BASIC METABOLIC [id number] 02:44:00* Test Item Value Reference Range Interpretation Comments SODIUM (test code = NA) 138 MMOL/L 136-143 N POTASSIUM (test code = K) 4.2 MMOL/L 3.5-5.1 N CHLORIDE (test code = CL) 107 MMOL/L 98-107 N CARBON DIOXIDE (test code = CO2) 18 mmol/L 24-31 L GLUCOSE (test code = GLU) 145 mg/dL 70-104 H BLOOD UREA NITROGEN (test code = BUN) 36.8 MG/DL 7.0-21.0 H GLOMERULAR FILTRATION RATE (test code = GFR) 21 >60 L The estimated glomerular filtration rate is computed usingpatient race, age (>18), sex, and serum creatinine. If anyof the needed data elements are missing the Laboratory cannot compute an estimation of the glomerular filtration rate. CREATININE (test code = CREAT) 2.6 mg/dL 0.8-1.5 H CALCIUM (test code = CA) 8.2 mg/dL 8.8-10.2 L CBC W/AUTO [id number] 02:30:00* Test Item Value Reference Range Interpretation Comments WHITE BLOOD CELL (test code = WBC) 4.0 x10 3/uL 4.8-10.8 L RED BLOOD CELL (test code = RBC) 3.97 x10 6/uL 4.20-5.40 L HEMOGLOBIN (test code = HGB) 11.2 g/dL 14.5-20 L HEMATOCRIT (test code = HCT) 34.9 % 37.0-47.0 L MEAN CELL VOLUME (test code = MCV) 87.9 fL 81.0-99.0 N MEAN CELL HGB (test code = MCH) 28.2 pg 27-31 N MEAN CELL HGB CONCENTRATION (test code = MCHC) 32.1 G/DL 33-36.5 L RED CELL DISTRIBUTION WIDTH (test code = RDW) 13.4 % 12.9-16. 9 N PLATELET COUNT (test code = PLT) 309 150-440 N MEAN PLATELET VOLUME (test code = MPV) 11.0 fL 8.9-12.4 N NEUTROPHIL % (test code = NT%) 37.2 % 42.2-75.2 L LYMPHOCYTE % (test code = LY%) 46.7 % 20.5-51.1 N MONOCYTE % (test code = MO%) 7.4 % 1.7-9.3 N EOSINOPHIL % (test code = EO%) 6.5 % 0.0-7.0 N BASOPHIL % (test code = BA%) 1.7 % 0-2.5 N NEUTROPHIL # (test code = NT#) 1.50 x10 3/uL 1.80-7.70 L LYMPHOCYTE # (test code = LY#) 1.88 x10 3/uL 1.00-4.80 N MONOCYTE # (test code = MO#) 0.30 x10 3/uL 0.00-0.80 N EOSINOPHIL # (test code = EO#) 0.26 x10 3/uL 0.00-0.45 N BASOPHIL # (test code = BA#) 0.07 x10 3/uL 0.0-0.20 N [id number] 00:10:00* Test Item Value Reference Range Interpretation Comments GLUBED (test code = GLUBED) 140 MG/DL 70-105 H [id number] 23:04:00* Test Item Value Reference Range Interpretation Comments TROPONIN-I (test code = TROPI) < 0.30 ng/mL 0.00-0.30 N INTERPRETATIVE DATA:Negative or inconclusive reuslts do not exclude myocardialinfarction. Serial tests at appropriate intervals may benecessary. [id number] 22:43:00* Test Item Value Reference Range Interpretation Comments GLUBED (test code = GLUBED) 138 MG/DL 70-105 H - XR CHEST 2 [id number] 18:56:00Patient Name: TRINH RICHTER Unit No: [id number] EXAMS: CPT CODE: [id number] XR CHEST 2 V 99889 Chest 2 views Dictation location N 13 Clinical history inpatient with shortness of breath TECHNIQUE: PA and lateral views were obtained. There is no prior for comparison. FINDINGS: Bony structures are unremarkable. Aortic, hilar, and cardiac outlines are unremarkable. There is moderate bibasilar interstitial infiltrates with small to moderate bilateral pleural effusions. There is no pneumothorax. IMPRESSION: Moderate bibasilar interstitial infiltrates with small to moderate pleural effusions. Clinical correlation recommended. at 1856 Reported and signed by: JOSÉ MANUEL KENT M.D. CC: Daniel Granados MD; Papo Motta MD Technologist: Ricky Ang Time: DAP (Gy m2): Air Kerma (mGy): Trscr Dt/Tm: 01/02/2019 (1855) by:CastilloMVT Printed Date/Time: 01/02/2019 (1858) Name: TRINH RICHTER [facility] Phys: Papo Martinez [address] : 1970 Age: 48 Sex: F [place] [address] Loc: JARED Cuevas Exam Date: 01/02/2019 Status: ADM IN PH: FAX: PAGE 1 Signed Report [id number] 18:17:00* Test Item Value Reference Range Interpretation Comments TROPONIN-I (test code = TROPI) < 0.30 ng/mL 0.00-0.30 N INTERPRETATIVE DATA:Negative or inconclusive reuslts do not exclude myocardialinfarction. Serial tests at appropriate intervals may benecessary. PROTHROMBIN [id number] 16:52:00* Test Item Value Reference Range Interpretation Comments PROTHROMBIN TIME PATIENT (test code = PTP) 12.2 SECONDS 10.3-12.9 N INTERNATIONAL NORMAL RATIO (test code = INR) 1.05 INR UNIT 0.9-1.11 N The INR is useful only for monitoring anticoagulant therapy.It may be unreliable in the initial phase of antigoagulationand in unstable patients. Indication for Anticoagulation Recommended INR 1. Prevention of venous thomboembolism 2.0-3.0in high-risk patients; treatment of venousthrombosis and pulmonary embolism aftera course of heparin; prevention of systemicembolism in a variety of conditions, including atrial fibrillation and prothetic tissue heart valves, 2. Prosthetic mechanical heart valves; 2.5-3.5recurrent systemic embolism. THROMBOPLASTIN TIME [id number] 16:52:00* Test Item Value Reference Range Interpretation Comments THROMBOPLASTIN TIME PARTIAL (test code = PTT) 35.3 SECONDS 26.0-35. 9 N INTERPRETATIVE DATA:Therapeutic range: Unfractionated heparin:47 - 71 seconds Argatroban:1.5 to 3 times the baseline PTT CBC W/AUTO [id number] 16:47:00* Test Item Value Reference Range Interpretation Comments WHITE BLOOD CELL (test code = WBC) 3.8 x10 3/uL 4.8-10.8 L RED BLOOD CELL (test code = RBC) 4.62 x10 6/uL 4.20-5.40 N HEMOGLOBIN (test code = HGB) 13.0 g/dL 14.5-20 L HEMATOCRIT (test code = HCT) 40.7 % 37.0-47.0 N MEAN CELL VOLUME (test code = MCV) 88.1 fL 81.0-99.0 N MEAN CELL HGB (test code = MCH) 28.1 pg 27-31 N MEAN CELL HGB CONCENTRATION (test code = MCHC) 31.9 G/DL 33-36.5 L RED CELL DISTRIBUTION WIDTH (test code = RDW) 13.6 % 12.9-16. 9 N PLATELET COUNT (test code = PLT) 329 150-440 N MEAN PLATELET VOLUME (test code = MPV) 10.9 fL 8.9-12.4 N NEUTROPHIL % (test code = NT%) 48.9 % 42.2-75.2 N LYMPHOCYTE % (test code = LY%) 40.1 % 20.5-51.1 N MONOCYTE % (test code = MO%) 6.5 % 1.7-9.3 N EOSINOPHIL % (test code = EO%) 2.1 % 0.0-7.0 N BASOPHIL % (test code = BA%) 2.1 % 0-2.5 N NEUTROPHIL # (test code = NT#) 1.88 x10 3/uL 1.80-7.70 N LYMPHOCYTE # (test code = LY#) 1.54 x10 3/uL 1.00-4.80 N MONOCYTE # (test code = MO#) 0.25 x10 3/uL 0.00-0.80 N EOSINOPHIL # (test code = EO#) 0.08 x10 3/uL 0.00-0.45 N BASOPHIL # (test code = BA#) 0.08 x10 3/uL 0.0-0.20 N CHEMISTRY 8 [id number] 16:40:00* Test Item Value Reference Range Interpretation Comments SODIUM POC (test code = NAP) MMOL/L 135-146 N POTASSIUM POC (test code = KP) MMOL/L 3.5-4.9 N CHLORIDE POC (test code = CLP) MMOL/L 98-109 CO2 POC (test code = CO2P) mmol/L 24-29 IONIZED CALCIUM POC (test code = CAIP) mmol/L 1.12-1.32 N GLUCOSE POC (test code = GLUP) mg/dL 70-105 H BUN POC (test code = BUNP) MG/DL 8-26 H CREATININE POC (test code = CREATP) mg/dL 0.6-1.3 HH GLOMERULAR FILTRATION RATE POC (test code = GFRP) 16 51-1 20 L CHEMISTRY 8 [id number] 16:40:00* Test Item Value Reference Range Interpretation Comments SODIUM POC (test code = NAP) 139 MMOL/L 135-146 N POTASSIUM POC (test code = KP) 4.3 MMOL/L 3.5-4.9 N CHLORIDE POC (test code = CLP) 111 MMOL/L 98-109 H CO2 POC (test code = CO2P) 17 mmol/L 24-29 L IONIZED CALCIUM POC (test code = CAIP) 1.19 mmol/L 1.12-1.32 N GLUCOSE POC (test code = GLUP) 161 mg/dL 70-105 H BUN POC (test code = BUNP) 37 MG/DL 8-26 H CREATININE POC (test code = CREATP) 3.1 mg/dL 0.6-1.3 HH GLOMERULAR FILTRATION RATE POC (test code = GFRP) 16 51-1 20 L Mammo Digital Mammography [id number] 16:57:33CLINICAL INDICATION: This is a routine annual screening mammogram. The patient has no complaints.MODALITY: Siemens Inspiration Full Field Digital Mammograph yTECHNIQUE: Digital acquisition of the breasts is performed on the ACR accredi demetrice Full Field Digital Mammography Unit. Computer Assisted Detection (CAD) is th en accomplished using R2 Technology. Imaging of the bilateral breasts is perform ed.FINDINGS:COMPARISON STUDY: NoneThe breasts are heterogeneously dense. This may lower the sensitivity of mammography. There are no suspicious masses, calcif ications or architectural distortion in either breast. There is skin thickening and increased interstitial prominence bilaterally.IMPRESSION:No mammographic rubi dence of malignancy. Skin thickening and increased interstitial prominence bilat erally likely a result of diffuse edema. A common cause of this is central veno us obstruction from multiple prior central lines (i.e. dialysis).RECOMMENDATION: Routine annual screening mammogram in 1 year is recommended.Clinical evaluation /correlation for diffuse breast edema is recommended.Category: BIRADS 2 - Benign . For internal use only N:12Surgical pathology [id number] 14:20:03* Test Item Value Reference Range Interpretation Comments Case number (test code = [id number]) [id number] Surgical pathology report (test code = 2255) See link below for PDF Lab Report Result status (test code = 0690957) This is Final Report for [id number] [facility] [id number] 22:29:47* Test Item Value Reference Range Interpretation Comments POC glucose (test code = 88310-1) 198 mg/dL 65-99 H [facility] Notified RNMeter ID: [id number]: Raul Madera Lab Interpretation (test code = 32333-5) Abnormal [facility] metabolic [id number] 12:41:53* Test Item Value Reference Range Interpretation Comments Sodium (test code = 2951-2) 136 135- 148 mEq/L Potassium (test code = 2823-3) 4.6 3.5- 5.0 mEq/L Chloride (test code = 2075-0) 97 98- 112 mEq/L L CO2 (test code = 2027-9) 29 24- 31 mEq/L Anion gap (test code = 50811-7) 10@ANIO 7- 15 mEq/L BUN (test code = 3094-0) 54 mg/dL 6-20 H Creatinine (test code = 2160-0) 2.32 mg/dL 0.5-0.9 H Glucose (test code = 2345-7) 243 mg/dL 65-99 H Calcium (test code = 89283-8) 8.0 mg/dL 8.3-10.2 L Lab Interpretation (test code = 56508-7) Abnormal Y[facility] MethodistEstimated [id number] 12:41:53* Test Item Value Reference Range Interpretation Comments Estimated GFR (test code = 5488) 24 mL/min/1.73 m2 A Catergory Units InterpretationG1 >=90 Normal or highG2 60-89 Mildly fcqicroguY3c 45-59 Mildly to moderately mzdrpgzcjP5v 30-44 Moderately to severely decreasedG4 15-29 Severely decreasedG5 <15 Kidney failureThe eGFR was calculated using the Chronic Kidney Disease Epidemiology Collaboration (CKD-EPI) equation. Interpretation is based on recommendations of the National Kidney Foundation-Kidney Disease Outcomes Quality Initiative (NKF-KDOQI) published in 2014. Lab Interpretation (test code = 46742-1) Abnormal Yovani CabralesUS Needle [id number] 21:05:36 Interface, Radiology Results - 11/13/2018 4:08 PM CDTEXAMINATION: US NEEDLE BIOPSYCLINICAL HISTORY: ARFTECHNIQUE:The risks, benefits, and alternatives were discussed with the patient and written informed consent was obtained.A site for needle entry was selected and [...] been instructed to follow-up with Dr. DEWAYNE CAUSEY for the results of the biopsy.Conscious sedation: Under physician supervision, a combination of intravenous Versed and fentanyl was given. Pulse oximetry, heart rate, and blood pressure were continuously monitored by an independent trained observer present. . The physician spent 44 of mdob-sq-kbit sedation time with the patient.EBL: None.Complications: None.Assistants: None.IMPRESSION:Successful uncomplicated medical renal biopsyUNIVERSITY HOSPITALS [facility]-[id number] MethodistPartial thromboplastin time, [id number] 15:45:41* Test Item Value Reference Range Interpretation Comments PTT (test code = 42302-1) 26.8 23.0- 36.0 sec PTT therapeutic range for unfractionated heparin is61.0-112.0 seconds which corresponds to Anti-Xa0.3-0.7 U/ml. [place] MethodistProthrombin time with [id number] 15:45:05* Test Item Value Reference Range Interpretation Comments Prothrombin time (test code = 5902-2) 14.1 11.5- 14.5 sec INR (test code = 29410-9) 1.1 Th e International Normalized Ratio (INR) is a therapeutic monitoring tool for patients who are stable on oral anticoagulant therapy. An INR of 2.0-3.0 is suggested for deep vein thrombosis/pulmonary embolism. [facility] and [id number] 12:16:07* Test Item Value Reference Range Interpretation Comments WBC (test code = 08697-3) 6.71 4.50- 11.00 k/uL RBC (test code = 53410-9) 3.01 m/uL 4.2-5.5 L HGB (test code = 718-7) 8.8 g/dL 12-16 L HCT (test code = 4544-3) 26.8 % 37-47 L MCV (test code = 787-2) 89.0 fL 82-100 MCH (test code = 785-6) 29.2 pg 27-34 MCHC (test code = 786-4) 32.8 g/dL 31-37 RDW - SD (test code = 51333-1) 46.0 fL 37-55 MPV (test code = 63970-6) 11.6 fL 8.8-13.2 Platelet count (test code = 89261-7) 340 150- 400 k/uL Nucleated RBC (test code = 69919-4) 0.00 /100 WBC Neutrophils (test code = 90101-6) 83.0 % 39-69 H Lymphocytes (test code = 09440-7) 12.5 % 25-45 L Monocytes (test code = 68939-6) 3.9 % 0-10 Eosinophils (test code = 75936-3) 0.0 % 0-5 Basophils (test code = 73204-1) 0.0 % 0-1 Immature granulocytes (test code = 00480-1) 0.6 % 0-1 "Immature granulocytes" (promyelocytes, myelocytes, metamyelocytes) Lab Interpretation (test code = 84787-9) Abnormal [facility] xvgjbtl0536-96-47 18:49:05* Test Item Value Reference Range Interpretation Comments Urine culture isolate (test code = 14614-7) Mixed harry <=10-3 col/ cc Specimen InformationSpecimen Source: UrineSpecimen Site: Clean catch [facility]Gram gojbt9847-58-62 18:49:05* Test Item Value Reference Range Interpretation Comments Gram stain result (test code = 664-3) No WBC's or organisms seen. Specimen InformationSpecimen Source: UrineSpecimen Site: Clean catch [facility]Glucose intqq7264-34-55 00:00:38* Test Item Value Reference Range Interpretation Comments Glucose (test code = 2345-7) 452 mg/dL 65-99 HH GLU results called to and read back by FLACA FIGUEROA (name/location) at 11/10/2018 18:59 (date/time) by [email or web address]. Lab Interpretation (test code = 46064-7) Abnormal [facility]Manual gpiftpfqmfmu8449-07-40 16:21:05* Test Item Value Reference Range Interpretation Comments Manual differential (test code = 11280-7) PERFORMED Neutrophils (test code = 76835-7) 93.0 % 39-69 H Lymphocytes (test code = 63657-0) 7.0 % 25-45 L Monocytes (test code = 42453-8) 0.0 % 0-10 Eosinophils (test code = 66056-4) 0.0 % 0-5 Basophils (test code = 65412-2) 0.0 % 0-1 Metamyelocytes (test code = 740-1) 0 % Promyelocytes (test code = 783-1) 0 % Platelet slide review (test code = 39161-2) Adonis adequate Anisocytosis (test code = 702-1) Moderate Ovalocytes (test code = 774-0) Moderate Lab Interpretation (test code = 88056-6) Abnormal [facility]Urinalysis screen and microscopy, with reflex to culture 2018-11-10 14:17:36* Test Item Value Reference Range Interpretation Comments Specimen site (test code = 1654234) Clean catch Color, UA (test code = 5778-6) Yellow Appearance, UA (test code = 5767-9) Clear Specific gravity, UA (test code = 5811-5) 1.010 1.001-1.035 pH, UA (test code = 5803-2) 7.0 5.0-8.5 Protein, UA (test code = 77653-6) 3+ Negative A Glucose, UA (test code = 60005-4) 3+ Negative A Ketones, UA (test code = 2514-8) Trace Negative A Bilirubin, UA (test code = 5770-3) Negative Negative Blood, UA (test code = 5794-3) Small Negative A Nitrite, UA (test code = 5802-4) Negative Negative Urobilinogen, UA (test code = 22111-0) <2.0 <2.0 Leukocyte esterase, UA (test code = 5799-2) Large Negative A Epithelial cells, UA (test code = 5787-7) 2 /HPF Round epithelial cells, UA (test code = 54144-8) 2 0- 1 /HPF H WBC, UA (test code = 5821-4) >180 0- 4 /HPF H RBC, UA (test code = 41984-3) 3 0- 5 /HPF Bacteria, UA (test code = 17005-4) Moderate None seen A WBC clumps, UA (test code = 10096-0) Moderate A Yeast, UA (test code = 81220-9) None seen Yeast with pseudohyphae, UA (test code = 10114-5) None seen Lab Interpretation (test code = 94150-5) Abnormal [facility] MethodistAnti-neutrophilic cytoplasmic Abs pprpy8268-67-68 19:22:56* Test Item Value Reference Range Interpretation Comments ANCA screen (test code = 3472) Negative Negative [facility]ina GuolbdirlTCU9893-11-96 19:15:45* Test Item Value Reference Range Interpretation Comments ROSITA screen (test code = 550) Negative Negative [facility] MethodistUrine protein electrophoresis, vsxdgo0594-25-09 19:13:29* Test Item Value Reference Range Interpretation Comments Urine protein concentration (test code = 26567-4) 252 mg/dL UPE albumin (test code = 29241-3) 66.8 % UPE globulin (test code = 93012-1) 33.2 % UPE extended interpretation (test code = 31912-1) See Comment An abnormal random urine protein study with proteinuria equivalent to 2.5g/L. The proteinuria is in a non-selective glomerular pattern. UPE interpretation (test code = 28198-9) See Comment Starr Hager MD; Lonnie Mcbride PhD; Delmy Bryson MD [facility]Serum gcksegjbocoiocu9800-97-10 19:09:18* Test Item Value Reference Range Interpretation Comments Protein (test code = 2885-2) 5.8 g/dL 6.3-8.3 L [place] 4.6-7.0 g/dL1 week 4.4-7.6 g/dL7 months-1year 5.1-7.3 g/dL1-2 years 5.6-7.5 g/dL>3 years 6.0-8.0 g/lJ12-714 6.3-8.3 g/dL SPE albumin (test code = 2862-1) 3.02 g/dL 4-5.3 L SPE alpha 1 (test code = 2865-4) 0.25 g/dL 0.1-0.25 SPE alpha 2 (test code = 2868-8) 0.89 g/dL 0.58-0.84 H SPE beta (test code = 2871-2) 0.73 g/dL 0.5-1.1 SPE gamma (test code = 2874-6) 0.92 g/dL 0.6-1.3 SPE extended interpretation (test code = 93170-1) See Comment Total protein and albumin are decreased while the relative concentrationsof alpha-1 globulins and alpha-2 globulins are increased indicating anacute phase response to infection, inflammation or tissue injury. SPE interpretation (test code = 2218) See Comment Starr Hager MD; Lonnie Mcbride PhD; Delmy Bryson MD Lab Interpretation (test code = 16792-5) Abnormal [facility]Hemoglobin [id number] 14:15:17* Test Item Value Reference Range Interpretation Comments Hemoglobin A1C (test code = 81464-9) 7.7 % 4-5.6 H HbA1c cutoffs for diagnosing diabetes:4.0% - 5.6% = normal5.7% - 6.4% = increased risk for diabetes (prediabetes) >=6.5% = diabetes Goals for glycemic control (ADA 2016)< 7.0% Target for non adults with diabetes. More or less stringent targets may be appropriate for individual patients. <7.5% Target for Children and adolescents with type 1 diabetes. Lab Interpretation (test code = 61070-5) Abnormal [facility] MethodistHepatitis acute pythr8840-39-54 13:11:21* Test Item Value Reference Range Interpretation Comments Hepatitis A IgM (test code = 44180-0) Non-reactive Non-reactive Hepatitis B core IgM (test code = 89540-3) Non-reactive Non-reactiv e Hepatitis B surface Ag (test code = 5195-3) Non-reactive Non-reacti ve Hepatitis C Ab (test code = 39388-7) Non-reactive Non-reactive [facility] MethodistFerritin akesl4035-88-31 11:46:20* Test Item Value Reference Range Interpretation Comments Ferritin level (test code = 2276-4) 163 ng/mL 13-150 H Lab Interpretation (test code = 94387-4) Abnormal [facility]Total iron binding zsjshjio9680-55-63 11:42:03* Test Item Value Reference Range Interpretation Comments Iron level (test code = 2498-4) 46 ug/dL 37-145 Iron binding capacity (test code = 2500-7) 181 ug/dL 200-400 L % Saturation (test code = 2502-3) 25.4 % 15-38 Lab Interpretation (test code = 86565-8) Abnormal [facility] MethodistMagnesium uvroz1789-74-70 11:42:02* Test Item Value Reference Range Interpretation Comments Magnesium (test code = 26509-5) 2.3 mg/dL 1.6-2.6 [facility] MethodistPhosphorus czxqa7190-59-59 11:41:59* Test Item Value Reference Range Interpretation Comments Phosphorus (test code = 2777-1) 3.9 mg/dL 2.4-4.5 [facility] MethodistC4 complement fhnkfordo3971-80-23 11:40:34* Test Item Value Reference Range Interpretation Comments C4 complement (test code = 4498-2) 26 mg/dL 10-40 [facility] MethodistC3 complement jmzncsqhh4489-91-48 11:40:34* Test Item Value Reference Range Interpretation Comments C3 complement (test code = 4485-9) 113 mg/dL 90-180 Y[facility] CabralesUrine bdlhgyduism7781-09-04 02:40:38* Test Item Value Reference Range Interpretation Comments Eosinophils, urine (test code = 62629-3) PRESENT A Lab Interpretation (test code = 51073-0) Abnormal Yovani Rojas Renal Souwkyd6927-23-89 22:07:44Hm Interface, Radiology Results 11/08/2018 5:10 PM CDTEXAM:Renal arterial duplex ultrasound.INDICATION:Renal vascular hypertension.COMPARISON:None.T ECHNIQUE:Multiple grayscale, color Doppler, spectral Doppler images of the kidne ys and their vasculature were obtained.FINDINGS:Right kidney is normal in contou r, cortical thickness, and cortical echogenicity. No calculus, mass, or hydronep hrosis. Normal color Doppler flow throughout.Left kidney is normal contour, sloan ical thickness, and cortical echogenicity. No calculus, mass, or hydronephrosis. Normal color Doppler flow throughout.Artery: peak systolic velocity (centimeters per second), resistive index, acceleration time (seconds):Aorta: 97.0 cm/s, not measured, not measured (triphasic waveform)Right:Main: 147, 0.74, not measured Superior: 24.7, 0.74, 0.04)Middle: 69.9, 0.76, 0.03Inferior: 35.0, 0.71, 0.04Lef t:Main: 54.2, 0.78, not measuredSuperior: 24.4, 0.76, 0.02Middle: 22.2, 0.77, 0. 04Inferior: 59.1, 0.76, 0.02Vein:Right: Normal venous flow velocity and waveform with cardiac phasicityLeft: Normal venous flow velocity and waveform with cardi ac phasicityIVC: Normal venous flow velocity and waveformIMPRESSION:Normal renal duplex arterial ultrasound.Yovani Rojas Intjp7870-39-35 22:05:21Hm Interface, Radiology Results - 11/08/2018 5:08 PM CDTEXAM:Renal ult rasound.INDICATION:Elevated creatinine.COMPARISON:None.TECHNIQUE:Multiple graysc bucky and color Doppler images of the kidneys and bladder were obtained. FINDINGS: Bladder is moderately distended with urine and debris, revealing a bladder wall of normal thickness and appearance.Right kidney is normal in contour, cortical t hickness, and cortical echogenicity. It is normal in size, measuring 12.1 x 5.2 x 5.3 cm. Normal parenchymal flow throughout. No calculus, mass, or hydronephros is.Left kidney is also normal in contour, cortical thickness, and cortical echog enicity. It is also normal in size, measuring 10.8 x 5.1 x 5.9 cm. Normal parenc hymal flow throughout. Focal caliectasis of the left kidney upper pole collectin g system. Internal 6 mm maximal diameter echogenic structure with clean posterio r acoustic shadowing, compatible with a calculus. No hydronephrosis or mass.IMPR ESSION:1. Left upper pole caliectasis with internal 6 mm diameter calculus. If i ndicated, this could be further evaluated with noncontrast CT the abdomen and pe lvis.2.. Debris within the bladder.[facility] MethodtundeProtein, urine, random 2018-11-08 18:11:44* Test Item Value Reference Range Interpretation Comments Protein, urine random (test code = 2888-6) 249 mg/dL [facility] MethodistCreatinine level, urine, pfzcvf2155-62-60 18:00:40* Test Item Value Reference Range Interpretation Comments Creatinine, urine, random (test code = 78053-1) 36 mg/dL [facility] MethodistComprehensive metabolic pxfxn6329-19-58 12:03:01* Test Item Value Reference Range Interpretation Comments Sodium (test code = 2951-2) 143 135- 148 mEq/L Potassium (test code = 2823-3) 5.1 3.5- 5.0 mEq/L H Chloride (test code = 2075-0) 111 98- 112 mEq/L CO2 (test code = 2027-9) 18 24- 31 mEq/L L Anion gap (test code = 90794-0) 14@ANIO 7- 15 mEq/L BUN (test code = 3094-0) 42 mg/dL 6-20 H Creatinine (test code = 2160-0) 2.74 mg/dL 0.5-0.9 H Glucose (test code = 2345-7) 195 mg/dL 65-99 H Calcium (test code = 62217-1) 8.6 mg/dL 8.3-10.2 Protein (test code = 2885-2) 6.4 g/dL 6.3-8.3 4.6-7.0 g/dL1 week 4.4-7.6 g/dL7 months-1year 5.1-7.3 g/dL1-2 years 5.6-7.5 g/dL>3 years 6.0-8.0 g/xC28-734 6.3-8.3 g/dL Albumin (test code = 1751-7) 2.4 g/dL 3.5-5 L A/G ratio (test code = 1759-0) 0.6 0.7-3.8 L Alkaline phosphatase (test code = 6768-6) 192 U/L 35-104 H AST (test code = 1920-8) 15 U/L 10-35 ALT (test code = 1742-6) 27 U/L 5-50 Total bilirubin (test code = 1975-2) <0.2 0-1.2 Lab Interpretation (test code = 14227-3) Abnormal [facility] MethodistProthrombin Idwi3034-91-70 15:23:00* Test Item Value Reference Range Interpretation Comments Prothrombin Time (test code = 5902-2) 12.8 11.9-14.5 [facility] CenterProthromb Time International Ratio 2018-11-02 15:23:00* Test Item Value Reference Range Interpretation Comments Prothromb Time International Ratio (test code = 6301-6) 0.92 Oral Anticoagulant Therapy INR Values:1. Low Intensity Therapy 1.5 - 2.02 . Moderate Intensity Therapy 2.0 - 3.03. High Intensity Therapy(1) 2.5 - 3. 54. High Intensity Therapy(2) 3.0 - 4.05. Panic Value INR > 5.0 [facility] CenterActivated Partial Thromboplast Time 2018-11-02 15:23:00* Test Item Value Reference Range Interpretation Comments Activated Partial Thromboplast Time (test code = 48113-2) 32.9 23.8-35.5 [facility] Dxvii0358-36-21 15:20:00* Test Item Value Reference Range Interpretation Comments Sodium Level (test code = 2951-2) 137 136-145 [facility] CenterPotassium Taeev0500-35-87 15:20:00* Test Item Value Reference Range Interpretation Comments Potassium Level (test code = 2823-3) 5.3 3.5-5.1 [facility] CenterChloride Rylac1256-92-56 15:20:00* Test Item Value Reference Range Interpretation Comments Chloride Level (test code = 2075-0) 109 98-107 [facility] CenterCarbon Dioxide Ngnkv4755-87-85 15:20:00* Test Item Value Reference Range Interpretation Comments Carbon Dioxide Level (test code = 2028-9) 18 22-29 [facility] CenterAnion Iay5960-15-80 15:20:00* Test Item Value Reference Range Interpretation Comments Anion Gap (test code = 39164-1) 15.3 8-16 [facility] CenterBlood Urea Xxdriicy0928-11-89 15:20:00* Test Item Value Reference Range Interpretation Comments Blood Urea Nitrogen (test code = 3094-0) 49 7-26 [facility] CenterCreatinine2019-07-05 15:20:00* Test Item Value Reference Range Interpretation Comments Creatinine (test code = 2160-0) 2.93 0.57-1.11 [facility] CenterBUN/Creatinine Gozqm3929-03-35 15:20:00* Test Item Value Reference Range Interpretation Comments BUN/Creatinine Ratio (test code = 3097-3) 17 6-25 [facility] CenterEstimat Glomerular Filtration Rate 2018-11-02 15:20:00* Test Item Value Reference Range Interpretation Comments Estimat Glomerular Filtration Rate (test code = 732113240) 17 >60 Ranges were taken from the National Kidney Disease Education Program and the [facility] literature.Reference ranges:60 or greater: Nvgvjh52-41 ( for 3 consecutive months): Chronic kidney disease 15 or less: Kidney failureLongview Regional Medical CenterGlucose Cvixe5988-48-49 15:20:00* Test Item Value Reference Range Interpretation Comments Glucose Level (test code = XLE9595) 124 74-118 [facility] CenterCalcium Wxehe7110-10-85 15:20:00* Test Item Value Reference Range Interpretation Comments Calcium Level (test code = 57265-0) 8.9 8.4-10.2 [facility] CenterTotal Jnacxjykn4455-39-39 15:20:00* Test Item Value Reference Range Interpretation Comments Total Bilirubin (test code = 1975-2) 0.3 0.2-1.2 [facility] CenterAspartate Amino Transf (AST/SGOT) 2018-11-02 15:20:00* Test Item Value Reference Range Interpretation Comments Aspartate Amino Transf (AST/SGOT) (test code = Aspartate Amino Transf (AST/SGOT)) 17 5-34 [facility] CenterAlanine Aminotransferase (ALT/SGPT) 2018-11-02 15:20:00* Test Item Value Reference Range Interpretation Comments Alanine Aminotransferase (ALT/SGPT) (test code = 1742-6) 23 0-55 [facility] CenterTotal Rfnxlus0898-86-66 15:20:00* Test Item Value Reference Range Interpretation Comments Total Protein (test code = 2885-2) 7.3 6.5-8.1 [facility] CenterAlbumin2019-07-05 15:20:00* Test Item Value Reference Range Interpretation Comments Albumin (test code = 1751-7) 3.0 3.5-5.0 [facility] CenterGlobulin2019-07-05 15:20:00* Test Item Value Reference Range Interpretation Comments Globulin (test code = 29694-5) 4.3 2.3-3.5 [facility] CenterAlbumin/Globulin Hwwtg2104-46-20 15:20:00 * Test Item Value Reference Range Interpretation Comments Albumin/Globulin Ratio (test code = 1759-0) 0.7 0.8-2.0 [facility] CenterAlkaline Ribrbydmfky9790-13-65 15:20:00* Test Item Value Reference Range Interpretation Comments Alkaline Phosphatase (test code = 6768-6) 210 40-150 [facility] CenterWhite Blood Mbdao4983-83-44 15:02:00* Test Item Value Reference Range Interpretation Comments White Blood Count (test code = 6690-2) 4.98 4.8-10.8 [facility] CenterRed Blood Qynam1343-38-95 15:02:00* Test Item Value Reference Range Interpretation Comments Red Blood Count (test code = 789-8) 3.05 3.6-5.1 [facility] CenterHemoglobin2019-07-05 15:02:00* Test Item Value Reference Range Interpretation Comments Hemoglobin (test code = 84196-6) 9.0 12.0-16.0 [facility] CenterHematocrit2019-07-05 15:02:00* Test Item Value Reference Range Interpretation Comments Hematocrit (test code = 4544-3) 27.6 34.2-44.1 [facility] CenterMean Corpuscular Diycyp9057-63-50 15:02:00* Test Item Value Reference Range Interpretation Comments Mean Corpuscular Volume (test code = 787-2) 90.5 81-99 [facility] CenterMean Corpuscular Nahwpjxuzc7346-57-64 15:02:00* Test Item Value Reference Range Interpretation Comments Mean Corpuscular Hemoglobin (test code = 785-6) 29.5 28-32 [facility] CenterMean Corpuscular Hemoglobin Concent 2018-11-02 15:02:00* Test Item Value Reference Range Interpretation Comments Mean Corpuscular Hemoglobin Concent (test code = 786-4) 32.6 31-35 [facility] CenterRed Cell Distribution Qbeei9998-37-52 15:02:00* Test Item Value Reference Range Interpretation Comments Red Cell Distribution Width (test code = 06530-9) 14.4 11.7 -14.4 [facility] CenterPlatelet Wnyen2072-79-19 15:02:00* Test Item Value Reference Range Interpretation Comments Platelet Count (test code = 777-3) 359 140-360 [facility] CenterNeutrophils (%) (Auto)2018-11-02 15:02:00 * Test Item Value Reference Range Interpretation Comments Neutrophils (%) (Auto) (test code = 73857-5) 63.1 38.7-80.0 [facility] CenterLymphocytes (%) (Auto)2018-11-02 15:02:00 * Test Item Value Reference Range Interpretation Comments Lymphocytes (%) (Auto) (test code = 736-9) 21.7 18.0-39.1 [facility] CenterMonocytes (%) (Auto)2018-11-02 15:02:00* Test Item Value Reference Range Interpretation Comments Monocytes (%) (Auto) (test code = 5905-5) 7.8 4.4-11.3 [facility] CenterEosinophils (%) (Auto)2018-11-02 15:02:00 * Test Item Value Reference Range Interpretation Comments Eosinophils (%) (Auto) (test code = 713-8) 6.2 0.0-6.0 [facility] CenterBasophils (%) (Auto)2018-11-02 15:02:00* Test Item Value Reference Range Interpretation Comments Basophils (%) (Auto) (test code = 706-2) 1.0 0.0-1.0 [facility] CenterIM GRANULOCYTES %2018-11-02 15:02:00* Test Item Value Reference Range Interpretation Comments IM GRANULOCYTES % (test code = IM GRANULOCYTES %) 0.2 0.0- 1.0 [facility] CenterNeutrophils # (Auto)2018-11-02 15:02:00* Test Item Value Reference Range Interpretation Comments Neutrophils # (Auto) (test code = 751-8) 3.1 2.1-6.9 [facility] CenterLymphocytes # (Auto)2018-11-02 15:02:00* Test Item Value Reference Range Interpretation Comments Lymphocytes # (Auto) (test code = 36035-4) 1.1 1.0-3.2 [facility] CenterMonocytes # (Auto)2018-11-02 15:02:00* Test Item Value Reference Range Interpretation Comments Monocytes # (Auto) (test code = 742-7) 0.4 0.2-0.8 [facility] CenterEosinophils # (Auto)2018-11-02 15:02:00* Test Item Value Reference Range Interpretation Comments Eosinophils # (Auto) (test code = 711-2) 0.3 0.0-0.4 [facility] CenterBasophils # (Auto)2018-11-02 15:02:00* Test Item Value Reference Range Interpretation Comments Basophils # (Auto) (test code = 704-7) 0.1 0.0-0.1 [facility] CenterAbsolute Immature Granulocyte (auto 2018-11-02 15:02:00* Test Item Value Reference Range Interpretation Comments Absolute Immature Granulocyte (auto (bambi t code = Absolute Immature Granulocyte (auto) 0.01 0-0.1 [facility] CenterNM GASTRIC EMPTYING STUDY - DAY 2018-09-26 09:00:06CLINICAL INDICATION: dx: r11.10, r11.0, vomiting, nausea, lower abd painMODALITY: Mobak[employer] dual head gamma cameraTECHNIQUE: 2.0 mCi technetium 99m sulfur colloid admixed with oatmeal. This is administered orally. Imaging over the left upper quadrant is performed over 60 minutes from the left DANISH projection. Quantitative analysis is accomplished.FINDINGS:COMPARISON: No prior study.No significant activity is visible within the esophagus.A region of interest is drawn around the stomach and a time activity curve generated. The T 1/2 gastric emptying time is calculated at undefined and markedly prolonged. The normal expected upper limit is 65 minutes for oatmeal.IMPRESSION:Markedly prolonged gastric emptying time.US ABDOMEN JYYIYHXE7036-68-38 08:53:30CLINICAL INDICATION: R10.11 Right upper quadrant painR11.10 Vomiting, unspecifiedTECHNIQUE:Real-time and doppler ultrasound evaluation of the abdomen was performed on the [employer].FINDINGS:Comparison study: none.The liver exhibits normal echotexture. A Reidel s lobe is suspected with the liver measuring 18.1 cm. There are no hepatic masses. The biliary tree, hepatic veins and portal venous system are normal. The common bile duct measures 3.6 mm.The gallbladder demonstrates mild layering sludge. No cholelithiasis, gallbladder wall thickening, or pericholecystic fluid is noted.The spleen is normal in size and contour. It measures 11.6 cm.The pancreatic head and body appear unremarkable. Evaluation of the pancreatic tail is limited secondary to overlying bowel gas. The pancreatic duct in the head and body appear unremarkable. The pancreatic duct at the junction of the body and tail is slightly prominent (of larger caliber than the duct in the pancreatic body measuring 2.4 mm.Right and left kidneys are normal in size. The cortical echogenicity bilaterally is increased. There are no masses or hydronephrosis. No perinephric fluid collections are noted. The right kidney measures 12.2 x 4.9 x 6.2 cm. The left kidney measures 12.1 x 5.6 x 6.2 cm. Visualized IVC and aorta are unremarkable.No ascites is noted in the abdom en.IMPRESSION:1. Mild layering of sludge within the gallbladder.2. The pancrea tic tail is poorly seen. The pancreatic duct at the junction of the pancreatic b timothy and tail is slightly of greater caliber than the pancreatic duct within the body. Further evaluation with MRI/MRCP advised.3. Increased cortical echogenici ty of the bilateral kidneys suggest medical renal disease.Bedside Glucose 2018-05-18 18:06:00* Test Item Value Reference Range Interpretation Comments Bedside Glucose (test code = 64125-5) 166 70-120 Meter ID: [id number] Regional Medical CenterDifferential Total Cells Qqxbwdk7147-68-61 08:34:00* Test Item Value Reference Range Interpretation Comments Differential Total Cells Counted (test code = Differen tial Total Cells Counted) 100 [facility] CenterNeutrophils % (Manual)2018-04-19 08:34:00 * Test Item Value Reference Range Interpretation Comments Neutrophils % (Manual) (test code = 30402-1) 60 40-74 [facility] CenterLymphocytes % (Manual)2018-04-19 08:34:00 * Test Item Value Reference Range Interpretation Comments Lymphocytes % (Manual) (test code = 737-7) 16 19-48 [facility] CenterMonocytes % (Manual)2018-04-19 08:34:00* Test Item Value Reference Range Interpretation Comments Monocytes % (Manual) (test code = 744-3) 12 3.4-9.0 [facility] CenterEosinophils % (Manual)2018-04-19 08:34:00 * Test Item Value Reference Range Interpretation Comments Eosinophils % (Manual) (test code = 714-6) 7 0-7 [facility] CenterBasophils % (Manual)2018-04-19 08:34:00* Test Item Value Reference Range Interpretation Comments Basophils % (Manual) (test code = 41037-8) 3 0-1.5 [facility] CenterReactive Mxcmmnfdsmt7654-91-08 08:34:00* Test Item Value Reference Range Interpretation Comments Reactive Lymphocytes (test code = 12144-8) 2 [facility] CenterPlatelet Jymnragu0908-10-28 08:34:00* Test Item Value Reference Range Interpretation Comments Platelet Estimate (test code = 21268-6) SLIGHTLY INCREASED [facility] CenterPlatelet Morphology Kekgnbj0643-05-13 08:34:00* Test Item Value Reference Range Interpretation Comments Platelet Morphology Comment (test code = 13993-6) FEW LARGE [facility] CenterHypochromasia2018-12-20 08:34:00* Test Item Value Reference Range Interpretation Comments Hypochromasia (test code = 728-6) SLIGHT [facility] CenterAnisocytosis2018-12-20 08:34:00* Test Item Value Reference Range Interpretation Comments Anisocytosis (test code = 702-1) MODERATE [facility] CenterHowell-Sumpter Amgkgc6935-41-76 08:34:00* Test Item Value Reference Range Interpretation Comments Kennedy-Sumpter Bodies (test code = 7793-3) FEW [facility] CenterBurr Wrwcv6498-26-16 08:34:00* Test Item Value Reference Range Interpretation Comments Breonna Cells (test code = 7790-9) SLIGHT [facility] CenterRed Cell Morphology Yvolvog5500-59-14 08:34:00* Test Item Value Reference Range Interpretation Comments Red Cell Morphology Comment (test code = 6742-1) ABNORMAL [facility] CenterMagnesium Zgine7135-33-08 03:57:00* Test Item Value Reference Range Interpretation Comments Magnesium Level (test code = 88283-2) 1.9 1.3-2.1 [facility] CenterB-Type Natriuretic Ylhljcu6752-57-62 03:56:00* Test Item Value Reference Range Interpretation Comments B-Type Natriuretic Peptide (test code = 99697-6) 627.0 0-100 [facility] CenterWound Eztuxuj5372-38-53 07:58:00* Test Item Value Reference Range Interpretation Comments Wound Culture (test code = 6462-6) Organism: NADINE PARAPSILOSIS [facility] CenterPhosphorus Ltkit5891-09-58 06:51:00* Test Item Value Reference Range Interpretation Comments Phosphorus Level (test code = LZJ7045) 2.8 2.3-4.7 [facility] CenterVancomycin Level Avafms1426-74-28 09:44:00* Test Item Value Reference Range Interpretation Comments Vancomycin Level Trough (test code = 4092-3) 17.2 5.0-10.0 Results called to FLOR WOOD RN at 0943 on 04/16/18 by Kristy Pederson. RB OK.[facility] CenterFOOT LEFT AP RBA3583-87-94 10:37:00 [facility] [address] [address] Patient Name: TRINH RICHTER MR #: [id number] : 1970 Age/Sex: 47/F Req #: [id number] Adm Physician: STEFAN JACKSON MD Ordered by: JORDON DEMARCO DPSimba Report #: [id number] Location: MED/SURG Room/Bed: [facility] Procedure: [id number] DX/F OOT LEFT AP LAT Exam Date: 04/13/18 Exam Time: 085 6 REPORT STATUS: Signed PROCEDUR E: X-RAY LEFT FOOT, TWO VIEWS COMPARISON: None. INDICATIONS: P OST OPERATIVE LEFT FOOT FINDINGS: The bones are demineralized. There is soft tissue air. Erosive change of the distal fifth metatarsal and fourth metatarsal is compatible with osteomyelitis. Status post amputation of the f ourth toe. CONCLUSION: 1. Erosive changes of the distal fourth and fifth metatarsals. 2. Postoperative changes as described above. Reji Carreon D.O. Dictated by: Reji Carreon D.O. on 04/13/2018 at 10:37 Electronically approved by: Reji Carreon D.O. on 04/13/2018 at 10:37 Dictated By: REJI CARREON DO 1037 Transcribed By: MAUDE on 04/13/18 1037 COPY TO: JORDON DEMARCO DPM Activated Clotting Yywr0504-02-25 14:49:00* Test Item Value Reference Range Interpretation Comments Activated Clotting Time (test code = XOQ6525) 168 Line pull <170 sec or baselinePeripheral and Neuroradiology <400 secAngioplasty 220 secCHI [facility]sm[facility] Hospital At ArlingtonHuman Chorionic Gonadotropin, Pymu6511-98-89 10:17:00* Test Item Value Reference Range Interpretation Comments Human Chorionic Gonadotropin, Qual (test code = 2118-8) NEGATIVE NEGATIVE [facility]25-Hydroxy Vitamin D Gpimd0307-24-38 22:43:00* Test Item Value Reference Range Interpretation Comments 25-Hydroxy Vitamin D Total (test code = 79511-1) 4.2 . Reference Range:All Ages: Target levels 30 - 100[facility]25-Hydroxy Vitamin I76630-73-38 22:43:00* Test Item Value Reference Range Interpretation Comments 25-Hydroxy Vitamin D3 (test code = 63193-5) 4.2 . Performed at: [facility] [address] Director: Wenceslao Rubio MD, Phone: [phone] [facility]25-Hydroxy Vitamin N43637-44-87 22:43:00* Test Item Value Reference Range Interpretation Comments 25-Hydroxy Vitamin D2 (test code = 1989-3) <1.0 . 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 OPERATORS: Jordon Mcgovern MD RADIATION EXPOSURE: Fluoroscopy Time: 0.3 minutes Dose area product (DAP): 10.6 cGycm2 CONSENT: The patient was informed of t he nature of the proposed procedure. The purposes, alternatives, risks, and b enefits were explained and discussed. All questions were answered and written consent was obtained. ANESTHESIA: Conscious sedation was administered by IR nursing with continuous hemodynamic monitoring. MEDICATIONS: 15 cc of 1% subcutaneous lidocaine Fentanyl and Versed per nursing administration rec ords TECHNIQUE: The patient was brought to the angiography suite, and t he right neck and upper chest were prepped and draped in standard sterile [facility] ion. All elements of maximal sterile barrier technique were followed including cap and mask, sterile gown, sterile gloves, large sterile sheet, hand hygiene and 2% chlorhexidine for cutaneous antisepsis. Pre-procedure time-out confir med the patient identity and the procedure to be performed. Using standa rd sterile technique, 1 % lidocaine was administered subcutaneously for local anesthesia. Ultrasound demonstrated that the right internal jugular vein was p atent and compressible. Under continuous sonographic guidance, the right inter nal jugular vein was accessed using a 21 G micropuncture needle. An .018'' was placed to secure access and measure catheter length. The needle was exchanged for a 7 Fr peel away sheath. Attention was then turned towards the subcut aneous tunnel. After administration of 1% lidocaine subcutaneously for local anesthesia, a 6 Fr small bore catheter was tunneled into the venotomy site. Th e catheter was cut to 19 cm length. Subsequently, the catheter was then advanc ed through the peel-away sheath into the superior vena cava. After confirming appropriate position with fluoroscopy the catheter tip in the right atrium, t he peel-away sheath was removed, and both lumens aspirated, check flushed, and terminally flushed with 5 cc each of heparinized saline solution. The catheter was secured using 3-0 Ethilon pursestring suture at the catheter exit site and also 3-0 Ethilon sutures at the catheter hub. The venotomy site was closed with a single subcutaneous Vicryl suture, Dermabond, and steri-strips. Steri le dressings were applied. The patient tolerated the procedure well wit hout immediate complication and was transported back to the floor in stable co ndition. FINDINGS: 1. Patent and compressible right IJV accessed with continuous ultrasound guidance. 2. Placement of 6 Fr x 19 cm tunneled dual lumen small bore catheter via the right IJ vein. 3. Post-procedure intrapr ocedural chest radiograph showed the catheter tip at the cavoatrial junction, no kinks along course of catheter, and no pneumothorax. Catheter is ready for use. IMPRESSION: Placement of right IJ tunneled dual lumen small bore c atheter. Catheter is ready for immediate use. Signed by: Dr. 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 OPERATORS: Jordon Mcgovern MD RADIATION EXPOSURE: Fluoroscopy Time: 0.3 minutes Dose area product (DAP): 10.6 cGycm2 CONSENT: The patien t was informed of the nature of the proposed procedure. The purposes, alterna tives, risks, and benefits were explained and discussed. All questions were a nswered and written consent was obtained. ANESTHESIA: Conscious sedation wa s administered by IR nursing with continuous hemodynamic monitoring. MED ICATIONS: 15 cc of 1% subcutaneous lidocaine Fentanyl and Versed per nursing administration records TECHNIQUE: The patient was brought to the angio graphy suite, and the right neck and upper chest were prepped and draped in st andard sterile fashion. All elements of maximal sterile barrier technique were followed including cap and mask, sterile gown, sterile gloves, large sterile sheet, hand hygiene and 2% chlorhexidine for cutaneous antisepsis. Pre-proced ure time-out confirmed the patient identity and the procedure to be performed. Using standard sterile technique, 1 % lidocaine was administered subcutan eously for local anesthesia. Ultrasound demonstrated that the right internal j ugular vein was patent and compressible. Under continuous sonographic guidance , the right internal jugular vein was accessed using a 21 G micropuncture need le. An .018'' was placed to secure access and measure catheter length. The nee dle was exchanged for a 7 Fr peel away sheath. Attention was then turned towards the subcutaneous tunnel. After administration of 1% lidocaine subcut aneously for local anesthesia, a 6 Fr small bore catheter was tunneled into th e venotomy site. The catheter was cut to 19 cm length. Subsequently, the alcides ter was then advanced through the peel-away sheath into the superior vena cava . After confirming appropriate position with fluoroscopy the catheter tip in the right atrium, the peel-away sheath was removed, and both lumens aspirated, check flushed, and terminally flushed with 5 cc each of heparinized saline so lution. The catheter was secured using 3-0 Ethilon pursestring suture at the c atheter exit site and also 3-0 Ethilon sutures at the catheter hub. The venot mary site was closed with a single subcutaneous Vicryl suture, Dermabond, and s olivia-strips. Sterile dressings were applied. The patient tolerated the procedure well without immediate complication and was transported back to the floor in stable condition. FINDINGS: 1. Patent and compressible right IJV accessed with continuous ultrasound guidance. 2. Placement of 6 Fr x 19 cm tunneled dual lumen small bore catheter via the right IJ vein. 3. Pos t-procedure intraprocedural chest radiograph showed the catheter tip at the ca voatrial junction, no kinks along course of catheter, and no pneumothorax. Cat heter is ready for use. IMPRESSION: Placement of right IJ tunneled dual lumen small bore catheter. Catheter is ready for immediate use. Signed b y: Dr. Jordon Mcgovern MD on 03/29/2018 3:37 PM Dictated By: JORDON MCGOVERN MD E lectronically Signed By: JORDON MCGOVERN MD on 04/03/18852 Transcribed By: JAMES on 04/03/18852 COPY TO: JESSE POWER MD Random Vancomycin Wbxdr5152-62-43 06:01:00* Test Item Value Reference Range Interpretation Comments Random Vancomycin Level (test code = 69038-2) 24.0 [facility] CenterParathyroid Manrogp6338-83-55 05:07:00* Test Item Value Reference Range Interpretation Comments Parathyroid Hormone (test code = 2731-8) 35 15-65 [facility] CenterCalcium (Send out)2018-03-27 05:07:00* Test Item Value Reference Range Interpretation Comments Calcium (Send out) (test code = 97486-1) 8.2 8.7-10.2 [facility] CenterParathyroid Hormone Interpretation 2018-03-27 05:07:00* Test Item Value Reference Range Interpretation Comments Parathyroid Hormone Interpretation (test code = Parathyroid Hormone Interpretation) Comment . Interpretation Intact PTH Calcium (pg/mL) (mg/dL)Normal 15 - 65 8.6 - 10.2Pr imary Hyperparathyroidism >65 >10.2Secondary Hyperparathyroidism >65 <10.2Non-Parathyroid Hypercalcemia <65 >10.2Hypoparathyroidism <15 < 8.6Non- Parathyroid Hypocalcemia 15 - 65 < 8.6Performed at: - [facility] [id number] Director: Silverio Bañuelos MD, Phone: [phone] at: [facility] [id number] Director: Jerry Keys MD, Phone: [phone] Regional Medical CenterUS RENAL RETROPERITONEAL YNOP6520-86-40 11:58:00 [address] [address] Patient Name: TRINH RICHTER MR #: [id number] : 1970 Age/Sex: 47/F Req #: [id number] Adm Physician: STEFAN JACKSON MD Ordered by: JESSE POWER MD Report #: [id number] Location: MED/SURG2 Room/Bed: [facility] Procedure: [id number] US /US RENAL RETROPERITONEAL COMP Exam Date: 03/26/18 Amari xam Time: 0948 REPORT STATUS: Larisa d EXAM: RENAL ULTRASOUND Date: 03/26/2018 12:00 AM Indication: Lexus l failure Comparison: None Technique: Sonographic evaluation of the k idneys. Color doppler was utilized to supplement evaluation. FINDINGS: KIDNEYS: Right: Measures 11.7 cm in length. No hydronephrosis or so lid mass lesion identified. Renal cortex measures 1.7 cm. Echogenic cortex. Left: Measures 11.6 cm in length. No hydronephrosis or solid mass lesion identified. Renal cortex measures 2.1 cm. URINARY BLADDER: Grossly unremarkable. OTHER: None. IMPRESSION: Increased cortical echogenicity on the right which can be seen in the setting of chronic medical renal/vascular disease. Otherwise, unremarkable renal ultrasound. Signed by: Dr. Oumar Ulloa MD on 03/26/2018 11:59 AM Dictated By: OUMAR ULLOA MD 1159 Transcribed By: JAMES on 03/26/18 1159 COPY TO: JESSE POWER MD Blood Mxmsksy6848-43-66 10:51:00* Test Item Value Reference Range Interpretation Comments Blood Culture (test code = 27703707) NO GROWTH AFTER 5 DAYS, FINAL REPORT [facility] CenterUrine Random Getbjpdjretw1544-87-17 10:12:00* Test Item Value Reference Range Interpretation Comments Urine Random Microalbumin (test code = 35480-2) 3493.5 Not Es tab. Results confirmed ondilution.Performed at: - [facility] [id number] Director: Silverio Bañuelos MD, Phone: [phone] Regional Medical CenterUrine Jmaeobrdbm6537-01-12 19:34:00* Test Item Value Reference Range Interpretation Comments Urine Creatinine (test code = 2161-8) 73.35 47-110 [facility] CenterUrine Protein/Creatinine Wkwxk0823-79-54 19:34:00* Test Item Value Reference Range Interpretation Comments Urine Protein/Creatinine Ratio (test code = 79461-1) 11.00 [facility] CenterUrine Random Total Cdnrxqw6724-99-95 19:10:00* Test Item Value Reference Range Interpretation Comments Urine Random Total Protein (test code = 2888-6) 826.9 1-14 [facility] CenterUrine Random Tdtjpa0501-78-08 18:17:00* Test Item Value Reference Range Interpretation Comments Urine Random Sodium (test code = 2955-3) 47 [facility] CenterUrine ZGU2686-61-28 17:58:00* Test Item Value Reference Range Interpretation Comments Urine WBC (test code = 5821-4) 0-5 0-5 [facility] CenterUrine HSW3864-28-04 17:58:00* Test Item Value Reference Range Interpretation Comments Urine RBC (test code = 55942-5) 6-10 0-5 [facility] CenterUrine Khsbeheu4166-16-76 17:58:00* Test Item Value Reference Range Interpretation Comments Urine Bacteria (test code = 11781-7) MODERATE NONE [facility] CenterUrine Epithelial Qgzyg3232-47-94 17:58:00 * Test Item Value Reference Range Interpretation Comments Urine Epithelial Cells (test code = 17359-8) MANY NONE [facility] CenterUrine Nyiuj4969-53-97 17:44:00* Test Item Value Reference Range Interpretation Comments Urine Color (test code = 5778-6) YELLOW YELLOW [facility] CenterUrine Qfvvggm2193-40-83 17:44:00* Test Item Value Reference Range Interpretation Comments Urine Clarity (test code = 59416-1) HAZY CLEAR [facility] CenterUrine Specific Nxmnxyw0718-13-02 17:44:00 * Test Item Value Reference Range Interpretation Comments Urine Specific [place] (test code = 5811-5) 1.025 1.010-1.02 5 [facility] CenterUrine xA0392-29-48 17:44:00* Test Item Value Reference Range Interpretation Comments Urine pH (test code = 69982-8) 6.5 5-7 [facility] CenterUrine Leukocyte Mngxjbxm5600-79-78 17:44:00* Test Item Value Reference Range Interpretation Comments Urine Leukocyte Esterase (test code = 5799-2) NEGATIVE NEGATIVE [facility] CenterUrine Lpdimjf4293-17-37 17:44:00* Test Item Value Reference Range Interpretation Comments Urine Nitrite (test code = 51386-7) NEGATIVE NEGATIVE [facility] CenterUrine Fbcpjae0604-69-24 17:44:00* Test Item Value Reference Range Interpretation Comments Urine Protein (test code = 5804-0) 3+ NEGATIVE [facility] CenterUrine Glucose (UA)2018-03-24 17:44:00* Test Item Value Reference Range Interpretation Comments Urine Glucose (UA) (test code = 2349-9) 1+ NEGATIVE [facility] CenterUrine Fgkdaep0749-00-95 17:44:00* Test Item Value Reference Range Interpretation Comments Urine Ketones (test code = 25031-7) NEGATIVE NEGATIVE [facility] CenterUrine Tletarjtyweq4357-01-07 17:44:00* Test Item Value Reference Range Interpretation Comments Urine Urobilinogen (test code = 36601-3) 0.2 0.2-1 [facility] CenterUrine Catyporvr3702-55-35 17:44:00* Test Item Value Reference Range Interpretation Comments Urine Bilirubin (test code = 1978-6) NEGATIVE NEGATIVE [facility] CenterUrine Uxyjv9697-68-13 17:44:00* Test Item Value Reference Range Interpretation Comments Urine Blood (test code = 77326-1) 2+ NEGATIVE [facility] CenterWound Vitelak0090-57-65 08:07:00* Test Item Value Reference Range Interpretation Comments Wound Culture (test code = 6462-6) Organism: STREPTOCOCCUS GROUP A [facility] CenterVitamin B12 Hsatw9778-66-05 06:38:00* Test Item Value Reference Range Interpretation Comments Vitamin B12 Level (test code = 24072-4) 431 213-816 [facility] CenterFolate2018-11-23 06:38:00* Test Item Value Reference Range Interpretation Comments Folate (test code = 2284-8) 17.3 7.0-15.4 [facility] CenterFerritin2018-11-23 05:47:00* Test Item Value Reference Range Interpretation Comments Ferritin (test code = 2276-4) 193.23 4.63-204.00 [facility] CenterIron Mnrpy1539-49-58 05:19:00* Test Item Value Reference Range Interpretation Comments Iron Level (test code = 2498-4) 27 50-170 [facility] CenterTotal Iron Binding Lkobvtnd0260-59-50 05:19:00* Test Item Value Reference Range Interpretation Comments Total Iron Binding Capacity (test code = 2500-7) 162 261-4 78 [facility] CenterPercent Iron Caaumuvrdg1800-84-88 05:19:00* Test Item Value Reference Range Interpretation Comments Percent Iron Saturation (test code = 2502-3) 17 15-50 [facility] CenterTransferrin2018-11-23 05:19:00* Test Item Value Reference Range Interpretation Comments Transferrin (test code = 3034-6) 116 180-382 [facility]ool Occult Ruwxw8514-74-65 14:35:00* Test Item Value Reference Range Interpretation Comments Stool Occult Blood (test code = 2335-8) NEGATIVE NEGATIVE [facility] CenterThyroid Stimulating Hormone (TSH) 2018-03-22 06:01:00* Test Item Value Reference Range Interpretation Comments Thyroid Stimulating Hormone (TSH) (test code = 36701-2) 2.804 0.350-4.940 [facility] CenterTriglycerides Grxnr9719-92-64 05:44:00* Test Item Value Reference Range Interpretation Comments Triglycerides Level (test code = 2571-8) 93 0-149 [facility] CenterCholesterol Hzgny6222-98-97 05:44:00* Test Item Value Reference Range Interpretation Comments Cholesterol Level (test code = 2093-3) 130 0-199 Less than 200 mg/dL Low Icqe368 - 239 mg/dL Borderline Yhsu869 m g/dl and greater High Risk [facility] CenterLDL Ipmyxkrspnr8422-78-89 05:44:00* Test Item Value Reference Range Interpretation Comments LDL Cholesterol (test code = 2089-1) 82 60-130 [facility] CenterHDL Zjcwkklpqcz4825-70-64 05:44:00* Test Item Value Reference Range Interpretation Comments HDL Cholesterol (test code = 2085-9) 29 40-60 [facility] CenterCholesterol/HDL Owwqs2169-91-07 05:44:00 * Test Item Value Reference Range Interpretation Comments Cholesterol/HDL Ratio (test code = 9830-1) 4.5 3.0-3.6 [facility] CenterHemoglobin A1c Qjdllsj2758-81-33 05:39:00 * Test Item Value Reference Range Interpretation Comments Hemoglobin A1c Percent (test code = Hemoglobin A1c Percent) 10.4 4.0-7.0 [facility] CenterFOOT LEFT AP YXE8900-49-35 12:34:00 [facility] [address] [place] [address] Patient Name: TRINH RICHTER MR #: [id number] : 1970 Age/Sex: 47/F Req #: [id number] Adm Physician: Ordered by: ANNA PICHARDO MD Report #: [id number] Location: ER Room/Bed: Procedure: [id number] DX/F OOT LEFT AP LAT Exam Date: 03/21/18 Exam Time: 115 0 REPORT STATUS: Signed Exam: Left foot 2 views History: Fourth digit gangrene Comparison: None. Findings: The bones are diffusely osteopenic. No acute, displaced fra cture or dislocation. Cortical destructive changes involving the distal phalan x of the fourth digit. Soft tissue swelling of the forefoot without subcutaneo us gas. 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 Background diffuse osteopenia. Signed by: Dr. Sariah Joseph M.D. on 03/21/2018 12:43 PM Dictated By: SARIAH JOSEPH MD Electronically Sig bhakti By: SARIAH JOSEPH MD on 03/21/18 1243 Transcribed By: JAMES on 03/21/18 1 243 COPY TO: ANNA PICHARDO MD
[2019-09-16] MEDS ORDERED: HYDROCODONE/APAP 10MG-325MG TAB PO ONE (10:00)
[2019-09-16] MEDS ORDERED: DEXTROSE 50% SYRINGE 50 ML IV PRN (11:15)
[2019-09-16] MEDS: INSULIN REGULAR, HUMAN 100 UNIT/1 ML 3ML VIAL SQ SCH ×3 (11:30→20:26)
--- OUTSIDE RECORDS SUMMARY | 2019-09-16 11:37 | XMS REPORT | Clinical Summary ---
Author Author Yovani [employer] [employer] Address Unknown Phone Unavailable Care Team Providers [facility] Display [employer] Name Role Phone Daniel Chappell MD PCP [...] (acute kidney injury) (HCC) (Primary Dx) 11/07/2018 [facility] Internal Mt dicine - Encounter 11/14/2018 after 09/15/2018 Social [...] glucose 198 (H) 65 - 99 mg/dL [place] Comment: [facility]ISCOPAL [facility] Notified RN HOSPITAL Meter ID: [id number] Attending Ambulatory Care: Raul Madera Specimen Performing Organization Address City/State/[facility] Services[facility] Ph one Number [facility] DEPARTMENT OF [address] [place] [address] PATHOLOGY AND GENOMIC MEDICINE [place] EPISCOPAL [address] [place] [address] HOSPITAL * Estimated GFR (11/14/2018 6:50 AM CDT) Only the most recent of 8 results within the time period is included. Estimated GFR 24 (A) mL/min/1.73 m2 [place] Comment: EPISCOPAL Catergory Units HOSPITAL Interpretation G1 >=90 Normal [...] 2014. Specimen Plasma specimen Performing Organization Address City/[facility] Ph one Number [facility] DEPARTMENT OF [address] [place] [address] PATHOLOGY AND GENOMIC MEDICINE [address] * Basic metabolic panel (11/14/2018 6:50 AM CDT) Only the most recent of 6 results within the time period is included. Sodium 136 135 - 148 mEq/L [facility] Potassium 4.6 3.5 - 5.0 mEq/L [facility] Chloride 97 (L) 98 - 112 mEq/L [facility] CO2 29 24 - 31 mEq/L [facility] Anion gap 10@ANIO 7 - 15 mEq/L [facility] BUN 54 (H) 6 - 20 mg/dL [facility] Creatinine 2.32 (H) 0.50 - 0.90 mg/dL [facility] Glucose 243 (H) 65 - 99 mg/dL [facility] Calcium 8.0 (L) 8.3 - 10.2 mg/dL [facility] Specimen Plasma specimen Performing Organization Address [facility] Ph one Number [facility] DEPARTMENT OF [address] [place] [address] PATHOLOGY AND GENOMIC MEDICINE [address] * Surgical pathology request (11/13/2018 4:08 PM CDT) [facility] DEPARTMENT OF PATHOLOGY AND GENOMIC MEDICINE Surgical See link below for PDF Lab [facility] DEPART [facility] pathology Report OF PATHOLOGY report AND GENOMIC MEDICINE Result status This is Final Report for [facility] DEPARTME NT [id number] OF PATHOLOGY AND GENOMIC MEDICINE Specimen Performing Organization Address [facility] Servicescode Ph one Number [facility] DEPARTMENT OF [address] [place] [address] PATHOLOGY AND GENOMIC MEDICINE * US Needle [...] present. . The physician spent 44 of pzsk-di-yiib sedation time with the patient. EBL: None. Complications: None. Assistants: None. IMPRESSION: Successful uncomplicated medical renal biopsy [facility]-[id number] Procedure Note Hm Interface, Radiology Results Incoming [...] present. . The physician spent 44 of zban-sa-iufi sedation time with the patient. EBL: None. Complications: None. Assistants: None. IMPRESSION: Successful uncomplicated medical renal biopsy [facility]-[id number] Performing Organization Address City/[facility] Ph one Number [facility] [address] [place] [address] * Partial thromboplastin time, activated (11/13/2018 9:19 AM CDT) PTT 26.8 23.0 - 36.0 sec [place] Comment: EPISCOPAL PTT therapeutic range for HOSPITAL unfractionated heparin is 61.0-112.0 seconds which corresponds to Anti-Xa 0.3-0.7 U/ml. Specimen Blood Performing Organization Address City/State/Zipcode Ph one Number [facility] DEPARTMENT OF [address] [place] [address] PATHOLOGY AND GENOMIC MEDICINE [address] * Prothrombin time with INR (11/13/2018 9:19 AM CDT) [facility] Prothrombin 14.1 11.5 - 14.5 sec [facility] INR 1.1 [place] Comment: [facility] International Normalized HOSPITAL Ratio (INR) is a therapeutic monitoring tool for patients who are stable on oral anticoagulant therapy. An INR of 2.0-3.0 is suggested for deep vein thrombosis/pulmonary embolism. Specimen Blood Performing Organization Address City/[facility] Ph one Number [facility] DEPARTMENT OF [address] [place] [address] PATHOLOGY AND GENOMIC MEDICINE [address] * CBC with platelet and differential (11/13/2018 4:10 AM CDT) Only the most recent of 7 results within the time period is included. [facility] WBC 6.71 4.50 - 11.00 k/uL [facility] RBC 3.01 (L) 4.20 - 5.50 m/uL [facility] HGB 8.8 (L) 12.0 - 16.0 g/dL [facility] HCT 26.8 (L) 37.0 - 47.0 % [facility] MCV 89.0 82.0 - 100.0 fL [facility] MCH 29.2 27.0 - 34.0 pg [facility] MCHC 32.8 31.0 - 37.0 g/dL [facility] RDW - SD 46.0 37.0 - 55.0 fL [facility] MPV 11.6 8.8 - 13.2 fL [facility] Platelet count 340 150 - 400 k/uL [facility] Nucleated RBC 0.00 /100 WBC [facility] Neutrophils 83.0 (H) 39.0 - 69.0 % [facility] Lymphocytes 12.5 (L) 25.0 - 45.0 % [facility] Monocytes 3.9 0.0 - 10.0 % [facility] Eosinophils 0.0 0.0 - 5.0 % [facility] Basophils 0.0 0.0 - 1.0 % [facility] Immature 0.6Comment: "Immature 0.0 - 1.0 % [place] granulocytes granulocytes" (promyelocytes, METHOD IST myelocytes, metamyelocytes) HOSPITAL Specimen Performing Organization Address [facility] Ph one Number [facility] DEPARTMENT OF [address] [place] [address] PATHOLOGY AND [facility] MEDICINE [address] * Glucose level (11/10/2018 5:55 PM CDT) Glucose 452 (HH) 65 - 99 mg/dL [place] Comment: EPISCOPAL GLU results called to and read HOSPITAL back by FLACA FIGUEROA (name/location) at 11/10/2018 18:59 (date/time) by AUGUSTINE. Specimen Plasma specimen Performing Organization Address [facility] one Number [facility] DEPARTMENT OF [address] [place] [address] PATHOLOGY AND [facility] MEDICINE [address] * Gram stain (11/10/2018 8:05 AM CDT) Only the most recent of 2 results within the time period is included. Pathologist [facility] Gram stain No WBC's or organisms seen. [place] result Comment: EPISCOPAL Specimen [facility] Specimen Source: Urine Specimen Site: Clean catch Specimen Urine Performing Organization Address [facility] one Number [facility] DEPARTMENT OF [address] [place] [address] PATHOLOGY AND [facility] MEDICINE [address] * Urine culture (11/10/2018 8:05 AM CDT) Only the most recent of 2 results within the time period is included. Pathologist [facility] Urine culture Mixed harry <=10-3 col/cc [place] isolate Comment: EPISCOPAL Specimen Information [facility] Specimen Source: Urine Specimen Site: Clean catch Specimen Urine Performing Organization Address [facility] one Number [facility] DEPARTMENT OF [address] [place] [address] PATHOLOGY AND [facility] MEDICINE [address] * Urinalysis screen and microscopy, with reflex to culture (11/10/2018 5:00 AM CDT) Only the most recent of 2 results within the time period is included. Specimen site Clean catch [facility] Color, UA Yellow [facility] Appearance, UA Clear [facility] Specific 1.010 1.001 - 1.035 [place] gravity, [facility] pH, UA 7.0 5.0 - 8.5 [facility] Protein, UA 3+ (A) Negative [facility] Glucose, UA 3+ (A) Negative [facility] Ketones, UA Trace (A) Negative [facility] Bilirubin, UA Negative Negative [facility] Blood, UA Small (A) Negative [facility] Nitrite, UA Negative Negative [facility] Urobilinogen, <2.0 <2.0 [facility] Leukocyte Large (A) Negative [place] esterase, [facility] Epithelial 2 /HPF [place] cells, [facility] Round 2 (H) 0 - 1 /HPF [place] epithelial EPISCOPAL cells, HOSPITAL WBC, UA >180 (H) 0 - 4 /HPF [facility] RBC, UA 3 0 - 5 /HPF [facility] Bacteria, UA Moderate (A) None seen [facility] WBC clumps, UA Moderate (A) [facility] Yeast, UA None seen [facility] Yeast with None seen [place] [facility] Specimen Urine Performing Organization Address City/[facility] Ph one Number [facility] DEPARTMENT OF [address] [place] [address] PATHOLOGY AND GENOMIC MEDICINE [address] * Manual differential (11/10/2018 5:00 AM CDT) Manual PERFORMED [place] differential [facility] Neutrophils 93.0 (H) 39.0 - 69.0 % [facility] Lymphocytes 7.0 (L) 25.0 - 45.0 % [facility] Monocytes 0.0 0.0 - 10.0 % [facility] Eosinophils 0.0 0.0 - 5.0 % [facility] Basophils 0.0 0.0 - 1.0 % [facility] Metamyelocytes 0 % [facility] Promyelocytes 0 % [facility] Platelet slide Adonis adequate [place] review [facility] Anisocytosis Moderate [facility] Ovalocytes Moderate [facility] Specimen Performing Organization Address City/[facility] Ph one Number [facility] DEPARTMENT OF [address] [place] [address] PATHOLOGY AND [facility] MEDICINE [address] * Hemoglobin A1c (11/09/2018 5:00 AM CDT) Pathologist [facility] Hemoglobin A1C 7.7 (H) 4.0 - 5.6 % [place] Comment: EPISCOPAL HbA1c cutoffs for diagnosing HOSPITAL diabetes: 4.0% - 5.6% = normal 5.7% - 6.4% = increased risk for diabetes (prediabetes) >=6.5% = diabetes Goals for glycemic control (ADA 2016) < 7.0% Target for non adults with diabetes. More or less stringent targets may be appropriate for individual patients. <7.5% Target for Children and adolescents with type 1 diabetes. Specimen Blood Performing Organization Address City/[facility] Ph one Number [facility] DEPARTMENT OF [address] [place] [address] PATHOLOGY [facility] MEDICINE [address] * Total iron binding capacity (11/09/2018 4:00 AM CDT) [facility] Iron level 46 37 - 145 ug/dL [facility] Iron binding 181 (L) 200 - 400 ug/dL [facility] % Saturation 25.4 15.0 - 38.0 % [facility] Specimen Plasma specimen Performing Organization Address City/[facility] Ph one Number [facility] DEPARTMENT OF [address] [place] [address] PATHOLOGY AND [facility] MEDICINE [address] * Hepatitis acute panel (11/09/2018 4:00 AM CDT) Pathologist [facility] Hepatitis A IgM Non-reactive Non-reactive [facility] Hepatitis B Non-reactive Non-reactive [place] core IgM [facility] Hepatitis B Non-reactive Non-reactive [place] surface Ag [facility] Hepatitis C Ab Non-reactive Non-reactive [facility] Specimen Serum Performing Organization Address City/State/[facility] Ph one Number [facility] DEPARTMENT OF [address] [place] [address] PATHOLOGY AND [facility] MEDICINE [address] * Anti-neutrophilic cytoplasmic Abs panel (11/09/2018 4:00 AM CDT) ANCA screen Negative Negative [facility] Specimen Blood Performing Organization Address City/[facility] Ph one Number [facility] DEPARTMENT OF [address] [place] [address] PATHOLOGY AND [facility] MEDICINE [address] * C3 complement component (11/09/2018 4:00 AM CDT) Pathologist [facility] C3 complement 113 90 - 180 mg/dL [facility] Specimen Plasma specimen Performing Organization Address City/[facility] one Number [facility] DEPARTMENT OF [address] [place] [address] PATHOLOGY AND GENOMIC MEDICINE [address] * C4 complement component (11/09/2018 4:00 AM CDT) Pathologist [facility] C4 complement 26 10 - 40 mg/dL [facility] Specimen Plasma specimen Performing Organization Address [facility] one Number [facility] DEPARTMENT OF [address] [place] [address] PATHOLOGY AND GENOMIC MEDICINE [address] * ROSITA (11/09/2018 4:00 AM CDT) ROSITA screen Negative Negative [facility] Specimen Blood Performing Organization Address [facility] one Number [facility] DEPARTMENT OF [address] [place] [address] PATHOLOGY AND [facility] MEDICINE [address] * Serum electrophoresis (11/09/2018 4:00 AM CDT) Pathologist [facility] Protein 5.8 (L) 6.3 - 8.3 g/dL [place] Comment: [facility] 4.6-7.0 g/dL 1 week 4.4-7.6 g/dL 7 months-1year 5.1-7.3 g/dL 1-2 years 5.6-7.5 g/dL >3 years 6.0-8.0 g/dL 18-150 6.3-8.3 g/dL SPE albumin 3.02 (L) 4.00 - 5.30 g/dL [facility] SPE alpha 1 0.25 0.10 - 0.25 g/dL [facility] SPE alpha 2 0.89 (H) 0.58 - 0.84 g/dL [facility] SPE beta 0.73 0.50 - 1.10 g/dL [facility] SPE gamma 0.92 0.60 - 1.30 g/dL [facility] SPE extended See Comment [facility] interpretation Comment: EPISCOPAL Total protein and albumin are HOSPITAL decreased while the relative concentrations of alpha-1 globulins and alpha-2 globulins are increased indicating an acute phase response to infection, inflammation or tissue injury. SPE See CommentComment: Starr [facility] interpretation Alley WALLACE; Lonnie Mcbride PhD; LAURA Bryson MD HOSPITAL Specimen Serum Performing Organization Address City/[facility] Ph one Number [facility] DEPARTMENT OF [address] [place] [address] PATHOLOGY AND [facility] MEDICINE [address] * Phosphorus level (11/09/2018 4:00 AM CDT) Only the most recent of 2 results within the time period is included. Phosphorus 3.9 2.4 - 4.5 mg/dL [facility] Specimen Plasma specimen Performing Organization Address [facility] Ph one Number [facility] DEPARTMENT OF [address] [place] [address] PATHOLOGY AND [facility] MEDICINE [address] * Magnesium level (11/09/2018 4:00 AM CDT) Only the most recent of 2 results within the time period is included. Magnesium 2.3 1.6 - 2.6 mg/dL [facility] Specimen Plasma specimen Performing Organization Address City/[facility] Ph one Number [facility] DEPARTMENT OF [address] [place] [address] PATHOLOGY AND [facility] MEDICINE [address] * Ferritin level (11/09/2018 4:00 AM CDT) Ferritin level 163 (H) 13 - 150 ng/mL [facility] Specimen Plasma specimen Performing Organization Address [facility] Ph one Number [facility] DEPARTMENT OF [address] [place] [address] PATHOLOGY AND [facility] MEDICINE [address] * Urine protein electrophoresis, random (11/08/2018 11:03 AM CDT) Urine protein 252 mg/dL [place] concentration [facility] UPE albumin 66.8 % [facility] UPE globulin 33.2 % [facility] UPE extended See Comment [facility] interpretation Comment: EPISCOPAL An abnormal random urine HOSPITAL protein study with proteinuria equivalent to 2.5 g/L. The proteinuria is in a non-selective glomerular pattern. UPE See CommentComment: Starr [facility] interpretation Alley WALLACE; Lonnie Mcbride PhD; EPISCOPAL Delmy Bryson MD HOSPITAL Specimen Urine Performing Organization Address City/State/[facility] Ph one Number [facility] DEPARTMENT OF [address] [place] [address] PATHOLOGY AND [facility] MEDICINE [address] * Urine eosinophils (11/08/2018 11:03 AM CDT) Eosinophils, PRESENT (A) [place] urine [facility] Specimen Urine Performing Organization Address [facility] one Number [facility] DEPARTMENT OF [address] [place] [address] PATHOLOGY AND GENOMIC MEDICINE [address] * Protein, urine, random (11/08/2018 11:03 AM CDT) Protein, urine 249 mg/dL [place] random [facility] Specimen Urine Performing Organization Address [facility] Ph one Number [facility] DEPARTMENT OF [address] [place] [address] PATHOLOGY AND GENOMIC MEDICINE [address] * Creatinine level, urine, random (11/08/2018 11:03 AM CDT) Creatinine, 36 mg/dL [place] urine, random [facility] Specimen Urine Performing Organization Address [facility] Ph one Number [facility] DEPARTMENT OF [address] [place] [address] PATHOLOGY AND GENOMIC MEDICINE [address] * US Renal Doppler (11/08/2018 9:38 [...] Performing Organization Address City/State/Zipcode Ph one Number [facility] [address] [place] [address] * [place] Renal (11/08/2018 9:28 AM CDT) Specimen Narrative Performed At EXAM: [facility] Renal ultrasound. INDICATION: Elevated creatinine. COMPARISON: None. [...] Address City/State/Zipcode Ph one Number [facility] [address] [place] [address] * Comprehensive metabolic panel (11/08/2018 5:00 AM CDT) Only the most recent of 2 results within the time period is included. Sodium 143 135 - 148 mEq/L [facility] Potassium 5.1 (H) 3.5 - 5.0 mEq/L [facility] Chloride 111 98 - 112 mEq/L [facility] CO2 18 (L) 24 - 31 mEq/L [facility] Anion gap 14@ANIO 7 - 15 mEq/L [facility] BUN 42 (H) 6 - 20 mg/dL [facility] Creatinine 2.74 (H) 0.50 - 0.90 mg/dL [facility] Glucose 195 (H) 65 - 99 mg/dL [facility] Calcium 8.6 8.3 - 10.2 mg/dL [facility] Protein 6.4 6.3 - 8.3 g/dL [place] Comment: [facility] 4.6-7.0 g/dL 1 week 4.4-7.6 g/dL 7 months-1year 5.1-7.3 g/dL 1-2 years 5.6-7.5 g/dL >3 years 6.0-8.0 g/dL 18-150 6.3-8.3 g/dL Albumin 2.4 (L) 3.5 - 5.0 g/dL [facility] A/G ratio 0.6 (L) 0.7 - 3.8 [facility] Alkaline 192 (H) 35 - 104 U/L [place] phosphatase [facility] AST 15 10 - 35 U/L [facility] ALT 27 5 - 50 U/L [facility] Total bilirubin <0.2 0.0 - 1.2 mg/dL [facility] Specimen Plasma specimen Performing Organization Address City/State/Zipcode Ph one Number [facility] DEPARTMENT OF [address] [place] [address] PATHOLOGY AND GENOMIC MEDICINE [address] [address] [facility] after 09/15/2018 Insurance Type Payer Benefit Subscriber ID Effective Phone Address Plan / Dates Group PPO BCBS BCBS xxxxxxxxxxxx [id number] CHOICE resent PPO/NATALIA BOSCH PPO Advance Directives For more information, please contact: [phone] Patient Product Safety Coordinator Explanation Type Date Recorded Advance Directives, 11/07/2018 3:10 PM Living Will and Medical Power of Plate Former
--- OUTSIDE RECORDS SUMMARY | 2019-09-16 11:38 | XMS REPORT ---
Author Author [facility] t Organization [facility] t Address 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 Name Role Phone DANIEL GRANADOS MD PCP Yuliana Celaya MD Attphys Ervin Causey DO Attphys [phone] STEFAN JACKSON Attphyjohn Unavailable STEFAN JACKSON Admbinu Unavailable Payers Payer Name Policy Type Policy Number Effective Date Expiration Date S ource BCBSBCBS CHOICE PPO/FEDERAL EMPL [id number]-Pre sentPPO xxxxxxxxxxxx 2016 00:00:00 [place] [facility] [employer] [place] [employer] [place] [id number] [facility] [employer] [place] [employer] [place] P[place] [id number] [facility] [employer] [place] P[place] [id number] [facility] [employer] [place] [employer] [place] P[place] [id number] [facility] Problems Condition Name Condition Details Condition Category Status Onset Date Resolution Date Last Treatment Date Treating Clinician Comments Source Acute cystitis without hematuria Acute cystitis without hematuri a Disease Active 2018-11-08 00:00:00 [place] [facility] Iron deficiency anemia Iron deficiency anemia Disease Active 2018-11-08 00:00:[address] [place] [address] JENNIFER (acute kidney injury) JENNIFER (acute kidney injury) Disease Ac tive 2018-11-07 00:00:[address] [facility] Gangrene of toe of left foot Gangrene of toe of left foot Problem Active [facility] Hypertensive urgency Hypertensive urgency Problem Active [facility] 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 No Known Intolerances DA Active U 2008-10-29 00:00:00 [facility] Social History Social Habit Start Date Stop Date Quantity Comments Source History SDOH Alcohol Std Drinks [facility] [facility] History SDOH Alcohol Binge [place] [facility] Sex Assigned At [place] angel [facility] Alcohol intake 2018-11-07 00:00:00 2018-11-07 00:00:00 Lifetime non-drinker (finding) [place] [facility] History SDOH Alcohol Frequency 2018-11-07 00:00:00 2018-11-07 [...] Every 6 Hours as needed for Pain [facility] Ascorbic Acid 500 Mg Tab.chew Ascorbic Acid 500 Mg Tab.chew Yes 500 Every 12 Hours [facility] Aspirin (Aspirin Ec) 81 Mg Tablet. Aspirin (Aspirin Ec) 81 Mg Tab let.dr Yes 81 Daily [facility] Atorvastatin Calcium 40 Mg Tablet Atorvastatin Calcium 40 Mg Tablet Yes 80 Bedtime [facility] Calcium Carbonate 500 Mg Tablet Calcium Carbonate 500 Mg Tablet Yes 500 Every 12 Hours [facility] Diphenhydramine Hcl 50 Mg/1 Ml Disp.syrin Diphenhydram ine Hcl 50 Mg/1 Ml Disp.syrin Yes 25 Every 6 Hours as needed for Itching [facility] Famotidine 20 Mg Tab Famotidine 20 Mg Tab Yes 20 Twice A Day [facility] Ferrous Sulfate 325 Mg Tablet Ferrous Sulfate 325 Mg Tablet Yes 325 Daily [facility] Glucagon (Glucagen) 1 Mg Soln Glucagon (Glucagen) 1 Mg Soln Yes 1 As Needed [facility] Hydralazine Hcl 20 Mg/1 Ml Vial Hydralazine Hcl 20 Mg/1 Ml Vial Yes 10 Every 3 Hours as needed for High Blood Pressure [facility] Insulin Regular, Human (Humulin R) 100 Unit/1 Ml Vial Insulin Regular, Human (Humulin R) 100 Unit/1 Ml Vial Yes 0 Before Meals And At Bedtime [facility] Lactulose 20 Gm/30 Ml Solution Lactulose 20 Gm/30 Ml Solution Yes 30 Every 12 Hours [facility] Metoprolol Succinate 25 Mg Tab.er.24h Metoprolol Succinate 25 Mg Ta b.er.24h Yes 25 Daily [facility] Morphine Sulfate/Pf (Morphine Sulfate 1 Mg/Ml Vial) 30 Mg/30 Ml Tank Operator.vial Morphine Sulfate/Pf (Morphine Sulfate 1 Mg/Ml Vial) 30 Mg/30 Ml Tank Operator.vial Yes 1 As Needed as needed for Pain [facility] Nifedipine (Nifedipine Er) 30 Mg Tab.er.24 Nifedipine (Nifedipine Er) 30 Mg Tab.er.24 Yes 90 Daily [facility] Ondansetron Hcl 2 Mg/1 Ml Vial Ondansetron Hcl 2 Mg/1 Ml Vial Yes 4 Every 4 Hours as needed for Prn [facility] Vancomycin Hcl 1 Gm Vial Vancomycin Hcl 1 Gm Vial Yes 1 Every 48 Hours [facility] [place] , 14 [facility] , 14 Sub-Q 2018-04-10 00:00:00 No 14 Supper Time [facility] Dextrose 50 % In Water (Dextrose 50%-Jessica er Abboject) 50 Ml Disp.syrin, 25 Gm Intraven Dextrose 50 % In Water (Dextrose 50%-Jessica er Abboject) 50 Ml Disp.syrin, 25 Gm Intraven 2018-04-10 00:00:00 No 25 As Needed [facility] Dextrose 50 % In Water (Dextrose 50%-Jessica er Abboject) 50 Ml Disp.syrin, 12.5 Gm Intraven Dextrose 50 % In Water (Dextrose 50%-Jessica er Abboject) 50 Ml Disp.syrin, 12.5 Gm Intraven 2018-04-10 00:00:00 No 12.5 As Need ed [facility] Enalapril Maleate (Vasotec) 10 Mg Tab, 10 Mg Oral Enal darshan Maleate (Vasotec) 10 Mg Tab, 10 Mg Oral 2018-04-10 00:00:00 No 10 Daily [facility] Furosemide 40 Mg Tablet, 40 Mg Oral Furosemide 40 Mg Tablet, 40 Mg Oral 2018-04-10 00:00:00 No 40 Daily [facility] Insulin Aspart (Novolog) 100 Unit/1 Ml Cartridge, 1 Un it Sub-Q Insulin Aspart (Novolog) 100 Unit/1 Ml Cartridge, 1 Unit Sub-Q 2018-04-10 00:00:00 No 1 Before Meals [facility] Insulin Aspart (Novolog) 100 Unit/1 Ml Cartridge, 3 Un its Sub-Q Insulin Aspart (Novolog) 100 Unit/1 Ml Cartridge, 3 Units Sub-Q 2018-04-10 00:00:00 N o 3 Bedtime [facility] Metformin Hcl 500 Mg Tablet, 500 Mg Oral Metformin Hcl 500 Mg Tablet, 500 Mg Oral 2018-04-10 00:00:00 No 500 Twice A Day [facility] Nifedipine 20 Mg Capsule, 90 Mg Oral Nifedipine 20 Mg Capsule, 9 0 Mg Oral 2018-04-10 00:00:00 No 90 Daily [facility] Vital Signs Vital Name Observation Time Observation Value Comments Source Systolic blood pressure 2018-11-14 21:36:36 143 mm[Hg] Yovani Cabrales Diastolic blood pressure 2018-11-14 21:36:36 75 mm[Hg] Yovani Cabrales Heart rate 2018-11-14 21:36:36 85 /min Yovani Cabrales Body temperature 2018-11-14 21:36:36 36.28 Wendy K[place]en ton [facility] Respiratory rate 2018-11-14 21:36:36 18 /min Karmen Cabrales Oxygen saturation in Arterial blood by Pulse oximetry 11-14 21:36:36 95 /min Yovani Cabrales Body weight 2018-11-14 10:05:06 67.178 kg Yovani Cabrales BMI 2018-11-14 10:05:06 33.20 kg/m2 Yovani Cabrales Body height 2018-11-07 22:16:11 142.2 cm Yovani Cabrales Procedures Procedure Date / Time Performed Performing Clinician [facility] e POC GLUCOSE 2018-11-14 22:28:00 Dewayne Causey on Gnosticist POC GLUCOSE 2018-11-14 16:50:00 Dewayne Causey on Gnosticist POC GLUCOSE 2018-11-14 12:14:00 Dewayne Causey on Gn[facility] BASIC METABOLIC PANEL 2018-11-14 11:50:00 Dewayne Causey ESTIMATED GFR 2018-11-14 11:50:00 Dewayne Causey on Gnosticist POC GLUCOSE 2018-11-14 08:47:00 Dewayne Causey on Gnosticist POC GLUCOSE 2018-11-14 01:30:00 Dewayne Causey on Gnosticist POC GLUCOSE 2018-11-13 21:44:00 Dewayne Causey on [facility] SURGICAL PATHOLOGY REQUEST 2018-11-13 21:08:00 Dewayne Causey Gnosticist US NEEDLE BIOPSY 2018-11-13 20:15:00 GerdaBrielle teague Pankaj amos Gnosticist POC GLUCOSE 2018-11-13 17:29:00 Dewayne Causey on Gnosticist PROTHROMBIN TIME WITH INR 2018-11-13 14:19:00 Laura Abdalla [facility] PARTIAL THROMBOPLASTIN TIME (PTT) 2018-11-13 14:19:00 Jennifer Abdalla Gn[facility]ist POC GLUCOSE 2018-11-13 12:52:00 Dewayne Causey on Gnosticist HC COMPLETE BLD COUNT W/AUTO DIFF 2018-11-13 09:10:00 Dewayne Causey Gnosticist BASIC METABOLIC PANEL 2018-11-13 09:00:00 Dewayne Causey Gnosticist ESTIMATED GFR 2018-11-13 09:00:00 Dewayne Causey on Gnosticist POC GLUCOSE 2018-11-13 07:51:00 Dewayne Causey on Gnosticist POC GLUCOSE 2018-11-13 01:59:00 Dewayne Causey on Gnosticist POC GLUCOSE 2018-11-12 23:12:00 Dewayne Causey on Gnosticist POC GLUCOSE 2018-11-12 17:22:00 Dewayne Causey on Gnosticist POC GLUCOSE 2018-11-12 12:57:00 Dewayne Causey on Gnosticist BASIC METABOLIC PANEL 2018-11-12 10:50:00 Dweayne Causey Gnosticist HC COMPLETE BLD COUNT W/AUTO DIFF 2018-11-12 10:50:00 Dewayne Causey Gnosticist ESTIMATED GFR 2018-11-12 10:50:00 Dewayne Causey on Gnosticist POC GLUCOSE 2018-11-12 10:01:00 Dewayne Causey on Gnosticist POC GLUCOSE 2018-11-12 05:33:00 Dewayne Causey on Gnosticist POC GLUCOSE 2018-11-12 01:50:00 Dewayne Causey on Gnosticist POC GLUCOSE 2018-11-11 22:34:00 Dewayne Causey on Gnosticist POC GLUCOSE 2018-11-11 17:41:00 Dewayne Causey on Gnosticist POC GLUCOSE 2018-11-11 13:08:00 Dewayne Causey on Gnosticist BASIC METABOLIC PANEL 2018-11-11 11:15:00 Dewayne Causey Gnosticist HC COMPLETE BLD COUNT W/AUTO DIFF 2018-11-11 11:15:00 Dewayne Causey ESTIMATED GFR 2018-11-11 11:15:00 Dewayne Causey on Gnosticist POC GLUCOSE 2018-11-11 09:14:00 Dewayne Causey on Gnosticist POC GLUCOSE 2018-11-11 04:47:00 Dewayne Causey on Gnosticist POC GLUCOSE 2018-11-11 01:09:00 Dewayne Causey on Gnosticist POC GLUCOSE 2018-11-10 23:19:00 Dewayne Causey on Gnosticist GLUCOSE LEVEL 2018-11-10 22:55:00 Hellen Kent Meth odist POC GLUCOSE 2018-11-10 22:23:00 Dewayne Causey on Gnosticist POC GLUCOSE 2018-11-10 22:12:00 Dewayne Causey on Gnosticist POC GLUCOSE 2018-11-10 17:02:00 Dewayne Causey on Gnosticist POC GLUCOSE 2018-11-10 13:38:00 Dewayne Causey on Gnosticist URINE CULTURE 2018-11-10 13:05:00 Brielle Lorenz Gnosticist GRAM STAIN 2018-11-10 13:05:00 Brielle Lorenz Gnosticist BASIC METABOLIC PANEL 2018-11-10 10:00:00 Dewayne Causey CBC WITH PLATELET AND DIFFERENTIAL 2018-11-10 10:00:00 Dewayne Causey URINALYSIS SCREEN AND MICROSCOPY, WITH REFLEX TO CULTURE 201 01-05-13 10:00:00 Brielle Lorenz Gnosticist ESTIMATED GFR 2018-11-10 10:00:00 Dewayne Causey on Gnosticist MANUAL DIFFERENTIAL 2018-11-10 10:00:00 Dewayne Causey Gnosticist POC GLUCOSE 2018-11-10 02:09:00 Dewayne Causey on Gnosticist POC GLUCOSE 2018-11-09 23:47:00 Dewayne Causey on Gnosticist POC GLUCOSE 2018-11-09 17:26:00 Dewayne Causey on Gnosticist POC GLUCOSE 2018-11-09 13:16:00 Dewayne Causey on Gnosticist HEMOGLOBIN A1C 2018-11-09 10:00:00 GerdaBrielle teague Yovani Gnosticist HC COMPLETE BLD COUNT W/AUTO DIFF 2018-11-09 10:00:00 Dewayne Causey Gnosticist SERUM ELECTROPHORESIS 2018-11-09 09:00:00 Parth Lorenzmarky gamez Gnosticist BASIC METABOLIC PANEL 2018-11-09 09:00:00 GerdaParth teaguemarky gamez Gnosticist MAGNESIUM LEVEL 2018-11-09 09:00:00 Brielle Lorenz Yovani Gnosticist PHOSPHORUS LEVEL 2018-11-09 09:00:00 Brielle Lorenz Joe n Gnosticist FERRITIN LEVEL 2018-11-09 09:00:00 Brielle Lorenz Yovani Gnosticist TOTAL IRON BINDING CAPACITY 2018-11-09 09:00:00 Brielle Lorenz Yovani Gnosticist ROSITA 2018-11-09 09:00:00 Brielle Lorenz Yovani Gnosticist ANTI-NEUTROPHILIC CYTOPLASMIC ABS PANEL 2018-11-09 09:00:00 GerdaBrielle teague Yovani Gnosticist C4 COMPLEMENT COMPONENT 2018-11-09 09:00:00 GerdaBrielle teague Yovani Gnosticist HEPATITIS ACUTE PANEL 2018-11-09 09:00:00 GerdaParth teaguemarky gamez Gnosticist ESTIMATED GFR 2018-11-09 09:00:00 GerdaBrielle teague Yovani Gnosticist POC GLUCOSE 2018-11-09 02:23:00 Dewayne Causey on Gnosticist POC GLUCOSE 2018-11-08 21:11:00 Dewayne Causey on Gnosticist POC GLUCOSE 2018-11-08 20:12:00 Dewayne Causey on Gnosticist POC GLUCOSE 2018-11-08 16:45:00 Dewayne Causey on Gnosticist URINE EOSINOPHILS 2018-11-08 16:03:00 Brielle Lorenz on Gnosticist PROTEIN, URINE, RANDOM 2018-11-08 16:03:00 Gerda, Briellemarky Pina Gnosticist CREATININE LEVEL, URINE, RANDOM 2018-11-08 16:03:00 Sebastien Lorenz Gnosticist URINE PROTEIN ELECTROPHORESIS, RANDOM 2018-11-08 16:03:00 Gerda Brielle Pina Gnosticist US RENAL DOPPLER 2018-11-08 14:38:00 Brielle Lorenz n Gnosticist US RENAL 2018-11-08 14:28:00 [place] Juan Pina Gnosticist POC GLUCOSE 2018-11-08 12:57:00 Yuliana Celaya Meth odist HC COMPLETE BLD COUNT W/AUTO DIFF 2018-11-08 10:00:00 Panda Connell Gnosticist MAGNESIUM LEVEL 2018-11-08 10:00:00 Digna Connell on Gnosticist PHOSPHORUS LEVEL 2018-11-08 10:00:00 Digna Connell [facility] COMPREHENSIVE METABOLIC PANEL 2018-11-08 10:00:00 Calvin Juan Gnosticist ESTIMATED GFR 2018-11-08 10:00:00 [place] [facility] GRAM STAIN 2018-11-08 04:20:00 [place] Juan [facility]ist URINE CULTURE 2018-11-08 04:20:00 [place] Pina Gnosticist URINALYSIS SCREEN AND MICROSCOPY, WITH REFLEX TO CULTURE 201 01-05-11 02:45:00 [place] Juan Gnosticist HC COMPLETE BLD COUNT W/AUTO DIFF 2018-11-08 01:35:00 [place] Juan [facility] COMPREHENSIVE METABOLIC PANEL 2018-11-08 01:35:00 Calvin Juan Gn[facility]ist ESTIMATED GFR 2018-11-08 01:35:00 [place] [facility]ist POC GLUCOSE 2018-11-08 00:50:00 CameliaYuliana cary Pina Meth odist POC GLUCOSE 2018-11-07 23:14:00 BeliaYuliana Pina Meth odist DETACHMENT AT LEFT 4TH TOE, COMPLETE, OPEN APPROACH [facility], EXTERNAL APPROACH 2018-04-13 00:00:00 C SHELLY [facility] EXTIRPATION OF MATTER FROM L POPL ART, PERC APPROACH 2018-03 00:00:00 DIVYA VIDAL [facility] DILATION OF L COM ILIAC ART WITH INTRALUM DEV, PERC AP PROACH 2018-04-10 00:00:00 DIVYA VIDAL [facility] DILATION OF L POPL ART USING DRUG BLLN, PERC APPROACH 2017-05 00:00:00 DIVYA VIDAL [facility] DILATION OF L POST TIB ART USING DRUG BLLN, [facility] APPROACH 20 17-04-11 00:00:00 DIVYA VIDAL [facility] FLUOROSCOPY OF AORTA, BI LE ART USING L OSM CONTRAST 2018-03 00:00:00 DIVYA VIDAL [facility] INSERTION OF INFUSION DEV INTO SUP VENA CAVA, PERC APPROACH 2018-03-29 00:00:00 JORDON MCGOVERN [facility] Ultrasound, renal 2018-03-26 00:00:00 JESSE POWER [facility] TRANSFUSE NONAUT RED BLOOD CELLS IN PERIPH VEIN, PERC 2017-05 00:00:00 LIDA LONG [facility] Plan of Care Planned Activity Planned Date Details Comments Source Future Scheduled Test 2019-11-30 00:00:00 INFLUENZA VACCINE [code = INFLUENZA VACCINE] Yovani Cabrales Future Scheduled Test 2018 00:00:00 BREAST CANCER SCRE ENING [code = BREAST CANCER SCREENING] [place] [facility] Scheduled Test 2018 00:00:00 COLONOSCOPY SCREEN ING [code = COLONOSCOPY SCREENING] [place] [facility] Scheduled Test 2018 00:00:00 SHINGLES VACCINES (#1) [code = SHINGLES VACCINES (#1)] [place] [facility] Scheduled Test 1989 00:00:00 Screening for campbell gnant neoplasm of cervix (procedure) [code = 252104363] [facility] Encounters Start Date/Time End Date/Time Encounter Type Admission Type Attendi [facility] Care Department Encounter ID Source 2018-11-02 14:06:00 2018-11-02 17:00:00 Departed Emergency Room [facility] [id number] [facility] 2018-05-18 15:56:00 2018-05-18 22:10:00 Departed Emergency Room [facility] [id number] [facility] 2018-04-10 15:54:00 2018-04-19 20:00:00 Discharged Inpatient 3 STEFAN JACKSON [facility] [id number] [facility] 2018-03-21 11:14:00 2018-03-29 20:58:00 Discharged Inpatient 1 STEFAN JACKSON [facility] [id number] [facility] Results Test Description Test Time Test Comments Results Result Comments Source LACTIC ACID POC 2019-02-15 11:24:00 Test Item LACTIC ACID POC (test code = LACTP) 0.35 mmol/L 0.9-1.70 L - XR CHEST 2 [id number] 16:54:00Patient Name: TRINH RICHTER Unit No: [id number] EXAMS: CPT CODE: [id number] XR CHEST 2 V [id number] Indication: FOLLOW UP EVAL FOR SOB COMPARISON: [...] MD Technologist: Zahida Garrison Trscr Dt/Tm: 01/31/2019 (2029) by:[email or web address] Printed Date/Time: 01/31/2019 (7200) Name: TRINH RICHTER [facility] Med Ctr OP Imaging Phys: Fer Llamas MD : 09/1970 Age: 48 Sex: F Pina Md Acct No: [id number] Loc: P.RAD Exam Date: 9 Status: REG CLI PH: FAX: PAGE 1 Signed Report [id number] 09:04:00* Test Item Value Reference Range Interpretation Comments GLUBED (test code = GLUBED) 116 MG/DL 70-105 H [id number] 09:04:00* Test Item Value Reference Range Interpretation Comments GLUBED (test code = GLUBED) 117 MG/DL 70-105 H [id number] 09:04:00* Test Item Value Reference Range Interpretation Comments GLUBED (test code = GLUBED) 104 MG/DL 70-105 N [id number] 09:04:00* Test Item Value Reference Range Interpretation Comments GLUBED (test code = GLUBED) 149 MG/DL 70-105 H [id number] 13:49:00* Test Item Value Reference Range Interpretation Comments GLUBED (test code = GLUBED) 126 MG/DL 70-105 H [id number] 11:12:00* Test Item Value Reference Range Interpretation Comments GLUBED (test code = GLUBED) 110 MG/DL 70-105 H - XR CHEST 1 [id number] 07:45:00Patient Name: TRINH RICHTER Unit No: [id number] EXAMS: CPT CODE: [id number] XR CHEST 1 V [id number] Chest one view AP 01/21/2019 7:44 AM [...] by:[email or web address] Printed Date/Time: 01/21/2019 (0748) Name: ROBERTRINH [facility] Phys: Nimesh Phillips [address] : 1970 Age: 48 Sex: F [address]: [id number] Loc: P.0203 1 Exam Date: 01/21/2019 Status: ADM IN PH: FAX: PAGE 1 Signed Report [id number] 05:34:00* Test Item Value Reference Range Interpretation Comments GLUBED (test code = GLUBED) 106 MG/DL 70-105 H BASIC METABOLIC [id number] 05:16:00* Test Item Value Reference Range Interpretation [...] code = CA) 7.6 mg/dL 8.8-10.2 L [id number] 05:16:00* Test Item Value Reference Range Interpretation Comments MAGNESIUM (test code = MAG) 2.2 mg/dL 1.4-2.6 N CBC W/AUTO [id number] 04:51:00* Test Item Value Reference Range Interpretation [...] = BA#) 0.03 x10 3/uL 0.0-0.20 N [id number] 01:43:00* Test Item Value Reference Range Interpretation Comments GLUBED (test code = GLUBED) 145 MG/DL 70-105 H - XR CHEST 1 [id number] 10:59:00Patient Name: TRINH RICHTER Unit No: [id number] EXAMS: CPT CODE: [id number] XR CHEST 1 V [id number] EXAM: Chest one view. Location: A1 HISTORY: [...] Dt/Tm: 01/20/2019 (1059) by:[email or web address] Printed Date/Time: 01/20/2019 (5012) Name: TRINH RICHTER [facility] Phys: [id number] - Kayla Mckeon [address] : 1970 Age: 48 Sex: [place] [address] Loc: P.0203 1 Exam Date: 01/20/2019 Status: [...] code = CA) 7.9 mg/dL 8.8-10.2 L [id number] 07:22:00* Test Item Value Reference Range Interpretation Comments GLUBED (test code = GLUBED) 86 MG/DL 70-105 N CBC W/AUTO [id number] 07:00:00* Test Item Value Reference Range Interpretation [...] = BA#) 0.06 x10 3/uL 0.0-0.20 N [id number] 01:36:00* Test Item Value Reference Range Interpretation Comments GLUBED (test code = GLUBED) 85 MG/DL 70-105 N [id number] 20:49:00* Test Item Value Reference Range Interpretation Comments GLUBED (test code = GLUBED) 98 MG/DL 70-105 N [id number] 18:43:00* Test Item Value Reference Range Interpretation Comments GLUBED (test code = GLUBED) 120 MG/DL 70-105 H [id number] 14:39:00* Test Item Value Reference Range Interpretation Comments GLUBED (test code = GLUBED) 148 MG/DL 70-105 H [id number] 09:51:00* Test Item Value Reference Range Interpretation Comments GLUBED (test code = GLUBED) 128 MG/DL 70-105 H [id number] 07:11:00* Test Item Value Reference Range Interpretation Comments GLUBED (test code = GLUBED) 132 MG/DL 70-105 H BASIC METABOLIC [id number] 07:09:00* Test Item Value Reference Range Interpretation [...] code = CA) 7.7 mg/dL 8.8-10.2 L [id number] 07:09:00* Test Item Value Reference Range Interpretation Comments PHOSPHOROUS (test code = PHOS) 4.0 mg/dL 2.7-4.5 N [id number] 07:09:00* Test Item Value Reference Range Interpretation Comments MAGNESIUM (test code = MAG) 2.2 mg/dL 1.4-2.6 N - XR CHEST 1 [id number] 06:30:00Patient Name: TRINH RICHTER Unit No: [id number] EXAMS: CPT CODE: [id number] XR CHEST 1 V [id number] Location of dictation: B2 Portable chest one [...] Printed Date/Time: 01/19/2019 (0634) Name: TRINH RICHTER [facility] Phys: [id number].Faith Roddy Kayla Mckeon [address] : 1970 Age: 48 Sex: F Yovani, Yovana [address] Loc: P.0201 1 Exam Date: 01/19/2019 Status: [...] = BA#) 0.03 x10 3/uL 0.0-0.20 N [id number] 04:04:00* Test Item Value Reference Range Interpretation Comments GLUBED (test code = GLUBED) 126 MG/DL 70-105 H [id number] 00:16:00* Test Item Value Reference Range Interpretation Comments GLUBED (test code = GLUBED) 180 MG/DL 70-105 H - XR CHEST 1 [id number] 08:14:00Patient Name: TRINH RICHTER Unit No: [id number] EXAMS: CPT CODE: [id number] XR CHEST 1 V 27631 Examination: Chest 1 view Location code: S17 Comparison: Chest January 17, 2019 Discussion: Clinical history is remarkable for shortness of breath. Cardiac silhouette is enlarged. Right-sided tunneled dialysis catheter is in good position, left internal jugular central venous catheter terminates in the SVC, the [place] catheter component has been removed. Left-sided chest [...] Printed Date/Time: 01/18/2019 (0817) Name: TRINH RICHTER [facility] P hys: Fer Llamas MD [address] : Age: 48 Sex: [place] [address] [id number] Loc: P.0201 1 Exam Date: 01/19/20 Status: ADM IN PH: FAX: PAGE 1 Signed Report [id number] 04:47:00 * Test Item Value Reference Range Interpretation Comments PHOSPHOROUS (test code = PHOS) 4.0 mg/dL 2.7-4.5 N BASIC METABOLIC [id number] 04:47:00* Test Item Value Reference Range Interpretation [...] code = CA) 7.9 mg/dL 8.8-10.2 L [id number] 04:41:00* Test Item Value Reference Range Interpretation Comments MAGNESIUM (test code = MAG) 2.2 mg/dL 1.4-2.6 N CBC W/AUTO [id number] 04:33:00* Test Item Value Reference Range Interpretation [...] = BA#) 0.05 x10 3/uL 0.0-0.20 N [id number] 02:19:00* Test Item Value Reference Range Interpretation Comments GLUBED (test code = GLUBED) 114 MG/DL 70-105 H [id number] 22:10:00* Test Item Value Reference Range Interpretation Comments GLUBED (test code = GLUBED) 117 MG/DL 70-105 H [id number] 22:10:00* Test Item Value Reference Range Interpretation Comments GLUBED (test code = GLUBED) 123 MG/DL 70-105 H ARTERIAL BLOOD [id number] 16:05:00* Test Item Value Reference Range Interpretation [...] g/dL 12.0-16.0 L AB HEPATITIS B CORE [id number] 15:11:00* Test Item Value Reference Range Interpretation Comments AB HEPATITIS B CORE IGM (test code = HBCMAB) NON-REACTIVE NONREACTI VE AG HEPATITIS B [id number] 15:10:00* Test Item Value Reference Range Interpretation Comments AG HEPATITIS B SURFACE (test code = HBSAG) NON-REACTIVE NONREACTIVE [id number] 14:46:00* Test Item Value Reference Range Interpretation Comments GLUBED (test code = GLUBED) 186 MG/DL 70-105 H LACTIC [id number] 11:43:00* Test Item Value Reference Range Interpretation Comments LACTIC ACID (test code = LACT) 6.4 mg/dL 4.5-18.0 N HGB [id number] 10:46:00* Test Item Value Reference Range Interpretation Comments HEMOGLOBIN (test code = HGB) 9.2 g/dL 14.5-20 L HEMATOCRIT (test code = HCT) 29.8 % 37.0-47.0 L [id number] 10:45:00* Test Item Value Reference Range Interpretation Comments GLUBED (test code = GLUBED) 145 MG/DL 70-105 H [id number] 08:33:00* Test Item Value Reference Range Interpretation Comments GLUBED (test code = GLUBED) 108 MG/DL 70-105 H [id number] 08:33:00* Test Item Value Reference Range Interpretation Comments GLUBED (test code = GLUBED) 122 MG/DL 70-105 H [id number] 08:33:00* Test Item Value Reference Range Interpretation Comments GLUBED (test code = GLUBED) 155 MG/DL 70-105 H - XR CHEST 1 [id number] 07:32:00Patient Name: TRINH RICHTER Unit No: [id number] EXAMS: CPT CODE: [id number] XR CHEST 1 V 30545 Location of dictation: B2 Portable chest one [...] Printed Date/Time: 01/17/2019 (0736) Name: TRINH RICHTER [facility] Phys: [id number] - Kayla Mckeon [address] : 1970 Age: 48 Sex: [place] [address] Loc: P.0201 1 Exam Date: 01/17/2019 Status: ADM IN PH: FAX: PAGE 1 Signed Report VENOUS BLOOD [id number] 06:02:00* Test Item Value Reference Range Interpretation [...] GRADIENT (test code = AAGRADE) VENOUS BLOOD [id number] 05:57:00* Test Item Value Reference Range Interpretation [...] A-A GRADIENT (test code = AAGRADE) LACTIC [id number] 05:50:00* Test Item Value Reference Range Interpretation Comments LACTIC ACID (test code = LACT) 6.4 mg/dL 4.5-18.0 N [id number] 04:59:00* Test Item Value Reference Range Interpretation Comments ACETAMINOPHEN (test code = ACET) <5 mcg/mL 10-30 L INTERPRETATIVE DATA:Toxic manifestations have been observed at serumconcentrations >100 mcg/mL, however the toxic range isgenerally reported at>200 mcg/mL. The therapeutic range varies and has been reported inliterature to be in the range of 10-30 mcg/mL. VANCOMYCIN [id number] 04:59:00* Test Item Value Reference Range Interpretation Comments VANCOMYCIN TROUGH (test code = VANCT) 11.4 mcg/ML 10.0-20.0 N BASIC METABOLIC [id number] 04:59:00* Test Item Value Reference Range Interpretation [...] CA) 7.8 mg/dL 8.8-10.2 L THROMBOPLASTIN TIME [id number] 04:40:00* Test Item Value Reference Range Interpretation Comments THROMBOPLASTIN TIME PARTIAL (test code = PTT) 32.6 SECONDS 26.0-35. 9 N INTERPRETATIVE DATA:Therapeutic range: Unfractionated heparin:47 - 71 seconds Argatroban:1.5 to 3 times the baseline PTT CBC W/AUTO [id number] 04:28:00* Test Item Value Reference Range Interpretation [...] = BA#) 0.04 x10 3/uL 0.0-0.20 N [id number] 04:17:00* Test Item Value Reference Range Interpretation Comments GLUBED (test code = GLUBED) 129 MG/DL 70-105 H [id number] 04:17:00* Test Item Value Reference Range Interpretation Comments GLUBED (test code = GLUBED) 139 MG/DL 70-105 H [id number] 04:17:00* Test Item Value Reference Range Interpretation Comments GLUBED (test code = GLUBED) 139 MG/DL 70-105 H [id number] 04:17:00* Test Item Value Reference Range Interpretation Comments GLUBED (test code = GLUBED) 141 MG/DL 70-105 H [id number] 04:17:00* Test Item Value Reference Range Interpretation Comments GLUBED (test code = GLUBED) 148 MG/DL 70-105 H [id number] 04:17:00* Test Item Value Reference Range Interpretation Comments GLUBED (test code = GLUBED) 139 MG/DL 70-105 H [id number] 04:17:00* Test Item Value Reference Range Interpretation Comments GLUBED (test code = GLUBED) 142 MG/DL 70-105 H [id number] 04:17:00* Test Item Value Reference Range Interpretation Comments GLUBED (test code = GLUBED) 154 MG/DL 70-105 H [id number] 04:17:00* Test Item Value Reference Range Interpretation Comments GLUBED (test code = GLUBED) 160 MG/DL 70-105 H [id number] 04:17:00* Test Item Value Reference Range Interpretation Comments GLUBED (test code = GLUBED) 167 MG/DL 70-105 H [id number] 04:17:00* Test Item Value Reference Range Interpretation Comments GLUBED (test code = GLUBED) 192 MG/DL 70-105 H [id number] 04:17:00* Test Item Value Reference Range Interpretation Comments GLUBED (test code = GLUBED) 189 MG/DL 70-105 H [id number] 04:17:00* Test Item Value Reference Range Interpretation Comments GLUBED (test code = GLUBED) 179 MG/DL 70-105 H ARTERIAL BLOOD [id number] 20:30:00* Test Item Value Reference Range Interpretation [...] code = ALLENS) NOT APPLICAPLE CHEMISTRY 8 [id number] 17:24:00* Test Item Value Reference Range Interpretation [...] GLUP) 191 mg/dL 70-105 H CHEMISTRY 8 [id number] 17:22:00* Test Item Value Reference Range Interpretation [...] GLUP) 142 mg/dL 70-105 H CHEMISTRY 8 [id number] 17:21:00* Test Item Value Reference Range Interpretation [...] GLUP) 137 mg/dL 70-105 H CHEMISTRY 8 [id number] 17:14:00* Test Item Value Reference Range Interpretation [...] GLUP) 130 mg/dL 70-105 H CHEMISTRY 8 [id number] 17:13:00* Test Item Value Reference Range Interpretation [...] GLUP) 137 mg/dL 70-105 H CHEMISTRY 8 [id number] 17:12:00* Test Item Value Reference Range Interpretation [...] code = GLUP) 133 mg/dL 70-105 H [id number] 16:34:00* Test Item Value Reference Range Interpretation Comments HEMOGLOBIN (test code = HGB) 10.0 g/dL 14.5-20 L - XR FLUOROSCOPY 0-60 [id number] 16:33:00Patient Name: TRINH RICHTER Unit No: [id number] EXAMS: CPT CODE: [id number] XR FLUOROSCOPY 0-60 MIN 36936 EXAMINATION: Intraoperative fluoroscopic guidance HISTORY: TUNNEL CATH [...] Printed Date/Time: 01/16/2019 (1636) Name: TRINH RICHTER [facility] Phys: Lizeth Cr [address] : 1970 Age: 48 Sex: [place] [address] Loc: P.0201 1 Exam Date: 01/16/2019 Status: ADM IN PH: FAX: PAGE 1 Signed Report CHEMISTRY 8 [id number] 16:23:00* Test Item Value Reference Range Interpretation [...] GLUP) 134 mg/dL 70-105 H VENOUS BLOOD [id number] 15:45:00* Test Item Value Reference Range Interpretation [...] GRADIENT (test code = AAGRADE) ARTERIAL BLOOD [id number] 15:43:00* Test Item Value Reference Range Interpretation [...] = THB) 11.5 g/dL 12.0-16.0 L PROTHROMBIN [id number] 15:39:00* Test Item Value Reference Range Interpretation [...] heart valves; 2.5-3.5recurrent systemic embolism. THROMBOPLASTIN TIME [id number] 15:39:00* Test Item Value Reference Range Interpretation Comments THROMBOPLASTIN TIME PARTIAL (test code = PTT) 35.5 SECONDS 26.0-35. 9 N TEST WAS ON PENDING, NO LABEL RECEIVEDINTERPRETATIVE DATA:Therapeutic range: Unfractionated heparin:47 - 71 seconds Argatroban:1.5 to 3 times the baseline PTT PROTHROMBIN [id number] 15:37:00* Test Item Value Reference Range Interpretation [...] heart valves; 2.5-3.5recurrent systemic embolism. THROMBOPLASTIN TIME [id number] 15:37:00* Test Item Value Reference Range Interpretation Comments THROMBOPLASTIN TIME PARTIAL (test code = PTT) SECONDS 26.0-35. 9 [id number] 15:17:00* Test Item Value Reference Range Interpretation Comments FIBRINOGEN (test code = FIB) 206 mg/dL 200-400 N [id number] 14:43:00* Test Item Value Reference Range Interpretation Comments GLUBED (test code = GLUBED) 183 MG/DL 70-105 H RENAL FUNCTION [id number] 14:37:00* Test Item Value Reference Range Interpretation [...] PHOS) 2.6 mg/dL 2.7-4.5 L BASIC METABOLIC [id number] 14:33:00* Test Item Value Reference Range Interpretation [...] code = CA) 7.3 mg/dL 8.8-10.2 L [id number] 14:33:00* Test Item Value Reference Range Interpretation Comments MAGNESIUM (test code = MAG) 2.6 mg/dL 1.4-2.6 N ARTERIAL BLOOD [id number] 14:32:00* Test Item Value Reference Range Interpretation [...] THB) 12.2 g/dL 12.0-16.0 N CBC W/AUTO [id number] 14:28:00* Test Item Value Reference Range Interpretation [...] 3/uL 0.0-0.20 N - XR CHEST 1 [id number] 14:26:00Patient Name: TRINH RICHTER Unit No: [id number] EXAMS: CPT CODE: [id number] XR CHEST 1 V 53592 INDICATIONS: chest tube placment COMPARISON: Comparison is made with study of 01/15/2019 Location: W1 A single portable AP view of the chest demonstrates the tip of the endotracheal tube is noted 2 cm above the rachel. A right-sided hemodialysis catheter terminates in the right atrium. A [place] catheter restricted towards the main pulmonary artery. Left chest tube appears in place. There are postsurgical changes and sternotomy. The heart is enlarged. The lung coleman are grossly clear. The lung coleman are grossly clear. No apparent pleural effusion nor pneumothorax. The visualized bony structures are unremarkable. IMPRESSIONS: 1. Various lines and tubes including the [place] catheter, endotracheal tube and left chest tube [...] m2): Air Kerma (mGy): Trscr Dt/Tm: 01/16/2019 (1428) by:[email or web address] Printed Date/Time: 01/16/2019 (0719) Name: TRINH SUTHERLAND [facility] Phys: AJEAK0.1 - Kayla Mckeon [address] : 1970 Age: 48 Sex: [place] [address] Loc: P.0201 1 Exam Date: 01/16/2019 Status: ADM IN PH: FAX: PAGE 1 Signed Re port LACTIC ACID [id number] 14:21:00* Test Item Value Reference Range Interpretation Comments LACTIC ACID POC (test code = LACTP) 1.11 mmol/L 0.9-1.70 N LACTIC ACID [id number] 14:14:00* Test Item Value Reference Range Interpretation Comments LACTIC ACID POC (test code = LACTP) 0.94 mmol/L 0.9-1.70 N [id number] 14:00:00* Test Item Value Reference Range Interpretation Comments GLUBED (test code = GLUBED) 181 MG/DL 70-105 H CBC W/AUTO [id number] 12:15:00* Test Item Value Reference Range Interpretation [...] 0.04 x10 3/uL 0.0-0.20 N COAGULATION TIME [id number] 11:47:00* Test Item Value Reference Range Interpretation Comments COAGULATION TIME ACTIVATED (test code = ACT) 131 SECONDS 74-137 N HGB [id number] 11:47:00* Test Item Value Reference Range Interpretation Comments HEMOGLOBIN (test code = HGB) 6.7 g/dL 14.5-20 LL Critical Value reported toFirst Name:DAVID Last Name:NANCY READ BACK AND VERIFIEDby P.LAB.CAR1, on 01/16/19, @ 1147. HEMATOCRIT (test code = HCT) 21.8 % 37.0-47.0 L COAGULATION TIME [id number] 11:00:00* Test Item Value Reference Range Interpretation Comments COAGULATION TIME ACTIVATED (test code = ACT) 571 SECONDS 74-137 H HGB [id number] 10:54:00* Test Item Value Reference Range Interpretation Comments HEMOGLOBIN (test code = HGB) 6.6 g/dL 14.5-20 LL Critical Value reported toFirst Name:RADHA Last Name:CHAPARRITA READ BACK AND VERIFIEDby P.LAB.CAR1, on 01/16/19, @ 1054. HEMATOCRIT (test code = HCT) 20.5 % 37.0-47.0 L COAGULATION TIME [id number] 10:32:00* Test Item Value Reference Range Interpretation Comments COAGULATION TIME ACTIVATED (test code = ACT) 577 SECONDS 74-137 H HGB [id number] 10:29:00* Test Item Value Reference Range Interpretation Comments HEMOGLOBIN (test code = HGB) 6.4 g/dL 14.5-20 LL Critical Value reported toFirst Name:RADHA Last Name:CHAPARRITA READ BACK AND VERIFIEDby P.LAB.HALIE1, on 01/16/19, @ 9508. HEMATOCRIT (test code = HCT) 20.5 % 37.0-47.0 L COAGULATION TIME [id number] 09:58:00* Test Item Value Reference Range Interpretation Comments COAGULATION TIME ACTIVATED (test code = ACT) 401 SECONDS 74-137 H HGB [id number] 09:50:00* Test Item Value Reference Range Interpretation Comments HEMOGLOBIN (test code = HGB) 10.2 g/dL 14.5-20 L HEMATOCRIT (test code = HCT) 32.4 % 37.0-47.0 L COAGULATION TIME [id number] 09:19:00* Test Item Value Reference Range Interpretation Comments COAGULATION TIME ACTIVATED (test code = ACT) 136 SECONDS 74-137 N PROTHROMBIN [id number] 05:35:00* Test Item Value Reference Range Interpretation [...] heart valves; 2.5-3.5recurrent systemic embolism. THROMBOPLASTIN TIME [id number] 05:35:00* Test Item Value Reference Range Interpretation Comments THROMBOPLASTIN TIME PARTIAL (test code = PTT) 35.2 SECONDS 26.0-35. 9 INTERPRETATIVE DATA:Therapeutic range: Unfractionated heparin:47 - 71 seconds Argatroban:1.5 to 3 times the baseline PTT BASIC METABOLIC [id number] 05:21:00* Test Item Value Reference Range Interpretation [...] CA) 8.2 mg/dL 8.8-10.2 L CBC W/AUTO [id number] 05:11:00* Test Item Value Reference Range Interpretation [...] 0.06 x10 3/uL 0.0-0.20 N B-TYPE NATRIURETIC [id number] 19:27:00* Test Item Value Reference Range Interpretation Comments B-TYPE NATRIURETIC PEPTIDE (test code = BNP) > 5000 PG/ML 0-100 H PROTHROMBIN [id number] 11:35:00* Test Item Value Reference Range Interpretation [...] heart valves; 2.5-3.5recurrent systemic embolism. THROMBOPLASTIN TIME [id number] 11:31:00* Test Item Value Reference Range Interpretation Comments THROMBOPLASTIN TIME PARTIAL (test code = PTT) 49.5 SECONDS 26.0-35. 9 H INTERPRETATIVE DATA:Therapeutic range: Unfractionated heparin:47 - 71 seconds Argatroban:1.5 to 3 times the baseline PTT - XR CHEST 1 [id number] 07:56:00Patient Name: TRINH RICHTER Unit No: [id number] EXAMS: CPT CODE: [id number] XR CHEST 1 V 15382 Examination: Chest 1 view Location code: S17 [...] by:[email or web address] Printed Date/Time: 01/15/2019 (0800) Name: ROBERTRINH [facility] Phys: ELANA Porras,Andrew Q [address] : 1970 Age: 48 Sex: [place] [address] Loc: P.0213 1 Exam Date: 01/15/2019 Status: [...] CA) 8.4 mg/dL 8.8-10.2 L CBC W/AUTO [id number] 03:55:00* Test Item Value Reference Range Interpretation [...] = BA#) 0.05 x10 3/uL 0.0-0.20 N [id number] 16:14:00* Test Item Value Reference Range Interpretation Comments GLUBED (test code = GLUBED) 136 MG/DL 70-105 H BASIC METABOLIC [id number] 10:30:00* Test Item Value Reference Range Interpretation [...] 8.8-10.2 L Spec Comments: AT START OF [id number] 09:55:00* Test Item Value Reference Range Interpretation Comments GLUBED (test code = GLUBED) 168 MG/DL 70-105 H CBC W/AUTO [id number] 09:51:00* Test Item Value Reference Range Interpretation [...] 0.0-0.20 N Spec Comments: AT START OF [id number] 16:17:00* Test Item Value Reference Range Interpretation Comments GLUBED (test code = GLUBED) 142 MG/DL 70-105 H [id number] 11:42:00* Test Item Value Reference Range Interpretation Comments GLUBED (test code = GLUBED) 150 MG/DL 70-105 H [id number] 08:27:00* Test Item Value Reference Range Interpretation Comments GLUBED (test code = GLUBED) 96 MG/DL 70-105 N BASIC METABOLIC [id number] 05:30:00* Test Item Value Reference Range Interpretation [...] CA) 7.8 mg/dL 8.8-10.2 L CBC W/AUTO [id number] 05:04:00* Test Item Value Reference Range Interpretation [...] 3/uL 0.0-0.20 N - XR CHEST 1 [id number] 03:40:00Patient Name: TRINH RICHTER Unit No: [id number] EXAMS: CPT CODE: [id number] XR CHEST 1 V 61944 HISTORY: CHF and pleural effusion Location: C3 [...] Printed Date/Time: 01/13/2019 (0343) Name: TRINH RICHTER [facility] Phys: ELANA Porras,Andrew Q [address] : 1970 Age: 48 Sex: F [place] [address] Loc: P.0213 1 Exam Date: 01/13/2019 Status: ADM IN PH: FAX: PAGE 1 Signed Report [id number] 16:31:00* Test Item Value Reference Range Interpretation Comments GLUBED (test code = GLUBED) 137 MG/DL 70-105 H AB HEPATITIS B [id number] 11:55:00* Test Item Value Reference Range Interpretation Comments AB HEPATITIS B SURFACE (test code = HBSAB) NON-REACTIVE NONREACTIVE AG HEPATITIS B [id number] 11:55:00* Test Item Value Reference Range Interpretation Comments AG HEPATITIS B SURFACE (test code = HBSAG) NON REACTIVE NONREACTIVE [id number] 11:21:00* Test Item Value Reference Range Interpretation Comments GLUBED (test code = GLUBED) 115 MG/DL 70-105 H [id number] 07:32:00* Test Item Value Reference Range Interpretation Comments GLUBED (test code = GLUBED) 119 MG/DL 70-105 H BASIC METABOLIC [id number] 06:03:00* Test Item Value Reference Range Interpretation [...] CA) 7.8 mg/dL 8.8-10.2 L CBC W/AUTO [id number] 05:37:00* Test Item Value Reference Range Interpretation [...] x10 3/uL 0.0-0.20 N - US CHST W/[id number] 16:48:00Patient Name: TRINH RICHTER Unit No: [id number] EXAMS: CPT CODE: [id number] [facility] CLINICAL HISTORY: Please assess pleural effusion volume TECHNIQUE: Real-time sonographic evaluation of the thorax was performed for evaluation for pleural effusion. Comparison: Chest films of 01/11/2019 reviewed LOCATION: W1 FINDINGS: Small to moderate size, free-flowing bilateral pleural effusions are identified. IMPRESSION: Small to moderate size bilateral pleural effusions noted. at 5391 Reported and signed by: Kulwant Reed MD CC: Daniel Granados MD; Deloris Hays MD; Sarthak Hyde MD Technologist: Ramila Ritter Probe: Trscr Dt/Tm: 01/11/2019 (6011) by:[email or web address] Printed Date/Time: 01/11/2019 (1725) Name: TRINH RICHTER [facility] Phys: Deloris Seo MD [address] : 1970 Age: 48 Sex: [place] [address] Loc: P.0213 1 Exam Date: 01/11/2019 Status: ADM IN PH: FAX: PAGE 1 Signed Report B-TYPE NATRIURETIC [id number] 16:14:00* Test Item Value Reference Range Interpretation Comments B-TYPE NATRIURETIC PEPTIDE (test code = BNP) > 5000 PG/ML 0-100 H [id number] 12:48:00* Test Item Value Reference Range Interpretation Comments GLUBED (test code = GLUBED) 154 MG/DL 70-105 H - XR CHEST 2 [id number] 10:27:00Patient Name: TRINH RICHTER Unit No: [id number] EXAMS: CPT CODE: [id number] XR CHEST 2 V 28635 Location of dictation: B2 Chest 2 views. [...] Printed Date/Time: 01/11/2019 (1030) Name: TRINH RICHTER [facility] Phys: Deloris Seo MD [address] : 1970 Age: 48 Sex: [place] [address] Loc: P.0612 1 Exam Date: 01/11/2019 Status: ADM IN PH: FAX: PAGE 1 Signed Report [id number] 08:43:00* Test Item Value Reference Range Interpretation Comments GLUBED (test code = GLUBED) 115 MG/DL 70-105 H - XR CHEST 1 [id number] 07:50:00Patient Name: TRINH RICHTER Unit No: [id number] EXAMS: CPT CODE: [id number] XR CHEST 1 V 38431 Location of dictation: B2 Portable chest one [...] Air Kerma (mGy): Trscr Dt/Tm: 01/11/2019 (0750) by:[facility] Printed Date/Time: 01/11/2019 (0754) Name: TRINH RICHTER [facility] Phys: Fer Llamas MD [address] : 1970 Age: 48 Sex: F [place] [address] Loc: P.0612 1 Exam Date: 01/11/2019 Status: ADM IN PH: FAX: PAGE 1 Signed Report CBC W/AUTO [id number] 06:42:00 * Test Item Value Reference Range [...] 0.02 x10 3/uL 0.0-0.20 N BASIC METABOLIC [id number] 06:34:00* Test Item Value Reference Range Interpretation [...] code = CA) 7.9 mg/dL 8.8-10.2 L [id number] 17:09:00* Test Item Value Reference Range Interpretation Comments GLUBED (test code = GLUBED) 114 MG/DL 70-105 H [id number] 14:17:00* Test Item Value Reference Range Interpretation Comments GLUBED (test code = GLUBED) 162 MG/DL 70-105 H [id number] 14:12:00* Test Item Value Reference Range Interpretation Comments GLUBED (test code = GLUBED) 130 MG/DL 70-105 H CBC W/AUTO [id number] 05:07:00* Test Item Value Reference Range Interpretation [...] 0.01 x10 3/uL 0.0-0.20 N BASIC METABOLIC [id number] 04:52:00* Test Item Value Reference Range Interpretation [...] code = CA) 7.9 mg/dL 8.8-10.2 L [id number] 20:36:00* Test Item Value Reference Range Interpretation Comments GLUBED (test code = GLUBED) 189 MG/DL 70-105 H [id number] 17:45:00* Test Item Value Reference Range Interpretation Comments GLUBED (test code = GLUBED) 122 MG/DL 70-105 H [id number] 12:28:00* Test Item Value Reference Range Interpretation Comments GLUBED (test code = GLUBED) 135 MG/DL 70-105 H COAGULATION TIME [id number] 09:48:00* Test Item Value Reference Range Interpretation Comments COAGULATION TIME ACTIVATED (test code = ACT) 219 SECONDS 74-137 H [id number] 08:35:00* Test Item Value Reference Range Interpretation Comments GLUBED (test code = GLUBED) 137 MG/DL 70-105 H [id number] 21:03:00* Test Item Value Reference Range Interpretation Comments GLUBED (test code = GLUBED) 112 MG/DL 70-105 H [id number] 16:59:00* Test Item Value Reference Range Interpretation Comments GLUBED (test code = GLUBED) 156 MG/DL 70-105 H [id number] 15:46:00* Test Item Value Reference Range Interpretation Comments TROPONIN-I (test code = TROPI) < 0.30 ng/mL 0.00-0.30 N INTERPRETATIVE DATA:Negative or inconclusive reuslts do not exclude myocardialinfarction. Serial tests at appropriate intervals may benecessary. [id number] 15:14:00* Test Item Value Reference Range Interpretation Comments GLUBED (test code = GLUBED) 119 MG/DL 70-105 H [id number] 12:16:00* Test Item Value Reference Range Interpretation Comments GLUBED (test code = GLUBED) 129 MG/DL 70-105 H [id number] 11:00:00* Test Item Value Reference Range Interpretation Comments GLUBED (test code = GLUBED) 90 MG/DL 70-105 N RENAL FUNCTION [id number] 06:47:00* Test Item Value Reference Range Interpretation [...] PHOS) 4.3 mg/dL 2.7-4.5 N BASIC METABOLIC [id number] 06:42:00* Test Item Value Reference Range Interpretation [...] CA) 8.4 mg/dL 8.8-10.2 L CBC W/AUTO [id number] 05:59:00* Test Item Value Reference Range Interpretation [...] = BA#) 0.02 x10 3/uL 0.0-0.20 N [id number] 04:20:00* Test Item Value Reference Range Interpretation Comments GLUBED (test code = GLUBED) 210 MG/DL 70-105 H [id number] 16:57:00* Test Item Value Reference Range Interpretation Comments GLUBED (test code = GLUBED) 142 MG/DL 70-105 H [id number] 12:56:00* Test Item Value Reference Range Interpretation Comments GLUBED (test code = GLUBED) 147 MG/DL 70-105 H [id number] 08:38:00* Test Item Value Reference Range Interpretation Comments GLUBED (test code = GLUBED) 99 MG/DL 70-105 N BASIC METABOLIC [id number] 06:04:00* Test Item Value Reference Range Interpretation [...] CA) 8.5 mg/dL 8.8-10.2 L CBC W/AUTO [id number] 05:39:00* Test Item Value Reference Range Interpretation [...] = BA#) 0.02 x10 3/uL 0.0-0.20 N [id number] 20:52:00* Test Item Value Reference Range Interpretation Comments GLUBED (test code = GLUBED) 153 MG/DL 70-105 H [id number] 17:18:00* Test Item Value Reference Range Interpretation Comments GLUBED (test code = GLUBED) 136 MG/DL 70-105 H [id number] 11:10:00* Test Item Value Reference Range Interpretation Comments GLUBED (test code = GLUBED) 122 MG/DL 70-105 H [id number] 07:39:00* Test Item Value Reference Range Interpretation Comments GLUBED (test code = GLUBED) 107 MG/DL 70-105 H [id number] 07:21:00* Test Item Value Reference Range Interpretation Comments GLUBED (test code = GLUBED) 146 MG/DL 70-105 H BASIC METABOLIC [id number] 06:44:00* Test Item Value Reference Range Interpretation [...] CA) 7.8 mg/dL 8.8-10.2 L CBC W/AUTO [id number] 05:26:00* Test Item Value Reference Range Interpretation [...] = BA#) 0.06 x10 3/uL 0.0-0.20 N [id number] 20:39:00* Test Item Value Reference Range Interpretation Comments GLUBED (test code = GLUBED) 176 MG/DL 70-105 H [id number] 16:45:00* Test Item Value Reference Range Interpretation Comments GLUBED (test code = GLUBED) 111 MG/DL 70-105 H [id number] 11:27:00* Test Item Value Reference Range Interpretation Comments GLUBED (test code = GLUBED) 111 MG/DL 70-105 H CBC W/AUTO [id number] 07:33:00* Test Item Value Reference Range Interpretation [...] = BA#) 0.07 x10 3/uL 0.0-0.20 N [id number] 07:29:00* Test Item Value Reference Range Interpretation Comments GLUBED (test code = GLUBED) 83 MG/DL 70-105 N BASIC METABOLIC [id number] 06:32:00* Test Item Value Reference Range Interpretation [...] code = CA) 8.1 mg/dL 8.8-10.2 L [id number] 20:10:00* Test Item Value Reference Range Interpretation Comments GLUBED (test code = GLUBED) 110 MG/DL 70-105 H [id number] 13:44:00* Test Item Value Reference Range Interpretation Comments GLUBED (test code = GLUBED) 116 MG/DL 70-105 H - NM MYOCRD SPECT R/S [id number] 08:29:00Patient Name: TRINH RICHTER Unit No: [id number] EXAMS: CPT CODE: [id number] NM MYOCRD SPECT R/S MULT 55299 Lexiscan nuclear stress test report. Procedure The [...] MD; Arik Ely MD Technologist: RAMANA JIMENEZ [facility] Trscr Dt/Tm: 01/04/2019 (082 9) by:[email or web address] Printed Date/Time: 01/04/2019 (5232) Name: TRINH RICHTER [facility] Phys: RA.Cam Arik Ely [address] : 1970 Age: 48 Sex: F [place], [place] [email or web address] No: [id number] Loc: P.[id number] 1 Exam Date: 01/03/2019 Status: ADM IN PH: FAX: PAGE 1 Signed Report [id number] 08:16:00* Test Item Value Reference Range Interpretation Comments GLUBED (test code = GLUBED) 82 MG/DL 70-105 N BASIC METABOLIC [id number] 06:27:00* Test Item Value Reference Range Interpretation [...] CA) 8.1 mg/dL 8.8-10.2 L CBC W/AUTO [id number] 06:05:00* Test Item Value Reference Range Interpretation [...] = BA#) 0.08 x10 3/uL 0.0-0.20 N [id number] 05:48:00* Test Item Value Reference Range Interpretation Comments GLUBED (test code = GLUBED) 75 MG/DL 70-105 N [id number] 23:56:00* Test Item Value Reference Range Interpretation Comments GLUBED (test code = GLUBED) 82 MG/DL 70-105 N [id number] 17:09:00* Test Item Value Reference Range Interpretation Comments GLUBED (test code = GLUBED) 147 MG/DL 70-105 H - CT CHEST W/O [id number] 14:47:00Patient Name: TRINH RICHTER Unit No: [id number] EXAMS: CPT CODE: [id number] CT CHEST W/O CONTRAST 33127 Indication: chf TECHNIQUE: CT of the chest [...] lingular consolidation noted. Consider multifocal pneumonia. at 8150 Reported and signed by: Kulwant dawson MD CC: Daniel Granados MD; Sarthak Hyde MD Technol ogist: Bailey Salcido CTDI: 14. 33 DLP: 436 Trscr Dt/Tm: 01/03/2019 (8953) by:CastilloNAB2 Printed Date/Time: 01/03/2019 (9564) Name: Pamella RICHTER [facility] Phys: YUMI.01 - Sarthak Toney i, MD [address] : 1970 Age: 48 Sex: F [place] [address] Loc: P.0612 1 Exam Date: 01/03/2019 Status: ADM IN PH: FAX: PAGE 1 Signed Report - US RETRO [id number] 14:10:00Patient Name: TRINH RICHTER Unit No: [id number] EXAMS: CPT CODE: [id number] US RETRO LTD 44385 CLINICAL HISTORY: JENNIFER Comparison: None Location: W1 TECHNIQUE: Realtime live [...] Date/Time: 01/04/20 19 (1413) Name: TRINH RICHTER [facility] - Sarthak Hyde MD [address] : 1970 Age: 48 Sex: [place] [address] Loc: P.0612 1 Exam Date: 01/03/2019 Status: ADM IN PH: FAX: PAGE 1 Signed Report GLUBED 2019-01-03 11:54:00* Test Item Value Reference Range Interpretation Comments GLUBED (test code = GLUBED) 116 MG/DL 70-105 H BNP SQGEC0620-04-00 11:20:00* Test Item Value Reference Range Interpretation Comments BNP RAPID (test code = BNPRAPID) >5000 pg/mL 0-100.0 H B-TYPE NATRIURETIC [id number] 10:09:00* Test Item Value Reference Range Interpretation Comments B-TYPE NATRIURETIC PEPTIDE (test code = BNP) > 5000 PG/ML 0-100 H [id number] 04:54:00* Test Item Value Reference Range Interpretation Comments GLUBED (test code = GLUBED) 126 MG/DL 70-105 H [id number]-[id number] 02:44:00* Test Item Value Reference Range Interpretation Comments TROPONIN-I (test code = TROPI) < 0.30 ng/mL 0.00-0.30 N INTERPRETATIVE DATA:Negative or inconclusive reuslts do not exclude myocardialinfarction. Serial tests at appropriate intervals may benecessary. BASIC METABOLIC [id number] 02:44:00* Test Item Value Reference Range Interpretation [...] CA) 8.2 mg/dL 8.8-10.2 L CBC W/AUTO [id number] 02:30:00* Test Item Value Reference Range Interpretation [...] = BA#) 0.07 x10 3/uL 0.0-0.20 N [id number] 00:10:00* Test Item Value Reference Range Interpretation Comments GLUBED (test code = GLUBED) 140 MG/DL 70-105 H [id number] 23:04:00* Test Item Value Reference Range Interpretation Comments TROPONIN-I (test code = TROPI) < 0.30 ng/mL 0.00-0.30 N INTERPRETATIVE DATA:Negative or inconclusive reuslts do not exclude myocardialinfarction. Serial tests at appropriate intervals may benecessary. [id number] 22:43:00* Test Item Value Reference Range Interpretation Comments GLUBED (test code = GLUBED) 138 MG/DL 70-105 H - XR CHEST 2 [id number] 18:56:00Patient Name: TRINH RICHTER Unit No: [id number] EXAMS: CPT CODE: [id number] XR CHEST 2 V 39770 Chest 2 views Dictation location N 13 [...] Printed Date/Time: 01/02/2019 (1858) Name: TRINH RICHTER [facility] Phys: Papo Martinez [address] : 1970 Age: 48 Sex: F [place] [address] Loc: JARED Cuevas Exam Date: 01/02/2019 Status: ADM IN PH: FAX: PAGE 1 Signed Report [id number] 18:17:00* Test Item Value Reference Range Interpretation Comments TROPONIN-I (test code = TROPI) < 0.30 ng/mL 0.00-0.30 N INTERPRETATIVE DATA:Negative or inconclusive reuslts do not exclude myocardialinfarction. Serial tests at appropriate intervals may benecessary. PROTHROMBIN [id number] 16:52:00* Test Item Value Reference Range Interpretation [...] heart valves; 2.5-3.5recurrent systemic embolism. THROMBOPLASTIN TIME [id number] 16:52:00* Test Item Value Reference Range Interpretation Comments THROMBOPLASTIN TIME PARTIAL (test code = PTT) 35.3 SECONDS 26.0-35. 9 N INTERPRETATIVE DATA:Therapeutic range: Unfractionated heparin:47 - 71 seconds Argatroban:1.5 to 3 times the baseline PTT CBC W/AUTO [id number] 16:47:00* Test Item Value Reference Range Interpretation [...] 0.08 x10 3/uL 0.0-0.20 N CHEMISTRY 8 [id number] 16:40:00* Test Item Value Reference Range Interpretation [...] GFRP) 16 51-1 20 L CHEMISTRY 8 [id number] 16:40:00* Test Item Value Reference Range Interpretation [...] 16 51-1 20 L Mammo Digital Mammography Otkcpkdma6711-72-74 16:57:33CLINICAL INDICATION: This is a routine annual [...] . For internal use only N:12Surgical pathology caybdve8600-80-56 14:20:03* Test Item Value Reference Range Interpretation Comments Case number (test code = 0113604) [id number] Surgical pathology report (test code = 2255) See link below for PDF Lab Report Result status (test code = 5051332) This is Final Report for [id number] [id number] [facility] zqolovi4820-88-57 22:29:47* Test Item Value Reference Range Interpretation Comments POC glucose (test code = 56127-8) 198 mg/dL 65-99 H [facility] Notified RNMeter ID: [id number]: Raul Madera Lab Interpretation (test code = 98735-0) Abnormal [facility] metabolic jfpkj9464-06-02 12:41:53* Test Item Value Reference Range Interpretation Comments Sodium (test code = 2951-2) 136 135- 148 mEq/L Potassium (test code = 2823-3) 4.6 3.5- 5.0 mEq/L Chloride (test code = 2075-0) 97 98- 112 mEq/L L CO2 (test code = 2027-9) 29 24- 31 mEq/L Anion gap (test code = 58819-2) 10@ANIO 7- 15 mEq/L BUN (test code = 3094-0) 54 mg/dL 6-20 H Creatinine (test code = 2160-0) 2.32 mg/dL 0.5-0.9 H Glucose (test code = 2345-7) 243 mg/dL 65-99 H Calcium (test code = 71606-7) 8.0 mg/dL 8.3-10.2 L Lab Interpretation (test code = 81930-6) Abnormal Yovani MethodistEstimated [id number] 12:41:53* Test Item Value Reference Range Interpretation Comments Estimated GFR (test code = 5488) 24 mL/min/1.73 m2 A Catergory Units InterpretationG1 >=90 Normal or highG2 60-89 Mildly wsaxiinwpY3u 45-59 Mildly to moderately kepljotrjS2l 30-44 Moderately to severely decreasedG4 15-29 Severely decreasedG5 <15 Kidney failureThe eGFR was calculated using the Chronic Kidney Disease Epidemiology Collaboration (CKD-EPI) equation. Interpretation is based on recommendations of the National Kidney Foundation-Kidney Disease Outcomes Quality Initiative (NKF-KDOQI) published in 2014. Lab Interpretation (test code = 65459-3) Abnormal Yovani CabralesUS Needle Nlwnwe0528-32-93 21:05:36 Interface, Radiology Results - 11/13/2018 4:08 [...] present. . The physician spent 44 of rtcv-wj-bvpj sedation time with the patient.EBL: None.Complications: None.Assistants: None.IMPRESSION:Successful uncomplicated medical renal biopsyWVUMEDICINE [facility]-[id number] MethodistPartial thromboplastin time, cstwachur9124-85-95 15:45:41* Test Item Value Reference Range Interpretation Comments PTT (test code = 90693-7) 26.8 23.0- 36.0 sec PTT therapeutic range for unfractionated heparin is61.0-112.0 seconds which corresponds to Anti-Xa0.3-0.7 U/ml. [place] MethodistProthrombin time with EGQ7535-03-07 15:45:05* Test Item Value Reference Range Interpretation Comments Prothrombin time (test code = 5902-2) 14.1 11.5- 14.5 sec INR (test code = 19165-6) 1.1 Th e International Normalized Ratio (INR) is a therapeutic monitoring tool for patients who are stable on oral anticoagulant therapy. An INR of 2.0-3.0 is suggested for deep vein thrombosis/pulmonary embolism. [place] MethodistCBC with platelet and qjmovaiqpsrz7286-58-83 12:16:07* Test Item Value Reference Range Interpretation Comments WBC (test code = 44256-1) 6.71 4.50- 11.00 k/uL RBC (test code = 18924-3) 3.01 m/uL 4.2-5.5 L HGB (test code = 718-7) 8.8 g/dL 12-16 L HCT (test code = 4544-3) 26.8 % 37-47 L MCV (test code = 787-2) 89.0 fL 82-100 MCH (test code = 785-6) 29.2 pg 27-34 MCHC (test code = 786-4) 32.8 g/dL 31-37 RDW - SD (test code = 36382-7) 46.0 fL 37-55 MPV (test code = 45370-0) 11.6 fL 8.8-13.2 Platelet count (test code = 95810-8) 340 150- 400 k/uL Nucleated RBC (test code = 53572-3) 0.00 /100 WBC Neutrophils (test code = 11318-8) 83.0 % 39-69 H Lymphocytes (test code = 83883-0) 12.5 % 25-45 L Monocytes (test code = 67439-8) 3.9 % 0-10 Eosinophils (test code = 40661-9) 0.0 % 0-5 Basophils (test code = 00987-0) 0.0 % 0-1 Immature granulocytes (test code = 61344-0) 0.6 % 0-1 "Immature granulocytes" (promyelocytes, myelocytes, metamyelocytes) Lab Interpretation (test code = 47378-8) Abnormal [place] MethodistUrine xxxwfze4757-07-70 18:49:05* Test Item Value Reference Range Interpretation Comments Urine culture isolate (test code = 26200-1) Mixed harry <=10-3 col/ cc Specimen InformationSpecimen Source: UrineSpecimen Site: Clean catch [place] MethodistGram jojgs0500-53-63 18:49:05* Test Item Value Reference Range Interpretation Comments Gram stain result (test code = 664-3) No WBC's or organisms seen. Specimen InformationSpecimen Source: UrineSpecimen Site: Clean catch [place] MethodistGlucose yqxcn9408-04-61 00:00:38* Test Item Value Reference Range Interpretation Comments Glucose (test code = 2345-7) 452 mg/dL 65-99 HH GLU results called to and read back by FLACA FIGUEROA (name/location) at 11/10/2018 18:59 (date/time) by SUMIT3. Lab Interpretation (test code = 61074-7) Abnormal [place] MethodistManual vafredyudgsh9633-27-05 16:21:05* Test Item Value Reference Range Interpretation Comments Manual differential (test code = 82586-3) PERFORMED Neutrophils (test code = 21843-6) 93.0 % 39-69 H Lymphocytes (test code = 81395-5) 7.0 % 25-45 L Monocytes (test code = 54141-6) 0.0 % 0-10 Eosinophils (test code = 00728-3) 0.0 % 0-5 Basophils (test code = 20000-9) 0.0 % 0-1 Metamyelocytes (test code = 740-1) 0 % Promyelocytes (test code = 783-1) 0 % Platelet slide review (test code = 44544-1) Adonis adequate Anisocytosis (test code = 702-1) Moderate Ovalocytes (test code = 774-0) Moderate Lab Interpretation (test code = 40511-5) Abnormal [place] MethodistUrinalysis screen and microscopy, with reflex to culture 2018-11-10 14:17:36* Test Item Value Reference Range Interpretation Comments Specimen site (test code = 4873833) Clean catch Color, UA (test code = 5778-6) Yellow Appearance, UA (test code = 5767-9) Clear Specific gravity, UA (test code = 5811-5) 1.010 1.001-1.035 pH, UA (test code = 5803-2) 7.0 5.0-8.5 Protein, UA (test code = 63240-9) 3+ Negative A Glucose, UA (test code = 80635-0) 3+ Negative A Ketones, UA (test code = 2514-8) Trace Negative A Bilirubin, UA (test code = 5770-3) Negative Negative Blood, UA (test code = 5794-3) Small Negative A Nitrite, UA (test code = 5802-4) Negative Negative Urobilinogen, UA (test code = 58423-7) <2.0 <2.0 Leukocyte esterase, UA (test code = 5799-2) Large Negative A Epithelial cells, UA (test code = 5787-7) 2 /HPF Round epithelial cells, UA (test code = 14035-1) 2 0- 1 /HPF H WBC, UA (test code = 5821-4) >180 0- 4 /HPF H RBC, UA (test code = 62630-6) 3 0- 5 /HPF Bacteria, UA (test code = 12309-7) Moderate None seen A WBC clumps, UA (test code = 59057-2) Moderate A Yeast, UA (test code = 26265-9) None seen Yeast with pseudohyphae, UA (test code = 59281-7) None seen Lab Interpretation (test code = 07766-4) Abnormal Yovani MethodistAnti-neutrophilic cytoplasmic Abs qghin0013-43-32 19:22:56* Test Item Value Reference Range Interpretation Comments ANCA screen (test code = 3472) Negative Negative Pina VzvwuvahrJRM7285-13-56 19:15:45* Test Item Value Reference Range Interpretation Comments ROSITA screen (test code = 550) Negative Negative Yovani MethodistUrine protein electrophoresis, ptmdvg4336-92-21 19:13:29* Test Item Value Reference Range Interpretation Comments Urine protein concentration (test code = 91834-1) 252 mg/dL UPE albumin (test code = 42323-5) 66.8 % UPE globulin (test code = 44997-7) 33.2 % UPE extended interpretation (test code = 59526-9) See Comment An abnormal random urine protein study with proteinuria equivalent to 2.5g/L. The proteinuria is in a non-selective glomerular pattern. UPE interpretation (test code = 62850-6) See Comment Starr Hager MD; Lonnie Mcbride PhD; Delmy Bryson MD [place] MethodistSerum dvmkuttnfthlfdx0264-24-29 19:09:18* Test Item Value Reference Range Interpretation Comments Protein (test code = 2885-2) 5.8 g/dL 6.3-8.3 L 4.6-7.0 g/dL1 week 4.4-7.6 g/dL7 months-1year 5.1-7.3 g/dL1-2 years 5.6-7.5 g/dL>3 years 6.0-8.0 g/wV42-174 6.3-8.3 g/dL SPE albumin (test code = 2862-1) 3.02 g/dL 4-5.3 L SPE alpha 1 (test code = 2865-4) 0.25 g/dL 0.1-0.25 SPE alpha 2 (test code = 2868-8) 0.89 g/dL 0.58-0.84 H SPE beta (test code = 2871-2) 0.73 g/dL 0.5-1.1 SPE gamma (test code = 2874-6) 0.92 g/dL 0.6-1.3 SPE extended interpretation (test code = 00802-6) See Comment Total protein and albumin are decreased while the relative concentrationsof alpha-1 globulins and alpha-2 globulins are increased indicating anacute phase response to infection, inflammation or tissue injury. SPE interpretation (test code = 2218) See Comment Starr Hager MD; Lonnie Mcbride PhD; Delmy Bryson MD Lab Interpretation (test code = 54573-9) Abnormal [place] MethodistHemoglobin A4s3718-84-90 14:15:17* Test Item Value Reference Range Interpretation Comments Hemoglobin A1C (test code = 49636-2) 7.7 % 4-5.6 H HbA1c cutoffs for diagnosing diabetes:4.0% - 5.6% = normal5.7% - 6.4% = increased risk for diabetes (prediabetes) >=6.5% = diabetes Goals for glycemic control (ADA 2016)< 7.0% Target for non adults with diabetes. More or less stringent targets may be appropriate for individual patients. <7.5% Target for Children and adolescents with type 1 diabetes. Lab Interpretation (test code = 34308-8) Abnormal [place] MethodistHepatitis acute lnexy6274-25-88 13:11:21* Test Item Value Reference Range Interpretation Comments Hepatitis A IgM (test code = 73604-0) Non-reactive Non-reactive Hepatitis B core IgM (test code = 84582-1) Non-reactive Non-reactiv e Hepatitis B surface Ag (test code = 5195-3) Non-reactive Non-reacti ve Hepatitis C Ab (test code = 54425-8) Non-reactive Non-reactive [place] MethodistFerritin cshxs3053-93-90 11:46:20* Test Item Value Reference Range Interpretation Comments Ferritin level (test code = 2276-4) 163 ng/mL 13-150 H Lab Interpretation (test code = 84336-8) Abnormal [place] MethodistTotal iron binding sqhaecbc6383-56-02 11:42:03* Test Item Value Reference Range Interpretation Comments Iron level (test code = 2498-4) 46 ug/dL 37-145 Iron binding capacity (test code = 2500-7) 181 ug/dL 200-400 L % Saturation (test code = 2502-3) 25.4 % 15-38 Lab Interpretation (test code = 32574-2) Abnormal [place] MethodistMagnesium krezg5857-89-12 11:42:02* Test Item Value Reference Range Interpretation Comments Magnesium (test code = 64955-3) 2.3 mg/dL 1.6-2.6 [place] MethodistPhosphorus yspst0308-49-18 11:41:59* Test Item Value Reference Range Interpretation Comments Phosphorus (test code = 2777-1) 3.9 mg/dL 2.4-4.5 [place] MethodistC4 complement afprftymm4766-36-02 11:40:34* Test Item Value Reference Range Interpretation Comments C4 complement (test code = 4498-2) 26 mg/dL 10-40 Pina MethodistC3 complement henzitvni1073-06-97 11:40:34* Test Item Value Reference Range Interpretation Comments C3 complement (test code = 4485-9) 113 mg/dL 90-180 Yovani CabralesUrine tbyqurefehz0232-75-14 02:40:38* Test Item Value Reference Range Interpretation Comments Eosinophils, urine (test code = 88950-7) PRESENT A Lab Interpretation (test code = 63506-4) Abnormal Yovani Rojas Renal Knadmii2564-66-39 22:07:44Hm Interface, Radiology Results 11/08/2018 5:10 PM [...] and waveformIMPRESSION:Normal renal duplex arterial ultrasound.Yovani Rojas Jgsdg0682-82-12 22:05:21Hm Interface, Radiology Results - 11/08/2018 5:08 [...] abdomen and pe lvis.2.. Debris within the bladder.[place] MethodtundeProtein, urine, random 2018-11-08 18:11:44* Test Item Value Reference Range Interpretation Comments Protein, urine random (test code = 2888-6) 249 mg/dL [place] MethodistCreatinine level, urine, iklohs4280-88-04 18:00:40* Test Item Value Reference Range Interpretation Comments Creatinine, urine, random (test code = 78361-7) 36 mg/dL [place] MethodistComprehensive metabolic igxtt6489-99-53 12:03:01* Test Item Value Reference Range Interpretation Comments Sodium (test code = 2951-2) 143 135- 148 mEq/L Potassium (test code = 2823-3) 5.1 3.5- 5.0 mEq/L H Chloride (test code = 2075-0) 111 98- 112 mEq/L CO2 (test code = 2027-9) 18 24- 31 mEq/L L Anion gap (test code = 76477-6) 14@ANIO 7- 15 mEq/L BUN (test code = 3094-0) 42 mg/dL 6-20 H Creatinine (test code = 2160-0) 2.74 mg/dL 0.5-0.9 H Glucose (test code = 2345-7) 195 mg/dL 65-99 H Calcium (test code = 83042-3) 8.6 mg/dL 8.3-10.2 Protein (test code = 2885-2) 6.4 g/dL 6.3-8.3 Spiro 4.6-7.0 g/dL1 week 4.4-7.6 g/dL7 months-1year 5.1-7.3 g/dL1-2 years 5.6-7.5 g/dL>3 years 6.0-8.0 g/gT00-585 6.3-8.3 g/dL Albumin (test code = 1751-7) 2.4 g/dL 3.5-5 L A/G ratio (test code = 1759-0) 0.6 0.7-3.8 L Alkaline phosphatase (test code = 6768-6) 192 U/L 35-104 H AST (test code = 1920-8) 15 U/L 10-35 ALT (test code = 1742-6) 27 U/L 5-50 Total bilirubin (test code = 1975-2) <0.2 0-1.2 Lab Interpretation (test code = 38871-7) Abnormal [place] MethodistProthrombin Ekoi3615-77-37 15:23:00* Test Item Value Reference Range Interpretation Comments Prothrombin Time (test code = 5902-2) 12.8 11.9-14.5 [facility] BrookProthromb Time International Ratio 2018-11-02 15:23:00* Test Item Value Reference Range Interpretation Comments Prothromb Time International Ratio (test code = 6301-6) 0.92 Oral Anticoagulant Therapy INR Values:1. Low Intensity Therapy 1.5 - 2.02 . Moderate Intensity Therapy 2.0 - 3.03. High Intensity Therapy(1) 2.5 - 3. 54. High Intensity Therapy(2) 3.0 - 4.05. Panic Value INR > 5.0 [facility] BrookActivated Partial Thromboplast Time 2018-11-02 15:23:00* Test Item Value Reference Range Interpretation Comments Activated Partial Thromboplast Time (test code = 41272-5) 32.9 23.8-35.5 [facility] Ztdzh1491-20-63 15:20:00* Test Item Value Reference Range Interpretation Comments Sodium Level (test code = 2951-2) 137 136-145 [facility] BrookPotassium Ebgta0940-13-64 15:20:00* Test Item Value Reference Range Interpretation Comments Potassium Level (test code = 2823-3) 5.3 3.5-5.1 [facility] BrookChloride Hzdiy4742-37-28 15:20:00* Test Item Value Reference Range Interpretation Comments Chloride Level (test code = 2075-0) 109 98-107 [facility] BrookCarbon Dioxide Qkecg2846-63-54 15:20:00* Test Item Value Reference Range Interpretation Comments Carbon Dioxide Level (test code = 2028-9) 18 22-29 [facility] BrookAnion Whj4303-63-22 15:20:00* Test Item Value Reference Range Interpretation Comments Anion Gap (test code = 35902-8) 15.3 8-16 [facility] BrookBlood Urea Puduuxqv5411-37-37 15:20:00* Test Item Value Reference Range Interpretation Comments Blood Urea Nitrogen (test code = 3094-0) 49 7-26 [facility] BrookCreatinine2019-07-05 15:20:00* Test Item Value Reference Range Interpretation Comments Creatinine (test code = 2160-0) 2.93 0.57-1.11 [facility] BrookBUN/Creatinine Ehydd9558-15-16 15:20:00* Test Item Value Reference Range Interpretation Comments BUN/Creatinine Ratio (test code = 3097-3) 17 6-25 [facility] BrookEstimat Glomerular Filtration Rate 2018-11-02 15:20:00* Test Item Value Reference Range Interpretation Comments Estimat Glomerular Filtration Rate (test code = 130051833) 17 >60 Ranges were taken from the National Kidney Disease Education Program and the [facility] Kidney Foundation literature.Reference ranges:60 or greater: Ehlabs76-34 ( for 3 consecutive months): Chronic kidney disease 15 or less: Kidney failureAdventHealth Rollins BrookGlucose Hvibt6977-56-04 15:20:00* Test Item Value Reference Range Interpretation Comments Glucose Level (test code = YLL0166) 124 74-118 [facility] BrookCalcium Kshub7458-99-04 15:20:00* Test Item Value Reference Range Interpretation Comments Calcium Level (test code = 13162-3) 8.9 8.4-10.2 [facility] BrookTotal Bcpualxia4424-34-01 15:20:00* Test Item Value Reference Range Interpretation Comments Total Bilirubin (test code = 1975-2) 0.3 0.2-1.2 [facility] BrookAspartate Amino Transf (AST/SGOT) 2018-11-02 15:20:00* Test Item Value Reference Range Interpretation Comments Aspartate Amino Transf (AST/SGOT) (test code = Aspartate Amino Transf (AST/SGOT)) 17 5-34 [facility] BrookAlanine Aminotransferase (ALT/SGPT) 2018-11-02 15:20:00* Test Item Value Reference Range Interpretation Comments Alanine Aminotransferase (ALT/SGPT) (test code = 1742-6) 23 0-55 [facility] BrookTotal Ytzzhwb0908-05-07 15:20:00* Test Item Value Reference Range Interpretation Comments Total Protein (test code = 2885-2) 7.3 6.5-8.1 [facility] BrookAlbumin2019-07-05 15:20:00* Test Item Value Reference Range Interpretation Comments Albumin (test code = 1751-7) 3.0 3.5-5.0 [facility] BrookGlobulin2019-07-05 15:20:00* Test Item Value Reference Range Interpretation Comments Globulin (test code = 01355-2) 4.3 2.3-3.5 [facility] BrookAlbumin/Globulin Heaht2285-82-25 15:20:00 * Test Item Value Reference Range Interpretation Comments Albumin/Globulin Ratio (test code = 1759-0) 0.7 0.8-2.0 [facility] BrookAlkaline Lzgbnrbcbxm4399-52-74 15:20:00* Test Item Value Reference Range Interpretation Comments Alkaline Phosphatase (test code = 6768-6) 210 40-150 [facility] BrookWhite Blood Swyqv2456-08-36 15:02:00* Test Item Value Reference Range Interpretation Comments White Blood Count (test code = 6690-2) 4.98 4.8-10.8 [facility] BrookRed Blood Bqfwj0212-51-86 15:02:00* Test Item Value Reference Range Interpretation Comments Red Blood Count (test code = 789-8) 3.05 3.6-5.1 [facility] BrookHemoglobin2019-07-05 15:02:00* Test Item Value Reference Range Interpretation Comments Hemoglobin (test code = 86486-8) 9.0 12.0-16.0 [facility] BrookHematocrit2019-07-05 15:02:00* Test Item Value Reference Range Interpretation Comments Hematocrit (test code = 4544-3) 27.6 34.2-44.1 [facility] BrookMean Corpuscular Hwcgfy0848-41-10 15:02:00* Test Item Value Reference Range Interpretation Comments Mean Corpuscular Volume (test code = 787-2) 90.5 81-99 [facility] BrookMean Corpuscular Frjixgidsx6836-90-29 15:02:00* Test Item Value Reference Range Interpretation Comments Mean Corpuscular Hemoglobin (test code = 785-6) 29.5 28-32 [facility] BrookMean Corpuscular Hemoglobin Concent 2018-11-02 15:02:00* Test Item Value Reference Range Interpretation Comments Mean Corpuscular Hemoglobin Concent (test code = 786-4) 32.6 31-35 [facility] BrookRed Cell Distribution Wxwjq1083-27-05 15:02:00* Test Item Value Reference Range Interpretation Comments Red Cell Distribution Width (test code = 08975-6) 14.4 11.7 -14.4 [facility] BrookPlatelet Rkvnt0998-62-96 15:02:00* Test Item Value Reference Range Interpretation Comments Platelet Count (test code = 777-3) 359 140-360 [facility] BrookNeutrophils (%) (Auto)2018-11-02 15:02:00 * Test Item Value Reference Range Interpretation Comments Neutrophils (%) (Auto) (test code = 28457-8) 63.1 38.7-80.0 [facility] BrookLymphocytes (%) (Auto)2018-11-02 15:02:00 * Test Item Value Reference Range Interpretation Comments Lymphocytes (%) (Auto) (test code = 736-9) 21.7 18.0-39.1 [facility]ocytes (%) (Auto)2018-11-02 15:02:00* Test Item Value Reference Range Interpretation Comments Monocytes (%) (Auto) (test code = 5905-5) 7.8 4.4-11.3 [facility]Eosinophils (%) (Auto)2018-11-02 15:02:00 * Test Item Value Reference Range Interpretation Comments Eosinophils (%) (Auto) (test code = 713-8) 6.2 0.0-6.0 [facility] BrookBasophils (%) (Auto)2018-11-02 15:02:00* Test Item Value Reference Range Interpretation Comments Basophils (%) (Auto) (test code = 706-2) 1.0 0.0-1.0 [facility] BrookIM GRANULOCYTES %2018-11-02 15:02:00* Test Item Value Reference Range Interpretation Comments IM GRANULOCYTES % (test code = IM GRANULOCYTES %) 0.2 0.0- 1.0 [facility] BrookNeutrophils # (Auto)2018-11-02 15:02:00* Test Item Value Reference Range Interpretation Comments Neutrophils # (Auto) (test code = 751-8) 3.1 2.1-6.9 [facility] BrookLymphocytes # (Auto)2018-11-02 15:02:00* Test Item Value Reference Range Interpretation Comments Lymphocytes # (Auto) (test code = 89508-1) 1.1 1.0-3.2 [facility] BrookMonocytes # (Auto)2018-11-02 15:02:00* Test Item Value Reference Range Interpretation Comments Monocytes # (Auto) (test code = 742-7) 0.4 0.2-0.8 [facility] BrookEosinophils # (Auto)2018-11-02 15:02:00* Test Item Value Reference Range Interpretation Comments Eosinophils # (Auto) (test code = 711-2) 0.3 0.0-0.4 [facility] BrookBasophils # (Auto)2018-11-02 15:02:00* Test Item Value Reference Range Interpretation Comments Basophils # (Auto) (test code = 704-7) 0.1 0.0-0.1 [facility] BrookAbsolute Immature Granulocyte (auto 2018-11-02 15:02:00* Test Item Value Reference Range Interpretation Comments Absolute Immature Granulocyte (auto (bambi t code = Absolute Immature Granulocyte (auto) 0.01 0-0.1 [facility] BrookNM GASTRIC EMPTYING STUDY - DAY 2018-09-26 09:00:06CLINICAL INDICATION: dx: r11.10, r11.0, vomiting, nausea, lower abd painMODALITY: Lomography dual head gamma cameraTECHNIQUE: 2.0 mCi technetium 99m sulfur colloid admixed with oatmeal. This is administered orally. Imaging over the left upper quadrant is performed over 60 minutes from the left LATVIAN projection. Quantitative analysis is accomplished.FINDINGS:COMPARISON: No prior study.No significant activity is visible within the esophagus.A region of interest is drawn around the stomach and a time activity curve generated. The T 1/2 gastric emptying time is calculated at undefined and markedly prolonged. The normal expected upper limit is 65 minutes for oatmeal.IMPRESSION:Markedly prolonged gastric emptying time.US ABDOMEN MMYQHIRP1175-23-04 08:53:30CLINICAL INDICATION: R10.11 Right upper quadrant painR11.10 Vomiting, unspecifiedTECHNIQUE:Real-time and doppler ultrasound evaluation of the abdomen was performed on the [employer].FINDINGS:Comparison study: none.The liver exhibits normal echotexture. A [...] Interpretation Comments Bedside Glucose (test code = 37780-0) 166 70-120 Meter ID: [id number] Rollins BrookDifferential Total Cells Nugoeyl2475-03-04 08:34:00* Test Item Value Reference Range Interpretation Comments Differential Total Cells Counted (test code = Differen tial Total Cells Counted) 100 [facility] BrookNeutrophils % (Manual)2018-04-19 08:34:00 * Test Item Value Reference Range Interpretation Comments Neutrophils % (Manual) (test code = 99306-6) 60 40-74 [facility] BrookLymphocytes % (Manual)2018-04-19 08:34:00 * Test Item Value Reference Range Interpretation Comments Lymphocytes % (Manual) (test code = 737-7) 16 19-48 [facility] BrookMonocytes % (Manual)2018-04-19 08:34:00* Test Item Value Reference Range Interpretation Comments Monocytes % (Manual) (test code = 744-3) 12 3.4-9.0 [facility] BrookEosinophils % (Manual)2018-04-19 08:34:00 * Test Item Value Reference Range Interpretation Comments Eosinophils % (Manual) (test code = 714-6) 7 0-7 [facility] BrookBasophils % (Manual)2018-04-19 08:34:00* Test Item Value Reference Range Interpretation Comments Basophils % (Manual) (test code = 16112-1) 3 0-1.5 [facility] BrookReactive Kcftztnekrn8689-63-08 08:34:00* Test Item Value Reference Range Interpretation Comments Reactive Lymphocytes (test code = 96452-9) 2 [facility] BrookPlatelet Cgushynw2334-52-32 08:34:00* Test Item Value Reference Range Interpretation Comments Platelet Estimate (test code = 34878-6) SLIGHTLY INCREASED [facility] BrookPlatelet Morphology Oubwube5786-36-69 08:34:00* Test Item Value Reference Range Interpretation Comments Platelet Morphology Comment (test code = 31484-3) FEW LARGE [facility] BrookHypochromasia2018-12-20 08:34:00* Test Item Value Reference Range Interpretation Comments Hypochromasia (test code = 728-6) SLIGHT [facility] BrookAnisocytosis2018-12-20 08:34:00* Test Item Value Reference Range Interpretation Comments Anisocytosis (test code = 702-1) MODERATE [facility] BrookHowell-[place]elle[place] Ewqeiy7354-08-54 08:34:00* Test Item Value Reference Range Interpretation Comments [place] Bodies (test code = 7793-3) FEW [facility] BrookBurr Vjwff4655-07-03 08:34:00* Test Item Value Reference Range Interpretation Comments [place] Cells (test code = 7790-9) SLIGHT [facility] BrookRed Cell Morphology Lwdcdaa4030-94-32 08:34:00* Test Item Value Reference Range Interpretation Comments Red Cell Morphology Comment (test code = 6742-1) ABNORMAL [facility] BrookMagnesium Kjent1234-87-31 03:57:00* Test Item Value Reference Range Interpretation Comments Magnesium Level (test code = 84693-0) 1.9 1.3-2.1 [facility] BrookB-Type Natriuretic Mxvyoky1583-28-25 03:56:00* Test Item Value Reference Range Interpretation Comments B-Type Natriuretic Peptide (test code = 07294-2) 627.0 0-100 [facility] BrookWound Xxubonn4537-74-23 07:58:00* Test Item Value Reference Range Interpretation Comments Wound Culture (test code = 6462-6) Organism: NADINE PARAPSILOSIS [facility] BrookPhosphorus Hdfvk8327-31-98 06:51:00* Test Item Value Reference Range Interpretation Comments Phosphorus Level (test code = LHJ7474) 2.8 2.3-4.7 [facility] BrookVancomycin Level Imdmvx4968-33-65 09:44:00* Test Item Value Reference Range Interpretation Comments Vancomycin Level Trough (test code = 4092-3) 17.2 5.0-10.0 Results called to FLOR WOOD RN at 0943 on 04/16/18 by Kristy Pederson. RB OK.[facility] BrookFOOT LEFT AP BCM4687-54-48 10:37:00 [facility] [address] [address] Patient Name: TRINH RICHTER MR #: [id number] : 1970 Age/Sex: 47/F Req #: [id number] Adm Physician: STEFAN JACKSON MD Ordered by: JORDON DEMARCO DPSimba Report #: [id number] Location: MED/SURG Room/Bed: [facility] Procedure: [id number] DX/F OOT LEFT AP LAT Exam Date: [...] COPY TO: JORDON DEMARCO DPM Activated Clotting Ngar6638-09-99 14:49:00* Test Item Value Reference Range Interpretation Comments Activated Clotting Time (test code = TNO3902) 168 Line pull <170 sec or baselinePeripheral and Neuroradiology <400 secAngioplasty 220 secCHI [facility] Hospital NortheastHuman Chorionic Gonadotropin, Chfx3205-23-58 10:17:00* Test Item Value Reference Range Interpretation Comments Human Chorionic Gonadotropin, Qual (test code = 2118-8) NEGATIVE NEGATIVE [facility]25-Hydroxy Vitamin D Hgyfy7152-32-64 22:43:00* Test Item Value Reference Range Interpretation Comments 25-Hydroxy Vitamin D Total (test code = 54420-6) 4.2 . Reference Range:All Ages: Target levels 30 - 100[facility]25-Hydroxy Vitamin X45419-91-86 22:43:00* Test Item Value Reference Range Interpretation Comments 25-Hydroxy Vitamin D3 (test code = 31620-2) 4.2 . Performed at: [employer] [address] Director: Wenceslao Rubio MD, Phone: [phone] [facility]25-Hydroxy Vitamin U39144-47-96 22:43:00* Test Item Value Reference Range Interpretation Comments 25-Hydroxy Vitamin D2 (test code = 1989-3) <1.0 . 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 OPERATORS: Jordon [...] were prepped and draped in standard sterile formerly [facility] ion. All elements of maximal sterile barrier [...] By: JAMES on 04/03/18852 COPY TO: JESSE PWOER MD SPECIAL PROCEDURE IN CATH DCH0699-69-64 15:28:[address] [address] Patient Name: TRINH RICHTER MR #: [id number] : 1970 Age/Sex: 47/F Req #: [id number] Adm Physician: STEFAN JACKSON MD Ordered by: JESSE POWER MD Report #: [id number] Location: MED/SURG2 Room/Bed: [facility] Procedure: [id number] IR /SPECIAL PROCEDURE IN HEARING OFFICER Exam Date: Exam Time : REPORT STATUS: Signed PROCEDU RE: PLACEMENT OF RIGHT IJ TUNNELED SMALL BORE CATHETER WITH FLUOROSCOPIC [place] NCE INDICATION: 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 OPERATORS: Jordon [...] COPY TO: JESSE POWER MD Random Vancomycin Xbsos9663-98-87 06:01:00* Test Item Value Reference Range Interpretation Comments Random Vancomycin Level (test code = 22153-2) 24.0 [facility] BrookParathyroid Owqlcjc8524-79-60 05:07:00* Test Item Value Reference Range Interpretation Comments Parathyroid Hormone (test code = 2731-8) 35 15-65 [facility] BrookCalcium (Send out)2018-03-27 05:07:00* Test Item Value Reference Range Interpretation Comments Calcium (Send out) (test code = 67385-5) 8.2 8.7-10.2 [facility] BrookParathyroid Hormone Interpretation 2018-03-27 05:07:00* Test Item Value Reference Range Interpretation Comments Parathyroid Hormone Interpretation (test code = Parathyroid Hormone Interpretation) Comment . Interpretation Intact PTH Calcium (pg/mL) (mg/dL)Normal 15 - 65 8.6 - 10.2Pr imary Hyperparathyroidism >65 >10.2Secondary Hyperparathyroidism >65 <10.2Non-Parathyroid Hypercalcemia <65 >10.2Hypoparathyroidism <15 < 8.6Non- Parathyroid Hypocalcemia 15 - 65 < 8.6Performed at: - [facility] [id number] Director: Silverio Bañuelos MD, Phone: [phone] at: [facility] [id number] Director: Jerry Keys MD, Phone: [phone] Rollins BrookUS RENAL RETROPERITONEAL ISEI8816-44-98 11:58:00 [address] [address] Patient Name: TRINH RICHTER MR #: [id number] : 1970 Age/Sex: 47/F Req #: [id number] Adm Physician: STEFAN JACKSON MD Ordered by: JESSE POWER MD Report #: [id number] Location: MED/SURG2 Room/Bed: [facility] Procedure: [id number] US /US RENAL RETROPERITONEAL COMP Exam Date: [...] 1159 COPY TO: JESSE POWER MD Blood Refwynd0064-56-58 10:51:00* Test Item Value Reference Range Interpretation Comments Blood Culture (test code = 08647556) NO GROWTH AFTER 5 DAYS, FINAL REPORT [facility] BrookUrine Random Hhwjkcktpuhx8332-08-75 10:12:00* Test Item Value Reference Range Interpretation Comments Urine Random Microalbumin (test code = 56878-4) 3493.5 Not Es tab. Results confirmed ondilution.Performed at: - [facility] [id number] Director: Silverio Bañuelos MD, Phone: [phone] Rollins BrookUrine Pdbnfhflrb0236-28-74 19:34:00* Test Item Value Reference Range Interpretation Comments Urine Creatinine (test code = 2161-8) 73.35 47-110 [facility] BrookUrine Protein/Creatinine Lpnqd9857-18-04 19:34:00* Test Item Value Reference Range Interpretation Comments Urine Protein/Creatinine Ratio (test code = 53102-5) 11.00 [facility] BrookU[facility] Random Total Gzywjxh0683-99-74 19:10:00* Test Item Value Reference Range Interpretation Comments Urine Random Total Protein (test code = 2888-6) 826.9 1-14 [facility] BrookU[facility] Random Oqenoq2568-57-50 18:17:00* Test Item Value Reference Range Interpretation Comments Urine Random Sodium (test code = 2955-3) 47 [facility] BrookUrine DNO7831-89-91 17:58:00* Test Item Value Reference Range Interpretation Comments Urine WBC (test code = 5821-4) 0-5 0-5 [facility] BrookU[facility] VLZ2494-45-06 17:58:00* Test Item Value Reference Range Interpretation Comments Urine RBC (test code = 50535-5) 6-10 0-5 [facility] BrookUrine Fshhlnvy4178-71-29 17:58:00* Test Item Value Reference Range Interpretation Comments Urine Bacteria (test code = 28856-4) MODERATE NONE [facility] BrookU[facility] Epithelial Vkmcu5854-91-41 17:58:00 * Test Item Value Reference Range Interpretation Comments Urine Epithelial Cells (test code = 50233-0) MANY NONE [facility] BrookU[facility] Pynbp4682-42-09 17:44:00* Test Item Value Reference Range Interpretation Comments Urine Color (test code = 5778-6) YELLOW YELLOW [facility] BrookU[facility] Rbjjaao3057-01-01 17:44:00* Test Item Value Reference Range Interpretation Comments Urine Clarity (test code = 21603-6) HAZY CLEAR [facility] BrookU[facility] Specific Ouacnvh8484-27-76 17:44:00 * Test Item Value Reference Range Interpretation Comments Urine Specific [place] (test code = 5811-5) 1.025 1.010-1.02 5 [facility] BrookUrine wL5457-12-41 17:44:00* Test Item Value Reference Range Interpretation Comments Urine pH (test code = 22591-8) 6.5 5-7 [facility] Brook[facility] Leukocyte Wlwkukgt6014-57-53 17:44:00* Test Item Value Reference Range Interpretation Comments Urine Leukocyte Esterase (test code = 5799-2) NEGATIVE NEGATIVE [facility] BrookU[facility] Wjwjtdc1394-52-00 17:44:00* Test Item Value Reference Range Interpretation Comments Urine Nitrite (test code = 07272-2) NEGATIVE NEGATIVE [facility] BrookUrine Awttkvc5399-52-90 17:44:00* Test Item Value Reference Range Interpretation Comments Urine Protein (test code = 5804-0) 3+ NEGATIVE [facility] BrookUrine Glucose (UA)2018-03-24 17:44:00* Test Item Value Reference Range Interpretation Comments Urine Glucose (UA) (test code = 2349-9) 1+ NEGATIVE [facility] BrookU[facility] Afmvqjx8605-32-41 17:44:00* Test Item Value Reference Range Interpretation Comments Urine Ketones (test code = 55225-2) NEGATIVE NEGATIVE [facility] BrookU[facility] Gonvwbccskcw1718-78-52 17:44:00* Test Item Value Reference Range Interpretation Comments Urine Urobilinogen (test code = 51180-2) 0.2 0.2-1 [facility] BrookUrine Unbdrgnmg4397-99-52 17:44:00* Test Item Value Reference Range Interpretation Comments Urine Bilirubin (test code = 1978-6) NEGATIVE NEGATIVE [facility] BrookUrine Mjajr7199-15-78 17:44:00* Test Item Value Reference Range Interpretation Comments Urine Blood (test code = 04941-9) 2+ NEGATIVE [facility] BrookWound Gbcfwne0755-59-25 08:07:00* Test Item Value Reference Range Interpretation Comments Wound Culture (test code = 6462-6) Organism: STREPTOCOCCUS GROUP A [facility] BrookVitamin B12 Ljshp3884-69-87 06:38:00* Test Item Value Reference Range Interpretation Comments Vitamin B12 Level (test code = 75563-1) 431 213-816 [facility] BrookFolate2018-11-23 06:38:00* Test Item Value Reference Range Interpretation Comments Folate (test code = 2284-8) 17.3 7.0-15.4 [facility] BrookFerritin2018-11-23 05:47:00* Test Item Value Reference Range Interpretation Comments Ferritin (test code = 2276-4) 193.23 4.63-204.00 [facility] BrookIron Arczt4694-21-27 05:19:00* Test Item Value Reference Range Interpretation Comments Iron Level (test code = 2498-4) 27 50-170 [facility] BrookTotal Iron Binding Ygfeotzo8974-21-60 05:19:00* Test Item Value Reference Range Interpretation Comments Total Iron Binding Capacity (test code = 2500-7) 162 261-4 78 [facility] BrookPercent Iron Frbdbjhyaj8612-99-65 05:19:00* Test Item Value Reference Range Interpretation Comments Percent Iron Saturation (test code = 2502-3) 17 15-50 [facility] BrookTransferrin2018-11-23 05:19:00* Test Item Value Reference Range Interpretation Comments Transferrin (test code = 3034-6) 116 180-382 [facility]ertool Occult Snaiz2638-12-26 14:35:00* Test Item Value Reference Range Interpretation Comments Stool Occult Blood (test code = 2335-8) NEGATIVE NEGATIVE [facility] BrookThyroid Stimulating Hormone (TSH) 2018-03-22 06:01:00* Test Item Value Reference Range Interpretation Comments Thyroid Stimulating Hormone (TSH) (test code = 14935-7) 2.804 0.350-4.940 [facility] BrookTriglycerides Nlrsy3495-63-75 05:44:00* Test Item Value Reference Range Interpretation Comments Triglycerides Level (test code = 2571-8) 93 0-149 [facility] BrookCholesterol Ldwgq4934-54-52 05:44:00* Test Item Value Reference Range Interpretation Comments Cholesterol Level (test code = 2093-3) 130 0-199 Less than 200 mg/dL Low Qgqz326 - 239 mg/dL Borderline Jjty366 m g/dl and greater High Risk [facility] BrookLDL Taszhrbmfcz7849-44-16 05:44:00* Test Item Value Reference Range Interpretation Comments LDL Cholesterol (test code = 2089-1) 82 60-130 [facility] BrookHDL Dhfxivolfsp4701-81-10 05:44:00* Test Item Value Reference Range Interpretation Comments HDL Cholesterol (test code = 2085-9) 29 40-60 [facility] BrookCholesterol/HDL Mrqlr7314-29-88 05:44:00 * Test Item Value Reference Range Interpretation Comments Cholesterol/HDL Ratio (test code = 9830-1) 4.5 3.0-3.6 [facility] BrookHemoglobin A1c Jowscrx8839-61-93 05:39:00 * Test Item Value Reference Range Interpretation Comments Hemoglobin A1c Percent (test code = Hemoglobin A1c Percent) 10.4 4.0-7.0 [facility] BrookFOOT LEFT AP MNK2784-45-67 12:34:00 [facility] [address] [place] [address] Patient Name: TRINH RICHTER MR #: [id number] : 1970 Age/Sex: 47/F Req #: [id number] Adm Physician: Ordered by: ANNA PICHARDO MD Report #: [id number] Location: ER Room/Bed: Procedure: [id number] DX/F OOT LEFT AP LAT Exam Date: [...]
--- NOTE | 2019-09-16 12:14 | NUR ---
09/16/2019 HPI: Mrs. Weeks is a 48-year-old female patient with a past medical history CKD, hypertension, dyslipidemia, peripheral arterial disease, retinopathy who presented to the emergency department complaining of tenderness of the left lower extremity localized in the left tight associated with swelling and erythema. The patient denies chest pain, shortness of breath, fever, chills, nausea, vomiting, abdominal pain, hematemesis, melena, dysuria, frequency, hematuria, or focal weakness. The patient has previous hospitalizations related to peripheral arterial disease. 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 Review of system: Constitutional: No fever no chills HEENT: Denies headache, no ear pain, no nosebleed, no sore throat. Cardiovascular: Denies chest pain, PND, palpitations or blackout spells. Respiratory: Denies cough, hemoptysis or shortness of breath. Gastrointestinal: Denies nausea, vomiting, diarrhea, hematemesis or melena. Genitourinary: Denies hematuria, frequency or dysuria. Neurologic: Denies convulsive disorders, no focal weakness, no ataxia. Psych: Denies anxiety or depression Skin: No rash. Hematological system: Denies bleeding, no petechia. Musculoskeletal: No significant deformity or swelling of the joints. Past medical history: Hypertension, diabetes mellitus type 2, hyperlipidemia, diabetic retinopathy, chronic kidney disease. Past surgical history: Family history: Noncontributory Social history: Noncontributory Allergy: No drug allergy known. Physical exam: Vital signs: Blood pressure: 189/92 Respiratory rate: 18 Heart rate: 68 Temperature: 97.5 Pulse oximetry: 97% on room air Constitutional: The patient is oriented to person, place, and time. She appears well-developed. HEENT: Head: Normocephalic and atraumatic. PERRLA. Cardiovascular: Regular rhythm, no murmurs, no rubs, no gallops. Pulmonary/Chest: Clear bilaterally, no rales, no rhonchi. Abdominal: Soft, nontender, bowel sounds positive and normal. No distention, no guarding, no rebound. Musculoskeletal: Normal range of motion. Extremities: Edema in both lower extremity with redness and tenderness to palpation. No clubbing. Neurological: The patient is alert and oriented to person, place, and time. Skin: Skin is warm and dry. Psychiatric: Normal mood and affect. Laboratory data: Laboratory data: WBC: 6.41 RBC: 3.77 Hgb: 10.7 Hematocrit: 33.3 MCV: 88.3 MCH: 28.4 MCHC: 32.1 RDW: 13.8 Platelet count: 279 Neutrophils % (auto): 77.4 Lymphocytes % (auto): 12.3 Monocytes % (auto): 6.7 Eosinophils % (auto): 2.7 Basophils % (auto): 0.6 Neutrophils #(auto): 5.0 Lymphocytes #(auto): 0.8 Monocytes #(auto): 0.4 Eosinophils #(auto): 0.2 Basophils #(auto): 0.0 Abstract immature granulocytes (auto): 0.02 Chemistry: Sodium: 136 Potassium: 4.3 Chloride: 105 Carbon dioxide: 21 Anion gap: 14.3 BUN: 44 Creatinine: 2.82 Estimated GFR: 18 BUN/creatinine ratio: 16 Glucose: 187 POC glucose: 215 Calcium: 8.4 Total bilirubin: 1.3 AST: 13 ALT: 16 Alkaline phosphatase: 170 Total protein: 5.6 Albumin: 2.5 Globulin: 3.1 Albumin/globulin ratio: 0.[address] scan on 09/16/2019: Cellulitis/edema of the left lower extremity. No abscess or osteomyelitis. Assessment: Left leg cellulitis Peripheral arterial disease with history of previous remote revascularization of the left lower extremity Diabetes mellitus Hypertension Dyslipidemia 09/16/2019 The patient is negative for DVT by venous Doppler of the lower extremities; however, clinically it looks like the patient is suffering from DVT. That is what we recommend to start Lovenox for 24 hours because creatinine is elevated. Plan of care: Supportive care Pain control IV antibiotics IV fluids Diuretics DVT prophylaxis-Lovenox Cardiology consultation Consider nephrology consultation
[2019-09-16 12:19] LABS: BASOPHILS % 0.6 % (0.0-1.0); EOSINOPHILS # (AUTO) 0.2 (0.0-0.4); EOSINOPHILS % 2.7 % (0.0-6.0); HEMATOCRIT 33.3 % (34.2-44.1); HEMOGLOBIN 10.7 g/dL (12.0-16.0); LYMPHOCYTES # (AUTO) 0.8 (1.0-3.2); LYMPHOCYTES % 12.3 % (18.0-39.1); MEAN CORPUSCULAR HEMOGLOBIN 28.4 pg (28-32); MEAN CORPUSCULAR HGB CONC 32.1 g/dL (31-35); MEAN CORPUSCULAR VOLUME 88.3 fL (81-99); MONOCYTES # (AUTO) 0.4 (0.2-0.8); MONOCYTES % 6.7 % (4.4-11.3); NEUTROPHILS % 77.4 % (38.7-80.0); PLATELET COUNT 279 x10e3/uL (140-360); RED BLOOD COUNT 3.77 x10e6/uL (3.6-5.1); RED CELL DISTRIBUTION WIDTH 13.8 % (11.7-14.4)
[2019-09-16 12:34] LABS: ALBUMIN 2.5 g/dL (3.5-5.0); ALBUMIN/GLOBULIN RATIO 0.8 (0.8-2.0); ANION GAP 14.3 mmol/L (8-16); CALCIUM 8.4 mg/dL (8.4-10.2); CREATININE, SERUM 2.82 mg/dL (0.57-1.11); POTASSIUM 4.3 mmol/L (3.5-5.1)
--- NOTE | 2019-09-16 13:15 | NUR ---
received patient from ER. pt is alert, no s/s of distress. pt ambulated from wheelchair to bed with standby assist. is at the bedside. pt is legally blind and oriented to call light, instructed pt to call RN for help
[2019-09-16] MEDS ORDERED: CARVEDILOL12.5 MG PO (13:50)
[2019-09-16] MEDS ORDERED: VITAMIN D3125 MCG PO (13:50)
[2019-09-16] MEDS ORDERED: FERROUS SULFAT325 MG PO (13:50)
[2019-09-16] MEDS ORDERED: TRADJENTA5 MG PO (13:50)
[2019-09-16] MEDS ORDERED: SODIUM BICARBO650 MG PO (13:50)
[2019-09-16] MEDS ORDERED: CALCITRIOL0.25 MCG PO (13:50)
[2019-09-16] MEDS ORDERED: LIPITOR20 MG PO (13:50)
[2019-09-16] MEDS ORDERED: CLOPIDOGREL75 MG PO (13:50)
[2019-09-16] MEDS ORDERED: FUROSEMIDE40 MG PO (13:50)
[2019-09-16] MEDS ORDERED: FAMOTIDINE20 MG PO (13:50)
[2019-09-16] MEDS: CLINDAMYCIN 600MG / 50ML 50 ML IV SCH ×2 (13:51→17:10)
[2019-09-16] MEDS: SODIUM CHLORIDE 0.9% 1000ML 1,000 ML IV SCH (13:51)
--- NOTE | 2019-09-16 15:24 | Diagnostic Imaging Report ---
TECHNIQUE: Computed tomography of the left lower extremity was performed WITHOUT injected contrast. Dose modulation, iterative reconstruction, and/or weight based adjustment of the mA/kV was utilized to reduce the radiation dose to as low as reasonably achievable. HISTORY: Left thigh induration COMPARISON: None available. FINDINGS: No fracture. No lytic or blastic lesion. Subcutaneous edema and skin thickening involving the thigh. No discrete abscess or soft tissue gas.. Vascular calcifications. No visualized mass. IMPRESSION: Cellulitis/edema of the left lower extremity. No abscess or osteomyelitis. Signed by: Dr. Ryan Dinh M.D. on 09/16/2019 3:21 PM
[2019-09-16] MEDS: MORPHINE SULFATE INJ 4 MG/ML INJ 1ML IV PRN (18:37)
[2019-09-16] MEDS: ONDANSETRON HCL INJ 2MG/ML 2ML 2 MG/ML VIAL IV PRN (18:37)
--- NOTE | 2019-09-16 18:49 | NUR ---
paged Dr. Villegas to renew home meds. waiting for callback
--- NOTE | 2019-09-16 19:10 | NUR ---
Bedside nursing rounds completed with morning. Pt lying in bed, HOB 60 degrees. No s/o of pain. at bedside. Call light within reach. Bed low and locked.
[2019-09-16] MEDS ORDERED: CARVEDILOL 12.5 MG TAB PO ONE (19:30)
[2019-09-16] MEDS: ATORVASTATIN 40 MG TAB PO SCH (20:25)
[2019-09-16] MEDS ORDERED: ATORVASTATIN 20 MG TAB PO SCH (21:00)
[2019-09-16] MEDS ORDERED: ENOXAPARIN SODIUM INJ 100 MG/ML SYR SC SCH (21:00)
[2019-09-16] MEDS ORDERED: ENOXAPARIN SOD INJ 60 MG/0.6 ML SYR SC SCH (21:00)
[2019-09-17] VITALS (8 sets, daily range): BP systolic 109–151; BP diastolic 47–83
[2019-09-17] MEDS: CLINDAMYCIN 600MG / 50ML 50 ML IV SCH ×3 (00:57→16:57)
[2019-09-17] MEDS: SODIUM CHLORIDE 0.9% 1000ML 1,000 ML IV SCH ×2 (00:57→12:35)
--- NOTE | 2019-09-17 03:38 | Consultation ---
DATE OF CONSULTATION: 09/17/2019 Cardiology Consultation REASON FOR CONSULTATION: Left leg discomfort, history of PAD. HISTORY OF PRESENT ILLNESS: A 48-year-old woman, well known to me from several years prior with history of type 2 diabetes, chronic kidney disease, retinopathy with near blindness, peripheral neuropathy, hypertension, dyslipidemia, and peripheral artery disease with previous revascularizations to left lower extremity in remote past, presents with complaints of several weeks onset of gradual worsening discomfort, most pronounced to the medial left thigh associated with dependent edema to both lower extremities, more pronounced to the left lower extremity. She has local tenderness to palpation at this site. She denies any chest pain or shortness of breath. She denies any new wounds to the foot. REVIEW OF SYSTEMS: A 12-system review negative except for as noted above. PAST MEDICAL HISTORY: As per HPI. ALLERGIES: NO KNOWN DRUG ALLERGIES. SOCIAL HISTORY: No smoking, alcohol, or drugs. FAMILY HISTORY: Noncontributory. PHYSICAL EXAMINATION: VITAL SIGNS: Temperature 98.1, heart rate 63, respiratory rate 16, blood pressure 128/59, O2 saturation 99% on room air. GENERAL: No acute distress, alert. NECK: No JVD. CHEST: Clear to auscultation. CARDIOVASCULAR: Regular rate and rhythm. Normal S1, S2. No S3. No S4. ABDOMEN: Soft. Bowel sounds positive. EXTREMITIES: 2+ edema to both lower extremities with the left medial thigh edematous and tender to palpation with some mild erythema. CARDIOVASCULAR MEDICATIONS: Reviewed. 1. Re-initiated clindamycin. 2. Lovenox 50 mg subcu x1. 3. Atorvastatin 80 mg at bedtime. 4. Carvedilol 25 mg x1. 5. Furosemide 40 mg b.i.d. 6. Clopidogrel 75 mg daily. 7. Carvedilol 25 mg b.i.d. 8. Furosemide 40 mg p.o. b.i.d. LABORATORY DATA: White blood cells of 6.4, hemoglobin 10.7, platelets 279. Sodium 136, potassium 4.3, chloride 105, bicarbonate 21, BUN 44, creatinine 2.8, glucose 187, calcium 8.4, total bilirubin 0.3, AST 13, ALT 13, alkaline phosphatase 170, total protein 5.6, albumin 2.5. Coronavirus PCR ordered and pending. Lower extremities CT with cellulitis versus edema to left lower extremity. No abscess or osteomyelitis observed. Arterial Doppler reviewed, remarkable for monophasic waveforms to the anterior tibial, posterior tibial, and dorsalis pedis arteries to the left, consistent with outflow disease. Left lower extremity venous ultrasound negative for deep venous thrombosis. ASSESSMENT: A 48-year-old woman, presents with: 1. Left leg cellulitis in the setting of volume overload and dependent edema. 2. Peripheral arterial disease with history of previous remote revascularization to left lower extremity with abnormal arterial Dopplers consistent with yeitp-nhu-nquv level disease. 3. 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 4. Hypertension. 5. Dyslipidemia. RECOMMEND: 1. Switch diuretics to IV. 2. DVT prophylaxis. 3. I agree with antibiotic coverage for left leg cellulitis. I thank, Dr. Lopez for the opportunity to participate in the care of Ms. Weeks. Jan Cabezas MD AFV/MODL /[id number]
[2019-09-17] MEDS: MORPHINE SULFATE INJ 4 MG/ML INJ 1ML IV PRN ×3 (05:00→16:57)
[2019-09-17 05:29] LABS: BASOPHILS % 0.5 % (0.0-1.0); EOSINOPHILS # (AUTO) 0.1 (0.0-0.4); EOSINOPHILS % 2.2 % (0.0-6.0); HEMATOCRIT 33.8 % (34.2-44.1); HEMOGLOBIN 10.5 g/dL (12.0-16.0); LYMPHOCYTES # (AUTO) 0.8 (1.0-3.2); LYMPHOCYTES % 14.2 % (18.0-39.1); MEAN CORPUSCULAR HEMOGLOBIN 28.3 pg (28-32); MEAN CORPUSCULAR HGB CONC 31.1 g/dL (31-35); MEAN CORPUSCULAR VOLUME 91.1 fL (81-99); MONOCYTES # (AUTO) 0.5 (0.2-0.8); MONOCYTES % 8.6 % (4.4-11.3); NEUTROPHILS # (AUTO) 4.1 (2.1-6.9); NEUTROPHILS % 74.3 % (38.7-80.0); PLATELET COUNT 282 x10e3/uL (140-360); RED BLOOD COUNT 3.71 x10e6/uL (3.6-5.1); RED CELL DISTRIBUTION WIDTH 13.9 % (11.7-14.4)
[2019-09-17 05:57] LABS: ANION GAP 14.3 mmol/L (8-16); CALCIUM 7.7 mg/dL (8.4-10.2); CREATININE, SERUM 2.77 mg/dL (0.57-1.11); POTASSIUM 4.3 mmol/L (3.5-5.1)
[2019-09-17] MEDS: INSULIN REGULAR, HUMAN 100 UNIT/1 ML 3ML VIAL SQ SCH ×4 (07:30→21:00)
[2019-09-17] MEDS: FAMOTIDINE 20 MG TAB PO SCH (07:30)
[2019-09-17] MEDS: CARVEDILOL 12.5 MG TAB PO SCH ×2 (08:50→16:57)
[2019-09-17] MEDS: (Cholecalciferol (Vitamin D3) (Vitamin D3) 125 MCG) PO SCH (08:51)
[2019-09-17] MEDS: (Linagliptin (Tradjenta) 5 MG) PO SCH (08:51)
[2019-09-17] MEDS ORDERED: FUROSEMIDE 40 MG TAB PO SCH (09:00)
[2019-09-17] MEDS: CLOPIDOGREL BISULFATE 75 MG TAB PO SCH (09:03)
[2019-09-17] MEDS: SODIUM BICARBONATE 650 MG TAB PO SCH ×2 (09:03→16:57)
[2019-09-17] MEDS: CALCITRIOL 0.25 MCG CAP PO SCH (09:03)
[2019-09-17] MEDS: FERROUS SULFATE 325 MG TAB PO SCH (09:03)
[2019-09-17] MEDS: FUROSEMIDE INJ 10 MG/ML 4 ML VIAL IV SCH ×2 (09:03→16:57)
--- NOTE | 2019-09-17 15:56 | NUR ---
Subjective: The patient was feeling better t the time of my evaluation, the patient is still having pain on the left leg but much improved. No chest pain, no shortness of breath, no fever, no chills. Review of system: Constitutional: No fever no chills HEENT: Denies headache, no ear pain, no nosebleed, no sore throat. Cardiovascular: Denies chest pain, PND, palpitations or blackout spells. Respiratory: Denies cough, hemoptysis or shortness of breath. Gastrointestinal: Denies nausea, vomiting, diarrhea, hematemesis or melena. Genitourinary: Denies hematuria, frequency or dysuria. Neurologic: Denies convulsive disorders, no focal weakness, no ataxia. Psych: Denies anxiety or depression Skin: No rash. Hematological system: Denies bleeding, no petechia. Musculoskeletal: Complaining of swelling of the left leg. Physical exam: VITAL SIGNS: Temperature 98.1, heart rate 63, respiratory rate 16, blood pressure 128/59, O2 saturation 99% on room air. Constitutional: The patient is oriented to person, place, and time. She appears well-developed. HEENT: Head: Normocephalic and atraumatic. PERRLA. Cardiovascular: Regular rhythm, no murmurs, no rubs, no gallops. Pulmonary/Chest: Clear bilaterally, no rales, no rhonchi. Abdominal: Soft, nontender, bowel sounds positive and normal. No distention, no guarding, no rebound. Musculoskeletal: Normal range of motion. Extremities: Edema in both lower extremity with redness and tenderness to palpation. No clubbing. Neurological: The patient is alert and oriented to person, place, and time. Skin: Skin is warm and dry. Psychiatric: Normal mood and affect. Exam lower extremity CT scan on 09/16/2019: Cellulitis/edema of the left lower extremity. No abscess or osteomyelitis. Assessment: Left leg cellulitis in the setting of volume overload and dependent edema. Peripheral arterial disease with history of previous remote revascularization of the left lower extremity with abnormal arterial Dopplers consistent with fwvhn-xoz-wknb level disease Diabetes mellitus Hypertension Dyslipidemia CAD CKD S/P CABG RECOMMEND: 1. Switch diuretics to IV. 2. DVT prophylaxis. 3. Continue antibiotics for left leg cellulitis.
[2019-09-17] MEDS: ONDANSETRON HCL INJ 2MG/ML 2ML 2 MG/ML VIAL IV PRN (16:57)
[2019-09-17] MEDS: ENOXAPARIN 30 MG/0.3 ML SYR SC SCH (16:57)
[2019-09-17] MEDS: ATORVASTATIN 40 MG TAB PO SCH (21:00)
[2019-09-18] VITALS (8 sets, daily range): BP systolic 105–135; BP diastolic 55–65
[2019-09-18] MEDS: CLINDAMYCIN 600MG / 50ML 50 ML IV SCH ×3 (00:38→17:00)
--- NOTE | 2019-09-18 06:30 | NUR ---
Pt resting quietly in bed with eyes closed. No acute distress noted.
--- NOTE | 2019-09-18 07:05 | NUR ---
RCD PT AT BED PT IS ALERT AND ORIENTED RESTING ON BED IV PATENT BED LOW AND LOCKED CALL LIGHT IN REACH
[2019-09-18] MEDS: INSULIN REGULAR, HUMAN 100 UNIT/1 ML 3ML VIAL SQ SCH ×4 (07:30→21:38)
[2019-09-18] MEDS: FAMOTIDINE 20 MG TAB PO SCH (07:30)
[2019-09-18] MEDS: SODIUM CHLORIDE 0.9% 1000ML 1,000 ML IV SCH (08:25)
[2019-09-18] MEDS: FERROUS SULFATE 325 MG TAB PO SCH (09:00)
[2019-09-18] MEDS: SODIUM BICARBONATE 650 MG TAB PO SCH ×2 (09:00→17:00)
[2019-09-18] MEDS: CALCITRIOL 0.25 MCG CAP PO SCH (09:00)
[2019-09-18] MEDS: (Cholecalciferol (Vitamin D3) (Vitamin D3) 125 MCG) PO SCH (09:00)
[2019-09-18] MEDS: CLOPIDOGREL BISULFATE 75 MG TAB PO SCH (09:00)
[2019-09-18] MEDS: CARVEDILOL 12.5 MG TAB PO SCH ×2 (09:00→17:00)
[2019-09-18] MEDS: FUROSEMIDE INJ 10 MG/ML 4 ML VIAL IV SCH ×2 (09:00→17:00)
[2019-09-18] MEDS: (Linagliptin (Tradjenta) 5 MG) PO SCH (09:00)
[2019-09-18] MEDS: MORPHINE SULFATE INJ 4 MG/ML INJ 1ML IV PRN ×2 (10:15→21:48)
[2019-09-18] MEDS: ONDANSETRON HCL INJ 2MG/ML 2ML 2 MG/ML VIAL IV PRN (10:15)
--- NOTE | 2019-09-18 14:42 | NUR ---
Progress note dictated [id number]
[2019-09-18 15:14] LABS: CALCIUM 7.5 mg/dL (8.4-10.2); CREATININE, SERUM 3.3 mg/dL (0.57-1.11)
[2019-09-18] MEDS: ENOXAPARIN 30 MG/0.3 ML SYR SC SCH (17:00)
--- NOTE | 2019-09-18 18:35 | Progress Note ---
DATE: 09/18/2019 SUBJECTIVE: The patient is doing better. She feels less pain on the left lower extremity and less swelling. However, she is still having discomfort on both lower extremities, worse still in the left leg where she complains of edema. The patient is presently on IV diuretics. Denies chest pain, no shortness of breath, no known pain, no fever, no chills. OBJECTIVE: VITAL SIGNS: Blood pressure 105/55, respirations 18, pulse 72, temperature 98.7. GENERAL: The patient was alert, oriented to person, time and place. The patient was in no distress. HEENT: Head is normocephalic, atraumatic. NECK: Supple. No JVD. LUNGS: Clear to auscultation. HEART: Regular rate and rhythm. ABDOMEN: Soft, nontender. EXTREMITIES: Edema in both lower extremities with and less swelling on the right lower extremity and redness in the left thigh has decreased substantially. Pedal and tibialis dorsalis pulses are diminished. NEUROLOGIC: The patient was alert and oriented to person, time, and place. SKIN: Warm and dry. PSYCH: Normal mood and affect. LABORATORY DATA: Basic metabolic profile, lab data is pending. CBC as of September 17, 2019 revealed hemoglobin 10.5, white blood cell count 5.49, platelet count 282,000. As of September 16, revealed sodium 138, potassium 4.3, chloride 107, CO2 21, BUN 46, creatinine 2.77. ASSESSMENT: 1. Left leg cellulitis in the setting of volume overload and pitting edema. The edema is improving. 2. Peripheral arterial disease with previous remote revascularization of the left lower extremity with normal arterial Doppler studies consistent with kthku-ift-nuiw level disease. 3. Diabetes mellitus type 2. 4. Hypertension. 5. Dyslipidemia. 6. Chronic kidney disease. 7. Status post coronary artery bypass graft surgery. PLAN OF CARE: Continue antibiotics. IV fluids have been discontinued. List of medications reviewed. Consult Nephrology. Follow up labs. MD NAVEED Hsu/ANGLE /[id number] RICHIE
--- NOTE | 2019-09-18 18:51 | NUR ---
PT RESTING ON BED BED SIDE REPORT GIVEN TO ONCOMING NURSE
[2019-09-18] MEDS: ATORVASTATIN 40 MG TAB PO SCH (21:49)
[2019-09-19] VITALS (8 sets, daily range): BP systolic 117–141; BP diastolic 58–69
[2019-09-19] MEDS: CLINDAMYCIN 600MG / 50ML 50 ML IV SCH ×3 (00:01→16:49)
[2019-09-19 05:53] LABS: ALBUMIN 2.2 g/dL (3.5-5.0); ALBUMIN/GLOBULIN RATIO 0.7 (0.8-2.0); ANION GAP 14.2 mmol/L (8-16); CALCIUM 7.8 mg/dL (8.4-10.2); CREATININE, SERUM 3.54 mg/dL (0.57-1.11); PHOSPHORUS 6.1 MG/DL (2.3-4.7); POTASSIUM 5.2 mmol/L (3.5-5.1)
--- NOTE | 2019-09-19 06:39 | NUR ---
BSSR GIVEN TO ONCOMING SHIFT VERBALLY, NO DISTRESS NOTED, CALL LIGHT WITHIN REACH UPDATED WITH CURRENT LABS AND PLAN OF CARE
--- NOTE | 2019-09-19 07:10 | NUR ---
RCD PT AT BED PT IS ALERT AND ORIENTED RESTING ON BED IV PATENT BED LOW AND LOCKED CALL LIGHT IN REACH
[2019-09-19] MEDS: FAMOTIDINE 20 MG TAB PO SCH (07:30)
[2019-09-19] MEDS: INSULIN REGULAR, HUMAN 100 UNIT/1 ML 3ML VIAL SQ SCH ×4 (07:30→21:00)
[2019-09-19] MEDS: FUROSEMIDE INJ 10 MG/ML 4 ML VIAL IV SCH (08:57)
[2019-09-19] MEDS: CARVEDILOL 12.5 MG TAB PO SCH ×2 (08:57→16:49)
[2019-09-19] MEDS: (Cholecalciferol (Vitamin D3) (Vitamin D3) 125 MCG) PO SCH (08:58)
[2019-09-19] MEDS: CALCITRIOL 0.25 MCG CAP PO SCH (08:58)
[2019-09-19] MEDS: (Linagliptin (Tradjenta) 5 MG) PO SCH (08:58)
[2019-09-19] MEDS: SODIUM BICARBONATE 650 MG TAB PO SCH ×2 (08:58→16:50)
[2019-09-19] MEDS: CLOPIDOGREL BISULFATE 75 MG TAB PO SCH (08:58)
[2019-09-19] MEDS: FERROUS SULFATE 325 MG TAB PO SCH (08:58)
--- NOTE | 2019-09-19 09:00 | NUR ---
PAGED DR GAY TO NOTIFY THE POTASSIUM LEVEL AND GIVEN THE MESSAGE TO MARTIN
--- NOTE | 2019-09-19 10:32 | Progress Note ---
DATE: 09/19/2019 Cardiology Progress Note SUBJECTIVE: Gisella denies any chest discomfort and shortness of breath. Her left thigh pain continues to improve. She continues to remain edematous. OBJECTIVE: VITAL SIGNS: Temperature 98 degrees, heart rate 66, blood pressure 141/66, respiratory rate 16, and O2 saturation 97%. GENERAL: No acute distress. Alert. NECK: No JVD. CHEST: Clear to auscultation. CARDIOVASCULAR: Regular rate and rhythm. Normal S1 and S2. No S3. No S4. No murmurs or rubs. Sternotomy scar. ABDOMEN: Soft. Bowel sounds positive. EXTREMITIES: 3+ edema to both lower extremities. CARDIOVASCULAR MEDICATIONS: Reviewed. Clopidogrel 75 mg daily, Lasix 60 mg IV b.i.d., carvedilol 25 mg b.i.d., and Lovenox 30 mg subcutaneous daily. STUDIES: Reviewed. Sodium 134, potassium 5.2, chloride 105, bicarbonate 20, BUN 51, creatinine 3.5 trending up, and glucose 84. ASSESSMENT AND PLAN: 1. A 48-year-old woman with history of coronary artery disease, status post aortocoronary bypass, peripheral arterial disease with previous remote revascularizations, outflow disease noted on recent arterial Doppler. 2. Acute renal failure on chronic kidney disease with increased potassium and developing metabolic acidosis. 3. Hypertension, dyslipidemia, diabetes with neuropathy, nephropathy, and retinopathy, near blindness. RECOMMEND: 1. Continue current cardiovascular medications, particularly clopidogrel and Coreg. 2. Renal consulted. Appreciate input. We will defer volume optimization to Nephrology expertise. 3. Antibiotics seem to be assisting and alleviating the patient's left thigh discomfort, which is likely due to cellulitis and improving. Jan Cabezas MD AFV/MODL /[id number]
--- NOTE | 2019-09-19 10:39 | NUR ---
SUBJECTIVE: The patient was in no distress. Evidently feels better with less swelling on the left lower extremity. Responded well to diuretics. She feels less pain on the left lower extremity and less swelling. However, she is still having discomfort on both lower extremities, worse still in the left leg where she complains of edema. The patient is presently on IV diuretics. Denies chest pain, no shortness of breath. OBJECTIVE: VITAL SIGNS VITAL SIGNS: Temperature 98 degrees, heart rate 66, blood pressure 141/66, respiratory rate 16, and O2 saturation 97%. GENERAL: The patient was alert, oriented to person, time and place. The patient was in no distress. HEENT: Head is normocephalic, atraumatic. NECK: Supple. No JVD. LUNGS: Clear to auscultation. HEART: Regular rate and rhythm. ABDOMEN: Soft, nontender. EXTREMITIES: Edema in both lower extremities with and less swelling on the right lower extremity and redness and swelling in the left thigh has decreased substantially. Pedal and tibialis dorsalis pulses are diminished. NEUROLOGIC: The patient was alert and oriented to person, time, and place. SKIN: Warm and dry. PSYCH: Normal mood and affect. Chem profile sodium 134, potassium 5.2, chloride 105, bicarbonate 20, BUN 51, creatinine 3.5 trending up, and glucose 84. ASSESSMENT: 1. Left leg cellulitis in the setting of volume overload and pitting edema. The edema is improving. 2. Peripheral arterial disease with previous remote revascularization of the left lower extremity with normal arterial Doppler studies consistent with iqyhc-gxx-cjqo level disease. 3. Diabetes mellitus type 2. 4. Hypertension. 5. Dyslipidemia. 6. Chronic kidney disease. 7. Status post coronary artery bypass graft surgery. PLAN OF CARE: Continue antibiotics. IV fluids have been discontinued. . Consult Nephrology. Follow up labs. Cardiology evaluation noted. Continue Coreg and Plavix. Renal evaluation noted. Continue diuretics. Monitor labs.
[2019-09-19] MEDS ORDERED: SOD POLYSTYRENE SULFONATE SUSP 15 GM/60 ML BTL PO ONE (10:55)
[2019-09-19] MEDS: SEVELAMER CARBONATE 800 MG TAB PO SCH ×2 (12:00→16:49)
[2019-09-19] MEDS: FUROSEMIDE 20 MG TAB PO SCH (16:49)
[2019-09-19] MEDS: ENOXAPARIN 30 MG/0.3 ML SYR SC SCH (16:50)
--- NOTE | 2019-09-19 18:44 | NUR ---
PT RESTING ON BED BED SIDE REPORT GIVEN TO ONCOMING NURSE
[2019-09-19] MEDS: ATORVASTATIN 40 MG TAB PO SCH (21:01)
[2019-09-19] MEDS: MORPHINE SULFATE INJ 4 MG/ML INJ 1ML IV PRN (21:06)
[2019-09-20] VITALS (10 sets, daily range): BP systolic 112–154; BP diastolic 55–81
[2019-09-20] MEDS: CLINDAMYCIN 600MG / 50ML 50 ML IV SCH ×3 (00:13→17:02)
[2019-09-20] MEDS: MORPHINE SULFATE INJ 4 MG/ML INJ 1ML IV PRN ×2 (00:45→22:27)
[2019-09-20 05:54] LABS: ALBUMIN 2.2 g/dL (3.5-5.0); ALBUMIN/GLOBULIN RATIO 0.7 (0.8-2.0); ANION GAP 15.1 mmol/L (8-16); CALCIUM 7.6 mg/dL (8.4-10.2); CREATININE, SERUM 3.66 mg/dL (0.57-1.11); POTASSIUM 5.1 mmol/L (3.5-5.1)
--- NOTE | 2019-09-20 07:20 | NUR ---
BEDSIDE SHIFT REPORT GIVEN TO RN CORI, PATIENT RESTING NO DISTRESS, SPOUSE AT BEDSIDE, PATIENT ON FALL PRECAUTION FOR VISION IMPAIRMENT, CALL LIGHT WITHIN REACH, ONCOMING SHIFT RN UPDATE ON LAST GIVEN PAIN MEDICATION
[2019-09-20] MEDS: FAMOTIDINE 20 MG TAB PO SCH (07:30)
[2019-09-20] MEDS: (Linagliptin (Tradjenta) 5 MG) PO SCH (09:00)
[2019-09-20] MEDS: (Cholecalciferol (Vitamin D3) (Vitamin D3) 125 MCG) PO SCH (09:00)
[2019-09-20] MEDS: CARVEDILOL 12.5 MG TAB PO SCH ×2 (09:21→17:03)
[2019-09-20] MEDS: FERROUS SULFATE 325 MG TAB PO SCH (09:21)
[2019-09-20] MEDS: SEVELAMER CARBONATE 800 MG TAB PO SCH ×3 (09:21→17:03)
[2019-09-20] MEDS: FUROSEMIDE 20 MG TAB PO SCH ×2 (09:22→17:03)
[2019-09-20] MEDS: SODIUM BICARBONATE 650 MG TAB PO SCH ×2 (09:22→17:03)
[2019-09-20] MEDS: CALCITRIOL 0.25 MCG CAP PO SCH (09:22)
[2019-09-20] MEDS: CLOPIDOGREL BISULFATE 75 MG TAB PO SCH (09:22)
[2019-09-20] MEDS: INSULIN REGULAR, HUMAN 100 UNIT/1 ML 3ML VIAL SQ SCH ×4 (11:30→21:47)
[2019-09-20] MEDS ORDERED: ONDANSETRON HCL 4 MG ORAL DISINTEGRATING TAB PO PRN (15:30)
[2019-09-20] MEDS: ENOXAPARIN 30 MG/0.3 ML SYR SC SCH (17:03)
--- NOTE | 2019-09-20 19:15 | NUR ---
RECEIVED REPORT FROM PREVIOUS NURSE. CALL LIGHT WITHIN REACH. PATIENT IN BED. AT BEDSIDE
[2019-09-20] MEDS: ATORVASTATIN 40 MG TAB PO SCH (21:44)
[2019-09-21] VITALS (8 sets, daily range): BP systolic 132–141; BP diastolic 56–65
[2019-09-21] MEDS: CLINDAMYCIN 600MG / 50ML 50 ML IV SCH ×3 (01:40→17:07)
--- NOTE | 2019-09-21 07:18 | NUR ---
GAVE BEDSIDE SHIFT REPORT TO ONCOMING NURSE. CALL LIGHT WITHIN REACH. PATIENT IN BED.
[2019-09-21] MEDS: INSULIN REGULAR, HUMAN 100 UNIT/1 ML 3ML VIAL SQ SCH ×4 (07:30→21:10)
[2019-09-21] MEDS: MORPHINE SULFATE INJ 4 MG/ML INJ 1ML IV PRN (07:50)
[2019-09-21] MEDS: (Cholecalciferol (Vitamin D3) (Vitamin D3) 125 MCG) PO SCH (09:00)
[2019-09-21] MEDS: (Linagliptin (Tradjenta) 5 MG) PO SCH (09:00)
[2019-09-21] MEDS: CLOPIDOGREL BISULFATE 75 MG TAB PO SCH (09:07)
[2019-09-21] MEDS: CALCITRIOL 0.25 MCG CAP PO SCH (09:07)
[2019-09-21] MEDS: FERROUS SULFATE 325 MG TAB PO SCH (09:07)
[2019-09-21] MEDS: SODIUM BICARBONATE 650 MG TAB PO SCH ×2 (09:07→17:08)
[2019-09-21] MEDS: FUROSEMIDE 20 MG TAB PO SCH ×2 (09:07→17:08)
[2019-09-21] MEDS: FAMOTIDINE 20 MG TAB PO SCH ×2 (09:07→09:10)
[2019-09-21] MEDS: CARVEDILOL 12.5 MG TAB PO SCH ×2 (09:07→17:08)
[2019-09-21] MEDS: SEVELAMER CARBONATE 800 MG TAB PO SCH ×3 (09:08→17:08)
--- NOTE | 2019-09-21 13:32 | Progress Note ---
DATE: 09/21/2019 Cardiology Progress Note SUBJECTIVE: No chest pain or shortness of breath. Leg discomfort improving. Continues to remain with edema. OBJECTIVE: VITAL SIGNS: Temperature 97.9, heart rate 70, blood pressure 141/59, respiratory rate 18, O2 saturation 98%, BMI 26.5. GENERAL: No acute distress. Alert. NECK: No JVD. CHEST: Clear to auscultation. CARDIOVASCULAR: Regular rate and rhythm. Normal S1, S2. No S3. No S4. ABDOMEN: Soft. Bowel sounds positive. EXTREMITIES: 2+ edema. CARDIOVASCULAR MEDICATIONS: Reviewed. Carvedilol 25 mg b.i.d., clopidogrel 75 mg daily, atorvastatin 80 mg at bedtime, ferrous sulfate 325 mg daily, Lovenox 30 mg subcu daily, furosemide 60 mg b.i.d. STUDIES: Reviewed. Potassium 5.1, bicarbonate 21, creatinine 3.66, trending up, glucose 121. White blood cells 5.4, hemoglobin 10.5, platelets 282. ASSESSMENT: 1. A 48-year-old woman with acute on chronic kidney disease with left leg cellulitis, volume overload, hypertension, diabetes with nephropathy, retinopathy and neuropathy. 2. Coronary artery disease with prior history of aortocoronary bypass. 3. Peripheral arterial disease with remote revascularizations. RECOMMENDATIONS: 1. Continue current cardiovascular medications. 2. Renal following. Defer volume optimization and electrolyte and metabolic management to their expertise. 3. Improving on antibiotics from left leg cellulitis, continue. Jan Cabezas MD AFEduardo/MODHayden /[id number]
--- NOTE | 2019-09-21 14:42 | NUR ---
Date of service 09/20/2019 SUBJECTIVE: The patient was in no distress. The patient is feeling better. The patient is in no distress. Breathing fine. No other pain, no nausea, no vo miting, no diarrhea. She was advised about her current condition of chronic renal failure and the possibility of eventually needing hemodialysis. Per nephrology no need for emergency hemodialysis at this time. OBJECTIVE: VITAL SIGNS: Blood pressure 112/81, respiration 20, pulse 22, temperature 98.1 O2 saturation on room air 95% GENERAL: The patient was alert, oriented to person, time and place. The patient was in no distress. HEENT: Head is normocephalic, atraumatic. NECK: Supple. No JVD. LUNGS: Clear to auscultation. HEART: Regular rate and rhythm. ABDOMEN: Soft, nontender. EXTREMITIES: Edema in both lower extremities with and less swelling on the right lower extremity and redness and swelling in the left thigh has decreased substantially. Pedal and tibialis dorsalis pulses are diminished. NEUROLOGIC: The patient was alert and oriented to person, time, and place. SKIN: Warm and dry. PSYCH: Normal mood and affect. Lab data: Sodium 134, potassium 5.1, chloride 103, CO2 21, BUN 53, creatinine 3.66 ASSESSMENT: 1. Left leg cellulitis in the setting of volume overload and pitting edema. The edema is improving. 2. Peripheral arterial disease with previous remote revascularization of the left lower extremity with normal arterial Doppler studies consistent with gxzcq-ugz-pimo level disease. 3. Diabetes mellitus type 2. 4. Hypertension. 5. Dyslipidemia. 6. Chronic kidney disease. 7. Status post coronary artery bypass graft surgery. PLAN OF CARE: 09/19/2019 Continue antibiotics. IV fluids have been discontinued. . Consult Nephrology. Follow up labs. Cardiology evaluation noted. Continue Coreg and Plavix. Renal evaluation noted. Continue diuretics. Monitor labs. 09/20/2019 Nephrology evaluation noted. Continue present care. Continue to monitor kidney function. Follow-up kidney function. Continue antibiotic as advised.
--- NOTE | 2019-09-21 17:00 | NUR ---
Nutrition Screen Note RD Recommendation for Physician: -Continue current diet as ordered Plan of Care: RD following, monitoring for tolerance and adequacy Nutrition reason for involvement: Length of stay Primary Diagnose(s): left thigh infection PMH: Hypertension, diabetes mellitus type 2, hyperlipidemia, diabetic retinopathy, chronic kidney disease. Ht: 62 in Wt:145 lb BMI: 26.5 kg/m2 IBW:[address] Assessment: (09/20) Chart reviewed. Labs and meds reviewed. Pt is a 48 year old male admitted with left thigh infection. Pt reports a good appetite and it is recorded that pt consumed 75% of breakfast yesterday and 100% of meals on 09/18. No weight loss reported. No N/V/D/C or chewing/swallowing issues. Pt did not have any questions or concerns at time of visit. Will continue to monitor Current Diet: 1800 ADA with strawberry glucerna Malnutrition Evaluation (09/21/19) The patient does not meet criteria for a specified degree of malnutrition at this time. Will re-evaluate at follow-up as appropriate. Diet Education Needs Assessment: Pt declined diet education materials Nutrition Care Level: low Signed: Sheila Guzman, RD, LD
[2019-09-21] MEDS: ENOXAPARIN 30 MG/0.3 ML SYR SC SCH (17:08)
--- NOTE | 2019-09-21 19:04 | NUR ---
Received the patient in report.Lyeing in the bed .stable condition.
--- NOTE | 2019-09-21 20:30 | NUR ---
Assessment done.no resp.distress.ambulates with walker.family member at bed side.snacks provided.bed locked and in lowest position.phone and call light within reach.instructed to call for assistance as needed
[2019-09-21] MEDS: ATORVASTATIN 40 MG TAB PO SCH (21:22)
--- NOTE | 2019-09-21 23:22 | NUR ---
09/21/2019 SUBJECTIVE: Mrs. Weeks is a 48-year-old female patient who has been evaluated this day. The patient was in no distress. The patient is feeling better. The patient is in no distress. The patient denies chest pain, nausea, vomiting, diarrhea, abdominal pain, diarrhea, melena, hematuria, dysuria, frequency, or focal weakness. OBJECTIVE: VITAL SIGNS: Blood pressure: 141/59, respiration: 18, pulse: 70, temperature: 97.9, O2 saturation on room air 98 %. BMI: 26.5. GENERAL: The patient was alert, oriented to person, time and place. The patient was in no distress. HEENT: Head is normocephalic, atraumatic. NECK: Supple. No JVD. LUNGS: Clear to auscultation. HEART: Regular rate and rhythm. ABDOMEN: Soft, nontender. EXTREMITIES: Edema in both lower extremities with and less swelling on the right lower extremity and redness and swelling in the left thigh has decreased substantially. Pedal and tibialis dorsalis pulses are diminished. NEUROLOGIC: The patient was alert and oriented to person, time, and place. SKIN: Warm and dry. PSYCH: Normal mood and affect. Lab data: Sodium 134, potassium 5.1, chloride 103, CO2 21, BUN 53, creatinine 3.66 ASSESSMENT: 1. Left leg cellulitis in the setting of volume overload and pitting edema. The edema is improving. 2. Peripheral arterial disease with previous remote revascularization of the left lower extremity with normal arterial Doppler studies consistent with iakkb-qmu-rawt level disease. 3. Diabetes mellitus type 2. 4. Hypertension. 5. Dyslipidemia. 6. Chronic kidney disease. 7. Status post coronary artery bypass graft surgery. 09/19/2019 Continue antibiotics. IV fluids have been discontinued. . Consult Nephrology. Follow up labs. Cardiology evaluation noted. Continue Coreg and Plavix. Renal evaluation noted. Continue diuretics. Monitor labs. 09/20/2019 Nephrology evaluation noted. Continue present care. Continue to monitor kidney function. Follow-up kidney function. Continue antibiotic as advised. 09/21/2019 Continue current management. Continue IV antibiotics. Continue monitoring renal function. PLAN OF CARE: Supportive care IV antibiotics Continue Coreg and Plavix Diuretics Continue beta-william Continue statin Monitor kidney function Continue glycemic control Continue blood pressure control DVT/GI prophylaxis Cardiology evaluation noted
[2019-09-22] VITALS (7 sets, daily range): BP systolic 131–167; BP diastolic 66–75
[2019-09-22] MEDS: CLINDAMYCIN 600MG / 50ML 50 ML IV SCH ×3 (00:29→17:23)
--- NOTE | 2019-09-22 07:06 | NUR ---
BED SIDE SHIFT REPORT GIVEN TO ONCOMING RN.STABLE CONDITION.
[2019-09-22] MEDS: INSULIN REGULAR, HUMAN 100 UNIT/1 ML 3ML VIAL SQ SCH ×4 (08:30→21:10)
[2019-09-22] MEDS: MORPHINE SULFATE INJ 4 MG/ML INJ 1ML IV PRN (08:37)
[2019-09-22] MEDS: CARVEDILOL 12.5 MG TAB PO SCH ×2 (08:37→17:23)
[2019-09-22] MEDS: SEVELAMER CARBONATE 800 MG TAB PO SCH ×3 (08:37→17:23)
[2019-09-22] MEDS: FERROUS SULFATE 325 MG TAB PO SCH (08:37)
[2019-09-22] MEDS: SODIUM BICARBONATE 650 MG TAB PO SCH ×2 (08:37→17:23)
[2019-09-22] MEDS: FAMOTIDINE 20 MG TAB PO SCH (08:37)
[2019-09-22] MEDS: FUROSEMIDE 20 MG TAB PO SCH ×2 (08:37→17:23)
[2019-09-22] MEDS: CALCITRIOL 0.25 MCG CAP PO SCH (08:37)
[2019-09-22] MEDS: CLOPIDOGREL BISULFATE 75 MG TAB PO SCH (08:37)
[2019-09-22] MEDS: (Cholecalciferol (Vitamin D3) (Vitamin D3) 125 MCG) PO SCH (09:00)
[2019-09-22] MEDS: (Linagliptin (Tradjenta) 5 MG) PO SCH (09:00)
[2019-09-22 16:12] LABS: CALCIUM 8.1 mg/dL (8.4-10.2); CREATININE, SERUM 3.72 mg/dL (0.57-1.11)
--- NOTE | 2019-09-22 16:27 | Progress Note ---
DATE: 09/22/2019 Cardiology Progress Note SUBJECTIVE: Denies any chest pain or shortness of breath. Edema persists. OBJECTIVE: VITAL SIGNS: Temperature 98.2, heart rate 74, blood pressure 138/69, respiratory rate 16, and O2 saturation 98%. GENERAL: In no acute distress. Alert. NECK: No JVD. CHEST: Clear to auscultation. CARDIOVASCULAR: Regular rate and rhythm. Normal S1 and S2. ABDOMEN: Soft. Bowel sounds positive. EXTREMITIES: 2+ edema to both lower extremities. CARDIOVASCULAR MEDICATIONS: Reviewed. Atorvastatin 80 mg at bedtime, Lovenox 30 mg subcutaneous daily, carvedilol 25 mg b.i.d., clopidogrel 75 mg daily, and furosemide 60 mg b.i.d. STUDIES: Reviewed. Sodium 134, potassium 5.1, chloride 103, bicarbonate 21, BUN 53, creatinine 3.6, and glucose 121. White blood cells 5.4, hemoglobin 10.5, and platelets 282. AST 10, ALT 13, total bilirubin is 0.3, and alkaline phosphatase of 145. ASSESSMENT AND PLAN: 1. A 48-year-old woman presents with thigh cellulitis in the setting of volume overload, bilateral lower extremity edema. 2. Acute kidney injury on chronic kidney disease. 3. Coronary artery disease, status post aortocoronary bypass. 4. Diabetes with neuropathy, nephropathy, and retinopathy. 5. Peripheral arterial disease with previous revascularizations. 6. Anemia. RECOMMEND: 1. Continue volume optimization at the direction of Nephrology given JENNIFER. 2. Metabolic acidosis remains stable. Mild hyperkalemia remains stable. 3. Continue rest of cardiovascular medications, improving with antibiotics for cellulitis. Jan Cabezas MD AFEduardo/MODL /[id number]
[2019-09-22] MEDS: ENOXAPARIN 30 MG/0.3 ML SYR SC SCH (17:23)
--- NOTE | 2019-09-22 18:52 | Progress Note ---
DATE: 09/22/2019 SUBJECTIVE: The patient is feeling better. Does have decreased swelling on the lower extremities. Denies shortness of breath. No chest pain. Denies abdominal pain. No nausea. No vomiting. No diarrhea. No fever. No chills. OBJECTIVE: GENERAL: The patient has been alert, oriented to person, time, and place. The patient in no distress. VITAL SIGNS: Blood pressure 131/74, respirations 18, pulse 61, temperature 97.6. HEENT: Head normocephalic, atraumatic. Extraocular movements are intact. NECK: Supple. No JVD. LUNGS: Clear to auscultation. HEART: Regular rate and rhythm without murmurs or gallops. ABDOMEN: Soft, nontender. EXTREMITIES: Decreased edema in the lower extremities, 2+ edema. NEURO: Alert, oriented x3. No focal weakness. SKIN: Warm and dry. PSYCH: Normal mood and affect. LABORATORY DATA: No new lab data. Chem profile; sodium 137, potassium 4.0, chloride 105, CO2 of 23, BUN 62, creatinine 3.72. ASSESSMENT: 1. Left leg cellulitis, improved. Decreased swelling on the left thigh. 2. Acute renal failure on chronic renal failure. 3. Peripheral arterial disease. 4. Diabetes mellitus, type 2. 5. Hypertension. 6. Dyslipidemia. 7. Coronary disease. 8. Status post coronary artery bypass graft surgery. 9. Chronic kidney disease. PLAN OF CARE: As of September 22, 2019, the patient is doing much better. We will continue current managemet. The patient has been doing well on IV antibiotics and likely CO2 is sufficient to p.o. We will follow up labs. MD NAVEED Hsu/ANGLE /[id number] [email or web address]
--- NOTE | 2019-09-22 19:05 | NUR ---
RECEIVED THE PATIENT IN REPORT.LYEING IN THE BED.STABLE CONDITION.
--- NOTE | 2019-09-22 20:40 | NUR ---
Assessment done.no resp.distress.provided snacks.bed locked and in lowest position.phone and call light within reach.instructed to call for assistance as needed.
[2019-09-22] MEDS: ATORVASTATIN 40 MG TAB PO SCH (21:19)
[2019-09-23] VITALS (8 sets, daily range): BP systolic 139–166; BP diastolic 64–75
[2019-09-23] MEDS: CLINDAMYCIN 600MG / 50ML 50 ML IV SCH ×3 (00:40→16:44)
[2019-09-23 05:16] LABS: BASOPHILS % 0.8 % (0.0-1.0); EOSINOPHILS # (AUTO) 0.4 (0.0-0.4); EOSINOPHILS % 9.8 % (0.0-6.0); HEMATOCRIT 30.5 % (34.2-44.1); HEMOGLOBIN 9.8 g/dL (12.0-16.0); LYMPHOCYTES # (AUTO) 0.8 (1.0-3.2); LYMPHOCYTES % 20.2 % (18.0-39.1); MEAN CORPUSCULAR HEMOGLOBIN 28.9 pg (28-32); MEAN CORPUSCULAR HGB CONC 32.1 g/dL (31-35); MONOCYTES # (AUTO) 0.4 (0.2-0.8); MONOCYTES % 9.3 % (4.4-11.3); NEUTROPHILS # (AUTO) 2.3 (2.1-6.9); NEUTROPHILS % 59.6 % (38.7-80.0); PLATELET COUNT 274 x10e3/uL (140-360); RED BLOOD COUNT 3.39 x10e6/uL (3.6-5.1); RED CELL DISTRIBUTION WIDTH 14.6 % (11.7-14.4)
[2019-09-23 05:43] LABS: ANION GAP 16.8 mmol/L (8-16); CALCIUM 7.9 mg/dL (8.4-10.2); CREATININE, SERUM 3.73 mg/dL (0.57-1.11); PHOSPHORUS 6.3 MG/DL (2.3-4.7); POTASSIUM 4.8 mmol/L (3.5-5.1)
--- NOTE | 2019-09-23 07:02 | NUR ---
Bed side shift report given to oncoming Rn.stable condition.
--- NOTE | 2019-09-23 07:10 | NUR ---
RCD PT AT BED PT IS ALERT AND ORIENTED RESTING ON BED IV PATENT BY SALINE FLUSH BED LOW AND LOCKED CALL LIGHT IN REACH
[2019-09-23] MEDS: FAMOTIDINE 20 MG TAB PO SCH (07:30)
[2019-09-23] MEDS: INSULIN REGULAR, HUMAN 100 UNIT/1 ML 3ML VIAL SQ SCH ×5 (07:30→21:00)
[2019-09-23] MEDS: SEVELAMER CARBONATE 800 MG TAB PO SCH ×3 (08:00→17:00)
[2019-09-23] MEDS: FERROUS SULFATE 325 MG TAB PO SCH (09:00)
[2019-09-23] MEDS: (Linagliptin (Tradjenta) 5 MG) PO SCH (09:00)
[2019-09-23] MEDS: (Cholecalciferol (Vitamin D3) (Vitamin D3) 125 MCG) PO SCH (09:00)
[2019-09-23] MEDS: CALCITRIOL 0.25 MCG CAP PO SCH (09:00)
[2019-09-23] MEDS: CARVEDILOL 12.5 MG TAB PO SCH ×2 (09:00→16:45)
[2019-09-23] MEDS: FUROSEMIDE 20 MG TAB PO SCH ×2 (09:00→16:45)
[2019-09-23] MEDS: CLOPIDOGREL BISULFATE 75 MG TAB PO SCH (09:00)
[2019-09-23] MEDS: SODIUM BICARBONATE 650 MG TAB PO SCH ×2 (09:00→16:45)
--- NOTE | 2019-09-23 11:39 | NUR ---
PT C/O PAIN ON BOTH LEGS PAGED AND NOTIFIED DR RITCHIE GOT NEW ORDERS
[2019-09-23] MEDS: ACETAMINOPHEN 325 MG TAB PO PRN (11:49)
--- NOTE | 2019-09-23 13:56 | Progress Note ---
DATE: 09/23/2019 SUBJECTIVE: The patient was doing fine at the time of evaluation. The patient denies having any shortness of breath. No chest pain. No abdominal pain. No nausea, no vomiting. Having less swelling on the lower extremities. The patient has been followed up by Nephrology and the plan is to observe the patient for another 24 hours and they will be discussing with the patient's Nephrology pertaining to further care and progression of the patient's kidney disease from chronic kidney stage 4 to stage 5. Hemodialysis has been considered sooner, but no need for immediate hemodialysis at this time. OBJECTIVE: GENERAL: The patient is alert, oriented to person, time, and place. The patient in no distress. VITAL SIGNS: Blood pressure 154/75, respirations 19, pulse 77, temperature 98.7. HEENT: Head is normocephalic and atraumatic. NECK: Supple. No JVD. LUNGS: Clear to auscultation. HEART: Regular rate and rhythm with no murmurs or gallops. ABDOMEN: Soft, nontender. EXTREMITIES: No edematous. NEURO: Nonfocal. LABORATORY DATA: CBC revealed hemoglobin 9.8, white blood cell count 3.77, platelet count 274,000. There is a Chem profile reveals sodium 138, potassium 4.8, chloride 103, CO2 23, BUN 61, creatinine 3.73. ASSESSMENT: 1. Left leg cellulitis, improved. Continue antibiotic as advised. 2. Acute renal failure on chronic renal failure. Nephrology will observe for 24 more hours and the patient's condition has been discussed with case management. 3. Peripheral arterial disease. 4. Diabetes mellitus type 2. 5. Hypertension. 6. Dyslipidemia. 7. Coronary artery disease. 8. Status post coronary artery bypass graft surgery. PLAN OF CARE: Continue present care. List of medications noted. Continue to observe the patient. MD NAVEED Hsu/ANGLE /[id number]
--- NOTE | 2019-09-23 14:22 | Progress Note ---
DATE: 09/23/2019 Cardiology Progress Note SUBJECTIVE: Denies any chest pain or shortness of breath. OBJECTIVE: VITAL SIGNS: Temperature 98.7, heart rate 77, respiratory rate 19, blood pressure 154/75, O2 saturation 100% on room air. GENERAL: No acute distress. Alert. NECK: No JVD. CHEST: Clear to auscultation. CARDIOVASCULAR: Regular rate and rhythm. Normal S1 and S2. ABDOMEN: Soft. Bowel sounds positive. EXTREMITIES: 2+ edema. CARDIOVASCULAR MEDICATIONS: Reviewed. Furosemide 60 mg b.i.d., clopidogrel 75 mg daily, furosemide 325 mg daily, carvedilol 25 mg every 12 hours, atorvastatin 80 mg at bedtime, Lovenox 30 mg subcu daily. LABORATORY DATA: White blood cells 3.7, hemoglobin 9.8, and platelets 274. Sodium 138, potassium 4.8, chloride 103, bicarbonate 23, BUN 61, creatinine 3.7, glucose 98, phosphorus 6.3, calcium 7.9. COVID-19 nondetected PCR. ASSESSMENT/PLAN: 1. Left thigh cellulitis. 2. Acute on chronic renal failure. 3. Diabetes mellitus with nephropathy, neuropathy and retinopathy. 4. Near blindness. 5. Coronary artery disease, status post bypass. 6. Peripheral arterial disease with previous revascularizations. RECOMMENDATIONS: 1. Continue current cardiovascular medications. 2. Monitor renal function and volume status. 3. Diuretics at the discretion of Nephrology expertise. MD NAMITA Mccord/DEREKL /[id number]
[2019-09-23] MEDS: ENOXAPARIN 30 MG/0.3 ML SYR SC SCH (16:45)
--- NOTE | 2019-09-23 19:10 | NUR ---
PT RESTING ON BED BED SIDE REPORT GIVEN TO ONCOMING NURSE
[2019-09-23] MEDS: ATORVASTATIN 40 MG TAB PO SCH (21:02)
[2019-09-24] VITALS: BP 160/64
[2019-09-24] MEDS: CLINDAMYCIN 600MG / 50ML 50 ML IV SCH ×2 (00:47→08:41)
[2019-09-24] MEDS: ACETAMINOPHEN 325 MG TAB PO PRN (00:47)
[2019-09-24 04:00] VITALS: BP 152/74
[2019-09-24] MEDS: FAMOTIDINE 20 MG TAB PO SCH (07:30)
[2019-09-24 08:34] VITALS: BP 175/77
[2019-09-24] MEDS: SEVELAMER CARBONATE 800 MG TAB PO SCH (08:41)
[2019-09-24] MEDS: CARVEDILOL 12.5 MG TAB PO SCH (08:41)
[2019-09-24] MEDS: FUROSEMIDE 20 MG TAB PO SCH (08:42)
[2019-09-24] MEDS: FERROUS SULFATE 325 MG TAB PO SCH (08:42)
[2019-09-24] MEDS: CALCITRIOL 0.25 MCG CAP PO SCH (08:43)
[2019-09-24] MEDS: SODIUM BICARBONATE 650 MG TAB PO SCH (08:43)
[2019-09-24] MEDS: CLOPIDOGREL BISULFATE 75 MG TAB PO SCH (08:43)
[2019-09-24] MEDS: (Linagliptin (Tradjenta) 5 MG) PO SCH (08:49)
[2019-09-24] MEDS: (Cholecalciferol (Vitamin D3) (Vitamin D3) 125 MCG) PO SCH (08:49)
[2019-09-24 08:52] VITALS: BP 175/77
--- NOTE | 2019-09-24 11:08 | Progress Note ---
DATE: 09/24/2019 Cardiology Progress Note SUBJECTIVE: No complaints. OBJECTIVE: VITAL SIGNS: Temperature 98.3, heart rate 72, blood pressure 175/77, respiratory rate 19, and O2 saturation 99%. GENERAL: No acute distress. Alert. NECK: No JVD. CHEST: Clear to auscultation. CARDIOVASCULAR: Regular rate and rhythm. Normal S1, S2. ABDOMEN: Soft. Bowel sounds positive. EXTREMITIES: 1+ edema. CARDIOVASCULAR MEDICATIONS: Reviewed. Carvedilol 25 mg b.i.d., clopidogrel 75 mg daily, atorvastatin 80 mg at bedtime, Lovenox 30 mg daily, furosemide 60 mg b.i.d. LABORATORY DATA: Studies reviewed. Sodium 138, potassium 4.8, chloride 103, bicarbonate 23, BUN 61, creatinine 3.7, glucose 98, white blood cells 3.7, hemoglobin 9.8, platelets 274. AST 10, ALT 13, alkaline phosphatase 145. ASSESSMENT AND PLAN: A 48-year-old woman presents with left thigh cellulitis, bilateral lower extremity edema in the setting of volume overload and acute on chronic renal failure, coronary artery disease, peripheral artery disease, and anemia. RECOMMEND: Continue current cardiovascular medications. Volume continues to improve. Will need close outpatient followup with primary care, Cardiology, and Nephrology. Jan Cabezas MD AFEduardo/MODL /[id number]
[2019-09-24 12:22] VITALS: BP 148/69
[2019-09-24] MEDS ORDERED: RENVELA800 MG PO (14:59)
[2019-09-24] MEDS ORDERED: FUROSEMIDE20 MG PO (14:59)
[2019-09-24] MEDS ORDERED: CLINDAMYCIN HC150 MG PO (14:59)
[2019-09-24 16:36] VITALS: BP 163/77
--- NOTE | 2019-09-24 16:40 | NUR ---
pt discharged home with her , prescriptions given pt and family member educated on medications, and asked to follow up with there pcp and a therapist asst, iv site removed, no swelling no redness to site.
== END 2019-09-24 16:35 | disposition home or self-care (01) | DRG 603 ==
LOC: ER 09:19 → ERHOLD 11:09 → MED/SURG2 13:04
PROVIDERS: ADMIT Internal Medicine; ATTEND Internal Medicine
DX: L03.116 Cellulitis of left lower limb (principal); I12.0 Hypertensive chronic kidney disease with stage 5 chronic kidney disease or end stage renal disease; N18.5 Chronic kidney disease, stage 5; N17.9 Acute kidney failure, unspecified; E11.51 Type 2 diabetes mellitus with diabetic peripheral angiopathy without gangrene; Z79.4 Long term (current) use of insulin; E11.22 Type 2 diabetes mellitus with diabetic chronic kidney disease; E78.5 Hyperlipidemia, unspecified; Z95.1 Presence of aortocoronary bypass graft; D63.1 Anemia in chronic kidney disease; I25.10 Atherosclerotic heart disease of native coronary artery without angina pectoris; E11.319 Type 2 diabetes mellitus with unspecified diabetic retinopathy without macular edema; H54.7 Unspecified visual loss
CPT/HCPCS: 36415; 80048; 80053; 82948; 83970; 84100; 85025; 87635; 93926; 93971; 96361; 99284; J1650; J1817; J1940; J2270; J2405; J7030; J7799; Q0162